=== PATIENT | female | born 1995 | race Caucasian/White ===

== ENCOUNTER 2017-06-13 17:25 | Emergency (ER) | payer BC, SELFPAY ==
[2017-06-13 17:51] VITALS: BP 124/84; PULSE 83; RESP 18; O2SAT 98; BMI 25.7
--- NOTE | 2017-06-13 18:41 | HMH.EDGENADL ---
ED Disposition Clinical Impression: Medical clearance for incarceration Disposition: Home, Self-Care Condition on Discharge: Good - Critical Care Critical Care Time: No Attestation: On 06/13/17, the high probability of a clinically significant, sudden or life threatening deterioration of the following system(s) required my full and direct attention, intervention and personal management. The time I documented below is in addition to time spent performing reported procedures but includes the following listed in this critical care notation. Medical Decision Making Vital Signs: 06/13/17 17:51 Pulse Rate [Right Brachial] 83 Respiratory Rate 18 Blood Pressure [Right Arm] 124/84 Blood Pressure Mean [Right Arm] 97 Blood Pressure Source [Right Arm] Automatic Cuff Blood Pressure Position [Right Arm] Sitting 02 Sat by Pulse Oximetry 98 Oxygen Delivery Method Room Air - Cristóbal Inquiry Pt receiving controlled substance: No Cristóbal was queried for this patient: No General Adult HPI - General Chief complaint: Medical Clearance Stated complaint: medical clearance Mode of Arrival: Ambulatory Limitations: No Limitations Description of Symptoms (Recalled from ER Triage Doc. by RN): none-med clearance - History of Present Illness HPI narrative: 21 years old white female who admitted for using heroin today she was arrested. No complaint she is here for medical clearance to go to care home. - Related Data Allergies Allergy/AdvReac Type Severity Reaction Status Date / Time No Known Allergies Allergy Unverified 05/04/17 15:25 [facility] History I have reviewed the patient's past medical history: Yes - *Social History Educational Level: Completed College Alcohol Intake: never - Psychiatric History Expresses thoughts of harming self/others: None Suicide Plan Description: No Plan ROS Obtained: Yes All systems reviewed & no additional complaints Physical Exam - General General appearance: alert, in no apparent distress - Head Head exam: atraumatic, normocephalic, normal inspection - Eye Eye exam: Present: normal appearance, PERRL, EOMI - ENT ENT exam: Present: normal exam, normal oropharynx, mucous membranes moist, TM's normal bilaterally, normal external ear exam - Neck Neck exam: Present: normal inspection, full ROM, trachea midline. Absent: meningismus, lymphadenopathy - Chest Chest inspection: Present: normal inspection, symmetric chest wall rise. Absent: tenderness - Respiratory Respiratory exam: Present: normal lung sounds bilaterally. Absent: respiratory distress - Cardiovascular Cardiovascular exam: Present: regular rate, normal rhythm. Absent: JVD - Abdominal Exam Abdominal exam: Present: soft, normal bowel sounds. Absent: distention, tenderness, guarding - Extremities Exam Extremities exam: Present: normal inspection, full ROM, normal capillary refill. Absent: calf tenderness - Back Exam Back exam: Present: normal inspection. Absent: tenderness - Neurological Exam Neurological exam: Present: alert, oriented X3 - Psychiatric Psychiatric exam: Present: normal affect, normal mood - Skin Skin exam: Present: warm, dry, intact, normal color - Lymphatic Lymphatic Findings: no adenopathy
== END 2017-06-13 18:42 ==
PROVIDERS: Emergency Provider Emergency Medicine; Family Provider Family Medicine
DX: Z02.89 Encounter for other administrative examinations (principal); F11.10 Opioid abuse, uncomplicated
CPT/HCPCS: 99282

== ENCOUNTER 2019-05-11 13:41 | Outpatient (RCR) | payer BC, SELFPAY ==
--- NOTE | 2019-05-11 14:52 | HMH.PTOPEV ---
PT Outpatient Evaluation Rehab PT Outpatient Evaluation Start: 05/11/19 14:21 Freq: Status: Active Protocol: Document 05/11/19 14:21 ZACHERY (Rec: 05/11/19 14:51 ZACHERY [id number]) Electronically Signed By Dante Carrizales, PT 05/11/19 14:21 Outpatient Therapy Subjective History Subjective History Patient is a 23 year old female presenting to outpatient PT with reports of chronic low back pain starting approximately 1 year ago of insidious onset. Pt reports hx of intermittent BLE radicular symptoms to posterior thigh L>R. No recent diagnostics to report. Pelvic alignment normal. No directional preference noted. 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 No other comorbidities to report. Chief Complaint Pain,Paresthesia Symptom Type Ache,Throb,Sharp,Dull,Numbness ,Tingling Symptoms Relieved By Rest/Positioning,Prescription Meds Prior Functional Limitations None Current Functional Limitations Reaching,Lifting,Housework, Standing,Sitting,Squatting, Recreation Activity,Walking, Bending/Stooping Symptom Description Constant but Variable Level of pain today (0-10) 6 Pain scale - at its best (0-10) 3 Pain scale - at its worst (0-10) 9 Lumbopelvic Eval Posture Thoracic Spine Posture Standing Position Neutral Lumbar Spine Posture Standing Position Increased Lordosis Assistive device Assistive Devices None / NA Gait Observation General Gait Pattern Observation No Deviations/Normal Palapation tenderness bilateral lumbar spinal tenderness Yes: 3/4 paraspinal tenderness Yes: 3/4 buttock tenderness Yes: 3/4 Accessory Movement L4 bilateral L5 bilateral S1 bilateral Range of Motion Lumbar Spine ROM Reason Not Measured Within Functional Limits Manual Muscle Test Bilateral Knee Extension Strength Grade 5 Normal Knee Flexion Strength Grade 5 Normal Hip Flexion Strength Grade 5 Normal Extensor Hallucis Longus Strength Grade 5 Normal Ankle Dorsiflexion Strength Grade 5 Normal Gastronemius/Soleus Strength Grade 5 Normal DT
== END 2019-05-11 13:45 | disposition home or self-care (01) ==
LOC: PT 13:41
PROVIDERS: PCP Family Medicine; Visit Provider Family Medicine
DX: M54.5 Low back pain (principal); M62.830 Muscle spasm of back
CPT/HCPCS: 97010; 97014; 97163; G0283

== ENCOUNTER 2020-05-31 13:56 | Outpatient (CLI) | payer BC, SELFPAY ==
[2020-05-31 14:32] VITALS: BP 140/79; PULSE 77; RESP 18; TEMP 36.6; O2SAT 99
== END 2020-05-31 14:32 | disposition home or self-care (01) ==
LOC: INF 13:58
PROVIDERS: PCP Family Medicine; Visit Provider Obstetrics & Gynecology
DX: A74.9 Chlamydial infection, unspecified (principal); A59.01 Trichomonal vulvovaginitis
CPT/HCPCS: 96372

== ENCOUNTER → 2020-06-28 14:37 | Outpatient (CLI) | payer SELFPAY ==
[2020-07-02 00:48] LABS: Neisseria gonorrhoeae, NAA Negative (Negative)
== END ==
LOC: LAB 14:38 → LAB.DROPOF 14:39
PROVIDERS: Visit Provider Obstetrics & Gynecology
DX: A54.9 Gonococcal infection, unspecified (principal)
CPT/HCPCS: 87491; 87591

== ENCOUNTER → 2020-10-08 13:40 | Outpatient (CLI) | payer OTHER, SELFPAY ==
[2020-10-08 16:20] LABS: HCG,Quantitative 21433 mIU/ml (0-5.42)
== END ==
PROVIDERS: Visit Provider Nurse Practitioner Obstetrics & Gynecology
DX: N92.6 Irregular menstruation, unspecified (principal)
CPT/HCPCS: 36415; 84702

== ENCOUNTER → 2020-11-05 09:56 | Outpatient (CLI) | payer OTHER, SELFPAY ==
--- NOTE | 2020-11-05 10:00 | US_ITS ---
PROCEDURE: US OB <= 14 WEEKS FETUS CLINICAL INDICATION: US OB before 14 wks for DATES-1st US no pa needed COMPARISON: No exams were available for comparison FINDINGS: An intrauterine gestational sac is present with a pole with a crown-rump length of 3.22cm correlating to gestational age of 10weeks 1day. heart tones are present with an FHR of 170bpm. Yolk sac is noted. IMPRESSION: Live IUP at 10 weeks 1 day. Estimated due date by Ultrasound is 06/02/2021 Dictated by: Dewayne Martins MD 11/05/2020 11:53 Dewayne Martins MD in OV 11/05/2020 11:53
== END ==
PROVIDERS: PCP Family Medicine; Visit Provider Nurse Practitioner Obstetrics & Gynecology
DX: O26.841 Uterine size-date discrepancy, first trimester (principal)
CPT/HCPCS: 76801

== ENCOUNTER 2020-12-03 15:33 | Emergency (ER) | payer OTHER, SELFPAY ==
[2020-12-03 15:40] VITALS: BP 124/69; PULSE 109; RESP 19; TEMP 36.6; O2SAT 98; BMI 32.4
--- NOTE | 2020-12-03 16:15 | HMH.EDUTC ---
[facility] [place] Disposition Clinical Impression: Low back pain Qualifiers: Chronicity: unspecified Back pain laterality: unspecified Sciatica presence: unspecified whether sciatica present Qualified Code(s): M54.5 - Low back pain Disposition: Home, Self-Care Condition on Discharge: Good Instructions: Medications and , DI for Low Back Pain Additional Instructions: Follow instructions that was given to you by your OBGYN Warm epson salt water baths as advised by OBGYN Make sure to check with pharmacy before taking any medication to make sure it is safe to take during Return if needed Follow up with OBGYN as scheduled Referrals: Rogelio Fine MD [Primary Care Provider] - As needed Time of Disposition: 16:20 Medical Decision Making - Cristóbal Inquiry Pt receiving controlled substance: No Cristóbal was queried for this patient: No Vital Signs: 12/03/20 15:40 12/03/20 16:17 Temperature 97.9 F 97.9 F Temperature Source Oral Pulse Rate 109 H Pulse Rate [Right Brachial] 109 H Respiratory Rate 19 19 Blood Pressure 124/69 Blood Pressure [Right Arm] 124/69 Blood Pressure Mean [Right Arm] 87 Blood Pressure Source [Right Arm] Automatic Cuff Blood Pressure Position [Right Arm] Sitting 02 Sat by Pulse Oximetry 98 Oxygen Delivery Method Room Air Medical Decision Narrative: Requested Urine sample for UA and patient declined states that she did not have to urinate Patient complaining of pain in her lower back area and wanted to see if she could get something for pain Patient is 12wks OB and discussed with patient that most medications used to treat muscle spasms and pain is not baby safe Patient states that she tried to call her OBGYN and they did not answer recommended transfer to the ED for further evaluation and treatment and patient declined transfer Patient OBGYN called while patient was in [facility] and advised her OTC Tylenol and hot bath soaks with epson salt and follow up in clinic on Wednesday if no improvement or straight to the ER if any worsening of symptoms and patient agreed. Patient requesting to go home and be dcd from [facility] again recommended patient collect urine to r/o UTI and transfer to the ED and patient declined all further treatment [facility] [place] HPI - General Stated complaint: 12 weeks preg back pain Time Seen by Provider: 12/03/20 16:15 Mode of Arrival: Ambulatory Source of Information: Patient Limitations: No Limitations Description of Symptoms (Recalled from Triage Doc. by RN): PATIENT IS 3 MONTHS WITH BACK PAIN SINCE NOON. SHE RATES IT 10/10 WHEN STANDING HEENT Symptoms (Recalled from RN notes): No Resp Symptoms (Recalled from RN notes): No Skin Symptoms (Recalled from RN notes): No MS Symptoms (Recalled from RN notes): Yes Functional Status (Recalled from RN notes): WNL - History of Present Illness Provider Complaint: Patient states that she has a history of back problems and sciatica States that she is 12wks OB and she went to stand up earlier and felt something pull in her lower back and states that she has been having muscle spasms ever since State that she tried to call her OBGYN and they didnt answer so she came in to see if she could get something for pain Denies bleeding - Related Data Home Medications Medication Instructions Recorded Confirmed sumatriptan succinate 100 mg tablet 100 mg PO Q2H PRN 05/24/20 11/14/20 PNV 153-FA 400 mcg-om3 35 mg-dha tab PO 10/29/20 11/14/20 25 mg-epa 5 mg-fish oil chew tablet Previous Rx's Medication Instructions Recorded famotidine 20 mg tablet 20 mg PO DAILY 90 Days #90 tab 10/09/20 Allergies Allergy/AdvReac Type Severity Reaction Status Date / Time clindamycin Allergy Verified 11/14/20 11:01 - Worker's Comp Is this a Worker's Comp case?: No [facility] History - Hepatitis A Screen Drug use history?: No High risk sexual behaviors?: No History of sexually transmitted infection?: No Currently employed?: No Childcare worker?: No
[2020-12-03 16:17] VITALS: BP 124/69; PULSE 109; RESP 19; TEMP 36.6; O2SAT 98
== END 2020-12-03 16:20 | disposition home or self-care (01) ==
PROVIDERS: Emergency Provider Nurse Practitioner; PCP Family Medicine
DX: M54.5 Low back pain (principal); Z3A.12 12 weeks gestation of pregnancy; F41.8 Other specified anxiety disorders; F17.210 Nicotine dependence, cigarettes, uncomplicated
CPT/HCPCS: 99202; G0463

== ENCOUNTER 2021-02-08 17:30 | Emergency (ER) | payer OTHER, SELFPAY ==
[2021-02-08 17:30] VITALS: BP 123/68; PULSE 102; RESP 20; TEMP 36.7; O2SAT 97; BMI 35.2
[2021-02-08 17:53] VITALS: BP 123/68; PULSE 102; RESP 20; TEMP 36.7; O2SAT 97
--- NOTE | 2021-02-08 18:05 | HMH.EDUTC ---
[facility] [place] Disposition Clinical Impression: Bronchitis Qualifiers: Weeks of gestation: 24 weeks Qualified Code(s): Z3A.24 - 24 weeks gestation of Disposition: Home, Self-Care Condition on Discharge: Good Instructions: DI for Acute Bronchitis Additional Instructions: You have been tested for COVID19. Please isolate yourself as if you are positive until test results are received. I have sent Albuterol Inhaler and Prednisone. Try to stay hydrated. You can use Robitussin or Delsym. Prescriptions: Albuterol Sulfate [Albuterol Sulfate Hfa] 2 puffs IH Q4HP PRN 30 Days #1 each PRN Reason: Wheezing Transmission Status: Pending to [id number] predniSONE [Prednisone 20mg Tab] 20 mg PO BID 5 Days #10 tab Transmission Status: Pending to [id number] Referrals: Rogelio Fine MD [Primary Care Provider] - Time of Disposition: 18:21 Medical Decision Making - Cristóbal Inquiry Pt receiving controlled substance: No Vital Signs: 02/08/21 17:30 02/08/21 17:53 Temperature 98.1 F 98.1 F Temperature Source Oral Pulse Rate 102 H Pulse Rate [Right Brachial] 102 H Respiratory Rate 20 20 Blood Pressure 123/68 Blood Pressure [Right Arm] 123/68 Blood Pressure Mean [Right Arm] 86 Blood Pressure Source [Right Arm] Automatic Cuff Blood Pressure Position [Right Arm] Sitting 02 Sat by Pulse Oximetry 97 Oxygen Delivery Method Room Air Orders (Tests/Meds): ORDERS Category Date Time Status Covid-19 Nasal PCR ([facility]) Routine Lab 02/08/21 17:43 Received [facility] [place] HPI - General Stated complaint: covid test/symptoms Time Seen by Provider: 02/08/21 18:05 Mode of Arrival: Ambulatory Source of Information: Patient Limitations: No Limitations Description of Symptoms (Recalled from Triage Doc. by RN): COVID TEST D/T EXPOSURE. C/O VOMITING, DIARRHEA, SORE THROAT, AND LOSS OF VOICE HEENT Symptoms (Recalled from RN notes): Yes Resp Symptoms (Recalled from RN notes): No Skin Symptoms (Recalled from RN notes): No MS Symptoms (Recalled from RN notes): No Functional Status (Recalled from RN notes): wnl - History of Present Illness Provider Complaint: Patient has cough, loss of voice, shortness of breath, vomiting and diarrhea. Has felt poorly for a week. Gets bronchitis frequently. She does smoke. She is 6 months . No fever. She does not have direct COVID19 exposure but her boyfriend has been exposed and is getting tested as well. Onset (ago): week(s) (1) Location: chest Relieving factors: none Exacerbating factors: none Associated symptoms: cough, malaise, nausea/vomiting Treatments prior to arrival: none - Related Data Home Medications Medication Instructions Recorded Confirmed sumatriptan succinate 100 mg tablet 100 mg PO Q2H PRN 05/24/20 11/14/20 PNV 153-FA 400 mcg-om3 35 mg-dha tab PO 10/29/20 11/14/20 25 mg-epa 5 mg-fish oil chew tablet Previous Rx's Medication Instructions Recorded famotidine 20 mg tablet 20 mg PO DAILY 90 Days #90 tab 10/09/20 Albuterol Sulfate [Albuterol 2 puffs IH Q4HP PRN 30 Days #1 each 02/08/21 Sulfate Hfa] predniSONE [Prednisone 20mg 20 mg PO BID 5 Days #10 tab 02/08/21 Tab] Allergies Allergy/AdvReac Type Severity Reaction Status Date / Time clindamycin Allergy Verified 11/14/20 11:01 - Worker's Comp Is this a Worker's Comp case?: No [facility] History - Hepatitis A Screen Drug use history?: No High risk sexual behaviors?: No History of sexually transmitted infection?: No Currently employed?: No Childcare worker?: No Do you have indoor plumbing?: Yes Do you have electricity?: Yes Attestation statement:: This patient has been screened for Hepatitis A risk factors. I have reviewed the patient's past medical history: Yes Medical History: Reports:: Anxiety, Depression Denies:: Diabetes Mellitus Type 1, Seizures Laterality Cases: Bilateral: Tonsillectomy Other Surgeries: Yes: Other Amputation: No
[2021-02-08 18:29] LABS: UTC Strep Screen (Rapid) Positive (Negative)
== END 2021-02-08 18:42 | disposition home or self-care (01) ==
PROVIDERS: Emergency Provider Physician Assistant; PCP Family Medicine
DX: J20.9 Acute bronchitis, unspecified (principal); Z20.822 Contact with and (suspected) exposure to COVID-19; Z3A.24 24 weeks gestation of pregnancy; F17.210 Nicotine dependence, cigarettes, uncomplicated
CPT/HCPCS: 87880; 99203; C9803; G0463; U0003; U0005

== ENCOUNTER 2021-02-22 11:44 | Emergency (ER) | payer OTHER, SELFPAY ==
[2021-02-22 11:44] VITALS: BP 123/73; PULSE 116; RESP 20; TEMP 36.9; O2SAT 98; BMI 34.3
--- NOTE | 2021-02-22 12:51 | HMH.EDGENADL ---
ED Disposition Clinical Impression: Cutaneous abscess Qualifiers: Site of cutaneous abscess: extremity Site of cutaneous abscess of extremity: upper extremity Laterality: left Qualified Code(s): L02.414 - Cutaneous abscess of left upper limb Disposition: Home, Self-Care Condition on Discharge: Good Instructions: DI for Skin Abscess Additional Instructions: Additional instructions for ABSCESS: Day one and two: Remove the bandage and shower the area, leaving the packing in place. Gently blot dry. Apply a bandage. Day three: Follow-up with primary care physician, clinic, or Urgent Treatment Center for packing removal and culture results. Return to the emergency department if increasing pain, swelling, redness, red streaks or fever greater than 101 degrees. Referrals: Rogelio Fine MD [Primary Care Provider] - - Critical Care Critical Care Time: No Attestation: On 02/22/21, the high probability of a clinically significant, sudden or life threatening deterioration of the following system(s) required my full and direct attention, intervention and personal management. The time I documented below is in addition to time spent performing reported procedures but includes the following listed in this critical care notation. Medical Decision Making - Cristóbal Inquiry Pt receiving controlled substance: No Vital Signs: 02/22/21 11:44 Temperature 98.5 F Temperature Source Oral Pulse Rate [Radial] 116 H Respiratory Rate 20 Blood Pressure [Right Arm] 123/73 Blood Pressure Mean [Right Arm] 89 Blood Pressure Position [Right Arm] Sitting 02 Sat by Pulse Oximetry 98 Oxygen Delivery Method Room Air Orders (Tests/Meds): ORDERS Category Date Time Status Wound Culture and Gram Stain Stat Micro 02/22/21 12:25 Received Medical Decision Narrative: The patient is allergic to clindamycin and is , which complicates antibiotic choices. I discussed the case with pharmacy. According to pharmacy, there are really no good options for antibiotics other than a single dose of vancomycin at this time or observation without antibiotics, given that there is no significant cellulitis and the patient is nontoxic. Doxycycline and Bactrim contraindicated. Zyvox is a potential, but there is limited experience in . Rifampin was also discussed. I offered the patient a dose of vancomycin prior to discharge, to be given intravenously, but she refuses. She says that given her she would prefer not to be on antibiotics, which I also think is a reasonable approach since there is no significant surrounding cellulitis and she is not toxic. I did advise her of the importance of follow-up in 2 to 3 days for recheck, packing removal, and culture results and to return to the emergency department sooner if any worsening such as spreading redness or fever. General Adult HPI - General Chief complaint: Skin/Abscess/Foreign Body Stated complaint: sore on left hand Time Seen by Provider: 02/22/21 12:30 Mode of Arrival: Ambulatory Limitations: No Limitations Description of Symptoms (Recalled from ER Triage Doc. by RN): to ed per pvt car with c/o abscess to lt wrist starting 2 days ago progressively getting worse. pt approx 6.5months preg. denies any fever, chills, nausea, vomiting - History of Present Illness HPI narrative: 2-day history of an abscess on her left wrist. No injury recalled. She denies current intravenous drug use, although she says she has a history of that in the past, but none recently. Denies fever. Currently 6-1/2 months gestation . Allergy to clindamycin which causes rash and itching. - Related Data Home Medications Medication Instructions Recorded Confirmed sumatriptan succinate 100 mg tablet 100 mg PO Q2H PRN 05/24/20 11/14/20 PNV 153-FA 400 mcg-om3 35 mg-dha tab PO 10/29/20 11/14/20 25 mg-epa 5 mg-fish oil chew tablet Previous Rx's Medication Instructions Recorded gary
[2021-02-22 13:08] VITALS: BP 124/65; PULSE 78; RESP 16; TEMP 36.6; O2SAT 98
== END 2021-02-22 13:11 | disposition home or self-care (01) ==
PROVIDERS: Emergency Provider Emergency Medicine; PCP Family Medicine
DX: L02.414 Cutaneous abscess of left upper limb (principal); Z33.1 Pregnant state, incidental
CPT/HCPCS: 10060; 87070; 87077; 87186; 87205; 99282

== ENCOUNTER 2021-02-24 10:04 | Emergency (ER) | payer OTHER, SELFPAY ==
[2021-02-24 11:54] VITALS: BP 0/0; PULSE 0; RESP 0; TEMP -17.7; TEMP 0
== END 2021-02-24 11:55 | disposition left against medical advice (07) ==
LOC: UTC 10:06
PROVIDERS: Emergency Provider Nurse Practitioner; PCP Family Medicine
DX: Z53.21 Procedure and treatment not carried out due to patient leaving prior to being seen by health care provider (principal)

== ENCOUNTER 2021-02-25 16:55 | Emergency (ER) | payer OTHER, SELFPAY ==
[2021-02-25 18:28] VITALS: BP 141/79; PULSE 74; RESP 16; TEMP 36.6; O2SAT 99; BMI 36.0
[2021-02-25 18:45] VITALS: BP 0/0; PULSE 0; RESP 0; TEMP -17.7; TEMP 0
== END 2021-02-25 18:46 | disposition home or self-care (01) ==
LOC: UTC 17:00
PROVIDERS: Emergency Provider Nurse Practitioner; PCP Family Medicine
DX: L02.414 Cutaneous abscess of left upper limb (principal)
CPT/HCPCS: 99202; G0463

== ENCOUNTER 2022-03-09 16:02 | Emergency (ER) | payer OTHER, SELFPAY ==
[2022-03-09 16:03] VITALS: BP 140/92; PULSE 98; RESP 19; TEMP 36.8; O2SAT 99; BMI 39.0
--- NOTE | 2022-03-09 18:41 | EXP.UTC ---
Discharge Plan Disposition Patient Disposition: Home, Self-Care Condition: Good Prescriptions Prescriptions: No Action sumatriptan succinate [Imitrex] 100 mg tablet 100 mg PO Q2H PRN Rx Instructions: do not exceed 2 doses per 24 hrs albuterol sulfate 8.5 GM HFA aerosol inhaler 2 puffs IH Q4HP PRN (Reason: Wheezing) 30 Days Qty: 1 0RF Referrals Follow up/Referrals: Shawna Raya APRN [Primary Care Provider] - See instructions Activity Restrictions/Add. Instructions Additional Instructions/Restrictions: *Monitor Temp, Over the counter Motrin or Tylenol as directed/as needed Tylenol every 4 hours and Motrin every 6 hours (as long as your family doctor has told you that you can take it) for fever or pain. and straight to ER if unable to lower temp less than 101.0 after medication given *Warm salt water gargles may help to soothe the throat *Throat Lozenges? *Warm fluids like tea with honey may help to soothe the throat? *Sleep elevated *Humidifier/Vaporizer Check with the pharmacist before taking Over the counter cough and cold medication where you are breast feeding Your throat swab was sent for culture. Those results are typically sent to your primary care. Be sure to follow up in 2-3 days with your family doctor/primary care physician if no improvement so they can review those result and treat if necessary. If you don?t have a primary care doctor, I recommend you get one but in the mean time, you will have to return to a walk in clinic Follow up IMMEDIATELY for new or worsening symptoms or no Noticeable improvement over the next 48-72 hours. 911 for difficulty breathing or swallowing You were tested for today for COVID19 your test result should be back in the next 24-48 hours, you may check your results on the [facility] [employer] [facility] Clinical Impressions Clinical Impression: Viral upper respiratory tract infection with cough Stand Alone Forms Stand Alone Forms: Work/School Release Instructions Patient Instructions: Cough, Coronavirus Disease 2019, Preventing the Spread of Coronavirus Discharge Instructions Discharge ED Provider: Nany Milian [facility] [place] HPI General Stated complaint: BODY ACHES, SORE THROAT Mode of Arrival: Ambulatory Source of Information: Patient Limitations: No Limitations Time Seen by Provider: 03/09/22 18:41 Description of Symptoms (Recalled from Triage Doc. by RN): bosy aches, cough, chills fatigue positive covid test HEENT Symptoms (Recalled from RN notes): Yes Resp Symptoms (Recalled from RN notes): Yes Skin Symptoms (Recalled from RN notes): No MS Symptoms (Recalled from RN notes): No Functional Status (Recalled from RN notes): n/a History of Present Illness Provider Complaint: Patient states that her 9mth old tested positive for COVID over the weekend and now she started having body aches, chills, cough and fatigue States that she took a home COVID test and it was positive so she came in here to get tested Related Data Home Medications Medication Instructions Recorded Confirmed sumatriptan succinate 100 mg 100 mg PO Q2H PRN 05/24/20 06/06/21 tablet (Imitrex) Previous Rx's Medication Instructions Recorded albuterol sulfate 90 mcg/actuation 2 puffs IH Q4HP PRN Wheezing 30 02/08/21 aerosol inhaler days #1 ea Allergies Allergy/AdvReac Type Severity Reaction Status Date / Time clindamycin Allergy Verified 06/06/21 08:35 Worker's Comp Is this a Worker's Comp case?: No PFSH PFSH Social History Smoking Status: Current every day smoker tobacco type: cigarettes packs per day: 1 alcohol intake: never substance use type: heroin and amphetamines current occupational status: other Travel in the last 8 weeks: None household members: family housing: house ROS Obtained: Yes All systems reviewed & no additional complaints except as documented and Yes Systems reviewed as appropriate & no additional complaints except a
[2022-03-09 18:50] LABS: UTC Strep Screen (Rapid) Negative (Negative)
[2022-03-09 19:25] VITALS: BP 141/80; PULSE 91; RESP 18; TEMP 37.2; O2SAT 98
== END 2022-03-09 19:26 | disposition home or self-care (01) ==
PROVIDERS: Emergency Provider Nurse Practitioner; PCP Nurse Practitioner Family
DX: U07.1 COVID-19 (principal); J06.9 Acute upper respiratory infection, unspecified; J02.9 Acute pharyngitis, unspecified; R06.2 Wheezing; M79.10 Myalgia, unspecified site; Z79.51 Long term (current) use of inhaled steroids; R53.82 Chronic fatigue, unspecified; Z88.0 Allergy status to penicillin; Z88.1 Allergy status to other antibiotic agents; Z88.3 Allergy status to other anti-infective agents
CPT/HCPCS: 87880; 99213; C9803; G0463; U0003; U0005

== ENCOUNTER 2022-05-03 15:09 | Emergency (ER) | payer OTHER, SELFPAY ==
[2022-05-03 15:33] VITALS: BP 133/86; PULSE 90; RESP 16; TEMP 36.8; O2SAT 96; BMI 38.2
--- NOTE | 2022-05-03 15:59 | EXP.UTC ---
Discharge Plan Disposition Patient Disposition: Home, Self-Care Condition: Good Prescriptions Prescriptions: No Action sumatriptan succinate [Imitrex] 100 mg tablet 100 mg PO Q2H PRN Rx Instructions: do not exceed 2 doses per 24 hrs albuterol sulfate 8.5 GM HFA aerosol inhaler 2 puffs IH Q4HP PRN (Reason: Wheezing) 30 Days Qty: 1 0RF Referrals Follow up/Referrals: Jazlyn Stern MD [Primary Care Provider] - See instructions Clinical Impressions Clinical Impression: Headache Qualifiers: Headache type: unspecified Headache chronicity pattern: acute headache Intractability: not intractable Qualified Code(s): R51.9 - Headache, unspecified Instructions Patient Instructions: DI for Chronic Pain -- Adult Discharge ED Provider: Mer Skinner [facility] General Stated complaint: ear ache, LEAL Mode of Arrival: Ambulatory Source of Information: Patient Limitations: No Limitations Time Seen by Provider: 05/03/22 15:35 Description of Symptoms (Recalled from Triage Doc. by RN): pt comes in with c/o bilateral ear pain, migraine, headache. symptoms began 2 days ago HEENT Symptoms (Recalled from RN notes): Yes Resp Symptoms (Recalled from RN notes): No Skin Symptoms (Recalled from RN notes): No MS Symptoms (Recalled from RN notes): No Functional Status (Recalled from RN notes): n/a History of Present Illness Provider Complaint: Pt states that she has a history of migraines and has had a prescription for Tramadol in the past. She states that she has had her current headache for 2 days. She reports that it is mainly on her right side and causes ear pain. She has taken Tylenol/Motrin in the past but has not had any medication today for her symptoms. Related Data Home Medications Medication Instructions Recorded Confirmed sumatriptan succinate 100 mg 100 mg PO Q2H PRN 05/24/20 06/06/21 tablet (Imitrex) Previous Rx's Medication Instructions Recorded albuterol sulfate 90 mcg/actuation 2 puffs IH Q4HP PRN Wheezing 30 02/08/21 aerosol inhaler days #1 ea Allergies Allergy/AdvReac Type Severity Reaction Status Date / Time clindamycin Allergy Verified 05/03/22 15:36 Worker's Comp Is this a Worker's Comp case?: No [facility] Disclaimer: The information contained in this section may have been updated after the patient was seen, as this information can be updated by other users. Social History Smoking Status: Current every day smoker tobacco type: cigarettes packs per day: 1 alcohol intake: never substance use type: heroin and amphetamines current occupational status: other Travel in the last 8 weeks: None household members: family housing: house ROS Obtained: Yes Systems reviewed as appropriate & no additional complaints except as documented Constitutional Constitutional: Reports as per HPI and Reports headache(s) Eyes Eyes: Reports system reviewed and no additional complaints, except as documented ENT Ears, Nose, Mouth, and Throat: Reports as per HPI, Reports otalgia and Reports headache(s) Cardiovascular Cardiovascular: Reports system reviewed and no additional complaints, except as documented Respiratory Respiratory: Reports system reviewed and no additional complaints, except as documented Gastrointestinal Gastrointestingal: Reports system reviewed and no additional complaints, except as documented Genitourinary Female Genitourinary: Reports system reviewed and no additional complaints, except as documented Musculoskeletal Musculoskeletal: Reports system reviewed and no additional complaints, except as documented Integumentary/Breasts Skin/Breast: Reports system reviewed and no additional complaints, except as documented Neurologic Neurologic: Reports system reviewed and no additional complaints, except as documented and Reports headache(s) Endocrine Endocrine: Reports system reviewed and no additional complaints, except as documented Hematologic/Lymphatic Henatologic/Ly
[2022-05-03 16:13] VITALS: BP 133/86; PULSE 90; RESP 16; TEMP 36.8
== END 2022-05-03 16:14 | disposition home or self-care (01) ==
PROVIDERS: Emergency Provider Nurse Practitioner Family; PCP Family Medicine
DX: R51.9 Headache, unspecified (principal)
CPT/HCPCS: 96372; 99212; G0463

== ENCOUNTER → 2022-06-04 13:11 | Outpatient (CLI) | payer OTHER, SELFPAY ==
[2022-06-04 13:39] LABS: Basophils # 0.2 K/mm3 (0-0.2); Basophils % 1.6 % (0.1-2.0); Eosinophils # 0.3 K/mm3 (0.0-0.4); Eosinophils % 2.6 % (0.1-12.0); Hemoglobin 14.2 g/dL (12.2-16.2); Lymphocytes # 3.1 K/mm3 (0.7-4.5); Lymphocytes % 31.6 % (10-50); Mean Corpuscular HGB Conc 33.1 g/dL (31.8-35.4); Mean Corpuscular Hemoglobin 29.4 pg (27.0-31.2); Mean Corpuscular Volume 88.8 fl (81-99); Mean Platelet Volume 8.2 fl (7.4-10.4); Monocytes # 0.4 K/mm3 (0.1-1.0); Monocytes % 4.4 % (1.7-9.3); Neutrophils # 5.9 K/mm3 (1.8-7.8); Neutrophils % 59.7 % (37.0-80.0); Platelet Count 382 K/mm3 (142-424); Red Blood Count 4.84 M/mm3 (4.20-5.40); Red Cell Distribution Width 13.8 % (11.5-17.5); White Blood Count 9.9 K/mm3 (4.8-10.8)
[2022-06-04 14:07] LABS: Alanine Aminotransferase 131 U/L (12-78); Albumin Level 4.9 g/dl (3.5-5.0); Albumin/Globulin Ratio 1.8 (1.1-1.8); Alkaline Phosphatase 181 U/L (38-126); Amylase 84 U/L (30-110); Anion Gap 17.4 mEq/L (5-15); Aspartate Amino Transferase 89 U/L (14-36); Bilirubin,Total 0.4 mg/dl (0.2-1.3); Blood Urea Nitrogen 16 mg/dl (7-17); Calcium 9.4 mg/dl (8.4-10.2); Carbon Dioxide 21 mmol/L (22.0-30.0); Chloride 105 mmol/L (98-107); Estimated Glomerular Filt Rate 100 ml/min (>60); GFR (African American) 121 ML/MIN (>60); Globulin 2.7 g/dL (1.3-3.2); Glucose 124 mg/dl (74-100); Lipase 72 U/L (23-300); Potassium 4.4 mmoL/L (3.5-5.1); Sodium 139 mmol/L (136-145); Total Protein,Serum 7.6 g/dl (6.3-8.2)
[2022-06-04 14:23] LABS: Free T4 (Free Thyroxine) 0.86 ng/dl (0.78-2.19)
[2022-06-04 14:24] LABS: HCG,Quantitative < 2 mIU/ml (0-5.42)
[2022-06-04 14:39] LABS: Thyroid Stimulating Hormone 1.59 uIU/mL (0.465-4.68)
[2022-06-06 05:09] LABS: Estradiol 67.3 pg/mL (.); FSH 2.6 mIU/mL (.); LH 8.3 mIU/mL (.)
== END ==
PROVIDERS: PCP Nurse Practitioner Family; Visit Provider Nurse Practitioner Family
DX: R11.2 Nausea with vomiting, unspecified (principal); N91.2 Amenorrhea, unspecified
CPT/HCPCS: 36415; 80053; 82150; 82670; 83001; 83002; 83690; 84439; 84443; 84702; 85025

== ENCOUNTER → 2022-06-19 08:58 | Outpatient (CLI) | payer OTHER, SELFPAY ==
--- NOTE | 2022-06-19 09:01 | US_ITS ---
FINAL REPORT TECHNIQUE: Ultrasound images of the abdomen were obtained. CLINICAL HISTORY: N/V,ABSENCE OF MENSTRUATION,ABD FULLNESS COMPARISON: none FINDINGS: ABDOMINAL ULTRASOUND COMPLETE: The liver is fatty infiltrated. Gallstones are noted in the gallbladder. The common duct measures 4 mm. The right kidney measures 10.6 cm in length and is normal in echogenicity without hydronephrosis. The left kidney measures 12.1 cm in length and is normal in echogenicity without hydronephrosis. The spleen is borderline enlarged at 12.5 cm in length. The pancreas is partially obscured by overlying bowel gas. The visualized portions of the aorta and the IVC are normal. The vena cava is unremarkable. IMPRESSION: Gallstones in the gallbladder. Fatty infiltration of the liver. Reviewed, Interpreted and Dictated by Jarred Salcedo III, MD Transcribed by Jessi Nazario Authenticated and [facility]
== END ==
PROVIDERS: PCP Nurse Practitioner Family; Visit Provider Nurse Practitioner Family
DX: R11.2 Nausea with vomiting, unspecified (principal); R19.8 Other specified symptoms and signs involving the digestive system and abdomen; N91.2 Amenorrhea, unspecified
CPT/HCPCS: 76700

== ENCOUNTER → 2022-07-14 10:06 | Outpatient (CLI) | payer OTHER, SELFPAY ==
[2022-07-14 10:55] LABS: Urine Pregnancy, HCG Qual. Negative (Negative)
[2022-07-14 11:02] LABS: Basophils # 0.2 K/mm3 (0-0.2); Basophils % 1.9 % (0.1-2.0); Eosinophils # 0.4 K/mm3 (0.0-0.4); Eosinophils % 3.6 % (0.1-12.0); Hemoglobin 14.7 g/dL (12.2-16.2); Lymphocytes # 3.2 K/mm3 (0.7-4.5); Lymphocytes % 31.3 % (10-50); Mean Corpuscular HGB Conc 32.6 g/dL (31.8-35.4); Mean Corpuscular Hemoglobin 29.8 pg (27.0-31.2); Mean Corpuscular Volume 91.2 fl (81-99); Mean Platelet Volume 9.1 fl (7.4-10.4); Monocytes # 0.5 K/mm3 (0.1-1.0); Monocytes % 5.3 % (1.7-9.3); Neutrophils # 5.9 K/mm3 (1.8-7.8); Platelet Count 371 K/mm3 (142-424); Red Blood Count 4.93 M/mm3 (4.20-5.40); Red Cell Distribution Width 13.5 % (11.5-17.5); White Blood Count 10.2 K/mm3 (4.8-10.8)
[2022-07-14 11:09] LABS: INR 1.03 (0.9-1.1); Prothrombin Time 11.1 seconds (10.1-12.5)
[2022-07-14 12:17] LABS: Chloride 106 mmol/L (98-107); Potassium 5.2 mmoL/L (3.5-5.1); Sodium 137 mmol/L (136-145)
[2022-07-14 12:19] LABS: Blood Urea Nitrogen 18 mg/dl (7-17)
[2022-07-14 12:20] LABS: Alanine Aminotransferase 120 U/L (12-78); Albumin Level 4.8 g/dl (3.5-5.0); Albumin/Globulin Ratio 1.6 (1.1-1.8); Alkaline Phosphatase 178 U/L (38-126); Anion Gap 15.2 mEq/L (5-15); Aspartate Amino Transferase 79 U/L (14-36); Bilirubin,Total 0.5 mg/dl (0.2-1.3); Calcium 9.5 mg/dl (8.4-10.2); Carbon Dioxide 21 mmol/L (22.0-30.0); Estimated Glomerular Filt Rate 100 ml/min (>60); GFR (African American) 121 ML/MIN (>60); Glucose 102 mg/dl (74-100); Total Protein,Serum 7.8 g/dl (6.3-8.2)
== END ==
PROVIDERS: PCP Nurse Practitioner Family; Visit Provider Surgery
DX: Z01.812 Encounter for preprocedural laboratory examination (principal); K80.20 Calculus of gallbladder without cholecystitis without obstruction
CPT/HCPCS: 36415; 80053; 81025; 85025; 85610

== ENCOUNTER → 2022-07-16 10:04 | Outpatient (CLI) | payer OTHER, SELFPAY ==
[2022-07-16 12:49] LABS: Alanine Aminotransferase 112 U/L (12-78); Albumin Level 4.8 g/dl (3.5-5.0); Albumin/Globulin Ratio 1.9 (1.1-1.8); Alkaline Phosphatase 168 U/L (38-126); Anion Gap 13.8 mEq/L (5-15); Aspartate Amino Transferase 59 U/L (14-36); Bilirubin,Total 0.5 mg/dl (0.2-1.3); Blood Urea Nitrogen 15 mg/dl (7-17); Calcium 9.3 mg/dl (8.4-10.2); Carbon Dioxide 24 mmol/L (22.0-30.0); Chloride 102 mmol/L (98-107); Estimated Glomerular Filt Rate 85 ml/min (>60); GFR (African American) 103 ML/MIN (>60); Globulin 2.5 g/dL (1.3-3.2); Glucose 96 mg/dl (74-100); Potassium 4.8 mmoL/L (3.5-5.1); Sodium 135 mmol/L (136-145); Total Protein,Serum 7.3 g/dl (6.3-8.2)
[2022-07-18 23:22] LABS: Hep A Ab, IgM NEGATIVE; Hepatitis B Core Antibody IgM NEGATIVE; Hepatitis B Surface Antigen NEGATIVE; Hepatitis C Antibody NON REACTIVE
== END ==
PROVIDERS: PCP Nurse Practitioner Family; Visit Provider Surgery
DX: K80.20 Calculus of gallbladder without cholecystitis without obstruction (principal)
CPT/HCPCS: 36415; 80053; 80074

== ENCOUNTER 2022-07-20 06:22 | Day surgery (SDC) | payer OTHER, SELFPAY ==
[2022-07-15 14:21] VITALS: BMI 41.5
[2022-07-20] VITALS (11 sets, daily range): BP systolic 118–172; BP diastolic 38–102; PULSE 82–104; RESP 12–18; TEMP 36.3–43; O2SAT 95–98
--- NOTE | 2022-07-20 08:22 | P.OP_ITS ---
Date of procedure: 07/20/22 Pre-op Diagnosis:: Symptomatic gallstones, abnormal liver function test Post-op Diagnosis:: Same Procedure performed:: Laparoscopic cholecystectomy Laparoscopic liver biopsy Surgeon:: Jarred Lee MD CORRECTIONS OFFICER:: Oscar Pardo Anesthesia: GETA Estimated blood loss (mL): 10 Clinical Note:: Patient is a 27-year-old female referred by Dr. Stern's office for gallstones.? Patient had apparently undergone blood work which revealed slight elevation of transaminases and alkaline phosphatase.? She had a gallbladder ultrasound which reveals gallstones and fatty infiltration of the liver.? Common bile duct measures 4 mm.? She was under the impression that the gallbladder may be causing the fatty liver.? However, she has had symptoms stating that whenever she eats or drinks anything or vapes she has nausea, gagging, and vomiting.? This has been going on about 2 months.? It occurs with most foods usually within 30 to 60 minutes postprandially.? She denies any history of hepatitis.? She is 1 year status post .? Operative findings:: She had findings of significant steatohepatitis and hepatomegaly. Gallbladder was somewhat distended with moderate stone. Operative note:: Patient was taken to the operating room. She was given preoperative intravenous antibiotics. In the operating room she is placed in a supine position. General anesthesia was induced via endotracheal tube. Abdomen was prepped and draped in the standard surgical fashion. Subumbilical skin incision was made and while performing abdominal wall lift Veress needle was inserted. CO2 pneumoperitoneum was achieved to 15 mmHg. 11 mm optical trocar was inserted at the umbilicus. Intraperitoneal contents were visualized. She was positioned in reverse Trendelenburg left side down. A couple of 5 mm trocars were inserted in the right upper abdomen. 10 mm trocar was inserted in the epigastrium. She was found to have findings of significant fatty liver. Gallbladder was identified and grasped retracted anteriorly and superiorly over the dome of the liver. Infundibulum of the gallbladder was retracted anterior laterally. Blunt dissection was carried out the neck of the gallbladder bluntly incising the visceral peritoneum. Dissection was carried out identifying the cystic duct and cystic artery and the critical view of safety. The cystic duct was isolated, multiply clipped, and sharply divided. Cystic artery was carefully coagulated with BENITO ultrasonic harmonic dea and divided. Gallbladder was dissected free from the liver in a retrograde fashion using BENITO ultrasonic harmonic dea. Gallbladder was placed within an Endo Catch retrieval device and removed from the peritoneal cavity via the umbilical trocar site which did require some stretching of the fascial incision for delivery. A small portion of the liver above the body of the gallbladder was excised using BENITO ultrasonic harmonic dea and removed as liver biopsy. There was good hemostasis but the area was cauterized to assure hemostasis. Trocars were then removed as CO2 pneumoperitoneum was evacuated. Fascia at the umbilicus was closed with a couple of interrupted 0 Vicryl sutures. 0 Vicryl suture was placed in the anterior rectus fascia at the epigastric site. Local anesthetic was infiltrated. Skin incisions were closed with 4-0 Monocryl in a subcuticular fa shion. Dermabond and clean dry sterile dressings were applied. Condition: stable Disposition: PACU Complications:: None immediately apparent
--- NOTE | 2022-07-20 08:29 | P.PN_ITS ---
[facility] Disclaimer: The information contained in this section may have been updated after the patient was seen, as this information can be updated by other users. Medical History Allergies Anxiety Bronchitis Depression Gallbladder disease History of COVID-19 History of gastroesophageal reflux (GERD) Migraine Surgical History History of section [place] teeth removed Family History Other Cancer Heart disease Social History (Updated 07/20/22 @ 06:44 by Junie Shoemaker RN) Smoking Status: Current every day smoker tobacco type: cigarettes packs per day: 1 years smoked: 10 alcohol intake: never substance use type: amphetamines current occupational status: unemployed Travel in the last 8 weeks: None household members: family housing: house caffeine: Yes [facility] Anesthesia Checklist Patient Identification Patient Identification: Verbal (Name & ) Structural Data Admitted From: Home Planned Operative Procedure/s: lap renée Consent for Planned Operative Procedure(s) Verified: Yes Additional verifications Anesthesia Reactions: No Hx Blood Transfusions: No Blood Transfusion Reaction: No Airway Assessment C-Spine Mobility Assessed: Yes TMJ Mobility Assessed: Yes Dentition: Good Dentition Neurological Assessment Level of Consciousness: Awake, Alert and Appropriate Anesthesia Plan Anesthesia Risk discussed: Yes Anesthesia Plan: Verified ASA Class: II Anesthesia Type: General
--- NOTE | 2022-07-20 08:29 | EXP.ANES.I ---
[facility] Anesthesia Record Part I Anesthesia Record I Intake, IV Amount: 1,500 Estimated blood loss (mL): 0 Urine output (mL): 0 Blood Pressure: 172/102 SaO2: 95 Pulse Rate: 102 Respiratory Rate: 12 Temperature: 99 F Patient is:: Awake and Stable Stable to PACU at:: 08:25
--- NOTE | 2022-07-24 16:18 | EXP.ANES.II ---
[facility] Anesthesia Record Part II Anesthesia Record Part II Discharge Time: 08:55 Destination: Surgical Day Care (OP Surgery) PACU nurse assessment reviewed?: Yes Patient Condition:: Good Anesthesia Complications:: None Swallowing reflex intact?: Yes Cyanosis?: No Blood Pressure: 149/85 Pulse Rate: 82 Temperature: 97.6 F Mental Status: Alert & Oriented Pain level:: 0 Nausea and/or vomitting:: None Intake, IV Amount: 0
[2022-07-24 16:19] VITALS: BP 149/85; PULSE 82; TEMP 36.4
== END 2022-07-20 09:40 | disposition home or self-care (01) ==
PROVIDERS: PCP Nurse Practitioner Family; Visit Provider Surgery
PROC: 0FT44ZZ Resection of Gallbladder, Percutaneous Endoscopic Approach (ICD-10-PCS; CPT 47562; principal; 2022-07-20 07:30)
DX: K80.10 Calculus of gallbladder with chronic cholecystitis without obstruction (principal); K75.81 Nonalcoholic steatohepatitis (NASH); R16.0 Hepatomegaly, not elsewhere classified; F17.210 Nicotine dependence, cigarettes, uncomplicated
CPT/HCPCS: 47562; 47379; 96374; J2405; J2710

== ENCOUNTER → 2022-10-28 11:25 | Outpatient (CLI) | payer OTHER, SELFPAY ==
[2022-12-02 00:20] LABS: Antinuclear Antibodies (ANA) Negative
== END ==
PROVIDERS: PCP Nurse Practitioner Family; Visit Provider Nurse Practitioner
DX: K76.0 Fatty (change of) liver, not elsewhere classified (principal)
CPT/HCPCS: 36415; 86038

== ENCOUNTER → 2022-11-02 11:17 | Outpatient (CLI) | payer OTHER, SELFPAY ==
[2022-11-02 13:23] LABS: HCG,Quantitative 1998 mIU/ml (0-5.42)
[2022-11-03 10:35] LABS: Progesterone 5.1 ng/mL (.)
== END ==
PROVIDERS: PCP Nurse Practitioner Family; Visit Provider Obstetrics & Gynecology
DX: N92.6 Irregular menstruation, unspecified (principal); Z32.00 Encounter for pregnancy test, result unknown
CPT/HCPCS: 36415; 84144; 84702

== ENCOUNTER → 2022-12-01 14:07 | Outpatient (CLI) | payer OTHER, SELFPAY ==
[2022-12-01 14:46] VITALS: BMI 41.5
== END ==
PROVIDERS: PCP Nurse Practitioner Family; Visit Provider Nurse Practitioner
DX: Z71.3 Dietary counseling and surveillance (principal); R74.01 Elevation of levels of liver transaminase levels; K75.81 Nonalcoholic steatohepatitis (NASH)
CPT/HCPCS: 97802

== ENCOUNTER 2023-09-09 12:38 | Emergency (ER) | payer OTHER, SELFPAY ==
[2023-09-09 12:45] VITALS: BP 140/73; PULSE 97; RESP 19; TEMP 36.4; O2SAT 98; BMI 42.0
--- NOTE | 2023-09-09 13:17 | EXP.UTC ---
Discharge Plan Disposition Patient Disposition: Home, Self-Care Condition: Good Prescriptions Prescriptions: New azithromycin [Zithromax] 250 mg tablet 250 mg PO UD DOSE PK Qty: 6 0RF Rx Instructions: Take two (2) tablets today, then one (1) tablet days #2 thru #5 ibuprofen [IBU] 800 mg tablet 800 mg PO Q8HP PRN (Reason: Moderate Pain) Qty: 30 0RF methylprednisolone 4 mg Tablets,Dose Pack 4 mg PO DIRECTED 6 Days Qty: 21 0RF Rx Instructions: Take 1 pack as directed for 6 days ondansetron 4 mg Tablet,Disintegrating 4 mg PO Q8H PRN (Reason: Nausea) Qty: 8 0RF No Action glyburide 5 mg tablet See Rx Instructions .ROUTE .COMPLEX Patient Comments: TAKE 2 TABLETS BY MOUTH TWICE DAILY WITH MEALS Rx Instructions: TAKE 2 TABLETS BY MOUTH TWICE DAILY WITH MEALS famotidine 20 mg tablet 20 mg PO BID Patient Comments: TAKE 1 TABLET BY MOUTH TWICE DAILY Referrals Follow up/Referrals: Camille Turcios APRN [Primary Care Provider] - See instructions Activity Restrictions/Add. Instructions Additional Instructions/Restrictions: Drink plenty of fluids. Take tylenol or ibuprofen for pain or fever. Take the medications as directed. Follow up with your regular doctor. GO TO THE ER FOR ANY WORSENING SYMPTOMS Clinical Impressions Clinical Impression: Otitis media, Sinusitis, Migraine Instructions Patient Instructions: Middle Ear Infection, DI for Migraine Discharge ED Provider: Charlie Downing [facility] General Stated complaint: both ears clogged, migraine Time Seen by Provider: 09/09/23 13:16 Related Data Home Medications Medication Instructions Recorded Confirmed famotidine 20 mg tablet 20 mg PO BID 09/09/23 09/09/23 glyburide 5 mg tablet See Rx Instructions .Route .COMPLEX 09/09/23 09/09/23 Previous Rx's Medication Instructions Recorded azithromycin 250 mg tablet 250 mg PO UD DOSE PK #6 tabs 09/09/23 (Zithromax) ibuprofen 800 mg tablet (IBU) 800 mg PO Q8HP PRN Moderate Pain 09/09/23 #30 tabs methylprednisolone 4 mg tablets in 4 mg PO DIRECTED 6 days #21 tabs 09/09/23 a dose pack ondansetron 4 mg disintegrating 4 mg PO Q8H PRN Nausea #8 tabs 09/09/23 tablet Allergies Allergy/AdvReac Type Severity Reaction Status Date / Time clindamycin Allergy ITCHING Verified 09/09/23 13:25 [facility] Disclaimer: The information contained in this section may have been updated after the patient was seen, as this information can be updated by other users. Medical History (Updated 09/09/23 @ 13:45 by Charlie Downing APRN) Elevated ALT measurement Elevated AST (SGOT) NAFLD (nonalcoholic fatty liver disease) Steatohepatitis Fatty liver Depression Anxiety History of COVID-19 Bronchitis Migraine History of gastroesophageal reflux (GERD) Gallbladder disease Allergies Surgical History History of laparoscopic cholecystectomy [place] teeth removed History of section Family History Other Cancer Heart disease Social History Smoking Status: Current every day smoker tobacco type: cigarettes packs per day: 1 years smoked: 10 alcohol intake: never substance use type: amphetamines current occupational status: unemployed Travel in the last 8 weeks: None household members: family housing: house caffeine: Yes ROS Obtained: Yes All systems reviewed & no additional complaints except as documented Constitutional Constitutional: Denies chills, Reports fever(s) and Reports poor appetite Eyes Eyes: Denies eye discharge ENT Ears, Nose, Mouth, and Throat: Denies ear discharge, Reports otalgia, Denies hearing loss, Denies sinus pain and Reports sore throat Cardiovascular Cardiovascular: Denies chest pain and Denies dyspnea Respiratory Respiratory: Denies chest congestion, Reports cough and Denies dyspnea Gastrointestinal Gastrointestingal: Denies abdominal pain, diarrhea, nausea or vomiting Musculoskeletal Musculoskeletal: Denies arthralgias Integumentary/Breasts Skin/Breast: Denies rash Physical Exam General General appearance: alert and in no apparent distress Head Head exam: atraumatic, normocephalic and normal inspection Eye Eye exam: Present normal appearance; Absent PERRL or EOMI ENT ENT exam: Present mucous membranes moist and normal external ear exam Expanded ENT Exam TM/Canal exam: Bilateral TM: erythema, bulging and effusion Nose exam: Absent sinus tenderness Nasal speculum exam: Bilateral: normal Mouth exam: Present normal external inspection and other; Absent drooling Teeth exam: Present normal inspection Throat exam: Present tonsillar erythema and tonsillomegaly Neck Neck exam: Present normal inspection, full ROM and trachea midline; Absent tenderness, meningismus or lymphadenopathy Chest Chest inspection: Present normal inspection and symmetric chest wall rise; Absent tenderness Respiratory Respiratory exam: Present normal lung sounds bilaterally; Absent respiratory distress, wheezes or stridor Cardiovascular Cardiovascular exam: Present regular rate, normal rhythm and normal heart sounds; Absent tachycardia or irregular rhythm Abdominal Exam Abdominal exam: Present soft and normal bowel sounds; Absent distention, tenderness, guarding, rebound or rigidity Extremities Exam Extremities exam: Present normal inspection and normal capillary refill; Absent tenderness, joint swelling or calf tenderness Back Exam Back exam: Present normal inspection and full ROM; Absent tenderness, CVA tenderness (R) or CVA tenderness (L) Neurological Exam Neurological exam: Present alert, oriented X3, CN II-XII intact, normal gait and reflexes normal; Absent motor sensory deficit Psychiatric Psychiatric exam: Present normal affect and normal mood Skin Skin exam: Present warm, dry, intact and normal color Lymphatic Lymphatic Findings: no adenopathy Medical Decision Making Medical Records Medical records reviewed: No I reviewed the patient's medical records. Cristóbal Inquiry Pt receiving controlled substance: No Lab Data Lab results reviewed: Yes I reviewed the patient's lab results.
[2023-09-09 13:51] VITALS: BP 140/73; PULSE 99; RESP 18; TEMP 37.2; O2SAT 100
== END 2023-09-09 13:51 | disposition home or self-care (01) ==
PROVIDERS: Emergency Provider Nurse Practitioner Family; PCP Nurse Practitioner
DX: H66.93 Otitis media, unspecified, bilateral (principal); J01.90 Acute sinusitis, unspecified; G43.909 Migraine, unspecified, not intractable, without status migrainosus; F17.210 Nicotine dependence, cigarettes, uncomplicated
CPT/HCPCS: 99212; 99214; G0463

== ENCOUNTER 2023-12-10 12:42 | Emergency (ER) | payer OTHER, SELFPAY ==
[2023-12-10 12:53] VITALS: BP 119/73; PULSE 93; RESP 16; TEMP 36.7; O2SAT 98; BMI 39.9
--- NOTE | 2023-12-10 13:07 | EXP.UTC ---
Discharge Plan Disposition Patient Disposition: Home, Self-Care Condition: Good Prescriptions Prescriptions: New sulfamethoxazole-trimethoprim [Bactrim DS] 800-160 mg Tablet 1 tab PO BID Qty: 20 0RF cephalexin 500 mg capsule 500 mg PO QID Qty: 40 0RF mupirocin 2 % ointment 1 applic topical TID 7 Days Qty: 15 0RF No Action glyburide 5 mg tablet See Rx Instructions .ROUTE .COMPLEX Patient Comments: TAKE 2 TABLETS BY MOUTH TWICE DAILY WITH MEALS Rx Instructions: TAKE 2 TABLETS BY MOUTH TWICE DAILY WITH MEALS famotidine 20 mg tablet 20 mg PO BID Patient Comments: TAKE 1 TABLET BY MOUTH TWICE DAILY azithromycin [Zithromax] 250 mg tablet 250 mg PO UD DOSE PK Qty: 6 0RF Rx Instructions: Take two (2) tablets today, then one (1) tablet days #2 thru #5 ibuprofen [IBU] 800 mg tablet 800 mg PO Q8HP PRN (Reason: Moderate Pain) Qty: 30 0RF methylprednisolone 4 mg Tablets,Dose Pack 4 mg PO DIRECTED 6 Days Qty: 21 0RF Rx Instructions: Take 1 pack as directed for 6 days ondansetron 4 mg Tablet,Disintegrating 4 mg PO Q8H PRN (Reason: Nausea) Qty: 8 0RF Referrals Follow up/Referrals: Camille Turcios APRN [Primary Care Provider] - See instructions Jai Daniels MD [Staff Physician] - See instructions Activity Restrictions/Add. Instructions Additional Instructions/Restrictions: Watch the wound for signs of worsening infection, such as worsening redness, swelling, drainage, fever. etc. Apply warm wet compresses to the affected area three or four times per day. Take tylenol or ibuprofen for pain. Follow up with your regular doctor. Follow up with the surgeon. I put in a referral to Dr. Daniels. Please call his office and schedule an appointment. His office phone number will be on this paperwork. GO TO THE ER FOR ANY WORSENING SYMPTOMS OR CONCERNS. Clinical Impressions Clinical Impression: Abscess of skin of breast, Cellulitis Instructions Patient Instructions: Cellulitis Print Language Print Language: Faroese Discharge ED Provider: Charlie Downing [facility] General Stated complaint: poss infected insect bite on L breast area Mode of Arrival: Ambulatory Source of Information: Patient Limitations: No Limitations Time Seen by Provider: 12/10/23 13:07 Description of Symptoms (Recalled from Triage Doc. by RN): Patient reports a possible insect bite on her left breast. Complaint of extreme redness, swelling with black center. HEENT Symptoms (Recalled from RN notes): No Resp Symptoms (Recalled from RN notes): No Skin Symptoms (Recalled from RN notes): Yes MS Symptoms (Recalled from RN notes): No Functional Status (Recalled from RN notes): wnl History of Present Illness Provider Complaint: She states that for the past 3 days she has had a worsening area of tenderness, redness and swelling. She denies any fever/chills/malaise. Related Data Home Medications ?Medication ?Instructions ?Recorded ?Confirmed famotidine 20 mg tablet 20 mg PO BID 09/09/23 09/09/23 glyburide 5 mg tablet See Rx Instructions .Route .COMPLEX 09/09/23 09/09/23 Previous Rx's ?Medication ?Instructions ?Recorded azithromycin 250 mg tablet 250 mg PO UD DOSE PK #6 tabs 09/09/23 (Zithromax) ibuprofen 800 mg tablet (IBU) 800 mg PO Q8HP PRN Moderate Pain 09/09/23 #30 tabs methylprednisolone 4 mg tablets in 4 mg PO DIRECTED 6 days #21 tabs 09/09/23 a dose pack ondansetron 4 mg disintegrating 4 mg PO Q8H PRN Nausea #8 tabs 09/09/23 tablet cephalexin 500 mg capsule 500 mg PO QID #40 caps 12/10/23 mupirocin 2 % topical ointment 1 applic topical TID 7 days #15 12/10/23 grams sulfamethoxazole 800 1 tab PO BID #20 tabs 12/10/23 mg-trimethoprim 160 mg tablet (Bactrim DS) Allergies Allergy/AdvReac Type Severity Reaction Status Date / Time clindamycin Allergy ITCHING Verified 09/09/23 13:25 Worker's Comp Is this a Worker's Comp case?: No [facility] Disclaimer: The information contained in this section may have been updated after the patient was seen, as this information can be updated by other users. Medical History Elevated ALT measurement Elevated AST (SGOT) NAFLD (nonalcoholic fatty liver disease) Steatohepatitis Fatty liver Depression Anxiety History of COVID-19 Bronchitis Migraine History of gastroesophageal reflux (GERD) Gallbladder disease Allergies Surgical History History of laparoscopic cholecystectomy [place] teeth removed History of section Family History Other Cancer Heart disease Social History Smoking Status: Current every day smoker tobacco type: cigarettes packs per day: 1 years smoked: 10 alcohol intake: never substance use type: amphetamines current occupational status: unemployed Travel in the last 8 weeks: None household members: family housing: house caffeine: Yes ROS Obtained: Yes All systems reviewed & no additional complaints except as documented Constitutional Constitutional: Denies chills and Denies fever(s) Eyes Eyes: Denies eye discharge ENT Ears, Nose, Mouth, and Throat: Denies dizziness, Denies otalgia and Denies sore throat Cardiovascular Cardiovascular: Denies chest pain Respiratory Respiratory: Denies shortness of breath, Denies chest congestion, Denies cough, Denies stridor and Denies wheezing Gastrointestinal Gastrointestingal: Denies nausea or vomiting Musculoskeletal Musculoskeletal: Reports system reviewed and no additional complaints, except as documented and Denies arthralgias Integumentary/Breasts Skin/Breast: Reports as per HPI Neurologic Neurologic: Denies dizziness and Denies paresthesias Allergic/Immunologic Allergic/Immunologic: Denies wheezing Physical Exam General General appearance: alert and in no apparent distress Head Head exam: atraumatic, normocephalic and normal inspection Eye Eye exam: Present normal appearance, PERRL and EOMI ENT ENT exam: Present normal exam, normal oropharynx, mucous membranes moist, TM's normal bilaterally and normal external ear exam Neck Neck exam: Present normal inspection, full ROM and trachea midline; Absent meningismus or lymphadenopathy Chest Chest inspection: Present normal inspection and symmetric chest wall rise; Absent tenderness Respiratory Respiratory exam: Present normal lung sounds bilaterally; Absent respiratory distress Cardiovascular Cardiovascular exam: Present regular rate and normal rhythm; Absent JVD Abdominal Exam Abdominal exam: Present soft and normal bowel sounds; Absent distention, tenderness or guarding Extremities Exam Extremities exam: Present normal inspection, full ROM and normal capillary refill; Absent calf tenderness Back Exam Back exam: Present normal inspection; Absent tenderness Neurological Exam Neurological exam: Present alert and oriented X3 Psychiatric Psychiatric exam: Present normal affect and normal mood Skin Skin exam: Present erythema (there is an area of redness and induration that measures 3 centameters. no open wound or drainage. ) Lymphatic Lymphatic Findings: no adenopathy Medical Decision Making Medical Records Medical records reviewed: No I reviewed the patient's medical records. Cristóbal Inquiry Pt receiving controlled substance: No Vital Signs: 12/10/23 12:53 Temperature 98.0 F Temperature Source Oral Pulse Rate [Radial] 93 H Respiratory Rate 16 Blood Pressure [Right Arm] 119/73 Blood Pressure Mean [Right Arm] 88 Blood Pressure Source [Right Arm] Automatic Cuff Blood Pressure Position [Right Arm] Sitting 02 Sat by Pulse Oximetry 98 Oxygen Delivery Method Room Air
[2023-12-10] MEDS: LIDOCAINE 1% 5ML PF VIAL IM (13:49)
[2023-12-10] MEDS: cefTRIAXone 1GM VIAL 1 GM IM (13:49)
[2023-12-10 14:04] VITALS: BP 119/73; PULSE 93; RESP 16; TEMP 36.7; O2SAT 98
== END 2023-12-10 14:04 | disposition home or self-care (01) ==
PROVIDERS: Emergency Provider Nurse Practitioner Family; PCP Nurse Practitioner
DX: N61.1 Abscess of the breast and nipple (principal)
CPT/HCPCS: 96372; 99212; 99214; G0463; J0696

== ENCOUNTER 2023-12-10 19:37 | Emergency (ER) | payer OTHER, SELFPAY ==
[2023-12-10 19:45] VITALS: BP 130/82; PULSE 99; RESP 18; TEMP 36.8; O2SAT 100; BMI 39.9
--- NOTE | 2023-12-10 20:02 | PC.NURSE ---
Informed consent signed
[2023-12-10] MEDS: LIDOCAINE 1% W/EPI 1:100,000 20ML VIAL 20 ML IJ (20:05)
[2023-12-10] MEDS: LIDOCAINE/PRILOCAINE 5GM TUBE 5 GM TP (20:06)
--- NOTE | 2023-12-10 20:19 | ED_ITS ---
Discharge Plan Disposition Patient Disposition: Home, Self-Care Condition: Good Prescriptions Prescriptions: No Action glyburide 5 mg tablet See Rx Instructions .ROUTE .COMPLEX Patient Comments: TAKE 2 TABLETS BY MOUTH TWICE DAILY WITH MEALS Rx Instructions: TAKE 2 TABLETS BY MOUTH TWICE DAILY WITH MEALS famotidine 20 mg tablet 20 mg PO BID Patient Comments: TAKE 1 TABLET BY MOUTH TWICE DAILY azithromycin [Zithromax] 250 mg tablet 250 mg PO UD DOSE PK Qty: 6 0RF Rx Instructions: Take two (2) tablets today, then one (1) tablet days #2 thru #5 ibuprofen [IBU] 800 mg tablet 800 mg PO Q8HP PRN (Reason: Moderate Pain) Qty: 30 0RF methylprednisolone 4 mg Tablets,Dose Pack 4 mg PO DIRECTED 6 Days Qty: 21 0RF Rx Instructions: Take 1 pack as directed for 6 days ondansetron 4 mg Tablet,Disintegrating 4 mg PO Q8H PRN (Reason: Nausea) Qty: 8 0RF sulfamethoxazole-trimethoprim [Bactrim DS] 800-160 mg Tablet 1 tab PO BID Qty: 20 0RF cephalexin 500 mg capsule 500 mg PO QID Qty: 40 0RF mupirocin 2 % ointment 1 applic topical TID 7 Days Qty: 15 0RF Referrals Follow up/Referrals: Camille Turcios APRN [Primary Care Provider] - See instructions Activity Restrictions/Add. Instructions Additional Instructions/Restrictions: You were evaluated in the emergency department today. Please take the antibiotics that were prescribed to you by the urgent treatment center. Complete the full course as prescribed. Take Tylenol and ibuprofen at home as needed for pain. Keep your wound clean and dry. Do not submerge under any water. Return to the emergency department for new or worsening symptoms. Clinical Impressions Clinical Impression: Abscess of breast, left Instructions Patient Instructions: DI for Incision and Drainage of a Skin Abscess, DI for Skin Abscess Print Language Print Language: Maltese Discharge ED Provider: Dina Parisi General Adult HPI General Chief complaint: Skin/Abscess/Foreign Body Stated complaint: bite on left breast Time Seen by Provider: 12/10/23 19:43 Mode of Arrival: Ambulatory Source of Information: Patient Limitations: No Limitations Description of Symptoms (Recalled from ER Triage Doc. by RN): Pt ambulatory to ED with c/o of left breast bug bite that happen a week ago. Pt states being seen by [facility] today and recieved an antibiotic shot and a precription for antibiotic. Pt states that today her 2 year old jumped on her and hit the bite and after that the bite appeared worse. Upon assessment pt has a large evaristo raised area on her left breast. Pt states having STAPH on her hand in the past. Pt denies any fevers at home. History of Present Illness HPI narrative: This patient is a 28-year-old female with history of fatty liver and GERD presenting to the emergency department for evaluation with concern for a large swollen area on her left upper breast. She first noticed it about a week and a half ago but it has progressively gotten worse. She was evaluated in the urgent treatment center today and diagnosed with an abscess. She was discharged home on antibiotic per the patient. On medical record review, it looks like she was given topical mupirocin ointment as well as oral Bactrim and Keflex. She came in here because it appears more irritated after her son accidentally hit it earlier and is more painful. Patient denies any systemic symptoms, such as fevers, chills, nausea, or other concerns. She does report a history of staph infections. Related Data Home Medications ?Medication ?Instructions ?Recorded ?Confirmed famotidine 20 mg tablet 20 mg PO BID 09/09/23 09/09/23 glyburide 5 mg tablet See Rx Instructions .Route .COMPLEX 09/09/23 09/09/23 Previous Rx's ?Medication ?Instructions ?Recorded azithromycin 250 mg tablet 250 mg PO UD DOSE PK #6 tabs 09/09/23 (Zithromax) ibuprofen 800 mg tablet (IBU) 800 mg PO Q8HP PRN Moderate Pain 09/09/23 #30 tabs methylprednisolone 4 mg tablets in 4 mg PO DIRECTED 6 days #21 tabs 09/09/23 a dose pack ondansetron 4 mg disintegrating 4 mg PO Q8H PRN Nausea #8 tabs 09/09/23 tablet cephalexin 500 mg capsule 500 mg PO QID #40 caps 12/10/23 mupirocin 2 % topical ointment 1 applic topical TID 7 days #15 12/10/23 grams sulfamethoxazole 800 1 tab PO BID #20 tabs 12/10/23 mg-trimethoprim 160 mg tablet (Bactrim DS) Allergies Allergy/AdvReac Type Severity Reaction Status Date / Time clindamycin Allergy ITCHING Verified 09/09/23 13:25 [facility] Disclaimer: The information contained in this section may have been updated after the patient was seen, as this information can be updated by other users. Medical History Elevated ALT measurement Elevated AST (SGOT) NAFLD (nonalcoholic fatty liver disease) Steatohepatitis Fatty liver Depression Anxiety History of COVID-19 Bronchitis Migraine History of gastroesophageal reflux (GERD) Gallbladder disease Allergies Surgical History History of laparoscopic cholecystectomy [place] teeth removed History of section Family History Other Cancer Heart disease Social History Smoking Status: Current every day smoker tobacco type: cigarettes packs per day: 1 years smoked: 10 alcohol intake: never substance use type: amphetamines current occupational status: unemployed Travel in the last 8 weeks: None household members: family housing: house caffeine: Yes ROS Obtained: Yes All systems reviewed & no additional complaints except as documented Physical Exam General General appearance: alert and in no apparent distress Head Head exam: atraumatic and normocephalic Eye Eye exam: Present normal appearance, PERRL and EOMI ENT ENT exam: Present normal exam, normal oropharynx, mucous membranes moist and normal external ear exam Neck Neck exam: Present normal inspection, full ROM and trachea midline; Absent tenderness Chest Chest inspection: Present symmetric chest wall rise; Absent tenderness Expanded Chest Exam Female Torso: 2 1. 6 cm abscess to the left upper breast with a small area of necrosis in the center. Palpable fluctuance. No significant red streaking away from the lesion. No significant lymphadenopathy. Respiratory Respiratory exam: Present normal lung sounds bilaterally; Absent respiratory distress, wheezes, stridor or accessory muscle use Cardiovascular Cardiovascular exam: Present regular rate and normal rhythm Abdominal Exam Abdominal exam: Present soft; Absent distention, tenderness or guarding Extremities Exam Extremities exam: Present normal inspection, full ROM and normal capillary refill; Absent tenderness or edema Back Exam Back exam: Present normal inspection and full ROM; Absent tenderness Neurological Exam Neurological exam: Present alert, oriented X3, CN II-XII intact and normal gait; Absent motor sensory deficit Psychiatric Psychiatric exam: Present normal affect and normal mood Skin Skin exam: Present warm and dry Medical Decision Making Medical Records Medical records reviewed: Yes I reviewed the patient's medical records. Cristóbal Inquiry Pt receiving controlled substance: No Vital Signs: 12/10/23 19:45 12/10/23 21:08 Temperature 98.2 F 98.2 F Temperature Source Oral Oral Pulse Rate 91 H Pulse Rate [Left Radial] 99 H Respiratory Rate 18 18 Blood Pressure 110/79 Blood Pressure [Right Arm] 130/82 Blood Pressure Mean [Right Arm] 98 Blood Pressure Source Automatic Cuff Blood Pressure Source [Right Arm] Automatic Cuff Blood Pressure Position Sitting Blood Pressure Position [Right Arm] Sitting 02 Sat by Pulse Oximetry 100 Oxygen Delivery Method Room Air Room Air Lab Data Lab results reviewed: Yes I reviewed the patient's lab results. Orders (Tests/Meds): ED MEDICATIONS Discontinued Medications Generic Name Dose Route Start Last Admin Trade Name Freq PRN Reason Stop Dose Admin Acetaminophen 1,000 mg 12/10/23 20:45 12/10/23 20:58 Acetaminophen 500mg Tab PO 12/10/23 20:46 1,000 mg ONCE ONE Administration Ibuprofen 800 mg 12/10/23 20:45 12/10/23 20:58 Ibuprofen 400 Mg Tablet PO 12/10/23 20:46 800 mg ONCE ONE Administration Lidocaine/Epinephrine 20 ml 12/10/23 19:55 12/10/23 20:05 Lidocaine 1% W/Epi 1:100,000 20ml Vial IJ 12/10/23 19:56 20 ml ONCE ONE Administration Lidocaine/Prilocaine 5 gm 12/10/23 19:56 12/10/23 20:06 Lidocaine/Prilocaine 5gm Tube TP 12/10/23 19:57 5 gm ONCE ONE Administration Ondansetron HCl 4 mg 12/10/23 20:45 12/10/23 20:58 Ondansetron 4mg Odt SL 12/10/23 20:46 4 mg ONCE ONE Administration Oxycodone HCl 5 mg 12/10/23 20:46 12/10/23 20:59 Oxycodone 5mg Immediate Release Tablet PO 12/10/23 20:47 5 mg ONCE ONE Administration ORDERS Category Date Time Status POCUS Point of Care (ER Only) Stat Exams 12/10/23 19:45 Completed Wound Culture and Gram Stain Stat Micro 12/10/23 20:45 Received Medical Decision Narrative: In summary, this patient is a 28-year-old female presenting to the Emergency Department for evaluation of left upper breast pain and swelling. Differential diagnoses considered include but are not limited to abscess, cellulitis, foreign body. Ruling out the most morbid conditions drove assessment. I reviewed patient's past medical records and noted [facility] evaluation earlier as per HPI. On exam, the patient is nontoxic-appearing with reassuring vital signs on cardiac telemetry. She does have palpable fluctuance to the left upper breast. Bedside ultrasound was performed which did demonstrate an abscess. Given the patient has not had systemic symptoms and vitals are reassuring, I do not feel that labs I&D. are indicated as they would likely not chart changer. After informed consent was explained with risk vs benefit, patient consented to I&D. Topical EMLA was applied to help with anesthesia. Area was prepped with Betadine and anesthetized with lidocaine with epi. I&D was performed, which patient tolerated well. There is a large amount of mucopurulent drainage. Abscess was irrigated afterward and sterile dressing applied. Patient tolerated this very well. No complications noted. Afterward, patient was deemed to be appropriate for discharge home. She already has antibiotics prescribed to her by [facility]. Strict return precautions given as well as instructions for wound care and supportive management. Patient was discharged in stable condition. Procedures Risk/Benefits of Procedure(s) Were Explained: Yes Abscess I/D Site: chest Side (if applicable): left Sedation/analgesia: none Local Anesthetic: other anesthetic (topical EMLA) Amount of anesthesia used (mL): 4 Technique: incised with #11 blade Irrigation: Yes Packing used?: none Limited Ultrasound Views:: Limited soft tissue ultrasound Indication: Soft tissue swelling, pain, and redness Identified structures: Location: Left chest Findings: Abscess, 6x2 cm Impression: Abscess of soft tissue Images were saved to permanent archive The study was technically adequate Soft Tissue CPT Codes: CPT Breast:21460-00-KR (limited) This study was performed by me, and I personally interpreted all images/videos. Based on my clinical judgement, these images were adequate and did not necessitate further imaging. Critical Care Critical Care Time Critical Care Time: No
--- NOTE | 2023-12-10 20:35 | PC.NURSE ---
Dr. Parisi at bedside. Performed incision and drainage, patient tolerated well. Dressed with non-adherant dressing.
[2023-12-10] MEDS: ONDANSETRON 4MG ODT 4 MG SL (20:58)
[2023-12-10] MEDS: ACETAMINOPHEN 500MG TAB 1000 MG PO (20:58)
[2023-12-10] MEDS: IBUPROFEN 400 MG TABLET 800 MG PO (20:58)
[2023-12-10] MEDS: OXYCODONE 5MG IMMEDIATE RELEASE TABLET 5 MG PO (20:59)
[2023-12-10 21:08] VITALS: BP 110/79; PULSE 91; RESP 18; TEMP 36.8; O2SAT 97
--- NOTE | 2023-12-12 14:56 | PC.NURSE ---
WOUND CULTURE DISCUSSED WITH DR SIMONS, PT ON APPROPRIATE ABX, NO NEW ORDERS
== END 2023-12-10 21:10 | disposition home or self-care (01) ==
PROVIDERS: Emergency Provider Emergency Medicine; PCP Nurse Practitioner
DX: N61.1 Abscess of the breast and nipple (principal); B95.61 Methicillin susceptible Staphylococcus aureus infection as the cause of diseases classified elsewhere
CPT/HCPCS: 10060; 87070; 87077; 87186; 87205; 99284

== ENCOUNTER 2024-04-01 08:15 | Emergency (ER) | payer OTHER, SELFPAY ==
[2024-04-01 08:30] VITALS: BP 122/83; PULSE 83; RESP 18; TEMP 36.7; O2SAT 98; BMI 38.4
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
[2024-04-01 08:47] LABS: UTC Influenza A Antigen Negative (Negative); UTC Influenza B Antigen Negative (Negative); UTC Strep Screen (Rapid) Negative (Negative)
[2024-04-01 09:27] VITALS: BP 122/83; PULSE 83; RESP 18; TEMP 36.7; O2SAT 98
--- OUTSIDE RECORDS SUMMARY | 2024-04-02 15:11 | XMS_ITS | Encounter Summary ---
Author Organization Healthcare Address [address] [place] [address] Care Team Providers Care Display Mechanic Name Role Phone Per Patient, None Primary Care Provider + [phone] Unavailable [phone] Encounter Details Date Type Department Care Team (Latest Contact Info) Description 07/22/2023 Travel Social History Tobacco Use Types Packs/Day Years Used Date Smoking Tobacco: Every Day Cigarettes Smokeless Tobacco: Never Alcohol Use Standard Drinks/Week Comments Never 0 (1 standard drink = 0.6 oz pur e alcohol) PHQ-2 Answer Date Recorded Patient Health Questionnaire-2 Score 0 07/07/2023 [place] Depression Scale Answer Date Recorded [place] Depression Scale Total 0 07/07/2023 The thought of harming myself has occurred to me . Never 07/07/2023 PHQ-2A Answer Date Recorded Patient Health Questionnaire-2 Score 0 04/22/2023 Comments No Sex and Gender Information Value Date Recorded Sex Assigned at Not on file Legal Sex Female 10:59 AM EDT Gender Identity Not on file Sexual Orientation Not on file documented as of this encounter Plan of Treatment Not on file documented as of this encounter Goals Goal Patient Goal Type Associated Problems Recent Progress Patient-Stated? Author Delayed Delivery Care Plan CPM S22 PP LABOR (OBSTETRICS) No Open Scheduling, Background documented as of this encounter Visit Diagnoses Not on filedocumented in this encounter Additional Health Concerns Active Problems Noted Date Diagnosed Date CPM S22 PP LABOR (OBSTETRICS) 12/02/2022 Assessment Noted Time A fall risk assessment has been complete d for the patient 07/07/2023 1:53 PM EST A Body Mass Index follow-up plan has been documented for the patient 07/22/2023 2:10 PM EST documented as of this encounter Care Teams Display Mechanic Relationship Specialty Start Date End Date Per Patient, None, [address] [place] [address] PCP - General 11/25/[address] [facility] [address] [place] [address] Dietitian Diabetes Services 03/30/23 01/27/24 documented as of this encounter
--- OUTSIDE RECORDS SUMMARY | 2024-04-02 15:11 | XMS_ITS | Encounter Summary ---
Author Organization Healthcare Address [address] [place] [address] Care Team Providers Care Language Therapist Name Role Phone Per Patient, None Primary Care Provider + [phone] Unavailable [phone] Encounter Details Date Type Department Care Team (Latest Contact Info) Description 07/07/2023 Travel Social History Tobacco Use Types Packs/Day Years Used Date Smoking Tobacco: Every Day Cigarettes Smokeless Tobacco: Never Alcohol Use Standard Drinks/Week Comments Never 0 (1 standard drink = 0.6 oz pur e alcohol) PHQ-2 Answer Date Recorded Patient Health Questionnaire-2 Score 0 07/07/2023 [place] Depression Scale Answer Date Recorded [place] Depression Scale Total 0 07/07/2023 The thought [...] plan has been documented for the patient 07/07/2023 2:36 PM EST documented as of this encounter Care Teams Language Therapist Relationship Specialty Start Date End Date Per Patient, None, [address] [place] [address] PCP - General 11/25/[address] [facility] [address] [place] [address] Dietitian Diabetes Services 03/30/23 01/27/24 documented as of this encounter
--- OUTSIDE RECORDS SUMMARY | 2024-04-02 15:11 | XMS_ITS | Clinical Summary ---
Author Organization Healthcare Address [address] [id number] Care Team Providers Care Brickmason Helper Name Role Phone Per Patient, None Primary Care Provider + [phone] Allergies Active Allergy Reactions Criticality Noted Date Comments Clindamycin Itching Medium 11/25/2022 Medications Vit-Fe Fumarate-FA ( 1+1 PO) Take by mouth. Active glyBURIDE (Diabeta) 5 MG tablet Take 2 tablets (10 mg) by mouth 2 (two) times a day with meals. 120 tablet 5 04/19/2023 Active metFORMIN (Glucophage) 500 MG tablet Take 500 mg QAM then 500 mg at lunch, then 1500 mg QHS 150 tablet 3 05/06/2023 Active famotidine (Pepcid) 20 MG tablet Take 1 tablet by mouth twice daily 60 tablet 02/10/2024 Active Active Problems Problem Noted Date Diagnosed Date Previous section complicating 06/01/2023 Gastroesophageal reflux disease 05/17/2021 Gonorrhea affecting in second trimeste r 01/24/2021 Overview (01/24/2021): Pt to seek treatment in [place]. 01/24/21 Tobacco smoking affecting in second tr imester 12/06/2020 Overview (12/06/2020): Nicotine patch 14mg/day x 6 weeks RX 12/06 Will need 2 weeks 7mg/day Anxiety and depression 12/06/2020 Overview (12/06/2020): Working on establishing CBT History of trauma 12/06/2020 Resolved Problems Problem Noted Date Diagnosed Date Resolved Date Gestational diabetes mellitu s (GDM) in third trimester controlled on oral hypoglycemic drug 06/01/2023 07/22/2023 Supervision of other high ri sk pregnancies, third trimester 06/01/2023 07/22/2023 Gestational proteinuria in third trimester 05/19/2021 05/21/2021 First , third trimester 05/19/2021 05/21/2021 Proteinuria affecting pregna ncy in third trimester 05/17/2021 05/21/2021 Encounters Date Type Department Care Team Description 02/09/2024 Refill Obstetrics & Gynecology [address] [place] [address] Steffen Livingston MD from Last 3 Months Immunizations Name Administration Dates Next Due Influenza, injectable, quadrivalent, preservativ e free 03/02/2023 Rsv, Bivalent, Protein Subun it Rsvpref, Diluent Reconstituted, 0.5mL, PF 05/14/2023 Tdap 04/15/2023,04/30/2021 Family History Medical History Relation Name Comments Ovarian cancer Father's Sister Melanoma Maternal Grandfather Heart disease Maternal Grandmother Breast cancer Paternal Grandmother Relation Name Status Comments Father's Sister Maternal Grandfather Maternal Grandmother Paternal Grandmother Social History Tobacco Use Types Packs/Day Years Used Date Smoking Tobacco: Every Day Cigarettes Smokeless Tobacco: Never Tobacco Cessation:Ready to Q uit: Not Asked; Counseling Given: Not Answered Alcohol Use Standard Drinks/Week Comments Never 0 (1 standard drink = 0.6 oz pur e alcohol) PHQ-2 Answer Date Recorded Patient Health Questionnaire-2 Score 0 07/07/2023 [place] Depression Scale Answer Date Recorded [place] Depression Scale Total 0 07/07/2023 The thought of harming myself has occurred to me . Never 07/07/2023 PHQ-2A Answer Date Recorded Patient Health Questionnaire-2 Score 0 04/22/2023 Comments No Sex and Gender Information Value Date Recorded Sex Assigned at Not on file Legal Sex Female 10:59 AM EDT Gender Identity Not on file Sexual Orientation Not on file Last Filed Vital Signs Vital Sign Reading Time Taken Comments Blood Pressure 137/84 07/22/2023 1:59 PM EST Pulse 94 07/22/2023 1:59 PM EST Temperature 37.1 ??C (98.7 ??F) 07/07/2023 1:51 PM ES T Respiratory Rate 20 07/22/2023 1:59 PM EST Oxygen Saturation 97% 07/22/2023 1:59 PM EST Inhaled Oxygen Concentration - - Weight 112 kg (246 lb 7.6 oz) 07/22/2023 1:59 PM EST Height 162.6 cm (5' 4 ) 05/17/2021 11:53 PM EST Body Mass Index 42.31 05/17/2021 11:53 PM EST Plan of Treatment Health Maintenance Due Date Last Done Comments [facility]-/Child/Adol SDOH Screenings 1994 [facility]-Pneumococcal Vaccine: Pediatrics (0 to 5 Years) and At-Risk Patients (6 to 64 Years) (1 of 2 - PCV) 2000 [facility]-Varicella Vaccines (1 of 2 - 13+ 2-dose series) 2007 [facility]- SDOH Screenings 2012 [facility]-Adult SDOH Screenings 2012 [facility]-Hepatitis B Vaccines (1 of 3 - 19+ 3-dose series) 2013 [facility]-Zoster Vaccines (1 of 2) 2013 [facility]-Pap Smear 2015 [facility]-BCODE-36 Vaccine (3 - Pfizer risk series) 03/14/2021 02/14/2021, 01/25/2021 [facility]-Influenza Vaccine (#1) 2024 03/02/2023 [facility]-Depression Screening 07/07/2024 07/07/2023, 02/05/2023 [facility]-DTaP,Tdap,and Td Vaccines (4 - Td or Tdap) 04/15/2033 04/15/2023, 04/30/2021, 09/28/2006 [facility]-RSV Vaccine: 60+ Years or (1 - 1-dose 75+ series) 2069 05/14/2023 [facility]-Hepatitis C Screening Completed 11/25/2022, [facility]-HIV Screening Completed 11/30/2022, 01/01/2021 [facility]-Obesity Intervention Completed 024, 07/07/2023, 06/23/2023, Additional history exists [facility]-HIB Vaccines Aged Out No longer e ligible based on patient's age to complete this topic [facility]-HPV Vaccines Aged Out No longer e ligible based on patient's age to complete this topic [facility]-Hepatitis A Vaccines Aged Out No longer eligible based on patient's age to complete this topic [facility]-IPV Vaccines Aged Out No longer e ligible based on patient's age to complete this topic [facility]-Rotavirus Vaccines Aged Out No lo nger eligible based on patient's age to complete this topic Goals Goal Patient Goal Type Associated Problems Recent Progress Patient-Stated? Author Delayed Delivery Care Plan CPM S22 PP LABOR (OBSTETRICS) No Open Scheduling, Background Procedures Procedure Name Priority Date/Time Associated Diagnosis Comments HIV 1/2 ANTIBODY/ANTIGEN SCREEN WITH REFLEX TO HIV I/II DIFFERENTIATION Routine 11/30/2022 11:24 AM EDT Unsure of LMP (last menstrual period) as reason for ultrasound scan HEPATITIS C ANTIBODY W/REFLEX TO HCV QUANT PCR Routine 11/25/2022 10:16 AM EDT Unsure of LMP (last menstrual period) as reason for ultrasound scan from Last 3 Months or Most Recently Relevant to Health Maintenance Results * HIV 1 & 2 Antibody/Antigen Screen (11/30/2022 11:24 AM EDT) HIV 1 & 2 Antibody/Antigen Screen Non Reactive Non Reactive 11/30/2022 2:29 PM EDT [facility] Comment:Screening for HIV 1 & 2 antibodies, and P24 antigen is NONREACTIVE. No confirmatory testing is required. Blood Venous blood specimen / Unknown Venipuncture / Unknown 11/30/2022 11:24 AM EDT 11/30/2022 1:18 PM EDT us Steffen Livingston MD LAB BLOOD ORDERABLES Final Resu lt [facility] [address] [place] [id number] * Hepatitis C Antibody (11/25/2022 10:16 AM EDT) Hepatitis C Antibody Negative Negative 11/25/2022 1:25 PM EDT [facility] Blood Venous blood specimen / Unknown Venipuncture / Unknown 11/25/2022 10:16 AM EDT 11/25/2022 12:56 PM EDT us Steffen Livingston MD LAB BLOOD ORDERABLES Final Resu lt [facility] [address] [place] [address] from Last 3 Months or Most Recently Relevant to Health Maintenance Additional Health Concerns Active Problems Noted Date Diagnosed Date CPM S22 PP LABOR (OBSTETRICS) 12/02/2022 Insurance MEDICAID Advance Directives * Full Code (Latest Code Status on File) Date Activated Date Inactivated Comments 05/17/2021 6:18 PM 05/21/2021 2:36 PM Question Answer Comments Patient has decision-making capacity? Yes Care Teams Brickmason Helper Relationship Specialty Start Date End Date Per Patient, None, [address] [place], [place] [id number] PCP - General 11/25/20
--- OUTSIDE RECORDS SUMMARY | 2024-04-02 15:11 | XMS_ITS | Encounter Summary ---
Author Organization Healthcare Address [address] [place] [address] Care Team Providers Care Sheep Herder Name Role Phone Per Patient, None Primary Care Provider + [phone] Unavailable [phone] Encounter Details Date Type Department Care Team (Late st Contact Info) Description 07/05/2023 Telephone Obstetrics & Gynecology [address] [place] [address] Steffen Livingston MD [address] [place] [address] Social History Tobacco Use Types Packs/Day Years Used Date Smoking Tobacco: Every Day Cigarettes Smokeless Tobacco: Never Alcohol Use Standard Drinks/Week Comments Never 0 (1 standard drink = 0.6 oz pur e alcohol) PHQ-2 Answer Date Recorded Patient Health Questionnaire-2 Score 0 07/07/2023 [place] Depression Scale Answer Date Recorded [place] Depression Scale Total 0 07/07/2023 The thought of harming myself has occurred to me . Never 07/07/2023 PHQ-2A Answer Date Recorded Patient Health Questionnaire-2 Score 0 04/22/2023 Comments No Sex and Gender Information Value Date Recorded Sex Assigned at Not on file Legal Sex Female 10:59 AM EDT Gender Identity Not on file Sexual Orientation Not on file documented as of this encounter Miscellaneous Notes * Telephone Encounter - Feli Nassar RN - 07/05/2023 12:42 PM EST Called and discussed with law that patient had RSV vaccine on 05/14/23. * Telephone Encounter - Krissy Leigh Carrie - 07/05/2023 12:32 PM EST Clinical Concern/Question Reason for Call: Pt is calling to see if pt received the RSV vaccine when ? They are needing to know if the baby will need it? Best contact number: [phone] (mobile) Optimal time of day to reach caller: ANYTIME Additional comments/information from caller: Not Applicable Note: Please do not reply to this message. Follow-up communication and further actions as a result of this message need to be communicated with the patient directly, if the patient is not active onMyChart. If the patient is active on MyChart, they will receive notification of the communication/outcome via [employer]. documented in this encounter Plan of Treatment Not on [...] has been complete d for the patient 06/04/2023 1:39 PM EST A Body Mass Index follow-up plan has been documented for the patient 06/23/2023 1:41 PM EST documented as of this encounter Care Teams Sheep Herder Relationship Specialty Start Date End Date Per Patient, None, [address] [place] [address] PCP - General 11/25/[address] [place] [address] Dietitian Diabetes Services 03/30/23 01/27/24 documented as of this encounter
--- OUTSIDE RECORDS SUMMARY | 2024-04-02 15:11 | XMS_ITS | Encounter Summary ---
Author Organization Healthcare Address [address] [place], [place] [id number] Care Team Providers Care Wholesale Account Executive Name Role Phone Per Patient, None Primary Care Provider + [phone] Unavailable [phone] Reason for Visit * Reason Comments Follow-up Doing well other th an being tired. Baby is home from NICU now. Encounter Details Date Type Department Care Team (Late st Contact Info) Description 07/07/2023 1:30 PM EST Visit Obstetrics & Gynecology [address] [place] [address] Steffen Livingston MD [address] [place] [address] Routine follow-up (Primary Dx); Family planning; History of gestational diabetes; Nexplanon insertion Social History Tobacco Use Types Packs/Day Years Used Date Smoking Tobacco: Every Day Cigarettes Smokeless Tobacco: Never Tobacco Cessation:Ready to Q uit: Not Asked; Counseling Given: Not Answered Alcohol Use Standard Drinks/Week Comments Never 0 (1 standard drink = 0.6 oz pur e alcohol) PHQ-2 Answer Date Recorded Patient Health Questionnaire-2 Score 0 07/07/2023 [place] Depression Scale Answer Date Recorded [place] Depression Scale Total 0 07/07/2023 The thought of harming myself has occurred to me . Never 07/07/2023 PHQ-2A Answer Date Recorded Patient Health Questionnaire-2 Score 0 04/22/2023 Comments No Sex and Gender Information Value Date Recorded Sex Assigned at Not on file Legal Sex Female 10:59 AM EDT Gender Identity Not on file Sexual Orientation Not on file documented as of this encounter Last Filed Vital Signs Vital Sign Reading Time Taken Comments Blood Pressure 118/75 07/07/2023 1:51 PM EST Pulse 92 07/07/2023 1:51 PM EST Temperature 37.1 ??C (98.7 ??F) 07/07/2023 1:51 PM ES T Respiratory Rate 16 07/07/2023 1:51 PM EST Oxygen Saturation 97% 07/07/2023 1:51 PM EST Inhaled Oxygen Concentration - - Weight 112 kg (246 lb 14.6 oz) 07/07/2023 1:51 P M EST Height - - Body Mass Index 42.38 05/17/2021 11:53 PM EST documented in this encounter Miscellaneous Notes * Progress Notes - Steffen Livingston MD - 07/07/2023 1:30 PM ESTAssociated Order(s): Insertion of Contraceptive Capsule Post-Procedure Diagnose(s): Nexplanon insertion Note Subjective Mini is a 27 y.o. (C/S x 2) here for a visit. She delivered 4 weeks ago via [facility] - PNC c/b Probable T2DM - still taking meds but not doing BG checks. Some emotional lability - has good insight - improved - baby home! Lochia: minimal Feeding method: She is pumping exclusively. Contraception: Nexplanon Objective Depression screen: [place] Depression Scale Total: 0 Exam: Visit Vitals BP 118/75 Pulse 92 Temp 37.1 ??C (98.7 ??F) Resp 16 Pregravid weight: Pregravid weight not on file Weight: 112 kg (246 lb 14.6 oz) General: Examination reveals a well developed, well nourished, female, in no acute distress. INC healed Recent labs: Lab Results Component Value Date HGB 12.2 (L) 06/07/2023 HGB 11.3 03/25/2023 HCT 36.5 (L) 06/07/2023 HCT 35.2 03/25/2023 Patient ID: Mini Brennan is a 27 y.o. female. Encounter Diagnoses Name Primary? Routine follow-up Yes Family planning History of gestational diabetes Nexplanon insertion Insertion of Contraceptive Capsule Performed by: Steffen Livingston MD Authorized by: Steffen Livingston MD Consent: Consent obtained: Verbal Consent given by: Patient Procedural risks discussed: Bleeding, infection and repeat procedure Patient questions answered: yes Patient agrees, verbalizes understanding, and wants to proceed: yes Instructions and paperwork completed: yes Indication: Indication: Insertion of non-biodegradable drug delivery implant Pre-procedure: Pre-procedure timeout performed: yes Prepped with: alcohol 70% and povidone-iodine Local anesthetic: Lidocaine with epinephrine The site was cleaned and prepped in a sterile fashion: yes Procedure: Procedure: Insertion Small stab incision was made in arm: yes Left/right: Left Preloaded contraceptive capsule trocar was placed subdermally: yes Visualization of implant was obtained: yes Contraceptive capsule was inserted and trocar removed: yes Visualization of notch in stylet and palpation of device: yes Palpation confirms placement by provider and patient: yes Site was closed with steri-strips and pressure bandage applied: yes Comments: [facility] [id number] LOT # [id number] EXP 2024MAR 05 Assessment 1. Visit - doing OK 2. H/O DM - continue meds - refer to FM 3. FP - Nexplanon wound care given - recheck 2 weeks A total of 24 minutes was spent on this visit with at least more than 50% of the encounter spent incounseling and/or coordinating care including reviewing previous notes, counseling the patient on their identified issues as indicated in the note, discussing previous and/or ordered tests or imaging, prescribing/refilling medications, and documenting the findings in this note, as well as laying out a specific plan of action for this patient. documented in this encounter Plan of Treatment Not on file documented as of this encounter Goals Goal Patient Goal Type Associated Problems Recent Progress Patient-Stated? Author Delayed Delivery Care Plan CPM S22 PP LABOR (OBSTETRICS) No Open Scheduling, Background documented as of this encounter Procedures Procedure Name Priority Date/Time Associated Diagnosis Comments POCT , URINE Routine 07/07/2023 2:34 PM EST Family planning Nexplanon insertion GA INSERTION DRUG IMPLANT DEVICE Routine 07/07/2023 1:30 PM EST Nexplanon insertion documented in this encounter Results * POCT Urine (07/07/2023 2:34 PM EST) Urine - Point of Care Negative - women after 7 weeks gestation and dilute urine (specific gravity <1.010) may have false negative results. Plasma HCG testing is recommended. Test performed at Point of Care. Negative - women after 7 weeks gestation and dilute urine (specific gravity <1.010) may have false negative results. Plasma HCG testing is recommended. Test performed at Point of Care. INTERNAL QC OK, PREG URINE passed KIT LOT NUMBER, PREG URINE [id number] KIT EXPIRATION DATE, PREG URINE 05/16/24 Urine Urine specimen obtained by clean catch procedure / Unknown 07/07/2023 2:34 PM EST Steffen Livingston MD POINT OF CARE TEST ENTER/EDIT O RDERABLES Final Result * GA INSERTION DRUG IMPLANT DEVICE (07/07/2023 1:30 PM EST) Narrative Steffen Livingston MD - 07/07/2023 1:30 PM EST Steffen Livingston MD ? 07/07/2023 ??2:36 PM Insertion of Contraceptive Capsule Performed by: Steffen Livingston MD Authorized by: Steffen Livingston MD ?? Consent: ??Consent obtained: ??Verbal ??Consent given by: ??Patient ??Procedural risks discussed: ??Bleeding, infection and repeat procedure ??Patient questions answered: yes ?Patient agrees, verbalizes understanding, and wants to proceed: yes ?Instructions and paperwork completed: yes ?? Indication: ??Indication: Insertion of non-biodegradable drug delivery implant ?? Pre-procedure: ??Pre-procedure timeout performed: yes ?Prepped with: alcohol 70% and povidone-iodine ?Local anesthetic: ??Lidocaine with epinephrine ??The site was cleaned and prepped in a sterile fashion: yes ?? Procedure: ??Procedure: ??Insertion ??Small stab incision was made in arm: yes ?Left/right: ??Left ??Preloaded contraceptive capsule trocar was placed subdermally: yes ?Visualization of implant was obtained: yes ?Contraceptive capsule was inserted and trocar removed: yes ?Visualization of notch in stylet and palpation of device: yes ?Palpation confirms placement by provider and patient: yes ?Site was closed with steri-strips and pressure bandage applied: yes ?? Comments: ?? [facility] [id number] LOT # [id number] EXP 2024MAR 05 us Steffen Livingston MD IN CLINIC/BEDSIDE ORDERABLES Fi nal Result documented in this encounter Visit Diagnoses Diagnosis Routine follow-up- Primary Family planning Other general counseling and advice for contraceptive management History of gestational diabetes Personal history of other genital system and obstetric disorders Nexplanon insertion documented in this encounter Additional Health Concerns Active Problems Noted Date Diagnosed Date CPM S22 PP LABOR (OBSTETRICS) 12/02/2022 Assessment Noted Time A fall risk assessment has been complete d for the patient 07/07/2023 1:53 PM EST A Body Mass Index follow-up plan has been documented for the patient 07/07/2023 2:36 PM EST documented as of this encounter Care Teams Wholesale Account Executive Relationship Specialty Start Date End Date Per Patient, None, [address] [place] [address] PCP - General 11/25/[address] [place] [address] Dietitian Diabetes Services 03/30/23 01/27/24 documented as of this encounter
--- OUTSIDE RECORDS SUMMARY | 2024-04-02 15:11 | XMS_ITS | Encounter Summary ---
Author Organization Healthcare Address [address] [place] [address] Care Team Providers Care Creative Project Manager Name Role Phone Per Patient, None Primary Care Provider + [phone] Unavailable [phone] Encounter Details Date Type Department Care Team (Latest Contact Info) Description 06/04/2023 Travel Social History Tobacco Use Types Packs/Day Years Used Date Smoking Tobacco: Every Day Cigarettes Smokeless Tobacco: Never Alcohol Use Standard Drinks/Week Comments Never 0 (1 standard drink = 0.6 oz pur e alcohol) PHQ-2 Answer Date Recorded Patient Health Questionnaire-2 Score 0 05/20/2023 PHQ-2A Answer Date Recorded Patient Health Questionnaire-2 Score 0 04/22/2023 Comments Yes Sex and Gender Information Value Date Recorded [...] plan has been documented for the patient 06/04/2023 2:15 PM EST documented as of this encounter Care Teams Creative Project Manager Relationship Specialty Start Date End Date Per Patient, None, [address] [place] [address] PCP - General 11/25/[address] [place] [id number] Dietitian Diabetes Services 03/30/23 01/27/24 documented as of this encounter
--- OUTSIDE RECORDS SUMMARY | 2024-04-02 15:11 | XMS_ITS | Encounter Summary ---
Author Organization Healthcare Address [address] [place] [address] Care Team Providers Care Book Sewing Machine Operator Name Role Phone Per Patient, None Primary Care Provider + [phone] Unavailable [phone] Reason for Visit * Reason Comments nexplanon check Pt stated she is doi ng well today Encounter Details Date Type Department Care Team (Late st Contact Info) Description 07/22/2023 2:15 PM EST Office Visit Obstetrics & Gynecology [address] [place] [address] Steffen Livingston MD [address] [place] [address] Family planning (Primary Dx); Nexplanon in place; History of gestational diabetes Social History Tobacco Use Types Packs/Day Years Used Date Smoking Tobacco: Every Day Cigarettes Smokeless Tobacco: Never Tobacco Cessation:Ready to Q uit: Not Asked; Counseling Given: Not Answered Alcohol Use Standard Drinks/Week Comments Never 0 (1 standard drink = 0.6 oz pur e alcohol) PHQ-2 Answer Date Recorded Patient Health Questionnaire-2 Score 0 07/07/2023 [place] Depression Scale Answer Date Recorded [place] Depression Scale Total 0 07/07/2023 The thought [...] Pulse 94 07/22/2023 1:59 PM EST Temperature - - Respiratory Rate 20 07/22/2023 1:59 PM EST Oxygen Saturation 97% 07/22/2023 1:59 PM EST Inhaled Oxygen Concentration - - Weight 112 kg (246 lb 7.6 oz) 07/22/2023 1:59 PM EST Height - - Body Mass Index 42.31 05/17/2021 11:53 PM EST documented in this encounter Miscellaneous Notes * Progress Notes - Steffen Livingston MD - 07/22/2023 2:15 PM EST Gynecology Progress Note Subjective 28 yo (C/S x 2) - here for family planning f/u - now 2 weeks s/p nexplanon insertion - no issus - no VB - happy. LPS >3 years ago. Needs PP GLUCOLA for DM check. Review of Systems Constitutional: Negative. HENT: Negative. Eyes: Negative. Respiratory: Negative. Cardiovascular: Negative. Gastrointestinal: Negative. Endocrine: Negative. Genitourinary: Negative. Musculoskeletal: Negative. Skin: Negative. Allergic/Immunologic: Negative. Neurological: Negative. Hematological: Negative. Psychiatric/Behavioral: Negative. All other systems reviewed and are negative. Objective Visit Vitals BP 137/84 Pulse 94 Resp 20 Physical Exam Constitutional: Appearance: Normal appearance. HENT: Head: Normocephalic and atraumatic. Right Ear: External ear normal. Left Ear: External ear normal. Pulmonary: Effort: Pulmonary effort is normal. Musculoskeletal: General: Normal range of motion. Cervical back: Normal range of motion. Neurological: General: No focal deficit present. Mental Status: She is alert and oriented to person, place, and time. Skin: General: Skin is warm and dry. Psychiatric: Mood and Affect: Mood normal. Behavior: Behavior normal. Thought Content: Thought content normal. Judgment: Judgment normal. Vitals and nursing note reviewed. LUE - Nexplanon easily palpated - healed Assessment/Plan Assess/Plan SmartLinks: Diagnoses and all orders for this visit: Family planning Nexplanon in place History of gestational diabetes F/U 6 weeks for Pap/WWE Schedule DM testing See PCM A total of 20 minutes was spent on this visit with [...] documented as of this encounter Visit Diagnoses Diagnosis Family planning- Primary Other general counseling and advice for contraceptive management Nexplanon in place History of gestational diabetes Personal history of other genital system and obstetric disorders documented in this encounter Additional Health Concerns Active Problems Noted Date Diagnosed Date CPM S22 PP LABOR (OBSTETRICS) 12/02/2022 Assessment Noted Time A fall risk assessment has been complete d for the patient 07/07/2023 1:53 PM EST A Body Mass Index follow-up plan has been documented for the patient 07/22/2023 2:10 PM EST documented as of this encounter Care Teams Book Sewing Machine Operator Relationship Specialty Start Date End Date Per Patient, None, [address] [facility] [address] [place] [address] PCP - General 11/25/[address] [facility] [address] [place] [address] Dietitian Diabetes Services 03/30/23 01/27/24 documented as of this encounter
--- OUTSIDE RECORDS SUMMARY | 2024-04-02 15:11 | XMS_ITS | Encounter Summary ---
Author Organization Healthcare Address [address] [place] [address] Care Team Providers Care Payment Manager Name Role Phone Per Patient, None Primary Care Provider + [phone] Unavailable [phone] Encounter Details Date Type Department Care Team ([facility] Contact Info) Description 06/06/2023 Orders Only External Location [address] [place] [address] Steffen Livingston MD [address] [place] [address] Social History Tobacco Use Types [...] Procedure Name Priority Date/Time Associated Diagnosis Comments CBC WITH AUTO DIFFERENTIAL Routine 06/06/2023 5:15 PM EST TYPE AND SCREEN Routine 06/06/2023 5:15 PM EST documented in this encounter Results * Type and Screen (06/06/2023 5:15 PM EST) External History Check Completed [facility] External ABO/Rh O POSITIVE [facility] External Antibody Screen NEGATIVE [facility] External Status Information Completed [facility] 06/06/2023 5:15 PM EST 06/06/2023 5:23 PM EST us Steffen Livingsotn MD LAB BLOOD BANK TEST ORDERABLES Final Result [facility] * (ABNORMAL) CBC and Differential (06/06/2023 5:15 PM EST) External WBC 9.9 4.0 - 10.5 K/ul [facility] External Red Blood Cell (RBC) 4.5 4.2 - 6.4 M/mm3 [facility] External Hemoglobin 12.2(L) 12.5 - 16.0 gm/dl [facility] External Hematocrit 36.5(L) 37.0 - 47.0 % [facility] External MCV 81.8 78 - 100 fl [facility] External MCH 27.4 27 - 31 pg [facility] External MCHC 33.4 32 - 36 g/dl [facility] External RDW 15.0(H) 11.5 - 14.0 % [facility] External Platelets 286 150 - 450 K/ul [facility] External MPV 10.8(H) 6 - 9.5 fl [facility] External Neutrophils % 68.2(H) 43 - 65 % [facility] External Lymphocyte % 23.1 20.5 - 45.5 % [facility] External Monocyte % 7.6 5.5 - 11.7 % [facility] External Eosinophil% 0.5(L) 0.9 - 2.9 % [facility] External Basophil % 0.2 0.2 - 1.0 % [facility] External Immature Granulocyte% 0.4 0.0 - 0.8 % [facility] External Nucleated RBC % 0.0 % [facility] External Neutrophil# 6.8(H) 2.2 - 4.8 K/uL [facility] External Lymphocyte# 2.3 1.3 - 2.9 [facility] External Monocyte# 0.8 0.3 - 0.8 [facility] External Eosinophils# 0.1 0 - 0.2 [facility] External Baso# 0.0 0.0 - 1.0 [facility] External Immature Granulocyte Abs 0.04 K/ul [facility] External Nucleated RBC Absolute 0.00 K/uL [facility] External Manual Differential NO [facility] 06/06/2023 5:15 PM EST 06/06/2023 5:23 PM EST us Steffen [facility]ston MD LAB BLOOD ORDERABLES Final Resu lt [facility] documented in this encounter Visit Diagnoses Not on filedocumented [...] documented as of this encounter Care Teams Payment Manager Relationship Specialty Start Date End Date Per Patient, None, [address] [place] [address] PCP - General 11/25/[address] [place] [address] Dietitian Diabetes Services 03/30/23 01/27/24 documented as of this encounter
--- OUTSIDE RECORDS SUMMARY | 2024-04-02 15:11 | XMS_ITS | Encounter Summary ---
Author Organization Healthcare Address [address] [place], [place] [address] Care Team Providers Care Mold Release Worker Name Role Phone Per Patient, None Primary Care Provider + [phone] Unavailable [phone] Reason for Visit * Reason Comments NST/BPP Visit Here for NST with go od movement, no leaking or bleeding, some sporadic contractions. Encounter Details Date Type Department Care Team (Latest Contact Info) Description 06/04/2023 2:00 PM EST Routine Obstetrics & Gynecology [address] [place] [address] Mer Churchill, CHARGE ACCOUNT CLERK, CN [address] [place] [address] Supervision of other high risk pregnancies, third trimester (Primary Dx); 36 weeks gestation of ; Gestational diabetes mellitus (GDM) in third trimester controlled on oral hypoglycemic drug Social History Tobacco Use Types Packs/Day Years [...] Sign Reading Time Taken Comments Blood Pressure 135/84 06/04/2023 1:37 PM EST Pulse - - Temperature - - Respiratory Rate - - Oxygen Saturation - - Inhaled Oxygen Concentration - - Weight 122 kg (269 lb 1.6 oz) 06/04/2023 1:37 PM EST Height - - Body Mass Index 46.19 05/17/2021 11:53 PM EST documented in this encounter Miscellaneous Notes * Significant Event - Mer Churchill - 06/04/2023 2:14 PM EST 06/04/23 1413 Non-Stress Baby A Reason for Non-Stress Test Diabetes Variability in Waveform for Baby A 6-25 BPM Decelerations in Baby A None Accelerations in Baby A Yes Acoustic Stimulator for Baby A No Baseline Heart Rate for Baby A 140 BPM Uterine Irritability for Baby A No Contractions in Baby A Not present Interpretation of Non-Stress Test Interpretation of Non-Stress Test Reactive $ NST Charge 1 * Progress Notes - Mer Churchill - 06/04/2023 2:00 PM EST Subjective Chief Complaint Patient presents with NST/BPP Visit Here for NST with good movement, no leaking or bleeding, some sporadic contractions. Mini Brennan is a 27 y.o. 36w0d 07/02/2023, by Ultrasound who presents for a routine prenatalvisit. She denies vaginal bleeding, leakage of fluid, or decreased movements. C/o increased contractions and lost mucus plug Her is complicated by: A2DM NONSTRESS TEST RR, UC x 1 States all FSBS wnl Assessment/Plan Diagnoses and all orders for this visit: Supervision of other high risk pregnancies, third trimester 36 weeks gestation of - Group B Streptococcus by PCR Gestational diabetes mellitus (GDM) in third trimester controlled on oral hypoglycemic drug Labor precautions. [facility] enc Desire to change delivery to 06/24/23 - sent not to [facility] Continue vitamin. Follow up in 3-4ds for a routine visit. documented in this encounter Plan of Treatment Not on file documented as of this encounter Goals Goal Patient Goal Type Associated Problems Recent Progress Patient-Stated? Author Delayed Delivery Care Plan CPM S22 PP LABOR (OBSTETRICS) No Open Scheduling, Background documented as of this encounter Procedures Procedure Name Priority Date/Time Associated Diagnosis Comments GROUP B STREPTOCOCCUS BY PCR Routine 06/04/2023 2:13 PM EST 36 weeks gestation of documented in this encounter Results * Group B Streptococcus by PCR (06/04/2023 2:13 PM EST) Group B Streptococcus PCR Result Not Detected Not Detected 06/05/2023 12:38 PM EST [facility] Swab Rectovaginal / Unknown Non-blood Collection / Unknown 06/04/2023 2:13 PM EST 06/04/2023 5:50 PM EST us Mer Churchill APRN, CNM LAB BLOOD ORDERABLE S Final Result [facility] [address] [place] [address] documented in this encounter Visit Diagnoses Diagnosis Supervision of other high risk pregnancies, third trimester- Primary 36 weeks gestation of Gestational diabetes mellitus (GDM) in third trimester controlled on oral hypoglycemic drug documented in this encounter Additional Health Concerns Active Problems Noted Date Diagnosed Date CPM S22 PP LABOR (OBSTETRICS) 12/02/2022 Assessment Noted Time A fall risk assessment has been complete d for the patient 06/04/2023 1:39 PM EST A Body Mass Index follow-up plan has been documented for the patient 06/04/2023 2:15 PM EST documented as of this encounter Care Teams Mold Release Worker Relationship Specialty Start Date End Date Per Patient, None, [address] [facility] [address] [place], [place] [id number] PCP - General 11/25/[address] [facility] [address] [place] [address] Dietitian Diabetes Services 03/30/23 01/27/24 documented as of this encounter
--- OUTSIDE RECORDS SUMMARY | 2024-04-02 15:11 | XMS_ITS | Encounter Summary ---
Author Organization Healthcare Address [address] [place] [address] Care Team Providers Care School Health Aide Name Role Phone Per Patient, None Primary Care Provider + [phone] Unavailable [phone] Encounter Details Date Type Department Care Team (Latest Contact Info) Description 06/23/2023 Travel Social History Tobacco Use Types Packs/Day Years Used Date Smoking Tobacco: Every Day Cigarettes Smokeless Tobacco: Never Alcohol Use Standard Drinks/Week Comments Never 0 (1 standard drink = 0.6 oz pur e alcohol) PHQ-2 Answer Date Recorded Patient Health Questionnaire-2 Score 0 05/20/2023 [place] Depression Scale Answer Date Recorded [place] Depression Scale Total 6 06/23/2023 The thought of harming myself has occurred to me . Never 06/23/2023 PHQ-2A Answer Date Recorded Patient Health Questionnaire-2 [...] documented as of this encounter Care Teams School Health Aide Relationship Specialty Start Date End Date Per Patient, None, [address] [place] [address] PCP - General 11/25/[address] [facility] [address] [place] [address] Dietitian Diabetes Services 03/30/23 01/27/24 documented as of this encounter
--- OUTSIDE RECORDS SUMMARY | 2024-04-02 15:11 | XMS_ITS | Encounter Summary ---
Author Organization Healthcare Address [address] [place] [address] Care Team Providers Care Vice President Name Role Phone Per Patient, None Primary Care Provider + [phone] Reason for Visit * Reason Comments Med Refill Encounter Details Date Type Department Care Team (Late st Contact Info) Description 02/09/2024 Refill Obstetrics & Gynecology [address] [place] [address] Steffen [facility]ston MD [address] [place] [address] Social History Tobacco Use Types Packs/Day Years Used Date Smoking Tobacco: Every Day Cigarettes Smokeless Tobacco: Never Alcohol Use Standard Drinks/Week Comments Never 0 (1 standard drink = 0.6 oz pur e alcohol) PHQ-2 Answer Date Recorded Patient Health Questionnaire-2 Score 0 07/07/2023 [place] Depression Scale Answer Date Recorded [place] Depression Scale Total 0 07/07/2023 The thought [...] documented as of this encounter Care Teams Vice President Relationship Specialty Start Date End Date Per Patient, None, [address] [facility] [address] [place] [address] PCP - General 11/25/20 documented as of this encounter
--- OUTSIDE RECORDS SUMMARY | 2024-04-02 15:11 | XMS_ITS | Encounter Summary ---
Author Organization Healthcare Address [address] [place] [address] Care Team Providers Care Special Ed Assistant Name Role Phone Per Patient, None Primary Care Provider + [phone] Unavailable [phone] Encounter Details Date Type Department Care Team ([facility] st Contact Info) Description 06/07/2023 Orders Only External Location [address] [place] [address] Steffen [facility]ston MD [address] [place] [address] Social History Tobacco Use Types [...] Name Priority Date/Time Associated Diagnosis Comments CBC W/O DIFFERENTIAL Routine 06/07/2023 5:17 AM EST documented in this encounter Results * (ABNORMAL) CBC W/O Differential (06/07/2023 5:17 AM EST) External WBC 15.1(H) 4.0 - 10.5 K/ul [facility] External Red Blood Cell (RBC) 4.5 4.2 - 6.4 M/mm3 [facility] External Hemoglobin 12.2(L) 12.5 - 16.0 gm/dl [facility] External Hematocrit 36.5(L) 37.0 - 47.0 % [facility] External MCV 81.7 78 - 100 fl [facility] External MCH 27.3 27 - 31 pg [facility] External MCHC 33.4 32 - 36 g/dl [facility] External RDW 14.8(H) 11.5 - 14.0 % [facility] External Platelets 291 150 - 450 K/ul [facility] External MPV 10.8(H) 6 - 9.5 fl [facility] External Manual Differential NO [facility] 06/07/2023 5:17 AM EST 06/07/2023 5:24 AM EST Steffen Livingston MD LAB BLOOD ORDERABLES Final Resu lt [facility] documented in this encounter Visit Diagnoses [...] documented as of this encounter Care Teams Special Ed Assistant Relationship Specialty Start Date End Date Per Patient, None, [address] [facility] [address] [place] [address] PCP - General 11/25/20 Alley Dominique, RD [address] [facility] [address] [place] [address] Dietitian Diabetes Services 03/30/23 01/27/24 documented as of this encounter
--- OUTSIDE RECORDS SUMMARY | 2024-04-02 15:11 | XMS_ITS | Encounter Summary ---
Author Organization Healthcare Address [address] [place] [address] Care Team Providers Care Supervisor Die Casting Name Role Phone Per Patient, None Primary Care Provider + [phone] Unavailable [phone] Encounter Details Date Type Department Care Team (Late st Contact Info) Description 06/23/2023 1:30 PM EST Visit Obstetrics & Gynecology [address] [place] [address] Steffen [facility]ston MD [address] [place] [address] Routine follow-up (Primary Dx); History of gestational diabetes; Family planning; depression Social History Tobacco Use Types Packs/Day Years Used Date Smoking Tobacco: Every Day Cigarettes Smokeless Tobacco: Never Alcohol Use Standard Drinks/Week Comments Never 0 (1 standard drink = 0.6 oz pur e alcohol) PHQ-2 Answer Date Recorded Patient Health Questionnaire-2 Score 0 05/20/2023 [place] Depression Scale Answer Date Recorded [place] Depression Scale Total 6 06/23/2023 The thought [...] Sign Reading Time Taken Comments Blood Pressure 134/88 06/23/2023 1:25 PM EST Pulse - - Temperature - - Respiratory Rate - - Oxygen Saturation - - Inhaled Oxygen Concentration - - Weight 109 kg (240 lb 4.8 oz) 06/23/2023 1:25 PM EST Height - - Body Mass Index 41.25 05/17/2021 11:53 PM EST documented in this encounter Miscellaneous Notes * Progress Notes - Steffen Livingston MD - 06/23/2023 1:30 PM EST Note Subjective Mini is a 27 y.o. (C/S x 2) here for a visit. She delivered 2 weeks ago via [facility]LTCS - PNC c/b Probable T2DM - still taking meds but not doing BG checks. Some emotional lability - has good inisight - baby still in NICU but greatly improving. Lochia: minimal Feeding method: She is pumping exclusively. Contraception: Nexplanon Delivery information: Route of delivery: This patient has no babies on file. Gestational Age: 36w2d Weight: This patient has no babies on file. Perineal laceration Complications: This patient has no babies on file. Objective Depression screen: [place] Depression Scale Total: 6 Exam: Visit Vitals BP 134/88 Pregravid weight: Pregravid weight not on file Weight: 109 kg (240 lb 4.8 oz) General: Examination reveals a well developed, well nourished, female, in no acute distress. INC healing well Recent labs: Lab Results Component Value Date HGB 12.2 (L) 06/07/2023 HGB 11.3 03/25/2023 HCT 36.5 (L) 06/07/2023 HCT 35.2 03/25/2023 Assessment 1. Visit - doing OK 2. H/O DM - check labs today - continue meds - will need 2 HR PG at 6 weeks 3. Wound care instructions 4. PP Depression - declines med or therapy at this time but knows resources are available A total of 24 minutes was spent [...] Procedure Name Priority Date/Time Associated Diagnosis Comments HEMOGLOBIN A1C Routine 06/23/2023 1:36 PM EST Routine follow-up documented in this encounter Results * Hemoglobin A1c (06/23/2023 1:36 PM EST) Hemoglobin A1c 5.5 <5.7 % 06/23/2023 7:54 PM EST [facility] Blood Venous blood specimen / Unknown Venipuncture / Unknown 06/23/2023 1:36 PM EST 06/23/2023 5:51 PM EST Narrative [facility] - 06/23/2023 7:54 PM EST HA1C Interpretive Data: Diagnosis of Diabetes: Diabetic > or = 6.5% Pre-diabetic 5.7 to 6.4% Non-diabetic < or = 5.6% Glycemic Targets for Type I and Type II Diabetics: Non- Adults <7.0% Adults <6.0% Children and Adolescents <7.5% Source: ??[place] [employer]. Standards of medical care in diabetes,2017. Diabetes Care.2017:40 (suppl 1):S1-S135. HbA1c assay performed by an ion-exchange chromatography method that is certified traceable to the DCCT. us Steffen [facility] MD LAB BLOOD ORDERABLES Final Resu lt [facility] [address] [place] [address] documented in this encounter Visit Diagnoses Diagnosis Routine follow-up- Primary History of gestational diabetes Personal history of other genital system and obstetric disorders Family planning Other general counseling and advice for contraceptive management depression Mental disorders of mother, complicating , childbirth, or the puerperium, unspecified as to episode of care documented in this encounter Additional Health Concerns Active Problems Noted Date Diagnosed Date CPM S22 PP LABOR (OBSTETRICS) 12/02/2022 Assessment Noted Time A fall risk assessment has been complete d for the patient 06/04/2023 1:39 PM EST A Body Mass Index follow-up plan has been documented for the patient 06/23/2023 1:41 PM EST documented as of this encounter Care Teams Supervisor Die Casting Relationship Specialty Start Date End Date Per Patient, None, [address] [facility] [address] [place] [address] PCP - General 11/25/[address] [facility] [address] [place] [address] Dietitian Diabetes Services 03/30/23 01/27/24 documented as of this encounter
--- OUTSIDE RECORDS SUMMARY | 2024-04-02 15:12 | XMS_ITS | Encounter Summary ---
Author Organization Healthcare Address [address] [place] [address] Care Team Providers Care Journalism Internship Name Role Phone Per Patient, None Primary Care Provider + [phone] Unavailable [phone] Encounter Details Date Type Department Care Team (Latest Contact Info) Description 05/18/2023 Travel Social History Tobacco Use Types Packs/Day Years Used Date Smoking Tobacco: Every Day Cigarettes Smokeless Tobacco: Never Alcohol Use Standard Drinks/Week Comments Never 0 (1 standard drink = 0.6 oz pur e alcohol) PHQ-2 Answer Date Recorded Patient Health Questionnaire-2 Score 0 05/18/2023 PHQ-2A Answer Date Recorded Patient Health Questionnaire-2 [...] has been complete d for the patient 05/18/2023 3:44 PM EST A Body Mass Index follow-up plan has been documented for the patient 05/18/2023 4:17 PM EST documented as of this encounter Care Teams Journalism Internship Relationship Specialty Start Date End Date Per Patient, None, [address] [place] [address] PCP - General 11/25/[address] [place] [address] Dietitian Diabetes Services 03/30/23 01/27/24 documented as of this encounter
--- OUTSIDE RECORDS SUMMARY | 2024-04-02 15:12 | XMS_ITS | Encounter Summary ---
Author Organization Healthcare Address [address] [place] [address] Care Team Providers Care Violin Restorer Name Role Phone Per Patient, None Primary Care Provider + [phone] Unavailable Encounter Details Date Type Department Care Team (Latest Contact Info) Description 05/24/2023 Travel Social History Tobacco Use Types Packs/Day [...] has been complete d for the patient 05/20/2023 2:40 PM EST A Body Mass Index follow-up plan has been documented for the patient 05/24/2023 2:22 PM EST documented as of this encounter Care Teams Violin Restorer Relationship Specialty Start Date End Date Per Patient, None, [address] [place] [address] PCP - General 11/25/[address] [place] [id number] Dietitian Diabetes Services 03/30/23 01/27/24 documented as of this encounter
--- OUTSIDE RECORDS SUMMARY | 2024-04-02 15:12 | XMS_ITS | Encounter Summary ---
Author Organization Healthcare Address [address] [place] [address] Care Team Providers Care Guest Relations Officer Name Role Phone Per Patient, None Primary Care Provider + [phone] Unavailable [phone] Reason for Visit * Reason Comments NST/BPP Visit Cramping in upper ab domen since yesterday morning Encounter Details Date Type Department Care Team (Late st Contact Info) Description 05/11/2023 3:30 PM EST Routine Obstetrics & Gynecology [address] [place] [address] Steffen Livingston MD [address] [place] [address] 32 weeks gestation of (Primary Dx); Previous section complicating ; Gestational diabetes mellitus (GDM) in third trimester controlled on oral hypoglycemic drug Social History Tobacco Use Types Packs/Day Years Used Date Smoking Tobacco: Every Day Cigarettes Smokeless Tobacco: Never Alcohol Use Standard Drinks/Week Comments Never 0 (1 standard drink = 0.6 oz pur e alcohol) PHQ-2 Answer Date Recorded Patient Health Questionnaire-2 Score 0 05/11/2023 PHQ-2A Answer Date Recorded Patient Health Questionnaire-2 Score 0 04/22/2023 Comments Yes Sex and Gender Information Value Date Recorded Sex Assigned at Not on file Legal Sex Female 10:59 AM EDT Gender Identity Not on file Sexual Orientation Not on file documented as of this encounter Last Filed Vital Signs Vital Sign Reading Time Taken Comments Blood Pressure 116/78 05/11/2023 4:05 PM EST Pulse - - Temperature - - Respiratory Rate - - Oxygen Saturation - - Inhaled Oxygen Concentration - - Weight 118 kg (261 lb 3.9 oz) 05/11/2023 4:05 PM EST Height - - Body Mass Index 44.84 05/17/2021 11:53 PM EST documented in this encounter Miscellaneous Notes * Significant Event - Steffen Livingston MD - 05/11/2023 4:38 PM EST 05/11/23 1638 Non-Stress Baby A Reason for Non-Stress Test Diabetes Variability in Waveform for Baby A 6-25 BPM Decelerations in Baby A None Accelerations in Baby A Yes Acoustic Stimulator for Baby A No Baseline Heart Rate for Baby A 150 BPM Uterine Irritability for Baby A No Contractions in Baby A Not present Interpretation of Non-Stress Test Interpretation of Non-Stress Test Reactive $ NST Charge 1 * Progress Notes - Steffen Livingston MD - 05/11/2023 3:30 PM EST Subjective Chief Complaint Patient presents with NST/BPP Visit Cramping in upper abdomen since yesterday morning Mini Brennan is a 27 y.o. at 32w4d with a working estimated date of delivery of 07/02/2023, by Ultrasound who presents for a routine visit. She denies vaginal bleeding, leakage of fluid, decreased movements, or contractions. BG checks much better! Her is complicated by: GDM A2 H/O LTCS The following portions of the chart were reviewed this encounter and updated as appropriate: ALL Objective Physical Exam Weight: 118 kg (261 lb 3.9 oz) Expected Total Weight Gain: Could not be calculated Pregravid BMI: Could not be calculated BP: 116/78 Heart Rate: NST Labs Urine dip: NA HGB (g/dL) Date/Time Value 03/25/2023 0901 11.3 HCT (%) Date/Time Value 03/25/2023 0901 35.2 ABO/Rh (no units) Date/Time Value 11/30/2022 1124 O Positive Hepatitis B Surf Antigen (no units) Date/Time Value 11/25/2022 1016 Negative No results found for: PAPPA , AFP , HCG , ESTRIOL , INHBA GTT - Fasting (mg/dL) Date/Time Value 04/01/2021 0828 92 GTT - 1 Hour (mg/dL) Date/Time Value 04/01/2021 0928 188 (H) Glucose OB Screen - 1 Hour (mg/dL) Date/Time Value 03/25/2023 0901 271 (H) GTT - 2 Hour (mg/dL) Date/Time Value 04/01/2021 1022 113 GTT - 3 Hour (mg/dL) Date/Time Value 04/01/2021 1133 114 NST - Reactive Assessment/Plan Diagnoses and all orders for this visit: 32 weeks gestation of Previous section complicating Gestational diabetes mellitus (GDM) in third trimester controlled on oral hypoglycemic drug Continue vitamin. Labs reviewed. GBS at 36 weeks Expected mode of delivery TBD Bg checks - same BG meds Follow up 2x/week for a routine visit w/ NSTs. documented in this encounter Plan of Treatment Not on file documented as of this encounter Goals Goal Patient Goal Type Associated Problems Recent Progress Patient-Stated? Author Delayed Delivery Care Plan CPM S22 PP LABOR (OBSTETRICS) No Open Scheduling, Background documented as of this encounter Visit Diagnoses Diagnosis 32 weeks gestation of - Primary Previous section complicating Gestational diabetes mellitus (GDM) in third trimester controlled on oral hypoglycemic drug documented in this encounter Additional Health Concerns Active Problems Noted Date Diagnosed Date CPM S22 PP LABOR (OBSTETRICS) 12/02/2022 Assessment Noted Time A fall risk assessment has been complete d for the patient 05/11/2023 4:12 PM EST A Body Mass Index follow-up plan has been documented for the patient 05/11/2023 4:40 PM EST documented as of this encounter Care Teams Guest Relations Officer Relationship Specialty Start Date End Date Per Patient, None, [address] [facility] [address] [place] [address] PCP - General 11/25/[address] [facility] [address] [place] [address] Dietitian Diabetes Services 03/30/23 01/27/24 documented as of this encounter
--- OUTSIDE RECORDS SUMMARY | 2024-04-02 15:12 | XMS_ITS | Encounter Summary ---
Author Organization Healthcare Address [address] [place] [address] Care Team Providers Care Flour Blender Helper Name Role Phone Per Patient, None Primary Care Provider + [phone] Unavailable [phone] Encounter Details Date Type Department Care Team (Latest Contact Info) Description 05/06/2023 Travel Social History Tobacco Use Types Packs/Day Years Used Date Smoking Tobacco: Every Day Cigarettes Smokeless Tobacco: Never Alcohol Use Standard Drinks/Week Comments Never 0 (1 standard drink = 0.6 oz pur e alcohol) PHQ-2 Answer Date Recorded Patient Health Questionnaire-2 Score 0 05/06/2023 PHQ-2A Answer Date Recorded Patient Health Questionnaire-2 [...] has been complete d for the patient 05/06/2023 3:49 PM EST A Body Mass Index follow-up plan has been documented for the patient 05/06/2023 4:02 PM EST documented as of this encounter Care Teams Flour Blender Helper Relationship Specialty Start Date End Date Per Patient, None, [address] [place] [address] PCP - General 11/25/[address] [place] [phone] Dietitian Diabetes Services 03/30/23 01/27/24 documented as of this encounter
--- OUTSIDE RECORDS SUMMARY | 2024-04-02 15:12 | XMS_ITS | Encounter Summary ---
Author Organization Healthcare Address [address] [place] [address] Care Team Providers Care Highway Design Engineer Name Role Phone Per Patient, None Primary Care Provider + [phone] Unavailable [phone] Encounter Details Date Type Department Care Team (Latest Contact Info) Description 04/07/2023 Travel Social History Tobacco Use Types Packs/Day Years Used Date Smoking Tobacco: Every Day Cigarettes Smokeless Tobacco: Never Alcohol Use Standard Drinks/Week Comments Never 0 (1 standard drink = 0.6 oz pur e alcohol) PHQ-2 Answer Date Recorded Patient Health Questionnaire-2 Score 0 04/07/2023 PHQ-2A Answer Date Recorded Patient Health Questionnaire-2 Score 0 04/07/2023 Comments Yes Sex and Gender Information Value [...] has been complete d for the patient 04/07/2023 2:34 PM EST A Body Mass Index follow-up plan has been documented for the patient 04/07/2023 2:44 PM EST documented as of this encounter Care Teams Highway Design Engineer Relationship Specialty Start Date End Date Per Patient, None, [address] [place] [address] PCP - General 11/25/[address] [place] [phone] Dietitian Diabetes Services 03/30/23 01/27/24 documented as of this encounter
--- OUTSIDE RECORDS SUMMARY | 2024-04-02 15:12 | XMS_ITS | Encounter Summary ---
Author Organization Healthcare Address [address] [place] [address] Care Team Providers Care Tube Backer Name Role Phone Per Patient, None Primary Care Provider + [phone] Unavailable [phone] Encounter Details Date Type Department Care Team (Late st Contact Info) Description 04/01/2023 Telephone Obstetrics & Gynecology [address] [place] [address] Steffen Livingston MD [address] [place] [address] Social History Tobacco Use Types Packs/Day Years Used Date Smoking Tobacco: Every Day Cigarettes Smokeless Tobacco: Never Alcohol Use Standard Drinks/Week Comments Never 0 (1 standard drink = 0.6 oz pur e alcohol) PHQ-2 Answer Date Recorded Patient Health Questionnaire-2 Score 0 04/15/2023 PHQ-2A Answer Date Recorded Patient Health Questionnaire-2 Score 0 04/15/2023 Comments Yes Sex and Gender Information Value [...] has been complete d for the patient 04/01/2023 2:29 PM EST A Body Mass Index follow-up plan has been documented for the patient 04/01/2023 2:52 PM EST documented as of this encounter Care Teams Tube Backer Relationship Specialty Start Date End Date Per Patient, None, [address] [facility] [address] [place] [address] PCP - General 11/25/[address] [facility] [address] [place] [address] Dietitian Diabetes Services 03/30/23 01/27/24 documented as of this encounter
--- OUTSIDE RECORDS SUMMARY | 2024-04-02 15:12 | XMS_ITS | Encounter Summary ---
Author Organization Healthcare Address [address] [place] [id number] Care Team Providers Care Field Logistics Coordinator Name Role Phone Per Patient, None Primary Care Provider + [phone] Unavailable Encounter Details Date Type Department Care Team (Latest Contact Info) Description 04/01/2023 Travel Social History Tobacco Use Types Packs/Day Years Used Date Smoking Tobacco: Every Day Cigarettes Smokeless Tobacco: Never Alcohol Use Standard Drinks/Week Comments Never 0 (1 standard drink = 0.6 oz pur e alcohol) PHQ-2 Answer Date Recorded Patient Health Questionnaire-2 Score 0 04/01/2023 Comments Yes Sex and Gender Information Value [...] documented as of this encounter Care Teams Field Logistics Coordinator Relationship Specialty Start Date End Date Per Patient, None, [address] [place] [address] PCP - General 11/25/[address] [facility] [address] [place] [address] Dietitian Diabetes Services 03/30/23 01/27/24 documented as of this encounter
--- OUTSIDE RECORDS SUMMARY | 2024-04-02 15:12 | XMS_ITS | Encounter Summary ---
Author Organization Healthcare Address [address] [place], [place] [id number] Care Team Providers Care Tub Tender Name Role Phone Per Patient, None Primary Care Provider + [phone] Unavailable [phone] Reason for Visit * Reason Comments Gestational Diabetes * Consultation (Routine) - Closed Specialty Diagnoses / Procedures Referred By Contac t Referred To Contact Endocrinology Diagnoses Gestational diabetes mellitus (GDM) in second trimester, gestational diabetes method of control unspecified Steffen Livingston MD [address] [place] [address] Phone: tel: fax: [facility] [address] [place] [address] Phone: tel: fax: Referral ID Status Reason Start Date Expiration Date Visits Re quested Visits Authorized [id number] Closed 03/25/2023 09/23/2024 1 1 Encounter Details Date Type Department Care Team (Late st Contact Info) Description 03/30/2023 10:00 AM EST Education [facility] [address] [place] [address] [place] [address] Gestational diabetes mellitus (GDM) in second trimester, gestational diabetes method of control unspecified Social History Tobacco Use Types Packs/Day Years Used Date Smoking Tobacco: Every Day Cigarettes Smokeless Tobacco: Never Alcohol Use Standard Drinks/Week Comments Never 0 (1 standard drink = 0.6 oz pur e alcohol) PHQ-2 Answer Date Recorded Patient Health Questionnaire-2 Score 0 03/25/2023 Comments Yes Sex and Gender Information Value Date Recorded Sex Assigned at Not on file Legal Sex Female 10:59 AM EDT Gender Identity Not on file Sexual Orientation Not on file documented as of this encounter Miscellaneous Notes * Progress Notes - Alley Dominique RD - 03/30/2023 10:00 AM EST Patient Verification Patient identity has been confirmed using name and date of ? Yes Authorizations and Agreements/Telemedicine Consent sent and consent confirmed? Yes Patient Location: Patient's Home Patient confirms they are physically located in [place]? Yes If the patient is not physically located in [place], the provider has confirmed with Legal thatthe provider is authorized to provide services in patient's stated location? N/A Provider Location: [facility] Facility Audio and video or audio only? Audio and video Total visit time: 27 minutes Pt was 23 minutes late to her appointment. See Assessment questionnaire completed by pt prior to visit. documented in this encounter Plan of Treatment Not on file documented as of this encounter Goals Goal Patient Goal Type Associated Problems Recent Progress Patient-Stated? Author Delayed Delivery Care Plan CPM S22 PP LABOR (OBSTETRICS) No Open Scheduling, Background documented as of this encounter Visit Diagnoses Diagnosis Gestational diabetes mellitus (GDM) in second trimester, gestational diabetes method of control unspecified documented in this encounter Additional Health Concerns Active Problems Noted Date Diagnosed Date CPM S22 PP LABOR (OBSTETRICS) 12/02/2022 Assessment Noted Time A fall risk assessment has been complete d for the patient 03/25/2023 9:00 AM EST A Body Mass Index follow-up plan has been documented for the patient 03/25/2023 9:32 AM EST documented as of this encounter Care Teams Tub Tender Relationship Specialty Start Date End Date Per Patient, None, [address] [facility] [address] [place] [address] PCP - General 11/25/[address] [address] Dietitian Diabetes Services 03/30/23 01/27/24 documented as of this encounter
--- OUTSIDE RECORDS SUMMARY | 2024-04-02 15:12 | XMS_ITS | Encounter Summary ---
Author Organization Healthcare Address [address] [place] [address] Care Team Providers Care Physical Chemistry Professor Name Role Phone Per Patient, None Primary Care Provider + [phone] Unavailable [phone] Encounter Details Date Type Department Care Team (Late st Contact Info) Description 04/19/2023 Orders Only Obstetrics & Gynecology [address] [place] [address] Steffen Livingston MD [address] [place] [address] Social History Tobacco Use Types [...] has been complete d for the patient 04/15/2023 2:24 PM EST A Body Mass Index follow-up plan has been documented for the patient 04/15/2023 3:08 PM EST documented as of this encounter Care Teams Physical Chemistry Professor Relationship Specialty Start Date End Date Per Patient, None, [address] [facility] [address] [place] [address] PCP - General 11/25/[address] [facility] [address] [place] [address] Dietitian Diabetes Services 03/30/23 01/27/24 documented as of this encounter
--- OUTSIDE RECORDS SUMMARY | 2024-04-02 15:12 | XMS_ITS | Encounter Summary ---
Author Organization Healthcare Address [address] [place] [address] Care Team Providers Care Milling Machinist Name Role Phone Per Patient, None Primary Care Provider + [phone] Unavailable [phone] Encounter Details Date Type Department Care Team (Latest Contact Info) Description 04/22/2023 Travel Social History Tobacco Use Types Packs/Day Years Used Date Smoking Tobacco: Every Day Cigarettes Smokeless Tobacco: Never Alcohol Use Standard Drinks/Week Comments Never 0 (1 standard drink = 0.6 oz pur e alcohol) PHQ-2 Answer Date Recorded Patient Health Questionnaire-2 Score 0 04/22/2023 PHQ-2A Answer Date Recorded Patient Health Questionnaire-2 [...] has been complete d for the patient 04/22/2023 2:56 PM EST A Body Mass Index follow-up plan has been documented for the patient 04/22/2023 3:24 PM EST documented as of this encounter Care Teams Milling Machinist Relationship Specialty Start Date End Date Per Patient, None, [address] [place] [address] PCP - General 11/25/[address] [place] [address] Dietitian Diabetes Services 03/30/23 01/27/24 documented as of this encounter
--- OUTSIDE RECORDS SUMMARY | 2024-04-02 15:12 | XMS_ITS | Encounter Summary ---
Author Organization [facility] Address [address] [place] [address] Care Team Providers Care Horticulture Superintendent Name Role Phone Per Patient, None Primary Care Provider + [phone] Unavailable [phone] Reason for Visit * Reason Comments Routine Visit Pt stated she is doing well today Encounter Details Date Type Department Care Team (Late st Contact Info) Description 04/29/2023 3:00 PM EST Routine Obstetrics & Gynecology [address] [place] [address] Steffen Livingston MD [address] [place] [address] 30 weeks gestation of (Primary Dx); Previous section complicating ; Gestational diabetes mellitus (GDM) in third trimester controlled on oral hypoglycemic drug Social History Tobacco Use Types Packs/Day Years Used Date Smoking Tobacco: Every Day Cigarettes Smokeless Tobacco: Never Alcohol Use Standard Drinks/Week Comments Never 0 (1 standard drink = 0.6 oz pur e alcohol) PHQ-2 Answer Date Recorded Patient Health Questionnaire-2 Score 0 04/29/2023 PHQ-2A Answer Date Recorded Patient Health Questionnaire-2 Score 0 04/22/2023 Comments Yes Sex and Gender Information Value Date Recorded Sex Assigned at Not on file Legal Sex Female 10:59 AM EDT Gender Identity Not on file Sexual Orientation Not on file documented as of this encounter Last Filed Vital Signs Vital Sign Reading Time Taken Comments Blood Pressure 122/83 04/29/2023 3:19 PM EST Pulse - - Temperature - - Respiratory Rate - - Oxygen Saturation - - Inhaled Oxygen Concentration - - Weight 117 kg (257 lb 15 oz) 04/29/2023 3:19 PM EST Height - - Body Mass Index 44.27 05/17/2021 11:53 PM EST documented in this encounter Miscellaneous Notes * Progress Notes - Steffen Livingston MD - 04/29/2023 3:00 PM EST Subjective Chief Complaint Patient presents with Routine Visit Pt stated she is doing well today Mini Brennan is a 27 y.o. at 30w6d with a working estimated date of delivery of 07/02/2023, by Ultrasound who presents for a routine visit. She denies vaginal bleeding, leakage of fluid, decreased movements, or contractions. BG checks elevated in AM. Her is complicated by: GDM A2 H/O LTCS The following portions of the chart were reviewed this encounter and updated as appropriate: ALL Objective Physical Exam Weight: 117 kg (257 lb 15 oz) Expected Total Weight Gain: Could not be calculated Pregravid BMI: Could not be calculated BP: 122/83 Labs Urine dip: NA HGB (g/dL) Date/Time [...] Hour (mg/dL) Date/Time Value 04/01/2021 1133 114 Assessment/Plan Diagnoses and all orders for this visit: 30 weeks gestation of Previous section complicating Gestational diabetes mellitus (GDM) in third trimester controlled on oral hypoglycemic drug Continue vitamin. Labs reviewed. GBS at 36 weeks Expected mode of delivery TBD Increase Glucophage to 500/500/1000 Follow up in 1 week for a routine visit. documented in this encounter Plan of Treatment Not on file documented as of this encounter Goals Goal Patient Goal Type Associated Problems Recent Progress Patient-Stated? Author Delayed Delivery Care Plan CPM S22 PP LABOR (OBSTETRICS) No Open Scheduling, Background documented as of this encounter Visit Diagnoses Diagnosis 30 weeks gestation of - Primary Previous section complicating Gestational diabetes mellitus (GDM) in third trimester controlled on oral hypoglycemic drug documented in this encounter Additional Health Concerns Active Problems Noted Date Diagnosed Date CPM S22 PP LABOR (OBSTETRICS) 12/02/2022 Assessment Noted Time A fall risk assessment has been complete d for the patient 04/29/2023 3:18 PM EST A Body Mass Index follow-up plan has been documented for the patient 04/29/2023 3:32 PM EST documented as of this encounter Care Teams Horticulture Superintendent Relationship Specialty Start Date End Date Per Patient, None, [address] [facility] [address] [place], [place] [id number] PCP - General 11/25/[address] [facility] [address] [place] [phone] Dietitian Diabetes Services 03/30/23 01/27/24 documented as of this encounter
--- OUTSIDE RECORDS SUMMARY | 2024-04-02 15:12 | XMS_ITS | Encounter Summary ---
Author Organization [facility] Address [address] [place] [address] Care Team Providers Care Conventional Machinist Name Role Phone Per Patient, None Primary Care Provider + [phone] Unavailable [phone] Reason for Visit * Reason Comments NST/BPP Visit Patient presents for NST/RPV denies bleeding, leakage of fluid, contractions, or decreased movement Encounter Details Date Type Department Care Team (Late st Contact Info) Description 05/14/2023 3:00 PM EST Routine Obstetrics & Gynecology [address] [place] [address] Steffen Livingston MD [address] [place] [address] 33 weeks gestation of (Primary Dx); Previous section [...] Sign Reading Time Taken Comments Blood Pressure 122/79 05/14/2023 3:14 PM EST Pulse - - Temperature - - Respiratory Rate - - Oxygen Saturation - - Inhaled Oxygen Concentration - - Weight 120 kg (263 lb 7.2 oz) 05/14/2023 3:14 PM EST Height - - Body Mass Index 45.22 05/17/2021 11:53 PM EST documented in this encounter Miscellaneous Notes * Significant Event - Steffen Livingston MD - 05/14/2023 3:46 PM EST 05/14/23 1545 Non-Stress Baby A Reason for Non-Stress Test Diabetes Variability in Waveform for Baby A 6-25 BPM Decelerations in Baby A None Accelerations in Baby A Yes Acoustic Stimulator for Baby A No Baseline Heart Rate for Baby A 145 BPM Uterine Irritability for Baby A No Contractions in Baby A Not present Interpretation of Non-Stress Test $ NST Charge 1 * Progress Notes - Steffen Livingston MD - 05/14/2023 3:00 PM EST Subjective Chief Complaint Patient presents with NST/BPP Visit Patient presents for NST/RPV denies bleeding, leakage of fluid, contractions, or decreased movement Mini Brennan is a 27 y.o. at 33w0d with a working estimated date of delivery of 07/02/2023, by Ultrasound who presents for a routine visit. She denies vaginal bleeding, leakage of fluid, decreased movements, or contractions. Bg checks OK. Her is complicated by: GDM A2 The following portions of the chart were reviewed this encounter and updated as appropriate: ALL Objective Physical Exam Weight: 120 kg (263 lb 7.2 oz) Expected Total Weight Gain: Could not be calculated Pregravid BMI: Could not be calculated BP: 122/79 Heart Rate: NST Labs Urine dip: NA [...] Diagnoses and all orders for this visit: 33 weeks gestation of - respiratory syncytial virus (Abrysvo) injection vaccine 0.5 mL Previous section complicating Gestational diabetes mellitus (GDM) in third trimester controlled on oral hypoglycemic drug Continue vitamin. Labs reviewed. GBS at 36 weeks Expected mode of delivery TBD BG checks - same med regimen Follow up 2x/week for a routine visit w/ NSTs. documented in this encounter Plan of Treatment Not on file documented as of this encounter Goals Goal Patient Goal Type Associated Problems Recent Progress Patient-Stated? Author Delayed Delivery Care Plan CPM S22 PP LABOR (OBSTETRICS) No Open Scheduling, Background documented as of this encounter Visit Diagnoses Diagnosis 33 weeks gestation of - Primary Previous section [...] plan has been documented for the patient 05/14/2023 4:01 PM EST documented as of this encounter Care Teams Conventional Machinist Relationship Specialty Start Date End Date Per Patient, None, [address] [facility] [address] [place] [address] PCP - General 11/25/[address] [address] Dietitian Diabetes Services 03/30/23 01/27/24 documented as of this encounter
--- OUTSIDE RECORDS SUMMARY | 2024-04-02 15:12 | XMS_ITS | Encounter Summary ---
Author Organization [facility] Address [address] [place] [address] Care Team Providers Care Submarine Worker Name Role Phone Per Patient, None Primary Care Provider + [phone] Unavailable [phone] Encounter Details Date Type Department Care Team (Late st Contact Info) Description 05/06/2023 3:45 PM EST Routine Obstetrics & Gynecology [address] [place] [address] Steffen Livingston MD [address] [place] [address] 31 weeks gestation of (Primary Dx); Previous section [...] Sign Reading Time Taken Comments Blood Pressure 122/76 05/06/2023 3:49 PM EST Pulse - - Temperature - - Respiratory Rate - - Oxygen Saturation - - Inhaled Oxygen Concentration - - Weight 118 kg (260 lb 2.3 oz) 05/06/2023 3:49 PM EST Height - - Body Mass Index 44.65 05/17/2021 11:53 PM EST documented in this encounter Miscellaneous Notes * Progress Notes - Steffen Livingston MD - 05/06/2023 3:45 PM EST Subjective No chief complaint on file. Mini Brennan is a 27 y.o. at 31w6d with a working estimated date of delivery of 07/02/2023, by Ultrasound who presents for a routine visit. She denies vaginal bleeding, leakage of fluid, decreased movements, or contractions. BG checks much better but still with slightly elevated fastings. Her is complicated by: GDM A2 H/O LTCS The following portions of the chart were reviewed this encounter and updated as appropriate: ALL Objective Physical Exam Weight: 118 kg (260 lb 2.3 oz) Expected Total Weight Gain: Could not be calculated Pregravid BMI: Could not be calculated BP: 122/76 Heart Rate: 150 Fundal Height (cm): 44 cm Labs Urine dip: NA HGB (g/dL) Date/Time [...] Diagnoses and all orders for this visit: 31 weeks gestation of Previous section complicating Gestational diabetes mellitus (GDM) in third trimester controlled on oral hypoglycemic drug Continue vitamin. Labs reviewed. GBS at 36 weeks Expected mode of delivery TBD Increase Glucophage to 500/500/1500 BG checks Follow up 2x/week for a routine visit w/ NSTs. documented in this encounter Plan of Treatment Not on file documented as of this encounter Goals Goal Patient Goal Type Associated Problems Recent Progress Patient-Stated? Author Delayed Delivery Care Plan CPM S22 PP LABOR (OBSTETRICS) No Open Scheduling, Background documented as of this encounter Visit Diagnoses Diagnosis 31 weeks gestation of - Primary Previous section [...] documented as of this encounter Care Teams Submarine Worker Relationship Specialty Start Date End Date Per Patient, None, [address] [place] [address] PCP - General 11/25/[address] [facility] [address] [place] [id number] Dietitian Diabetes Services 03/30/23 01/27/24 documented as of this encounter
--- OUTSIDE RECORDS SUMMARY | 2024-04-02 15:12 | XMS_ITS | Encounter Summary ---
Author Organization [facility] Address [address] [place] [address] Care Team Providers Care Tissue Packer Name Role Phone Per Patient, None Primary Care Provider + [phone] Unavailable [phone] Encounter Details Date Type Department Care Team (Latest Contact Info) Description 06/01/2023 Travel Social History Tobacco Use Types Packs/Day [...] has been complete d for the patient 06/01/2023 10:40 AM EST A Body Mass Index follow-up plan has been documented for the patient 06/01/2023 11:23 AM EST documented as of this encounter Care Teams Tissue Packer Relationship Specialty Start Date End Date Per Patient, None, [address] [place] [address] PCP - General 11/25/[address] [place] [id number] Dietitian Diabetes Services 03/30/23 01/27/24 documented as of this encounter
--- OUTSIDE RECORDS SUMMARY | 2024-04-02 15:12 | XMS_ITS | Encounter Summary ---
Author Organization [facility] Address [address] [place] [address] Care Team Providers Care Dyeing Machine Feeder Name Role Phone Per Patient, None Primary Care Provider + [phone] Unavailable [phone] Reason for Visit * Reason Comments NST/BPP Visit Patient presents for NST/RPV denies bleeding, leakage of fluid, or contractions, reports good movement Encounter Details Date Type Department Care Team (Late st Contact Info) Description 05/24/2023 1:30 PM EST Routine Obstetrics & Gynecology [address] [place] [address] Steffen Livingston MD [address] [place] [address] 34 weeks gestation of (Primary Dx); Previous section [...] Sign Reading Time Taken Comments Blood Pressure 122/80 05/24/2023 1:46 PM EST Pulse - - Temperature - - Respiratory Rate - - Oxygen Saturation - - Inhaled Oxygen Concentration - - Weight 119 kg (262 lb 5.6 oz) 05/24/2023 1:46 PM EST Height - - Body Mass Index 45.03 05/17/2021 11:53 PM EST documented in this encounter Miscellaneous Notes * Significant Event - Steffen Livignston MD - 05/24/2023 2:21 PM EST 05/24/23 1421 Non-Stress Baby A Reason for Non-Stress Test Diabetes Variability in Waveform for Baby A 6-25 BPM Decelerations in Baby A None Accelerations in Baby A Yes Acoustic Stimulator for Baby A No Baseline Heart Rate for Baby A 140 BPM Uterine Irritability for Baby A Yes Contractions in Baby A Not present Interpretation of Non-Stress Test Interpretation of Non-Stress Test Reactive $ NST Charge 1 * Progress Notes - Steffen Livingston MD - 05/24/2023 1:30 PM EST Subjective Chief Complaint Patient presents with NST/BPP Visit Patient presents for NST/RPV denies bleeding, leakage of fluid, or contractions, reports good fetalmovement Mini Brennan is a 27 y.o. at 34w3d with a working estimated date of delivery of 07/02/2023, by Ultrasound who presents for a routine visit. She denies vaginal bleeding, leakage of fluid, decreased movements, or contractions. BG checks OK. Her is complicated by: GDM A2 H/O LTCS x 1 The following portions of the chart were reviewed this encounter and updated as appropriate: ALL Objective Physical Exam Weight: 119 kg (262 lb 5.6 oz) Expected Total Weight Gain: Could not be calculated Pregravid BMI: Could not be calculated BP: 122/80 Heart Rate: NST Labs Urine dip: NA [...] Diagnoses and all orders for this visit: 34 weeks gestation of Previous section complicating Gestational diabetes mellitus (GDM) in third trimester controlled on oral hypoglycemic drug Continue vitamin. Labs reviewed. GBS at 36 weeks BG checks Expected mode of delivery RLTCS Follow up 2x/week for a routine visit w/ NSTs. documented in this encounter Plan of Treatment Not on file documented as of this encounter Goals Goal Patient Goal Type Associated Problems Recent Progress Patient-Stated? Author Delayed Delivery Care Plan CPM S22 PP LABOR (OBSTETRICS) No Open Scheduling, Background documented as of this encounter Visit Diagnoses Diagnosis 34 weeks gestation of - Primary Previous section [...] documented as of this encounter Care Teams Dyeing Machine Feeder Relationship Specialty Start Date End Date Per Patient, None, [address] [facility] [address] [place] [address] PCP - General 11/25/[address] [address] Dietitian Diabetes Services 03/30/23 01/27/24 documented as of this encounter
--- OUTSIDE RECORDS SUMMARY | 2024-04-02 15:12 | XMS_ITS | Encounter Summary ---
Author Organization [facility] Address [address] [place] [address] Care Team Providers Care Soft Sugar Operator Head Name Role Phone Per Patient, None Primary Care Provider + [phone] Unavailable [phone] Encounter Details Date Type Department Care Team (Late st Contact Info) Description 05/06/2023 Orders Only Obstetrics & Gynecology [address] [place] [address] Steffen Livingston MD [address] [place] [address] Social History Tobacco Use Types [...] documented as of this encounter Care Teams Soft Sugar Operator Head Relationship Specialty Start Date End Date Per Patient, None, [address] [facility] [address] [place] [address] PCP - General 11/25/[address] [facility] [address] [place] [address] Dietitian Diabetes Services 03/30/23 01/27/24 documented as of this encounter
--- OUTSIDE RECORDS SUMMARY | 2024-04-02 15:12 | XMS_ITS | Encounter Summary ---
Author Organization [facility] Address [address] [place] [address] Care Team Providers Care Machinist Helper Marine Name Role Phone Per Patient, None Primary Care Provider + [phone] Unavailable [phone] Encounter Details Date Type Department Care Team (Late st Contact Info) Description 04/19/2023 Telephone Obstetrics & Gynecology [address] [place] [address] Steffen Livingston MD [address] [place] [address] Social History Tobacco Use Types [...] encounter Miscellaneous Notes * Telephone Encounter - Grecia Stack - 04/19/2023 11:28 AM EST Called pt she is aware documented in this encounter Plan of Treatment [...] documented as of this encounter Care Teams Machinist Helper Marine Relationship Specialty Start Date End Date Per Patient, None, [address] [facility] [address] [place] [address] PCP - General 11/25/[address] [facility] [address] [place] [address] Dietitian Diabetes Services 03/30/23 01/27/24 documented as of this encounter
--- OUTSIDE RECORDS SUMMARY | 2024-04-02 15:12 | XMS_ITS | Encounter Summary ---
Author Organization [facility] Address [address] [id number] Care Team Providers Care Automatic Drilling Machine Operator Name Role Phone Per Patient, None Primary Care Provider + [phone] Unavailable [phone] Reason for Visit * Reason Comments NST/BPP Visit Patient presents for NST/RPV denies bleeding, leakage of fluid, or contractions. Reports good movement. Patient states yesterday she was dizzy, lightheaded for the majority of the day, she pushed fluid and checked her b/p and blood glucose, all was wnl, denies any other accompanying symptoms except for nausea. Normal appetite yesterday. Resolved right before bed. Denies any issues today. Encounter Details Date Type Department Care Team (Late st Contact Info) Description 05/27/2023 1:30 PM EST Routine Obstetrics & Gynecology [address] [place] [address] Steffen Livingston MD [address] [place] [address] 34 weeks gestation of (Primary [...] Sign Reading Time Taken Comments Blood Pressure 124/81 05/27/2023 1:45 PM EST Pulse - - Temperature - - Respiratory Rate - - Oxygen Saturation - - Inhaled Oxygen Concentration - - Weight 121 kg (267 lb 10.2 oz) 05/27/2023 1:45 P M EST Height - - Body Mass Index 45.94 05/17/2021 11:53 PM EST documented in this encounter Miscellaneous Notes * Significant Event - Steffen Livingston MD - 05/27/2023 2:26 PM EST 05/27/23 1426 Non-Stress Baby A Reason for Non-Stress Test [...] Progress Notes - Steffen Livingston MD - 05/27/2023 1:30 PM EST Subjective Chief Complaint Patient presents with NST/BPP Visit Patient presents for NST/RPV denies bleeding, leakage of fluid, or contractions. Reports good fetalmovement. Patient states yesterday she was dizzy, lightheaded for the majority of the day, she pushed fluid and checked her b/p and blood glucose, all was wnl, denies any other accompanying symptoms except for nausea. Normal appetite yesterday. Resolved right before bed. Denies any issues today. Mini Brennan is a 27 y.o. at 34w6d with a working estimated date of delivery of 07/02/2023, by Ultrasound who presents for a routine visit. She denies vaginal bleeding, leakage of fluid, decreased movements, or contractions. BG checks OK. GI bug earlier this week - much better today. Her is complicated by: GDM A2 H/O LTCS The following portions of the chart were reviewed this encounter and updated as appropriate: ALL Objective Physical Exam Weight: 121 kg (267 lb 10.2 oz) Expected Total Weight Gain: Could not be calculated Pregravid BMI: Could not be calculated BP: 124/81 Heart Rate: NST Labs Urine dip: see flow HGB (g/dL) Date/Time Value 03/25/2023 0901 11.3 [...] for this visit: 34 weeks gestation of - Urine dip Previous section complicating Gestational diabetes mellitus (GDM) in third trimester controlled on oral hypoglycemic drug Continue vitamin. Labs reviewed. GBS tat 36 weeks Expected mode of delivery TBD BG checks GDM meds Follow up 2x/week for a routine visit w/ NSTs. Hydrate - RTC w/ RN in AM for BP check & UA. documented in this encounter Plan of Treatment Not on file documented as of this encounter Goals Goal Patient Goal Type Associated Problems Recent Progress Patient-Stated? Author Delayed Delivery Care Plan CPM S22 PP LABOR (OBSTETRICS) No Open Scheduling, Background documented as of this encounter Procedures Procedure Name Priority Date/Time Associated Diagnosis Comments POCT URINALYSIS DIPSTICK Routine 05/27/2023 2:18 PM EST 34 weeks gestation of documented in this encounter Results * (ABNORMAL) Urine dip (05/27/2023 2:18 PM EST) POCT Urine Color Yellow POCT Urine Clarity Clear POCT Glucose Urine Negative Negative mg/dL POCT Bilirubin, Urine Negative Negative POCT Ketones, Urine Negative Negative mg/dL POCT Specific [place], Urine >=1.030 POCT Blood, Urine Trace(A) Negative POCT pH, Urine 6.0 5.0 to 8.0 POCT Protein, Urine >=300(A) Negative mg/dL POCT Urobilinogen, Urine 0.2 0.2, 1 E.U./dL POCT Nitrite, Urine Negative Negative POCT Leukocyte Esterase, Urine Negative Negative Test Strip Lot Number [id number] Test Strip Lot Expiration 02/2024 Urine Urine specimen obtained by clean catch procedure / Unknown 05/27/2023 2:18 PM EST Steffen Livingston MD POINT OF CARE TEST ENTER/EDIT O RDERABLES Final Result documented in this encounter Visit Diagnoses Diagnosis 34 weeks [...] plan has been documented for the patient 05/27/2023 2:28 PM EST documented as of this encounter Care Teams Automatic Drilling Machine Operator Relationship Specialty Start Date End Date Per Patient, None, [address] [place] [address] PCP - General 11/25/[address] [facility] [address] [place] [address] Dietitian Diabetes Services 03/30/23 01/27/24 documented as of this encounter
--- OUTSIDE RECORDS SUMMARY | 2024-04-02 15:12 | XMS_ITS | Encounter Summary ---
Author Organization [facility] Address [address] [place] [address] Care Team Providers Care Medical Illustrator Name Role Phone Per Patient, None Primary Care Provider + [phone] Unavailable [phone] Reason for Visit * Reason Comments Routine Visit Encounter Details Date Type Department Care Team (Late st Contact Info) Description 05/18/2023 3:30 PM EST Routine Obstetrics & Gynecology [address] [place] [address] Steffen Livingston MD [address] [place] [address] 33 weeks gestation of (Primary [...] Sign Reading Time Taken Comments Blood Pressure 122/81 05/18/2023 3:42 PM EST Pulse - - Temperature - - Respiratory Rate - - Oxygen Saturation - - Inhaled Oxygen Concentration - - Weight 120 kg (263 lb 14.3 oz) 05/18/2023 3:42 P M EST Height - - Body Mass Index 45.3 05/17/2021 11:53 PM EST documented in this encounter Miscellaneous Notes * Significant Event - Steffen Livingston MD - 05/18/2023 4:15 PM EST 05/18/23 1615 Non-Stress Baby A Reason for Non-Stress Test [...] Progress Notes - Steffen Livingston MD - 05/18/2023 3:30 PM EST Subjective Chief Complaint Patient presents with Routine Visit Mini Brennan is a 27 y.o. at 33w4d with a working estimated date of delivery of 07/02/2023, by Ultrasound who presents for a routine visit. She denies vaginal bleeding, leakage of fluid, decreased movements, or contractions. Bg checks OK. GERD. Her is complicated by: GDM A2 H/O LTCS The following portions of the chart were reviewed this encounter and updated as appropriate: ALL Objective Physical Exam Weight: 120 kg (263 lb 14.3 oz) Expected Total Weight Gain: Could not be calculated Pregravid BMI: Could not be calculated BP: 122/81 Heart Rate: NST Labs Urine dip: NA [...] for this visit: 33 weeks gestation of Previous section complicating Gestational diabetes mellitus (GDM) in third trimester controlled on oral hypoglycemic drug Other orders - famotidine (Pepcid) 20 MG tablet; Take 1 tablet (20 mg) by mouth 2 (two) times a day. Continue vitamin. Labs reviewed. GBS at 36 weeks BG checks RX Famotidine Expected mode of delivery TBD Follow up 2x/week for a routine visit w/ NSTs. Glyburide + Glucophage documented in this encounter Plan of Treatment [...] documented as of this encounter Care Teams Medical Illustrator Relationship Specialty Start Date End Date Per Patient, None, [address] [facility] [address] [place] [address] PCP - General 11/25/[address] [facility] [address] [place] [address] Dietitian Diabetes Services 03/30/23 01/27/24 documented as of this encounter
--- OUTSIDE RECORDS SUMMARY | 2024-04-02 15:12 | XMS_ITS | Encounter Summary ---
Author Organization [facility] Address [address] [place], [place] [id number] Care Team Providers Care Animal Stunner Name Role Phone Per Patient, None Primary Care Provider + [phone] Unavailable [phone] Reason for Visit * Reason Comments Gestational Diabetes Encounter Details Date Type Department Care Team (Late st Contact Info) Description 04/22/2023 Patient Outreach [facility] [address] [place] [address] Alley Dominique, RD [address] [facility] [address] [place] [address] Gestational Diabetes Social History Tobacco Use Types Packs/Day Years [...] documented as of this encounter Care Teams Animal Stunner Relationship Specialty Start Date End Date Per Patient, None, [address] [facility] [address] [place] [address] PCP - General 11/25/[address] [facility] [address] [place] [address] Dietitian Diabetes Services 03/30/23 01/27/24 documented as of this encounter
--- OUTSIDE RECORDS SUMMARY | 2024-04-02 15:12 | XMS_ITS | Encounter Summary ---
Author Organization [facility] Address [address] [place] [address] Care Team Providers Care Party Plan Sales Host/Hostess Name Role Phone Per Patient, None Primary Care Provider + [phone] Unavailable [phone] Reason for Referral * Imaging (Routine) - Pending Review Specialty Diagnoses / Procedures Referred By Esther duarte Referred To Contact Diagnoses Gestational diabetes mellitus (GDM) in third trimester controlled on oral hypoglycemic drug Procedures OB US Follow Up Transabdominal Approach Steffen Livingston MD [address] [place] [address] Phone: tel: fax: Referral ID Status Reason Start Date Expiration Date V isits Requested Visits Authorized [id number] Pending Review 05/20/2023 11/18/2024 1 1 Reason for Visit * Reason Comments Ultrasound Anterior, vertex, g rowth 86%, ac greater than 99%, efw 6lb9oz, fhr 163, brent- 22, bpp 12/22 Encounter Details Date Type Department Care Team (Late st Contact Info) Description 05/20/2023 2:30 PM EST Routine Obstetrics & Gynecology [address] [place] [address] Steffen Livingston MD [address] [place] [address] 33 weeks gestation of (Primary [...] Sign Reading Time Taken Comments Blood Pressure 125/83 05/20/2023 2:39 PM EST Pulse - - Temperature - - Respiratory Rate - - Oxygen Saturation - - Inhaled Oxygen Concentration - - Weight 118 kg (260 lb 2.3 oz) 05/20/2023 2:39 PM EST Height - - Body Mass Index 44.65 05/17/2021 11:53 PM EST documented in this encounter Miscellaneous Notes * Progress Notes - Steffen Livingston MD - 05/20/2023 2:30 PM EST Subjective Chief Complaint Patient presents with Ultrasound Anterior, vertex, growth 86%, ac greater than 99%, efw 6lb9oz, fhr 163, brent- 22, bpp 12/22 Mini Brennan is a 27 y.o. at 33w6d with a working estimated date of delivery of 07/02/2023, by Ultrasound who presents for a routine visit. She denies vaginal bleeding, leakage of fluid, decreased movements, or contractions. BG checks OK. Her is complicated by: H/O LTCS GDM A2 The following portions of the chart were reviewed this encounter and updated as appropriate: ALL Objective Physical Exam Weight: 118 kg (260 lb 2.3 oz) Expected Total Weight Gain: Could not be calculated Pregravid BMI: Could not be calculated BP: 125/83 Heart Rate: +us Presentation: Vertex Labs Urine dip: NA HGB (g/dL) Date/Time [...] Hour (mg/dL) Date/Time Value 04/01/2021 113[address] [facility] 12/22 Assessment/Plan Diagnoses and all orders for this visit: 33 weeks gestation of Previous section complicating Gestational diabetes mellitus (GDM) in third trimester controlled on oral hypoglycemic drug Continue vitamin. Labs reviewed. GBS at 36 weeks BG checks Expected mode of delivery TBD Follow up 2x/week for a routine visit w/ NSTs. documented in this encounter Plan of Treatment Scheduled Orders Name Type Priority Associated Diagnoses Orde r Schedule OB US Follow Up Transabdominal Approach Imaging Routine Gestational diabetes mellitus (GDM) in third trimester controlled on oral hypoglycemic drug Expected: 06/17/2023, Expires: 05/20/2024 documented as of this encounter Goals Goal [...] plan has been documented for the patient 05/20/2023 2:50 PM EST documented as of this encounter Care Teams Party Plan Sales Host/Hostess Relationship Specialty Start Date End Date Per Patient, None, [address] [facility] [address] [place] [address] PCP - General 11/25/[address] [facility] [address] [place] [id number] Dietitian Diabetes Services 03/30/23 01/27/24 documented as of this encounter
--- OUTSIDE RECORDS SUMMARY | 2024-04-02 15:12 | XMS_ITS | Encounter Summary ---
Author Organization Healthcare Address [address] [place] [address] Care Team Providers Care Cobol Application Developer Name Role Phone Per Patient, None Primary Care Provider + [phone] Unavailable [phone] Reason for Visit * Reason Onset Date Comments HCN - Patient Message 05/11/2023 Encounter Details Date Type Department Care Team (Late st Contact Info) Description 05/11/2023 Telephone Obstetrics & Gynecology [address] [place] [address] Steffen Livingston MD [address] [place] [address] HCN - Patient Message Social History Tobacco Use Types Packs/Day Years [...] encounter Miscellaneous Notes * Telephone Encounter - Junie Fisher RN - 05/11/2023 12:41 PM EST Spoke with patient, she has been having full, crampy pain in upper abdomen since yesterday, does not think it is contractions. Started having loose bowel movements this am x 2 as of now. No nausea orvomiting. Encouraged patient to push fluids to avoid dehydration, pedialyte, gatorade, powerade, water and to resort to a bland diet. Instructed she could use simethicone or immodium if needed. Verified this course of action with provider and patient instructed to call for any new symptoms or change in condition. * Telephone Encounter - Alley Johnston - 05/11/2023 11:05 AM EST Patient Phone Message Reason for Call: She is asking for a nurse to call to advise about she having pains in upper part of stomach with diarrhea. Please call Best contact number and optimal time of day to reach caller:[phone] Note: Please do not reply to this message. Follow-up communication and further actions as a result of this message need to be communicated with the patient directly, if the patient is not active onMyChart. If the patient is active on MyChart, they will receive notification of the communication/outcome via [employer]. documented in this encounter Plan of Treatment [...] documented as of this encounter Care Teams Cobol Application Developer Relationship Specialty Start Date End Date Per Patient, None, [address] [facility] [address] [place] [address] PCP - General 11/25/[address] [address] Dietitian Diabetes Services 03/30/23 01/27/24 documented as of this encounter
--- OUTSIDE RECORDS SUMMARY | 2024-04-02 15:12 | XMS_ITS | Encounter Summary ---
Author Organization Healthcare Address [address] [place] [address] Care Team Providers Care Network Systems Integrator Name Role Phone Per Patient, None Primary Care Provider + [phone] Unavailable [phone] Encounter Details Date Type Department Care Team (Latest Contact Info) Description 05/27/2023 Travel Social History Tobacco Use Types Packs/Day [...] documented as of this encounter Care Teams Network Systems Integrator Relationship Specialty Start Date End Date Per Patient, None, [address] [place] [address] PCP - General 11/25/[address] [place] [address] Dietitian Diabetes Services 03/30/23 01/27/24 documented as of this encounter
--- OUTSIDE RECORDS SUMMARY | 2024-04-02 15:12 | XMS_ITS | Encounter Summary ---
Author Organization Healthcare Address [address] [place] [address] Care Team Providers Care Commercial Lending Relationship Manager Name Role Phone Per Patient, None Primary Care Provider + [phone] Unavailable [phone] Encounter Details Date Type Department Care Team (Latest Contact Info) Description 03/30/2023 Travel Social History Tobacco Use Types Packs/Day [...] documented as of this encounter Care Teams Commercial Lending Relationship Manager Relationship Specialty Start Date End Date Per Patient, None, [address] [place] [address] PCP - General 11/25/[address] [facility] [address] [place] [address] Dietitian Diabetes Services 03/30/23 01/27/24 documented as of this encounter
--- OUTSIDE RECORDS SUMMARY | 2024-04-02 15:12 | XMS_ITS | Encounter Summary ---
Author Organization Healthcare Address [address] [place] [address] Care Team Providers Care Color Depositing Machine Tender Name Role Phone Per Patient, None Primary Care Provider + [phone] Encounter Details Date Type Department Care Team (Latest Contact Info) Description 03/25/2023 Travel Social History Tobacco Use Types Packs/Day [...] documented as of this encounter Care Teams Color Depositing Machine Tender Relationship Specialty Start Date End Date Per Patient, None, [address] [place] [address] PCP - General 11/25/20 documented as of this encounter
--- OUTSIDE RECORDS SUMMARY | 2024-04-02 15:12 | XMS_ITS | Encounter Summary ---
Author Organization Healthcare Address [address] [place] [address] Care Team Providers Care Senior Manager Quality Assurance Name Role Phone Per Patient, None Primary Care Provider + [phone] Unavailable [phone] Reason for Visit * Reason Onset Date Comments HCN Clinical Concern/Question 03/25/2023 dhruv garcia Encounter Details Date Type Department Care Team (Late st Contact Info) Description 03/25/2023 Telephone Obstetrics & Gynecology [address] [place] [address] Steffen Livingston MD [address] [place] [address] HCN Clinical Concern/Question (results) Social History Tobacco Use Types Packs/Day Years [...] * Telephone Encounter - Grecia Stack - 03/25/2023 3:04 PM EST Edda is reaching out to patient to get everything set up * Telephone Encounter - Tatiana Leigh - 03/25/2023 2:07 PM EST Patient Phone Message Reason for Call:saw labs were back in [facility] but not the results. Please call Best contact number and optimal time of day to reach caller: [phone] Note: Please do not reply to this message. Follow-up communication and further actions as a result of this message need to be communicated with the patient directly, if the patient is not active onMyChart. If the patient is active on MyChart, they will receive notification of the communication/outcome via [employer]. documented in this encounter Plan of Treatment [...] documented as of this encounter Care Teams Senior Manager Quality Assurance Relationship Specialty Start Date End Date Per Patient, None, [address] [place] [address] PCP - General 11/25/[address] [place] [address] Dietitian Diabetes Services 03/30/23 01/27/24 documented as of this encounter
--- OUTSIDE RECORDS SUMMARY | 2024-04-02 15:12 | XMS_ITS | Encounter Summary ---
Author Organization Healthcare Address [address] [place] [address] Care Team Providers Care Life Skills Instructor Name Role Phone Per Patient, None Primary Care Provider + [phone] Unavailable [phone] Encounter Details Date Type Department Care Team (Latest Contact Info) Description 05/14/2023 Travel Social History Tobacco Use Types Packs/Day [...] documented as of this encounter Care Teams Life Skills Instructor Relationship Specialty Start Date End Date Per Patient, None, [address] [place] [address] PCP - General 11/25/[address] [place] [phone] Dietitian Diabetes Services 03/30/23 01/27/24 documented as of this encounter
--- OUTSIDE RECORDS SUMMARY | 2024-04-02 15:12 | XMS_ITS | Encounter Summary ---
Author Organization Healthcare Address [address] [place] [address] Care Team Providers Care Side Stapler Name Role Phone Per Patient, None Primary Care Provider + [phone] Unavailable [phone] Encounter Details Date Type Department Care Team (Latest Contact Info) Description 05/11/2023 Travel Social History Tobacco Use Types Packs/Day [...] documented as of this encounter Care Teams Side Stapler Relationship Specialty Start Date End Date Per Patient, None, [address] [place] [address] PCP - General 11/25/[address] [place] [phone] Dietitian Diabetes Services 03/30/23 01/27/24 documented as of this encounter
--- OUTSIDE RECORDS SUMMARY | 2024-04-02 15:12 | XMS_ITS | Encounter Summary ---
Author Organization Healthcare Address [address] [place] [address] Care Team Providers Care Supervisor Rides Name Role Phone Per Patient, None Primary Care Provider + [phone] Unavailable [phone] Reason for Referral * Imaging (Routine) - Closed Specialty Diagnoses / Procedures Referred By Esther duarte Referred To Contact Diagnoses Gestational diabetes mellitus (GDM) in third trimester controlled on oral hypoglycemic drug Procedures OB US Follow Up Transabdominal Approach Steffen Livingston MD [address] [place] [address] Phone: tel: fax: EXT External Clinic [address] [place] [address] Referral ID Status Reason Start Date Expiration Date Visits Re quested Visits Authorized [id number] Closed 04/15/2023 10/14/2024 1 1 Reason for Visit * Imaging (Routine) - Closed Specialty Diagnoses / Procedures Referred By Esther duarte Referred To Contact Diagnoses Gestational diabetes mellitus (GDM) in third trimester controlled on oral hypoglycemic drug Procedures OB US Follow Up Transabdominal Approach Steffen Livingston MD [address] [place] [address] Phone: tel: fax: EXT External Clinic [address] [place] [address] Referral ID Status Reason Start Date Expiration Date Visits Re quested Visits Authorized [id number] Closed 04/15/2023 10/14/2024 1 1 Encounter Details Date Type Department Care Team (Latest Contact Info) Description 05/20/2023 2:16 PM EST - 05/20/2023 11:59 PM EST Hospital Encounter [facility] ULTRASOUND [address] [place] [address] Gestational diabetes mellitus (GDM) in third trimester controlled on oral hypoglycemic drug Discharge Disposition: Home or Self Care Social History Tobacco Use Types Packs/Day Years [...] on file documented as of this encounter Medications at Time of Discharge glyBURIDE (Diabeta) 5 MG tablet Take 2 tablets (10 mg) by mouth 2 (two) times a day with meals. 120 tablet 5 04/19/2023 metFORMIN (Glucophage) 500 MG tablet Take 500 mg QAM then 500 mg at lunch, then 1500 mg QHS 150 tablet 3 05/06/2023 Vit-Fe Fumarate-FA ( 1+1 PO) Take by mouth. Blood Glucose Monitoring Suppl (ONE TOUCH ULTRA 2) w/Device kit device kit USE TO CHECK GLUCOSE 4 TIMES DAILY 03/25/2023 06/23/2023 famotidine (Pepcid) 20 MG tablet Take 1 tablet (20 mg) by mouth 2 (two) times a day. 60 tablet 3 05/18/2023 02/10/2024 Lancets (OneTouch Delica Plus Ageruh34U) misc USE 1 TO CHECK GLUCOSE 4 TIMES DAILY 03/25/2023 06/23/2023 ondansetron (Zofran) 8 MG tablet 06/23/2023 [employer] Ultra test strip USE 1 STRIP TO CHECK GLUCOSE 4 TIMES DAILY 03/25/2023 06/23/2023 oxyCODONE (Roxicodone) 5 MG immediate release tablet Take 1 tablet (5 mg total) by mouth every 4 (four) hours if needed for moderate pain. 5 tablet 05/21/2021 05/24/2023 documented as of this encounter Plan of Treatment Not on file documented as of this encounter Goals Goal Patient Goal Type Associated Problems Recent Progress Patient-Stated? Author Delayed Delivery Care Plan CPM S22 PP LABOR (OBSTETRICS) No Open Scheduling, Background documented as of this encounter Procedures Procedure Name Priority Date/Time Associated Diagnosis Comments OB US FOLLOW UP TRANSABDOMINAL APPROACH Routine 05/20/2023 2:38 PM EST Gestational diabetes mellitus (GDM) in third trimester controlled on oral hypoglycemic drug documented in this encounter Results * OB US Follow Up Transabdominal Approach (05/20/2023 2:38 PM EST) Anatomical Region Laterality Modality Body Ultrasound 05/20/2023 2:20 PM EST Impressions 05/23/2023 8:47 AM EST The OB Ultrasound you requested has been resulted. Please navigate to the Imaging tab in ZAPR for review. This message has been generated by the interface. Narrative Procedure Note UvaldeTristan Martin MD - 05/23/2023 IMPRESSION: The OB Ultrasound you requested has been resulted. Please navigate to theImaging tab in ZAPR for review. This message has been generated by theinterface. us Steffen Livingston MD IMG OB US PROCEDURES Final Resu lt documented in this encounter Visit Diagnoses Diagnosis Gestational diabetes mellitus (GDM) in third trimester [...] as of this encounter Care Teams Supervisor Rides Relationship Specialty Start Date End Date Per Patient, None, [address] [facility] [address] [place] [address] PCP - General 11/25/[address] [address] Dietitian Diabetes Services 03/30/23 01/27/24 documented as of this encounter
--- OUTSIDE RECORDS SUMMARY | 2024-04-02 15:12 | XMS_ITS | Encounter Summary ---
Author Organization Healthcare Address [address] [place] [address] Care Team Providers Care Monorail Crane Operator Name Role Phone Per Patient, None Primary Care Provider [phone] Reason for Referral * Consultation (Routine) - Closed Specialty Diagnoses / Procedures Referred By Contac t Referred To Contact Endocrinology Diagnoses Gestational diabetes mellitus (GDM) in second trimester, gestational diabetes method of control unspecified Steffen Livingston MD [address] [place] [address] Phone: tel: fax: [facility] Diabetes Education [address], [address] [place] [address] Phone: tel: fax: Referral ID Status Reason Start Date Expiration Date Visits Re quested Visits Authorized [id number] Closed 03/25/2023 09/23/2024 1 1 Encounter Details Date Type Department Care Team (Late st Contact Info) Description 03/25/2023 Orders Only Obstetrics & Gynecology [address] [place] [address] Steffen Livingston MD [address] [place] [address] Gestational diabetes mellitus (GDM) in second trimester, gestational diabetes method of control unspecified (Primary Dx) Social History Tobacco Use Types Packs/Day Years [...] on file documented as of this encounter Patient Instructions * Attachments The following attachments cannot be sent through Care Everywhere. * Gestational Diabetes, What Is (Guinean) * Making Healthy Food Choices When You Have Gestational Diabetes - VIDEO (Guinean) * Exercising Safely When You Have Gestational Diabetes - VIDEO (Guinean) documented in this encounter Plan of Treatment Scheduled Referrals Name Type Priority Associated Diagnoses Orde r Schedule Ambulatory Referral to [facility] Gestational Diabetes Education Outpatient Referral Routine Gestational diabetes mellitus (GDM) in second trimester, gestational diabetes method of control unspecified Expected: 03/25/2023 (Approximate), Expires: 09/22/2024 documented as of this encounter Goals Goal Patient Goal Type Associated Problems Recent Progress Patient-Stated? Author Delayed Delivery Care Plan CPM S22 PP LABOR (OBSTETRICS) No Open Scheduling, Background documented as of this encounter Visit Diagnoses Diagnosis Gestational diabetes mellitus (GDM) in second trimester, gestational diabetes method of control unspecified- Primary documented in this encounter Additional Health Concerns Active Problems Noted Date Diagnosed Date CPM S22 PP LABOR (OBSTETRICS) 12/02/2022 Assessment Noted Time A fall risk assessment has been complete d for the patient 03/25/2023 9:00 AM EST A Body Mass Index follow-up plan has been documented for the patient 03/25/2023 9:32 AM EST documented as of this encounter Care Teams Monorail Crane Operator Relationship Specialty Start Date End Date Per Patient, None, [address] [facility] [address] [place], [place] [id number] PCP - General 11/25/20 documented as of this encounter
--- OUTSIDE RECORDS SUMMARY | 2024-04-02 15:12 | XMS_ITS | Encounter Summary ---
Author Organization Healthcare Address [address] [place] [address] Care Team Providers Care Ground Wood Supervisor Name Role Phone Per Patient, None Primary Care Provider + [phone] Unavailable [phone] Encounter Details Date Type Department Care Team (Latest Contact Info) Description 05/20/2023 Travel Social History Tobacco Use Types Packs/Day [...] documented as of this encounter Care Teams Ground Wood Supervisor Relationship Specialty Start Date End Date Per Patient, None, [address] [place] [address] PCP - General 11/25/[address] [place] [address] Dietitian Diabetes Services 03/30/23 01/27/24 documented as of this encounter
--- OUTSIDE RECORDS SUMMARY | 2024-04-02 15:12 | XMS_ITS | Encounter Summary ---
Author Organization [facility] Address [address] [place] [address] Care Team Providers Care Academic Advisor Name Role Phone Per Patient, None Primary Care Provider + [phone] Unavailable [phone] Encounter Details Date Type Department Care Team (Late st Contact Info) Description 04/07/2023 2:30 PM EST Routine Obstetrics & Gynecology [address] [place] [address] Steffen Livingston MD [address] [place] [address] 27 weeks gestation of (Primary Dx); Previous section complicating ; Gestational diabetes mellitus (GDM) in second trimester controlled on oral hypoglycemic drug Social [...] Sign Reading Time Taken Comments Blood Pressure 110/73 04/07/2023 2:34 PM EST Pulse - - Temperature - - Respiratory Rate - - Oxygen Saturation - - Inhaled Oxygen Concentration - - Weight 118 kg (259 lb 0.7 oz) 04/07/2023 2:34 PM EST Height - - Body Mass Index 44.46 05/17/2021 11:53 PM EST documented in this encounter Miscellaneous Notes * Progress Notes - Steffen Livingston MD - 04/07/2023 2:30 PM EST Subjective No chief complaint on file. Mini Brennan is a 27 y.o. at 27w5d with a working estimated date of delivery of 07/02/2023, by Ultrasound who presents for a routine visit. She denies vaginal bleeding, leakage of fluid, decreased movements, or contractions. BG checks elevated but better. Her is complicated by: H/O LTCS GDM A2 The following portions of the chart were reviewed this encounter and updated as appropriate: ALL Objective Physical Exam Weight: 118 kg (259 lb 0.7 oz) Expected Total Weight Gain: Could not be calculated Pregravid BMI: Could not be calculated BP: 110/73 Heart Rate: 160 Fundal Height (cm): 34 cm Labs Urine dip: NA HGB (g/dL) [...] Diagnoses and all orders for this visit: 27 weeks gestation of Previous section complicating Gestational diabetes mellitus (GDM) in second trimester controlled on oral hypoglycemic drug Continue vitamin. Labs reviewed. GBS at 36 weeks BG checks Increase Glyburide to 10 BID Expected mode of delivery TBD Follow up in 1 week for a routine visit. documented in this encounter Plan of Treatment Not on file documented as of this encounter Goals Goal Patient Goal Type Associated Problems Recent Progress Patient-Stated? Author Delayed Delivery Care Plan CPM S22 PP LABOR (OBSTETRICS) No Open Scheduling, Background documented as of this encounter Visit Diagnoses Diagnosis 27 weeks gestation of - Primary Previous section complicating Gestational diabetes mellitus (GDM) in second trimester controlled on oral hypoglycemic drug documented [...] documented as of this encounter Care Teams Academic Advisor Relationship Specialty Start Date End Date Per Patient, None, [address] [facility] [address] [place], [place] [id number] PCP - General 11/25/[address] [facility] [address] [place] [phone] Dietitian Diabetes Services 03/30/23 01/27/24 documented as of this encounter
--- OUTSIDE RECORDS SUMMARY | 2024-04-02 15:12 | XMS_ITS | Encounter Summary ---
Author Organization Healthcare Address [address] [place], [place] [id number] Care Team Providers Care Budget Report Clerk Name Role Phone Per Patient, None Primary Care Provider + [phone] Unavailable [phone] Reason for Referral * Imaging (Routine) - Closed Specialty Diagnoses / Procedures Referred By Esther duarte Referred To Contact Diagnoses Gestational diabetes mellitus (GDM) in third trimester controlled on oral hypoglycemic drug Procedures OB US Follow Up Transabdominal Approach Steffen Livingston MD [address] [place] [address] Phone: tel: fax: EXT External Clinic [address] [place] [id number] Referral ID Status Reason Start Date Expiration Date Visits Re quested Visits Authorized [id number] Closed 04/15/2023 10/14/2024 1 1 Reason for Visit * Reason Comments Routine Visit Pt stated she is doing well today Encounter Details Date Type Department Care Team (Late st Contact Info) Description 04/15/2023 2:00 PM EST Routine Obstetrics & Gynecology [address] [place] [address] Steffen Livingston MD [address] [place] [address] 28 weeks gestation of (Primary Dx); Previous section [...] Sign Reading Time Taken Comments Blood Pressure 107/75 04/15/2023 2:24 PM EST Pulse - - Temperature - - Respiratory Rate - - Oxygen Saturation - - Inhaled Oxygen Concentration - - Weight 118 kg (259 lb 7.7 oz) 04/15/2023 2:24 PM EST Height - - Body Mass Index 44.54 05/17/2021 11:53 PM EST documented in this encounter Miscellaneous Notes * Progress Notes - Steffen Livingston MD - 04/15/2023 2:00 PM EST Subjective Chief Complaint Patient presents with Routine Visit Pt stated she is doing well today Mini Brennan is a 27 y.o. at 28w6d with a working estimated date of delivery of 07/02/2023, by Ultrasound who presents for a routine visit. She denies vaginal bleeding, leakage of fluid, decreased movements, or contractions. BG checks mostly elevated but with some improvement. Her is complicated by: GDM A2 H/O LTCS The following portions of the chart were reviewed this encounter and updated as appropriate: ALL Objective Physical Exam Weight: 118 kg (259 lb 7.7 oz) Expected Total Weight Gain: Could not be calculated Pregravid BMI: Could not be calculated BP: 107/75 Heart Rate: 150 Fundal Height (cm): 38 cm Labs Urine dip: NA HGB (g/dL) [...] Diagnoses and all orders for this visit: 28 weeks gestation of - Tdap (BoostRIX) 5-2.5-18.5 LF-MCG/0.5 vaccine 0.5 mL Previous section complicating Gestational diabetes mellitus (GDM) in third trimester controlled on oral hypoglycemic drug - OB US Follow Up Transabdominal Approach; Future Other orders - metFORMIN (Glucophage) 500 MG tablet; Take 1 tablet (500 mg) by mouth 3 (three) times a day with meals. Continue vitamin. Labs reviewed. GBS at 36 weeks Tdap done today Add Glucophage 500 TID to Glyburide 10 BID Expected mode of delivery TBD Follow up in 1 week for a routine visit. documented in this encounter Plan of Treatment Not on file documented as of this encounter Goals Goal Patient Goal Type Associated Problems Recent Progress Patient-Stated? Author Delayed Delivery Care Plan CPM S22 PP LABOR (OBSTETRICS) No Open Scheduling, Background documented as of this encounter Results * OB US Follow Up Transabdominal Approach (05/20/2023 2:38 PM EST) Anatomical Region Laterality Modality Body Ultrasound 05/20/2023 2:20 PM EST Impressions 05/23/2023 8:47 AM EST The OB Ultrasound you requested has been resulted. Please navigate to the Imaging tab in [facility] for review. This message has been generated by the interface. Narrative Procedure Note Tristan Gomez MD - 05/23/2023 IMPRESSION: The OB Ultrasound you requested has been resulted. Please navigate to theImaging tab in FRS for review. This message has been generated by theinterface. us Steffen Livingston MD IMG OB US PROCEDURES Final Resu lt documented in this encounter Visit Diagnoses Diagnosis 28 weeks gestation of - Primary Previous section complicating Gestational diabetes mellitus (GDM) in third trimester controlled on oral hypoglycemic drug Gestational diabetes mellitus (GDM) in third trimester [...] documented as of this encounter Care Teams Budget Report Clerk Relationship Specialty Start Date End Date Per Patient, None, [address] [facility] [address] [place] [address] PCP - General 11/25/[address] [place] [id number] Dietitian Diabetes Services 03/30/23 01/27/24 documented as of this encounter
--- OUTSIDE RECORDS SUMMARY | 2024-04-02 15:12 | XMS_ITS | Encounter Summary ---
Author Organization [facility] Address [address] [place], [place] [id number] Care Team Providers Care Waistband Setter Name Role Phone Per Patient, None Primary Care Provider + [phone] Unavailable [phone] Reason for Visit * Reason Comments NST/BPP Visit Here for NST with go od movement, no leaking or bleeding, some cramping and no contractions. Encounter Details Date Type Department Care Team (Latest Contact Info) Description 06/01/2023 10:30 AM EST Routine Obstetrics & Gynecology [address] [place] [address] Mer Churchill, RUMA, CN [address] [place] [address] Supervision of other high risk pregnancies, third trimester (Primary Dx); Previous section complicating ; Gestational [...] Sign Reading Time Taken Comments Blood Pressure 110/78 06/01/2023 10:39 AM EST Pulse - - Temperature - - Respiratory Rate - - Oxygen Saturation - - Inhaled Oxygen Concentration - - Weight 122 kg (268 lb 8.3 oz) 06/01/2023 10:39 A M EST Height - - Body Mass Index 46.09 05/17/2021 11:53 PM EST documented in this encounter Miscellaneous Notes * Progress Notes - Nataliia Tobar - 06/01/2023 10:30 AM EST Subjective Chief Complaint Patient presents with NST/BPP Visit Here for NST with good movement, no leaking or bleeding, some cramping and no contractions. Mini Brennan is a 27 y.o. 35w4d 07/02/2023, by Ultrasound who presents for a routine prenatalvisit. She denies vaginal bleeding, leakage of fluid, decreased movements, or contractions. Her is complicated by: Hx of C/S A2DM - on glyburide & metformin - did not bring sugar log today states they are wnl. Fastings <95 NST RR, Irreg UC Assessment/Plan Diagnoses and all orders for this visit: Supervision of other high risk pregnancies, third trimester Previous section complicating Gestational diabetes mellitus (GDM) in third trimester controlled on oral hypoglycemic drug C enc. LASHANDA precautions. Discussed repeat c/s and answered questions. Continue vitamin. Follow up in 2-3 days for a routine visit/NST documented in this encounter Plan of Treatment Not on file documented as of this encounter Goals Goal Patient Goal Type Associated Problems Recent Progress Patient-Stated? Author Delayed Delivery Care Plan CPM S22 PP LABOR (OBSTETRICS) No Open Scheduling, Background documented as of this encounter Visit Diagnoses Diagnosis Supervision of other high risk pregnancies, third trimester- Primary Previous section complicating Gestational diabetes mellitus [...] documented as of this encounter Care Teams Waistband Setter Relationship Specialty Start Date End Date Per Patient, None, [address] [facility] [address] [place], [place] [id number] PCP - General 11/25/[address] [facility] [address] [place] [phone] Dietitian Diabetes Services 03/30/23 01/27/24 documented as of this encounter
--- OUTSIDE RECORDS SUMMARY | 2024-04-02 15:12 | XMS_ITS | Encounter Summary ---
Author Organization [facility] Address [address] [place] [address] Care Team Providers Care Raking Machine Operator Name Role Phone Per Patient, None Primary Care Provider + [phone] Unavailable [phone] Reason for Visit * Reason Comments Routine Visit Pt stated she is doing well today Encounter Details Date Type Department Care Team (Late st Contact Info) Description 04/01/2023 2:15 PM EST Routine Obstetrics & Gynecology [address] [place] [address] Steffen Livingston MD [address] [place] [address] 26 weeks gestation of (Primary Dx); Previous section [...] Sign Reading Time Taken Comments Blood Pressure 112/74 04/01/2023 2:29 PM EST Pulse - - Temperature - - Respiratory Rate - - Oxygen Saturation - - Inhaled Oxygen Concentration - - Weight - - Height - - Body Mass Index - - documented in this encounter Miscellaneous Notes * Progress Notes - Steffen Livingston MD - 04/01/2023 2:15 PM EST Subjective Chief Complaint Patient presents with Routine Visit Pt stated she is doing well today Mini Brennan is a 27 y.o. at 26w6d with a working estimated date of delivery of 07/02/2023, by Ultrasound who presents for a routine visit. She denies vaginal bleeding, leakage of fluid, decreased movements, or contractions. BG checks all elevated. Her is complicated by: GDM A2 H/O LTCS The following portions of the chart were reviewed this encounter and updated as appropriate: ALL Objective Physical Exam Expected Total Weight Gain: Could not be calculated Pregravid BMI: Could not be calculated BP: 112/74 Heart Rate: 160 Fundal Height (cm): 30 cm Labs Urine dip: NA HGB (g/dL) [...] Diagnoses and all orders for this visit: 26 weeks gestation of Previous section complicating Gestational diabetes mellitus (GDM) in second trimester controlled on oral hypoglycemic drug Other orders - glyBURIDE (Diabeta) 5 MG tablet; Take 1 tablet (5 mg) by mouth 2 (two) times a day with meals. Continue vitamin. Labs reviewed. BG checks - start Glyburide 5 BID Follow up in 1 week for a routine visit. documented in this encounter Plan of Treatment Not on file documented as of this encounter Goals Goal Patient Goal Type Associated Problems Recent Progress Patient-Stated? Author Delayed Delivery Care Plan CPM S22 PP LABOR (OBSTETRICS) No Open Scheduling, Background documented as of this encounter Visit Diagnoses Diagnosis 26 weeks gestation of - Primary Previous section [...] documented as of this encounter Care Teams Raking Machine Operator Relationship Specialty Start Date End Date Per Patient, None, [address] [facility] [address] [place], [place] [id number] PCP - General 11/25/[address] [facility] [address] [place] [phone] Dietitian Diabetes Services 03/30/23 01/27/24 documented as of this encounter
--- OUTSIDE RECORDS SUMMARY | 2024-04-02 15:12 | XMS_ITS | Encounter Summary ---
Author Organization Healthcare Address [address] [place] [address] Care Team Providers Care Social Security Specialist Name Role Phone Per Patient, None Primary Care Provider + [phone] Unavailable [phone] Reason for Visit * Reason Comments Blood Pressure Check Encounter Details Date Type Department Care Team (Latest Contact Info) Description 05/28/2023 2:00 PM EST Clinical Support Obstetrics & Gynecology [address] [place] [address] 35 weeks gestation of (Primary Dx) Social History Tobacco Use Types [...] Sign Reading Time Taken Comments Blood Pressure 112/75 05/28/2023 2:36 PM EST Pulse - - Temperature - - Respiratory Rate - - Oxygen Saturation - - Inhaled Oxygen Concentration - - Weight - - Height - - Body Mass Index - - documented in this encounter Miscellaneous Notes * Clinician Note - Sara Jang - 05/28/2023 2:00 PM EST Pt in clinic today for BP check and urine dip, per Dr. Livingston everything is good documented in this encounter Plan of Treatment Not on file documented as of this encounter Goals Goal Patient Goal Type Associated Problems Recent Progress Patient-Stated? Author Delayed Delivery Care Plan CPM S22 PP LABOR (OBSTETRICS) No Open Scheduling, Background documented as of this encounter Procedures Procedure Name Priority Date/Time Associated Diagnosis Comments POCT URINALYSIS DIPSTICK Routine 05/28/2023 2:39 PM EST 35 weeks gestation of documented in this encounter Results * (ABNORMAL) Urine dip (05/28/2023 2:39 PM EST) POCT Urine Color Yellow POCT Urine Clarity Clear POCT Glucose Urine Negative Negative mg/dL POCT Bilirubin, Urine Negative Negative POCT Ketones, Urine Negative Negative mg/dL POCT Specific [place], Urine 1.015 POCT Blood, Urine Negative Negative POCT pH, Urine 6.0 5.0 to 8.0 POCT Protein, Urine 30(A) Negative mg/dL POCT Urobilinogen, Urine 0.2 0.2, 1 E.U./dL POCT Nitrite, Urine Negative Negative POCT Leukocyte Esterase, Urine Negative Negative Test Strip Lot Number [id number] Test Strip Lot Expiration [id number] Urine Urine specimen obtained by clean catch procedure / Unknown 05/28/2023 2:39 PM EST Steffen Livingston MD POINT OF CARE TEST ENTER/EDIT O RDERABLES Final Result documented in this encounter Visit Diagnoses Diagnosis 35 weeks gestation of - Primary documented in this encounter Additional Health Concerns Active Problems Noted Date Diagnosed Date CPM S22 PP LABOR (OBSTETRICS) 12/02/2022 Assessment Noted Time A fall risk assessment has been complete d for the patient 05/20/2023 2:40 PM EST A Body Mass Index follow-up plan has been documented for the patient 05/28/2023 2:46 PM EST documented as of this encounter Care Teams Social Security Specialist Relationship Specialty Start Date End Date Per Patient, None, [address] [place] [address] PCP - General 11/25/[address] [place] [address] Dietitian Diabetes Services 03/30/23 01/27/24 documented as of this encounter
--- OUTSIDE RECORDS SUMMARY | 2024-04-02 15:12 | XMS_ITS | Encounter Summary ---
Author Organization Healthcare Address [address] [place] [address] Care Team Providers Care Pole Peeler Name Role Phone Per Patient, None Primary Care Provider + [phone] Unavailable [phone] Encounter Details Date Type Department Care Team (Latest Contact Info) Description 04/15/2023 Travel Social History Tobacco Use Types Packs/Day [...] documented as of this encounter Care Teams Pole Peeler Relationship Specialty Start Date End Date Per Patient, None, [address] [place] [address] PCP - General 11/25/[address] [place] [phone] Dietitian Diabetes Services 03/30/23 01/27/24 documented as of this encounter
--- OUTSIDE RECORDS SUMMARY | 2024-04-02 15:12 | XMS_ITS | Encounter Summary ---
Author Organization Healthcare Address [address] [place] [address] Care Team Providers Care Office Support Associate Name Role Phone Per Patient, None Primary Care Provider + [phone] Unavailable [phone] Encounter Details Date Type Department Care Team (Latest Contact Info) Description 04/29/2023 Travel Social History Tobacco Use Types Packs/Day [...] documented as of this encounter Care Teams Office Support Associate Relationship Specialty Start Date End Date Per Patient, None, [address] [place] [address] PCP - General 11/25/[address] [place] [phone] Dietitian Diabetes Services 03/30/23 01/27/24 documented as of this encounter
--- OUTSIDE RECORDS SUMMARY | 2024-04-02 15:13 | XMS_ITS | Encounter Summary ---
Author Organization Healthcare Address [address] [place] [address] Care Team Providers Care Head Greenskeeper Name Role Phone Per Patient, None Primary Care Provider + [phone] Encounter Details Date Type Department Care Team (Latest Contact Info) Description 12/16/2022 Travel Social History Tobacco Use Types Packs/Day Years Used Date Smoking Tobacco: Every Day Cigarettes Smokeless Tobacco: Never Alcohol Use Standard Drinks/Week Comments Never 0 (1 standard drink = 0.6 oz pur e alcohol) PHQ-2 Answer Date Recorded PHQ-2 Score 0 12/04/2022 Comments Yes Sex and Gender Information Value [...] Date CPM S22 PP LABOR (OBSTETRICS) 12/02/2022 documented as of this encounter Care Teams Head Greenskeeper Relationship Specialty Start Date End Date Per Patient, None, [address] [facility] [address] [place] [address] PCP - General 11/25/20 documented as of this encounter
--- OUTSIDE RECORDS SUMMARY | 2024-04-02 15:13 | XMS_ITS | Encounter Summary ---
Author Organization [facility] Address [address] [place] [address] Care Team Providers Care Launderette Attendant Name Role Phone Per Patient, None Primary Care Provider [phone] Reason for Referral * Imaging (Routine) - Closed Specialty Diagnoses / Procedures Referred By Contac t Referred To Contact Diagnoses 12 weeks gestation of Procedures OB US 14+ Weeks Anatomy Scan Steffen Livingston MD [address] [place] [address] Phone: tel: fax: [facility] [address] [place] [address] Phone: tel: Referral ID Status Reason Start Date Expiration Date Visits Re quested Visits Authorized [id number] Closed 12/30/2022 06/30/2024 1 1 Reason for Visit * Reason Comments Ultrasound Anterior, fhr 161, brent- wnl nt 1.9 Encounter Details Date Type Department Care Team (Late Contact Info) Description 12/30/2022 2:30 PM EDT Routine Obstetrics & Gynecology [address] [place] [address] Steffen Livingston MD [address] [place] [address] 12 weeks gestation of (Primary Dx); Previous section complicating Social History Tobacco Use Types Packs/Day Years [...] Sign Reading Time Taken Comments Blood Pressure 123/80 12/30/2022 3:15 PM EDT Pulse - - Temperature - - Respiratory Rate - - Oxygen Saturation - - Inhaled Oxygen Concentration - - Weight 112 kg (247 lb 2.2 oz) 12/30/2022 3:15 PM EDT Height - - Body Mass Index 42.42 05/17/2021 11:53 PM EST documented in this encounter Miscellaneous Notes * Progress Notes - Steffen Livingston MD - 12/30/2022 2:30 PM EDT Subjective Chief Complaint Patient presents with Ultrasound Anterior, fhr 161, brent- wnl nt 1.9 Mini Brennan is a 27 y.o. at 12w5d with a working estimated date of delivery of 07/09/2023, by Last Menstrual Period who presents for a routine visit. She denies vaginal bleeding, leakage of fluid. Her is complicated by: H/O LTCS The following portions of the chart were reviewed this encounter and updated as appropriate: ALL Objective Physical Exam Weight: 112 kg (247 lb 2.2 oz), Pregravid BMI: Could not be calculated Expected Total Weight Gain: Could not be calculated BP: 123/80 Heart Rate: +us Labs Urine dip: NA HGB (g/dL) Date/Time Value 11/30/2022 1124 12.9 HCT (%) Date/Time Value 11/30/2022 1124 38.7 ABO/Rh (no units) Date/Time Value 11/30/2022 1124 O Positive Hepatitis B Surf Antigen (no units) Date/Time Value 11/25/2022 1016 Negative No results found for: PAPPA , AFP , HCG , ESTRIOL , INHBA Imaging NT US WNL Assessment/Plan Diagnoses and all orders for this visit: 12 weeks gestation of - OB US 14+ Weeks Anatomy Scan; Future Previous section complicating Continue vitamin. Labs reviewed. Order placed for anatomy scan at 20 weeks. Follow up in 4 weeks for a routine visit. documented in this encounter Plan of Treatment Not on file documented as of this encounter Goals Goal Patient Goal Type Associated Problems Recent Progress Patient-Stated? Author Delayed Delivery Care Plan CPM S22 PP LABOR (OBSTETRICS) No Open Scheduling, Background documented as of this encounter Results * OB US 14+ Weeks Anatomy Scan (03/02/2023 10:28 AM EDT) Anatomical Region Laterality Modality Body Ultrasound 03/02/2023 9:40 AM EDT Impressions 03/07/2023 8:59 PM EDT The OB Ultrasound you requested has been resulted. Please navigate to the Imaging tab in [facility] for review. This message has been generated by the interface. Narrative Procedure Note [place] Martin MD - 03/07/2023 IMPRESSION: The OB Ultrasound you requested has been resulted. Please navigate to theImaging tab in [facility] for review. This message has been generated by theinterface. us Steffen Livingston MD IMG OB US PROCEDURES Final Resu lt documented in this encounter Visit Diagnoses Diagnosis 12 weeks gestation of - Primary Previous section complicating 12 weeks gestation of documented in this encounter Additional Health Concerns Active Problems Noted Date Diagnosed Date CPM S22 PP LABOR (OBSTETRICS) 12/02/2022 documented as of this encounter Care Teams Launderette Attendant Relationship Specialty Start Date End Date Per Patient, None, [address] [place] [address] PCP - General 11/25/20 documented as of this encounter
--- OUTSIDE RECORDS SUMMARY | 2024-04-02 15:13 | XMS_ITS | Encounter Summary ---
Author Organization Healthcare Address [address] [place] [address] Care Team Providers Care Space Engineer Name Role Phone Per Patient, None MD Primary Care Provider + [phone] Encounter Details Date Type Department Care Team (Latest Contact Info) Description 11/30/2022 11:00 AM EDT Clinical Support Obstetrics & Gynecology [facility] [place] [address] Unsure of LMP (last menstrual period) as reason for ultrasound scan (Primary Dx) Social History Tobacco Use Types Packs/Day Years Used Date Smoking Tobacco: Every Day Cigarettes Smokeless Tobacco: Never Alcohol Use Standard Drinks/Week Comments Never 0 (1 standard drink = 0.6 oz pur e alcohol) Comments Yes Sex and Gender Information Value Date Recorded Sex Assigned at Not on file Legal Sex Female 10:59 AM EDT Gender Identity Not on file Sexual Orientation Not on file documented as of this encounter Miscellaneous Notes * Clinician Note - Edna Hughes - 11/30/2022 11:00 AM EDT lab work. documented in this encounter Plan of Treatment Not on file documented as of this encounter Procedures Procedure Name Priority Date/Time Associated Diagnosis Comments TREPONEMA PALLIDUM (SYPHILIS) ANTIBODIES WITH REFLEX TO RPR AND RPR TITER (THOSE WITH NO KNOWN SYPHILIS) Routine 11/30/2022 11:24 AM EDT Unsure of LMP (last menstrual period) as reason for ultrasound scan HIV 1/2 ANTIBODY/ANTIGEN SCREEN WITH REFLEX TO HIV I/II DIFFERENTIATION Routine 11/30/2022 11:24 AM EDT Unsure of LMP (last menstrual period) as reason for ultrasound scan RUBELLA ANTIBODY IGG Routine 11/30/2022 11:24 AM EDT Unsure of LMP (last menstrual period) as reason for ultrasound scan CBC W/O DIFFERENTIAL Routine 11/30/2022 11:24 AM EDT Unsure of LMP (last menstrual period) as reason for ultrasound scan TYPE AND SCREEN Routine 11/30/2022 11:24 AM EDT Unsure of LMP (last menstrual period) as reason for ultrasound scan TSH Routine 11/30/2022 11:24 AM EDT Unsure of LMP (last menstrual period) as reason for ultrasound scan documented in this encounter Results * HIV 1 & 2 Antibody/Antigen Screen (11/30/2022 11:24 AM EDT) HIV 1 & 2 Antibody/Antigen Screen Non Reactive Non Reactive 11/30/2022 2:29 PM EDT [facility] Comment:Screening for HIV 1 & 2 antibodies, and P24 antigen is NONREACTIVE. No confirmatory testing is required. Blood Venous blood specimen / Unknown Venipuncture / Unknown 11/30/2022 11:24 AM EDT 11/30/2022 1:18 PM EDT us Steffen Livingston MD LAB BLOOD ORDERABLES Final Resu lt [facility] [address] [place] [address] * T. Pallidum (Syphilis) antibodies with Reflex (11/30/2022 11:24 AM EDT) Syphilis Antibody (IgG+IgM) Nonreactive Nonreactive 11/30/2022 3:12 PM EDT [facility] Comment:Nonreactive. No sero logic evidence of syphilis. No follow-up necessary unless clinically indicated (e.g., early syphilis). Blood Venous blood specimen / Unknown Venipuncture / Unknown 11/30/2022 11:24 AM EDT 11/30/2022 1:18 PM EDT us Steffen Livingston MD LAB BLOOD ORDERABLES Final Resu lt Performing Organization Address [facility] Phone Number [facility] [address] [place] [address] * (ABNORMAL) Rubella IgG (11/30/2022 11:24 AM EDT) Rubella Antibody IgG Positive( A) Negative 11/30/2022 3:53 PM EDT [facility] Comment: Rubella IgG Result Interpretation: ? Negative: No IgG antibody specific to the rubella virus detected. ??Patient is presumed not to have had a previous exposure to rubella through infection or vaccination. Equivocal: Serologic status cannot be determined. ??Repeat testing in 10-14 days may be helpful. Positive: IgG antibody specific to rubella detected. ??IgG antibody levels are at a level considered to indicate positive immunity through infection or vaccination. Blood Venous blood specimen / Unknown Venipuncture / Unknown 11/30/2022 11:24 AM EDT 11/30/2022 1:18 PM EDT Result Kash Livingston MD LAB BLOOD ORDERABLES Final Resu lt Performing Organization Address [facility] de Phone Number [facility] [address] [place] [address] * Type and Screen (11/30/2022 11:24 AM EDT) ABO/Rh O Positive 11/29/2022 8:00 PM EDT BLOOD BANK Antibody Screen Negative 11/29/2022 8:00 PM EDT BLOOD BANK Specimen Expiration 12/03/2022 23:59 11/29/2022 8:00 PM EDT BLOOD BANK Blood Venous blood specimen / Unknown Venipuncture / Unknown 11/30/2022 11:24 AM EDT 11/30/2022 1:27 PM EDT Steffen Livingston MD LAB BLOOD BANK TEST ORDERABLES Final Result BLOOD BANK [address] [place] [address], * (ABNORMAL) CBC W/O Differential (11/30/2022 11:24 AM EDT) WBC Count 11.44(H) 3.70 - 10.30 10*3/uL LAB HEMATOLOGY METHOD 11/30/2022 1:49 PM EDT [facility] RBC Count 4.45 3.90 - 5.20 10*6/uL LAB HEMATOLOGY METHOD 11/30/2022 1:49 PM EDT [facility] HGB 12.9 11.2 - 15.7 g/dL LAB HEMATOLOGY METHOD 11/30/2022 1:49 PM EDT [facility] HCT 38.7 34.0 - 45.0 % LAB HEMATOLOGY METHOD 11/30/2022 1:49 PM EDT [facility] Platelet Count 355 155 - 369 10*3/uL LAB HEMATOLOGY METHOD 11/30/2022 1:49 PM EDT [facility] MCV 87 79 - 98 fL LAB HEMATOLOGY METHOD 11/30/2022 1:49 PM EDT [facility] MCH 29.0 26.0 - 32.0 pg LAB HEMATOLOGY METHOD 11/30/2022 1:49 PM EDT [facility] MCHC 33.3 30.7 - 35.5 g/dL LAB HEMATOLOGY METHOD 11/30/2022 1:49 PM EDT [facility] RDW 13.6 11.5 - 14.5 % LAB HEMATOLOGY METHOD 11/30/2022 1:49 PM EDT [facility] MPV 10.3 8.8 - 12.5 fL LAB HEMATOLOGY METHOD 11/30/2022 1:49 PM EDT [facility] nRBC 0.0 <=0.0 per 100 WBCs LAB HEMATOLOGY METHOD 11/30/2022 1:49 PM EDT [facility] Blood Venous blood specimen / Unknown Venipuncture / Unknown 11/30/2022 11:24 AM EDT 11/30/2022 1:18 PM EDT Result Kash Livingston MD LAB BLOOD ORDERABLES Final Resu lt Performing Organization Address [facility] de Phone Number [facility] [address] [place] [address] * TSH (11/30/2022 11:24 AM EDT) Thyroid Stimulating Hormone, Plasma 2.49 0.40 - 4.20 uIU/mL 11/30/2022 2:18 PM EDT [facility] Blood Venous blood specimen / Unknown Venipuncture / Unknown 11/30/2022 11:24 AM EDT 11/30/2022 1:17 PM EDT Narrative [facility] - 11/30/2022 2:18 PM EDT Trimester Specific Ranges ?TSH (??IU/mL) 1st Trimester ??0.1 ??- 3.0 2nd Trimester ??0.19 - 4.06 3rd Trimester ??0.3 ??- 3.7 Result Kash Livingston MD LAB BLOOD ORDERABLES Final Resu lt Performing Organization Address [facility] de Phone Number [facility] [address] [place] [address] documented in this encounter Visit Diagnoses Diagnosis Unsure of LMP (last menstrual period) as reason for ultrasound scan- Primary Encounter for routine screening for malformation using ultrasonics documented in this encounter Care Teams Space Engineer Relationship Specialty Start Date End Date Per Patient, None, [address] [place] [address] PCP - General 11/25/20 documented as of this encounter
--- OUTSIDE RECORDS SUMMARY | 2024-04-02 15:13 | XMS_ITS | Encounter Summary ---
Author Organization Healthcare Address [address] [place] [id number] Care Team Providers Care Senior Civil Engineer Name Role Phone Per Patient, None Primary Care Provider Encounter Details Date Type Department Care Team (Latest Contact Info) Description 11/30/2022 Travel Social History Tobacco Use Types Packs/Day [...] on file documented as of this encounter Visit Diagnoses Not on filedocumented in this encounter Care Teams Senior Civil Engineer Relationship Specialty Start Date End Date Per Patient, None, [address] [place] [address] PCP - General 11/25/20 documented as of this encounter
--- OUTSIDE RECORDS SUMMARY | 2024-04-02 15:13 | XMS_ITS | Encounter Summary ---
Author Organization Healthcare Address [address] [place], [place] [id number] Care Team Providers Care Pulverizer Tender Name Role Phone Per Patient, None Primary Care Provider [phone] Reason for Visit * Reason Comments Contractions * Auth/Cert Specialty Diagnoses / Procedures Referred By Contac t Referred To Contact Diagnoses Proteinuria affecting in third trimester Magalie Shipley MD [address] [address] Phone: tel: fax: [facility] [address] [place] [address] Phone: tel: fax: Referral ID Status Reason Start Date Expiration Date Visits Re quested Visits Authorized [id number] 1 1 Encounter Details Date Type Department Care Team (Late st Contact Info) Description 05/19/2021 Surgery [facility] Delivery [address] [place] [address] Jayshree Gomez MD [address] [address] SECTION Surgery Details Date/Time Status Location OR Service Patient Class Case Class Case Type Trauma Case? 05/19/2021 Posted [facility] Gynecology Inpatient B-Urgent : to be done within 4 hours Panel 1 Procedure [facility]RB Anes Op Region Wound Class Comments SECTION N/A Abdomen Class I/ Sonia n Surgeon Surgeon Role Service Panel Jayshree Gomez MD Primary Gynecology 1 Demetrius Leon MD Resident - Assisting 1 documented in this encounter Social History Tobacco Use Types Packs/Day Years Used Date Smoking Tobacco: Every Day Cigarettes Smokeless Tobacco: Never Alcohol Use Standard Drinks/Week Comments Never 0 (1 standard drink = 0.6 oz pur e alcohol) Comments No Sex and Gender Information Value Date Recorded Sex Assigned at Not on file Legal Sex Female 10:59 AM EDT Gender Identity Not on file Sexual Orientation Not on file COVID-19 Exposure Response Date Recorded In the last month, have you been in contact with someone who was confirmed or suspected to have Coronavirus / COVID-19? No / Unsure 05/17/2021 7:37 PM EST documented as of this encounter Last Filed Vital Signs Vital Sign Reading Time Taken Comments Blood Pressure 130/86 05/19/2021 11:50 PM EST Pulse 96 05/19/2021 11:50 PM EST Temperature 36.4 ??C (97.5 ??F) 05/19/2021 11:[address] Respiratory Rate 17 05/19/2021 11:50 PM EST Oxygen Saturation 96% 05/19/2021 8:22 PM EST Inhaled Oxygen Concentration - - Weight 109 kg (241 lb) 05/17/2021 11:53 PM EST Height 162.6 cm (5' 4 ) 05/17/2021 11:53 PM EST Body Mass Index 41.37 05/17/2021 11:53 PM EST documented in this encounter Discharge Instructions * Attachments The following attachments cannot be sent through Care Everywhere. * , After (Namibian) * After Delivery: When to Call the Healthcare Provider ([place]) (Namibian) * Depression, (Namibian) * Community Resources ([place]) (Namibian) * , Plugged Ducts, and Mastitis ([place]) (Namibian) * Breastfeed, How to (Namibian) * Important OB Phone Numbers ([place]) (Namibian) documented in this encounter Medications at Time of Discharge Vit-Fe Fumarate-FA ( 1+1 PO) Take by mouth. acetaminophen (Tylenol) 325 MG tablet Take 2 tablets (650 mg total) by mouth every 4 (four) hours if needed for mild pain for up to 10 days. 30 tablet 1 05/21/2021 05/31/2021 docusate sodium 100 MG capsule Take 200 mg by mouth 2 (two) times a day for 10 days. 30 capsule 05/21/2021 05/31/2021 ibuprofen 600 MG tabletIndication s:Mild to Moderate Pain Take 1 tablet (600 mg total) by mouth every 6 (six) hours for 10 days. 40 tablet 1 05/21/2021 05/31/2021 famotidine (Pepcid) 20 MG tablet Take 1 tablet by mouth 1 (one) time each day. 04/01/2023 oxyCODONE (Roxicodone) 5 MG immediate release tablet Take 1 tablet (5 mg total) by mouth every 4 (four) hours if needed for moderate pain. 5 tablet 05/21/2021 05/24/2023 documented as of this encounter Miscellaneous Notes * Progress Notes - Em Marsh MD - 05/21/2021 12:13 PM EST OB Post Analgesia Follow-up Note Residual Weakness Present: No. Normal strength in all extremities. Residual Numbness or Paresthesia Present: No. Normal sensation. Experiencing Headache: No Tolerating PO Intake: Yes Ambulating without Difficulty: Yes Pain Control Adequate: Yes If GA, Any Recall of Surgical Events: N/A - not GA * Discharge Summary - Carin Koenig MD - 05/21/2021 6:39 AM EST Hospitalization Admit Date/Time: 05/17/2021 2:03 PM Admitting Attending: Jayshree Gomez Discharge Date: 05/21/21 Discharge Attending Physician: Jayshree Gomez Md PCP name and Address: Cata Gutierrez MD (Inactive) [address] / [facility] [address] Referring provider name and address: No referring provider defined for this encounter. Chief Concern, Brief History of Present Illness, and Hospital Course Patient underwent IOL for preeclampsia and had an arrest of dilation with NRFHT. Decision was made with patient to proceed with primary C/S. Her was uncomplicated and she delivered a viablemale . Her postoperative course was uncomplicated. Her blood type is O+, and rubella immune. Her hematocrit on discharge was stable at 35. She was discharged on postoperative day 2 with routinefollow up in 1 week for BP check, 2-weeks for an incision check and in 5- weeks for post- visit. She was given PO pain control (tylenol/ibuprofen), stool softeners, and vitamins. Returnprecautions were discussed. Surgeries and Procedures SECTION (N/A) Medication List .. acetaminophen 325 MG tablet Commonly known as: Tylenol Take 2 tablets (650 mg total) by mouth every 4 (four) hours if needed for mild pain for up to 10 days. DSS 100 MG capsule Take 200 mg by mouth 2 (two) times a day for 10 days. famotidine 20 MG tablet Commonly known as: Pepcid Take 1 tablet by mouth 1 (one) time each day. ibuprofen 600 MG tablet Take 1 tablet (600 mg total) by mouth every 6 (six) hours for 10 days. 1+1 PO Take by mouth. Where to Get Your Medications These medications were sent to [facility] - [place], [place] - [address] [facility] [address] ?? acetaminophen 325 MG tablet ?? DSS 100 MG capsule ?? ibuprofen 600 MG tablet Discharge Diagnosis Medical Problems Active and Resolved Hospital Problems Hospital Gastroesophageal reflux disease * (Principal) RESOLVED: Proteinuria affecting in third trimester RESOLVED: Gestational proteinuria in third trimester RESOLVED: First , third trimester Follow-Up / Post Discharge Instructions 1. Nothing in vagina for 6 weeks, no sex, no tampons. 2. Do not lift more than 10lbs for 6 weeks. Do not strain. 3. OK to shower, do not soak in water or tub bath until follow up appointment. 4. Do not strain with bowel movements, OK to use over the counter laxatives as needed, MiraLax preferred. 5. Call or go to emergency room for heavy vaginal bleeding, pain not relieved by medications, fever> 100.5F, inability to urinate, or vomiting or diarrhea > [address] while taking narcotic pain medicine or until you can press firmly on brake without pain. 7. Ambulate as tolerated, OK for stairs. Outpatient Follow-Up Future Appointments Date Time Provider Department Center 05/22/2021 8:15 AM [facility] Follow up in 1 week for BP check, 2 weeks for incision check, 5 weeks for routine care Pertinent Physical Exam At Time of Discharge Physical Exam Cardiovascular: Rate and Rhythm: Normal rate. Heart sounds: Normal heart sounds. Pulmonary: Breath sounds: Normal breath sounds. Abdominal: Comments: Soft, approp tender to palpation Musculoskeletal: General: Normal range of motion. Cervical back: Normal range of motion. Skin: General: Skin is warm. Neurological: General: No focal deficit present. Mental Status: She is alert. Discharge Disposition/Condition Disposition: Home Condition: Stable (s/sx potential problems absent or manageable) I spent < 30 minutes of patient care and instruction time in preparation for this discharge. Cosigned by Alvaro Bean MD at 05/21/2021 8:43 AM EST Associated attestation - Alvaro Bean MD - 05/21/2021 8:43 AM EST I spent < 30 minutes of patient care and instruction time in preparation for this discharge. * Progress Notes - Carin Koenig MD - 05/21/2021 6:23 AM EST 05/21/2021 POD#2 Subjective Mini feels well. No acute events overnight. Pain is worse than patient anticipated (7/10), but controlled with PO medications. Lochia same than menses. Patient reports completely successful breast feeding. Tolerating po, no nausea/vomiting. Denies fever/chills and chest pain/shortness of air. Tolerating PO, urinating ok, has not had a BM but passing gas. Objective Temp: [36.4 ??C (97.5 ??F)-36.9 ??C (98.5 ??F)] 36.8 ??C (98.3 ??F) Heart Rate: [95-118] 95 Resp: [16-18] 17 BP: (116-149)/(76-99) 144/99 FiO2 (%): [28 %] 28 % General: No acute distress, well appearing and well nourished Pulm: No increased work of breathing or signs of respiratory distress. Abdomen: Fundus firm and beneath umbilicus, appropriately tender Pelvis: Deferred Neuro: Moves all extremities equally Psych: Mood and affect were normal Lab Results Component Value Date WBC 20.26 (H) 05/20/2021 HGB 10.9 (L) 05/20/2021 HCT 32.7 (L) 05/20/2021 MCV 91 05/20/2021 PLT 243 05/20/2021 HEPBSAG Negative 01/01/2021 AST 26 05/19/2021 Antepartum hematocrit: 37 Hematocrit trend: decreased Assessment 25 y.o. s/p at 38w0d . POD#2 # Post- care - PO pain control - tolerating regular diet, +flatus, ambulating, void spont. Meeting goals for discharge # Pre-eclampsia -1 mild BP overnight, possibly due to inc pain -improve pain control -pt to follow up in 1 week for BP check after discharge # considerations - Breast feeding - Blood type: O positive - Rubella status immune - Tdap: nursing to assess - COVID status: negative - PPBC: temporary abstinence, would like to discuss further in several weeks # status - male - Desires circumcision; consented #FEN/PPX - HLIV/REG - SCDs Dispo: pt medically appropriate for discharge Carin Koenig MD (PGY-1) Obstetrics and Gynecology Cosigned by Alvaro Bean MD at 05/21/2021 8:43 AM EST Associated attestation - Alvaro Bean MD - 05/21/2021 8:43 AM EST I saw and evaluated the patient with the resident/fellow. I discussed the case with the resident/fellow and agree with the findings and plan as documented. * Hospital Course - Carin Koenig MD - 05/20/2021 1:55 PM EST Patient underwent IOL for preeclampsia and had an arrest of dilation with NRFHT. Decision was made with patient to proceed with primary C/S. Her was uncomplicated and she delivered a viablemale . Her postoperative course was uncomplicated. Her blood type is O+, and rubella immune. Her hematocrit on discharge was stable at 35. She was discharged on postoperative day 2 with routinefollow up in 1 week for BP check, 2-weeks for an incision check and in 5- weeks for post- visit. She was given PO pain control (tylenol/ibuprofen), stool softeners, and vitamins. Returnprecautions were discussed. * Note - Mikala Conde RN - 05/20/2021 11:58 AM EST This note was copied from a baby's chart. Into check on mom/baby, she states infant ate at 0900 around 20-25 min, encouraged skin to skin to wake ifnant for feedings, mom reports good latch and did not want me re-evaluating this again. Many questions asked by fob/mom, answered these regarding pumping, storage, etc. Understanding noted. Praised Mother for her efforts with and encouraged to call for help as needed. Until baby is having good breastfeeds, continue to put infant skin to skin and offer the breast every couple hours. If baby does not latch or have a good breastfeed, pump or do hand expression and offer your expressed breastmilk via, syringe, cup, or spoon. * Progress Notes - Carin Koenig MD - 05/20/2021 6:54 AM EST S: No acute events overnight. Patient doing well, without complaints. Pain well controlled with PO medications. Lochia same compared to menses. Patient reports breast feeding is going fair. Tolerating po, no nausea/vomiting. + flatus. hasnt voided spont yet O: VITALS Vitals: 05/19/21 1742 05/19/21202105/19/21 2350 05/20/21 0445 BP: 137/82 112/76 130/86 124/84 Patient Position: Lying Pulse: 99 93 96 95 Resp: 16 17 18 Temp: 36.7 ??C (98.1 ??F) 36.6 ??C (97.9 ??F) 36.4 ??C (97.5 ??F) 36.8 ??C (98.2 ??F) TempSrc: Oral Oral SpO2: 94% 96% 95% Weight: Height: I&O Intake/Output Summary (Last 24 hours) at 05/20/2021 0654 Last data filed at 05/20/2021 0615 Gross per 24 hour Intake 1300 ml Output 2599 ml Net -1299 ml PHYSICAL EXAM Constitutional: No acute distress, well appearing and well nourished. Cardiovascular: Normal rate and rhythm, no murmurs. No peripheral edema. Pulmonary: No increased work of breathing or signs of respiratory distress. Lungs clear to auscultation bilaterally. Abdomen: Soft, appropriately tender to palpation. Fundus firm and below umbilicus. Active bowel sounds - Incision: no erythema, discharge, tenderness, or signs of infection Neurologic: Moves all extremities equally. Psychiatric: Mood and affect were normal. LABS 37-35 A/P: 25 y.o. POD #1 s/p P C/S 05/19 # Routine Post Operative Care - grace removed 0615 - tolerating regular diet - encourage ambulation - pain well controlled with PO pain meds #Preeclampsia -normotensive since delivery # Post Considerations - Breast Feeding - Blood Type: O Positive - Rubella Status: immune - Contraception: TBD # Status - Viable Male - Desires Circumcision: Consented # FEN/Prophylaxis - REG/HLIV - SCD???s Dispo: Continue inpatient management Carin Koenig MD (PGY-1) Obstetrics and Gynecology Cosigned by Luly Dan MD at 05/20/2021 10:19 AM EST Associated attestation - Luly Dan MD - 05/20/2021 10:19 AM EST Attending Attestation: Patient seen and discussed with resident. I agree with the assessment and plan as documented * Note - Kristy Vidal RN - 05/19/2021 9:40 PM EST This note was copied from a baby's chart. Follow-up Assessment Note [facility] Patient Name: Servando Brennan Date: 05/19/2021 Time: 2140 Admission Date: 05/19/2021 Primary Care Physician: No primary care provider on file. Age: 0 days Sex: male Gestational Age of : Unknown Weight of : 2984 g Percent Weight Change Since : 0% Consultation: Reason for Consult: Follow-up assessment,Hypoglycemia (OTP) Maternal Information: Has mother breastfed before?: No to breast within first hour of ?: No Delayed Due to: Infant status LATCH: OB Tools: Tools: Finger feeding,Hand expression Breast Pump: Patient Follow-up: Follow-up Needed : Follow-up Follow-Up Type: Inpatient Additional Documentation: OT 34 prior to feeding. HE 1 ml colostrum and RN finger fed to . Began triple feeding plan and supplemented with 10 ml's formula. Reviewed OT protocol. Baby behavior in first 24 hours, feedingplan, and lactogenesis principles. Mom states she is sleepy from pain medicine. Will HE tonight andbegin pumping when mom receptive to teaching. Additional Problem Noted: OT protocol Maternal History: OB History: No obstetric history on file. Information Delivery type: , Low Transverse Breech type (if applicable): Observed anomalies/comments: Complications: Labor complications: Intolerance;Failure to Progress in First Stage Additional complications: Plan: 1. Breastfeed me on cue OR offer breast every 2-3 hours if I do not cue to feed. Only spend 10-15 minutes attempting to get me to feed, if I am too sleepy or won't latch move onto Step2. 2. Supplement me with 10 ml's breast milk or formula, or increase as needed to maintain OT via finger feeding or pace bottle after I breastfeed (or try to breastfeed). Make sure that I get this extrasupplement a minimum of every 3 hours 3. Mom will hand express or pump after I feed, making sure to pump at least 8 times in 24 hours. Kristy Vidal RN Date: 05/19/2021 Time: 11:04 PM * Anesthesia PACU Signout - Augusta Mcclellan MD - 05/19/2021 6:48 PM EST Patient: [facility] Anesthesia Type: No value filed. Vitals Value Taken Time BP 118/65 05/19/21 1715 Temp 36.5 ??C (97.7 ??F) 05/19/21 1605 Pulse 97 05/19/21 1719 Resp 20 05/19/21 1715 SpO2 94 % 05/19/21 1719 Vitals shown include unvalidated device data. Anesthesia PACU Signout Patient location during evaluation: PACU Patient participation: complete - patient participated Level of consciousness: baseline and awake Pain management: adequate (pain score 0-3) Airway patency: natural airway Hydration status: acceptable PONV: none Cardiovascular status: acceptable, hemodynamically stable and blood pressure returned to baseline Respiratory status: acceptable, room air, spontaneous ventilation and nonlabored ventilation Discharge Disposition: admit to inpatient unit Comments: Patient moving lower extremities, no more nausea/emesis since intraop, no headaches or other complaints. Cosigned by Tristan Sands MD at 05/19/2021 6:57 PM EST * Note - Mikala Conde RN - 05/19/2021 6:15 PM EST This note was copied from a baby's chart. Mom was being moved from pacu earlier, so into room at this time to instruct and demonstrate HE, ifnat had low one touch and was in the nursery, kit taken to mom and demonstrated and assisted with expression, about 0.5ml obtained, and while I was doidn this nursery brought to room about [id number] assisted mom to skin to skin, instructed importance of this, able to give expressed amou nt with spoon, demonstrated suck training and finger feeding, and encouraged mom to HE due to low blood sugars, infant demonstrated some feeding cues and was latching as I left the room. Encouraged mom to be sure and call out prior to feeds for blood sugar checks. Understanding noted. And praised mom * Note - Nany Mendoza RN - 05/19/2021 5:38 PM EST This note was copied from a baby's chart. Reviewed feeding log, teaching materials, [facility], and provided community resource handout. Baby in NBN for low OT and supplement Mother instructed to call out when moved to her room as RN in the process to help with HE Praised Mother for her efforts with and encouraged to call for help as needed. * Op Note - Carin Koenig MD - 05/19/2021 2:41 PM EST Operative Note Date: 05/19/21 Location: L+D Name: HARMONY Roche: 1995, Diagnoses: Pre-op Diagnosis IUP at 38w0d Preeclampsia Arrest of Dilation Procedure(s): Primary Attending Surgeon(s): Марина Gomez - Primary Television News Anchor(s): Demetrius Leon PGY4 Carin Koenig PGY1 Anesthesia: Epidural ASA: II Blood Administration: Blood Product Administration History None Estimated Blood Loss: 437ml Drains: Urethral Catheter Double-lumen 16 Fr. (Active) Site Assessment Clean 05/19/21 08 Output (mL) 350 mL 05/19/21 0800 Specimen: cord blood, cord segment, placenta Findings: 1. Viable male , Apgars 8,9, weight pending, from vertex position 2. Normal appearing placenta, delivered spontaneously and intact 3. Normal appearing uterus, bilateral Fallopian tubes and ovaries Indications: Mini Brennan is an 25 y.o. female who is having surgery for Arrest of Descent Intolerance of Labor. Narrative: Patient was admitted for an IOL for preeclampsia. Patient's labored stalled at 6cm dilated and fetus started to have non-reassuring heart tones. Terbutaline was used while patient was laboring due to the heart tones. Decision was made with patient to move forward with a primary . She was laid supine with leftward tilt and a Grace catheter was anchored in the bladder. She was prepped and draped in the normal sterile fashion. Time-out was performed. Pfannenstiel skin incision was made with a scalpel and carried down through the subcutaneous tissue to the underlying layer of fascia, which was nicked in the midline and scored on either side of the midline. The fascial incision was extended in a smile fashion using curved Kraus scissors. The fascia was dissected off the rectus muscles using a combination of blunt and sharp dissection, with care taken to achieve hemostasis along the way. The rectus were at the midline, and the peritoneum was entered bluntly. The peritoneal incision was extended using Bovie coagulation and gentle superior and lateral traction. Abladder blade was placed. The bladder flap was developed using Metzenbaum scissors. The bladder blade was replaced. Uterine incision was made with a scalpel, and upon intrauterine entry, the incisionwas extended using gentle superior and inferior traction. The amnion was ruptured. The vibrating screen operator???s hand was placed inside the uterus. The vertex was elevated to the level of the hysterotomy and the was delivered atraumatically. Delayed cord clamping was performed per protocol. The was stimulated, and the nose and mouth were suctioned. The cord was clamped and cut, and the infant was passed off to resuscitation staff present. A segment of the cord was clamped and cut, and cord blood was collected and sent for routine testing. The placenta was delivered spontaneously and intact. The uterus was exteriorized and cleared of all clots and debris using moist laps x2. The hysterotomy was closed in a single layer fashion using #1 Chromic in a running locking stitch fashion. Good hemostasis was achieved. The uterus was returned to the abdomen, and the pericolic gutters were cleaned with a wet lap. The hysterotomy was again examined and good hemostasis was noted. The peritoneum and rectus muscles were examined for non-hemostasis, and areas of bleeding were stopped using Bovie coagulation. The fascia was reapproximated using 0 Polysorb in a running fashion. The subcutaneous tissue was copiously irrigated and suctioned, and all areas of non-hemostasis were made so using Bovie coagulation. The subcutaneous tissue was reapproximated using 2-0 Polysorb in an interrupted fashion. The skin was reapproximated using 3-0 Polysorb in a running subcuticular fashion. Skin glue was applied topically. She tolerated the procedure well. Sponge, lap, and needle counts were correctx3. Dr. Paco Guzman was present and scrubbed for the entirety of the procedure. Complications: None; patient tolerated the procedure well. Submitted by: Carin Koenig MD - 05/19/2021 - 4:13 PM Cosigned by Jayshree Gomez MD at 05/21/2021 8:28 AM EST Associated attestation - Jayshree Gomez MD - 05/21/2021 8:28 AM EST I was present for the entirety of the procedure(s). I was scrubbed and participated in the entire case. No complications noted. * Progress Notes - Samira Curz APRN, CNM - 05/19/2021 2:14 PM EST Labor Progress Note Owen Brennan is a 25 y.o. at 38w0d in labor. FOB at bedside. Pt has continued to have recurrentvariable decels and her cervix is unchanged. Objective Visit Vitals BP 128/60 Pulse 87 Temp 36.7 ??C (98 ??F) (Oral) Resp 20 Last Cervical Exam: Dilation: 6 Effacement (%): 90 Station: -1 Last FHR Assessment and Uterine contraction assessment: Heart Rate Mode: External US Auscultation/Doppler FHR: 130 BPM Baseline Heart Rate: 130 bpm Baseline Classification: Normal Variability: Moderate (Between 6 and 25 BPM) Pattern: Variable decelerations FHR Category: Category II Fetus A Comments: US adjusted Multiple Births: No Uterine Activity Mode: IUPC Contraction Frequency: q2-5 Contraction Duration: 90-130 Contraction Pattern: Normal Contraction Quality: Moderate Resting Tone Palpated: Relaxed Intrauterine Pressure-Contraction (mmHg): 30-70 Intrauterine Pressure-Resting (mmHg): 10 Plan at 38w0d IOL for mild preeclampsia - Arrest of active phase - FHR Cat 2 - Consulted with MD team and have recommended section - Patient and FOB agreeable to proceeding to primary * Significant Event - Demetrius Leon MD - 05/19/2021 2:07 PM EST This provider is at bedside due to a prolonged heartrate decelerations to the 80's. Patient is currently in the left lateral position and TEJA Cruz is checking patient. She is reported to beunchanged at 6 cm dilated. She has had an IUPC for greater than 4 hours and has not had adequate MVU's. Due to this and her Category II tracing, we recommend section at this time (indication: arrest of dilation in the active phase, non-reassuring heartrate tracing). This recommendation was discussed with the patient and her partner at bedside and all are in agreement. RN and anesthesia made aware of this Level 2 (urgent) section. She will receive Azith and a vaginal prep in addition to routine prophylaxis. Demetrius Leon MD CROP PICKER, PGY-4 *[phone] * Progress Notes - Samira Cruz, EXCEPTIONAL STUDENT EDUCATION AIDE, CN - 05/19/2021 11:56 AM EST Labor Progress Note Subjective Mini Brennan is a 25 y.o. at 38w0d in labor is comfortable with an epidural in place. She has been having recurrent variable decels over the last 45 minutes that have now resolved. Objective Visit Vitals BP 128/60 Pulse 91 Temp 36.7 ??C (98.1 ??F) (Oral) Resp 20 Last Cervical Exam: Dilation: 6 Effacement (%): 90 Station: -1 Last FHR Assessment and Uterine contraction assessment: Heart Rate Mode: External US Auscultation/Doppler FHR: 130 BPM Baseline Heart Rate: 145 bpm Baseline Classification: Normal Variability: Moderate (Between 6 and 25 BPM) Pattern: Variable decelerations, recurrent FHR Category: Category II Fetus A Comments: US adjusted Multiple Births: No Uterine Activity Mode: IUPC Contraction Frequency: q2-4 Contraction Duration: 60-80 Contraction Pattern: Normal Contraction Quality: Moderate Resting Tone Palpated: Relaxed Contraction Comments: IUPC placed Plan 1. Labor Mini??is a 25 y.o.?? in labor at 38w0d ?? #IOL?? - AROM, clear fluid??x 3.5 hours -??titrate pitocin per protocol??as FHT allows?? - IUPC placed # Status - FHR Cat 2 - CEFM -??Monitor closely and utilize intrauterine resuscitation methods if indicated - Discussed FHR decelerations, and if unable to tolerate pitocin titration would be an indication for . - Plan amnioinfusion if she develops further recurrent variable decels ?? #??Pre-eclampsia -??NL-MR since 05/18 @2200 - P:C 0.8 (cath specimen) -??OBP 0.59/4.6/18/222/18-0.57/4.7/20/204/15 - 24 hr urine??protein: 1767?? - Denies headache, vision changes, epigastric pain - Reviewed case with OB Team ?? # Group B Strep Status - Negative: no antibiotics indicated ?? #Chronic Conditions -GERD -Anxiety and depression -Tobacco use in - nicotine gum ordered? # Obesity - oxygen saturation 91-93% on room air while asleep, NC prn applied - discussed possible need for sleep study with patient, reports she has felt for a long time she might have sleep apnea ?? # Planning -plans -Male: Troy Theodore -circ??desired -Rubella: immune -Rh status:??positive -Contraception plan:??undecided? # FEN/Prophylaxis -??CLD/LR @ 125 cc/hr - SCDs??while in bed? * Progress Notes - Samira Cruz APRN, CNM - 05/19/2021 9:12 AM EST Labor Progress Note Subjective Mini Brennan is a 25 y.o. at 38w0d in labor. I assumed care at 0715 this AM. Patient has been resting comfortably. FOB at bedside for support. Objective Visit Vitals BP 128/60 Pulse 91 Temp 36.8 ??C (98.2 ??F) (Oral) Resp 20 Last Cervical Exam: CE: nchanged on exam at 0850 Last FHR Assessment and Uterine contraction assessment: Heart Rate Mode: External US Auscultation/Doppler FHR: 135 BPM Baseline Heart Rate: 135 bpm Baseline Classification: Normal Variability: Moderate (Between 6 and 25 BPM) Pattern: intermittent early and prolonged decels FHR Category: Category II Fetus A Comments: US adjusted Multiple Births: No Uterine Activity Mode: [place] Contraction Frequency: q2-6 Contraction Duration: 60-100 Contraction Pattern: Normal Contraction Quality: Moderate Resting Tone Palpated: Relaxed Contraction Comments: RN to continue to adjust toco Plan Mini is a 25 y.o. in labor at 38w0d ?? #IOL?? - AROM, clear fluid x 3.5 hours -??titrate pitocin per protocol??as FHT allows - recheck 4 hrs/prn - Consider IUPC if unchanged on next exam # Status - FHR Cat 2 - CEFM -??Monitor closely and utilize intrauterine resuscitation methods if indicated - Discussed FHR decelerations, and if unable to tolerate pitocin titration would be an indication for . #??Pre-eclampsia -??NL-MR since 05/18 @2200 - P:C 0.8 (cath specimen) -??OBP 0.59/4.6/18/222/18-0.57/4.7/// - 24 hr urine??protein: 1767?? - Denies headache, vision changes, epigastric pain - Reviewed case with OB Team # Group B Strep Status - Negative: no antibiotics indicated #Chronic Conditions -GERD -Anxiety and depression -Tobacco use in - nicotine gum ordered? # Obesity - oxygen saturation 91-93% on room air while asleep, NC prn applied - discussed possible need for sleep study with patient, reports she has felt for a long time she might have sleep apnea ?? # Planning -plans -Male: Troy Theodore -circ??desired -Rubella: immune -Rh status:??positive -Contraception plan:??undecided? # FEN/Prophylaxis -??CLD/LR @ 125 cc/hr - SCDs??while in bed?? Samira Cruz CNM * Progress Notes - Lavern Aldridge APRN, CNM - 05/19/2021 5:40 AM EST Labor Progress Note Mini is a 25 y.o. at 38w0d SUBJECTIVE: Mini is resting comfortably. Laboring with epidural. Agreeable to cervical exam and AROM if indicated. OBJECTIVE: Visit Vitals BP 118/59 Pulse 85 Temp 36.2 ??C (97.1 ??F) (Axillary) SpO2 93% Cervical examination: /-1 FHT: 140 baseline, moderate variability, accels, variable/late and prolonged decels, Cat 2 [place]: Contractions q 2-7 minutes ASSESSMENT/PLAN: Mini is a 25 y.o. in labor at 38w0d ?? #IOL?? - AROM, clear fluid - continue pitocin per protocol as FHT allows - recheck 4 hrs/prn ?? # Status -??Category 1 prior to AROM, Cat 2 following requiring position changes and intrauterine resuscitation. FHR resolved with knee chest. scalp stimulation reassuring. Discussed need for ECS if prolonged FHR does not resolve. Pt verbalizes understanding. - CEFM -??Monitor closely and utilize intrauterine resuscitation methods if indicated ?? # Group B Strep Status - Negative: no antibiotics indicated ?? #??Pre-eclampsia -??NL-MR only - P:C 0.8 (cath specimen) -??OBP 0.59/4.6/18//18-0.57/4.7/20/204/15 - 24 hr urine protein: 1767? #Chronic Conditions GERD Anxiety and depression Tobacco use in - nicotine gum ordered?? # Obesity - oxygen saturation 91-93% on room air while asleep, NC prn applied - discussed possible need for sleep study with patient, reports she has felt for a long time she might have sleep apnea ?? # Planning -plans -Male: Troy Theodore -circ??desired -Rubella: immune -Rh status:??positive -Contraception plan:??undecided? # FEN/Prophylaxis -??CLD/LR @ 125 cc/hr - SCDs??while in bed?? Lavern Aldridge CNM * Significant Event - Lavern Aldridge APRN, CNM - 05/18/2021 11:06 PM EST Called to bedside by RN due to prolonged FHR deceleration. Patient FHR tracing showed late deceleration x2 followed by 6 minute prolonged deceleration. Upon arrival to patient room it was noted that OB team at bedside and terbutaline 0.25 given at 2307. Patient positioned in hands and knees. After recovery of heart tracing patient was positioned to left lateral and patient agreeable to cervical exam. Cervix unchanged from previous exam at 80/-2. Discussed plan with patient to monitor closely and restart pitocin as indicated/tolerated. Decelerations possibly related to hemodynamic changes following epidural anesthesia placement/supine positioning. Will monitor closely and utilize intr auterine resuscitation efforts as indicated. * Progress Notes - Lavern Aldridge APRN, CNM - 05/18/2021 9:25 PM EST Labor Progress Note Mini is a 25 y.o. at 37w6d SUBJECTIVE: Mini is reporting increased pressure with contractions. States contractions occurring more frequently. She is considering epidural placement, but requests cervical exam prior. Partner at bedside, supportive. OBJECTIVE: Visit Vitals BP 128/83 Pulse 99 Temp 36.6 ??C (97.9 ??F) (Oral) Cervical examination: 80/-2 FHT: 125 baseline, moderate variability, accels, no decels, Cat I [place]: Contractions q 2-5 minutes Pitocin: 5mu ASSESSMENT/PLAN: Mini??is a 25 y.o.?? at 37w6d induction of labor ?? #IOL?? - continue pitocin per protocol - recheck 4 hrs/prn - Plan for AROM when appropriate ?? # Status -??Category 1 - CEFM -??Monitor closely and utilize intrauterine resuscitation methods if indicated ?? # Group B Strep Status - Negative: no antibiotics indicated ?? #??Pre-eclampsia - NL-MR only - P:C 0.8 (cath specimen) - OBP 0.59/4.6/18/222/18-0.57/4.7/20/204/15 - 24 hr urine protein: 1767 ?? #Chronic Conditions GERD Anxiety and depression Tobacco use in - nicotine gum ordered? # Planning -plans -Male: Troy Theodore -circ??desired -Rubella: immune -Rh status:??positive -Contraception plan:??undecided? # FEN/Prophylaxis -??CLD/LR @ 125 cc/hr - SCDs??while in bed?? Lavern Aldridge CNM * Progress Notes - Lavern Aldridge APRN, CNM - 05/18/2021 5:45 PM EST Labor Progress Note Mini is a 25 y.o. at 37w6d SUBJECTIVE: Mini is resting comfortably. Reports increasing contractions, but overall very comfortable. Partner at bedside, supportive. Agreeable to cervical exam. OBJECTIVE: Visit Vitals BP 145/70 Pulse 87 Temp 36.7 ??C (98.1 ??F) (Oral) Cervical examination: /-2 FHT: 135 baseline, moderate variability, accels, no decels, Cat I [place]: Contractions q 2-7 minutes ASSESSMENT/PLAN: Mini is a 25 y.o. at 37w6d with new diagnosis of pre-eclampsia ?? #IOL - s/p misoprostol x1 - start pitocin per protocol - recheck 4 hrs/prn - Plan for AROM when appropriate ?? # Status -??Category 1 - CEFM -??Monitor closely and utilize intrauterine resuscitation methods if indicated ?? # Group B Strep Status - Negative: no antibiotics indicated ?? # Pre-eclampsia - no SR - P:C 0.8 (cath specimen) - OBP 0.59/4.6/18/222/18-0.57/4.7/20/204/15 - 24 hr urine pending ?? #Chronic Conditions GERD Anxiety and depression Tobacco use in - nicotine gum ordered ?? # Planning -plans -Male: Troy Theodore -circ desired -Rubella: immune -Rh status: positive -Contraception plan: undecided ?? # FEN/Prophylaxis -??CLD/LR @ 125 cc/hr - SCDs??while in bed?? Lavern Aldridge CNM * Progress Notes - Lavern Aldridge APRN, CNM - 05/18/2021 1:00 PM EST Labor Progress Note Mini is a 25 y.o. at 37w6d SUBJECTIVE: Mini is resting comfortably. Reports occasional contractions. Has questions regarding labs and blood pressures, indications for induction of labor. She desires induction. Reports good movement. Denies headache, reports occasional scotoma. OBJECTIVE: Visit Vitals BP 138/76 Pulse 88 Temp 36.8 ??C (98.2 ??F) Labs in last 18 hours CBC WBC 14.59 (H) Hb 12.0 Plt 285 Hct 35.8 ANC ?? INR ??, PTT ??, Anti-Xa ?? BMP Na ?? Cl ?? BUN ?? Glu ?? K ?? Co2 ?? Cr 0.57 (L) Ca ?? iCa ?? Mg ??, Phos ?? Lactate ?? LFT AST 20 AlkPhos ?? T Prot ?? ALK 15 Bili ?? Alb ?? D.Bili ?? CE: deferred FHT: 135 baseline, moderate variability, accels, no decels, Cat I [place]: Contractions q 5-10 minutes ASSESSMENT/PLAN: Mini is a 25 y.o. at 37w6d with new diagnosis of pre-eclampsia #IOL - discussed criteria met for induction of labor with proteinuria and MR x2 BP- pt agreeable to proceed with induction at this time - initial exam yesterday was /-2 - plan for misoprostol x1 and reassess # Status - Category 1 - CEFM - Monitor closely and utilize intrauterine resuscitation methods if indicated # Group B Strep Status - Negative: no antibiotics indicated # Pre-eclampsia - MR x2; continue to monitor closely- indication for IOL at this time - P:C 0.8 (cath specimen) #Chronic Conditions GERD Anxiety and depression Tobacco use in - nicotine gum ordered # Planning -plans -Male: Alberto Theodore -circ desired -Rubella: immune -Rh status: positive -Contraception plan: undecided # FEN/Prophylaxis - CLD/LR @ 125 cc/hr - SCDs while in bed Lavern Aldridge CNM * H&P - Nancy Sesay, EXCEPTIONAL STUDENT EDUCATION AIDE, CNM - 05/17/2021 3:03 PM EST Obstetrics History and Physical Subjective HPI Patient is a 25 y.o. at 37w5d (TASHI Estimated Date of Delivery: 06/02/21) presenting with contractions that started last night when she went for a walk and have intensified throughout the day. Shewas checked in clinic last week and was 2cm. Pt reports her boyfriend, Bar, googled how to do a cervical exam and checked her cervix at home and was able to get 3 fingers in. is characterized by tobacco use (allergic to Nicotine patches), anxiety, hx trauma, and gonorrhea dx in 1T (RAKESH 02/26/21). She denies chest pain, shortness of breath. Denies vaginal bleeding, loss of fluid. Endorses movement. Obstetrical History OB History Para Term AB Living 1 0 SAB IAB Ectopic Multiple Live Births # Outcome Date GA Lbr Ronny/2nd Weight Sex Delivery Anes PTL Lv 1 Current Obstetric Comments -US @ 21w3d (01/23/21): normal limited monica; good movement; normal fluid, not able to get accurate cervical length, 'consider 32wk growth ' -US @ 29w0d (03/17/21): vertex, ant placenta, LALIT WNL, BPP 8/8, EFW 51% (1306), UAD WNL; no f/u LABS Blood Type: O Positive Rubella: immune Hepatitis B: negative HIV: negative Syphilis: negative Glucola: 162 GTT: 92/188*/113/114 Group B Strep: negative Past Medical History She has a past medical history of Chlamydia, Gonorrhea, Depression, and Trichimoniasis. Past Surgical History She has a past surgical history that includes [place] tooth extraction and Tonsillectomy. Social History She reports that she has been smoking. She does not have any smokeless tobacco history on file. Shereports that she does not drink alcohol and does not use drugs. Family History Her family history includes Breast cancer in her paternal grandmother; Ovarian cancer in her father's sister. Current Medications Current Outpatient Medications Medication Instructions ??? famotidine (Pepcid) 20 MG tablet 1 tablet, Oral, Daily ??? Vit-Fe Fumarate-FA ( 1+1 PO) Oral Allergies No Known Allergies Objective Visit Vitals BP 143/71 Pulse 98 Temp 36.4 ??C (97.5 ??F) (Oral) Resp 20 There is no height or weight on file to calculate BMI. No intake or output data in the 24 hours ending 05/17/21 1820 Physical Exam Constitutional: Appearance: Normal appearance. Genitourinary: Vulva normal. Genitourinary Comments: Cervical exam: Cardiovascular: Comments: Well perfused Pulmonary: Effort: Pulmonary effort is normal. Abdominal: Palpations: Abdomen is soft. Comments: Gravid Musculoskeletal: General: Normal range of motion. Neurological: Mental Status: She is alert and oriented to person, place, and time. Skin: General: Skin is warm and dry. Psychiatric: Mood and Affect: Mood normal. Behavior: Behavior normal. Labs: Labs in last 18 hours CBC WBC 18.30 (H) Hb 12.5 Plt 304 Hct 37.0 ANC 13.68 (H) INR ??, PTT ??, Anti-Xa ?? BMP Na ?? Cl ?? BUN ?? Glu ?? K ?? Co2 ?? Cr 0.59 (L) Ca ?? iCa ?? Mg ??, Phos ?? Lactate ?? LFT AST 23 AlkPhos ?? T Prot ?? ALK 18 Bili ?? Alb ?? D.Bili ?? EFM: 130 baseline; moderate variability; +accels; -decels Luttrell: irregular Imaging: Bedside ultrasound: vertex; LALIT 11.47 Assessment/Plan 25 y.o. at 37w5d presenting with contractions # Proteinuria with mild range BP x1 - admit for observation - serial blood pressures - P:C 0.9 (clean catch); 0.8 cath collect - 24hr urine ordered - discussed if pt has another mild range BP will dx preeclampsia and IOL indicated - OBP normal - COVID swab collected - consented # Early labor - pt reports contractions have spaced; declines repeat CE # Status - heart rate tracing: category I - BSUS reassuring; vertex - male: Alberto; desires circ - NSTs TID # Group B Strep Status - Negative: no antibiotics indicated # Tobacco use - Nicotine gum ordered - pt desires to go outside to smoke # Plans to breastfeed # Contraception plan - undecided Dispo: Admit to L&D for observation documented in this encounter Plan of Treatment Not on file documented as of this encounter Procedures Procedure Name Priority Date/Time Associated Diagnosis Comments OXYGEN THERAPY Routine 05/20/2021 8:00 AM EST CBC W/O DIFFERENTIAL Routine 05/20/2021 5:12 AM EST OXYGEN THERAPY Routine 05/20/2021 1:04 AM EST OXYGEN THERAPY Routine 05/20/2021 1:04 AM EST OXYGEN THERAPY Routine 05/20/2021 1:04 AM EST OB PANEL PRE ECLAMPSIA, PLASMA Routine 05/19/2021 9:01 PM EST CBC W/O DIFFERENTIAL Routine 05/19/2021 9:01 PM EST BLOOD GAS, OTHER Routine 05/19/2021 2:53 PM EST BLOOD GAS, OTHER Routine 05/19/2021 2:53 PM EST PROTEIN, URINE, 24 HOUR Routine 05/18/2021 8:00 PM EST OB PANEL PRE ECLAMPSIA, PLASMA Routine 05/18/2021 4:21 AM EST CBC W/O DIFFERENTIAL Routine 05/18/2021 4:21 AM EST TYPE AND SCREEN Routine 05/17/2021 7:34 PM EST SARS COV-2/COVID-19 BY PCR Routine 05/17/2021 6:53 PM EST PROTEIN, URINE, RANDOM WITH CREATININE STAT 05/17/2021 5:14 PM EST CREATININE, RANDOM URINE STAT 05/17/2021 5:14 PM EST OB PANEL PRE ECLAMPSIA, PLASMA STAT 05/17/2021 3:43 PM EST PROTEIN, URINE, RANDOM WITH CREATININE STAT 05/17/2021 3:43 PM EST CREATININE, RANDOM URINE STAT 05/17/2021 3:43 PM EST CBC WITH AUTO DIFFERENTIAL STAT 05/17/2021 3:43 PM EST DELIVERY Arrest of Descent Intolerance of Labor documented in this encounter Results * (ABNORMAL) CBC W/O Differential (05/20/2021 5:12 AM EST) [facility] WBC Count 20.26(H) 3.70 - 10.30 10*3/uL LAB HEMATOLOGY METHOD 05/20/2021 5:44 AM EST [facility] RBC Count 3.58(L) 3.90 - 5.20 10*6/uL LAB HEMATOLOGY METHOD 05/20/2021 5:44 AM EST [facility] HGB 10.9(L) 11.2 - 15.7 g/dL LAB HEMATOLOGY METHOD 05/20/2021 5:44 AM EST [facility] HCT 32.7(L) 34.0 - 45.0 % LAB HEMATOLOGY METHOD 05/20/2021 5:44 AM EST [facility] Platelet Count 243 155 - 369 10*3/uL LAB HEMATOLOGY METHOD 05/20/2021 5:44 AM EST [facility] MCV 91 79 - 98 fL LAB HEMATOLOGY METHOD 05/20/2021 5:44 AM EST [facility] MCH 30.4 26.0 - 32.0 pg LAB HEMATOLOGY METHOD 05/20/2021 5:44 AM EST [facility] MCHC 33.3 30.7 - 35.5 g/dL LAB HEMATOLOGY METHOD 05/20/2021 5:44 AM EST [facility] RDW 14.5 11.5 - 14.5 % LAB HEMATOLOGY METHOD 05/20/2021 5:44 AM EST [facility] MPV 10.3 8.8 - 12.5 fL LAB HEMATOLOGY METHOD 05/20/2021 5:44 AM EST [facility] nRBC 0.0 <=0.0 per 100 WBCs LAB HEMATOLOGY METHOD 05/20/2021 5:44 AM EST [facility] Blood Venous blood specimen / Unknown Venipuncture / Unknown 05/20/2021 5:12 AM EST 05/20/2021 5:34 AM EST Jayshree Gomez MD LAB BLOOD ORDERABLES Fin al Result [facility] [address] [place] [address] * (ABNORMAL) OB Panel Pre-Eclampsia (05/19/2021 9:01 PM EST) Uric Acid, Plasma 5.5 3.1 - 7.1 mg/dL 05/19/2021 10:16 PM EST [email or web address] Creatinine, Plasma 0.61 0.60 - 1.10 mg/dL 05/19/2021 10:16 PM EST [facility] eGFR >60 >60 mL/min/1.7 3m*2 05/19/2021 10:16 PM EST [facility] Comment:eGFR = estimated GFR ; eGFR units = mL/min/1.73 sq meters Chronic Kidney Disease is considered if eGFR <60 mL/min/1.73 sq meters Kidney failure is considered if eGFR is <15 mL/min/1.73 sq meters. eGFR assumes steady state plasma creatinine concentration; not applicable if renal function is rapidly changing or patient is on dialysis. eGFR, if AFR/AM >60 >60 mL/min/1.7 3m*2 05/19/2021 10:16 PM EST [email or web address] Comment:eGFR = estimated GFR ; eGFR units = mL/min/1.73 sq meters Chronic Kidney Disease is considered if eGFR <60 mL/min/1.73 sq meters Kidney failure is considered if eGFR is <15 mL/min/1.73 sq meters. eGFR assumes steady state plasma creatinine concentration; not applicable if renal function is rapidly changing or patient is on dialysis. ALT, Plasma 17 8 - 33 U/L 05/19/2021 10:16 PM EST [email or web address] AST, Plasma 26 11 - 32 U/L 05/19/2021 10:16 PM EST [email or web address] LDH, Plasma 262(H) 116 - 250 U/L 05/19/2021 10:16 PM EST [facility] Blood Venous blood specimen / Unknown Venipuncture / Unknown 05/19/2021 9:01 PM EST 05/19/2021 9:08 PM EST Lavern Aldridge APRN, TEJA LAB BLOOD ORDERABLES Fin al Result [facility] [address] [place] [address] * (ABNORMAL) CBC (05/19/2021 9:01 PM EST) Pathologist [facility] [place] WBC Count 19.56(H) 3.70 - 10.30 10*3/uL LAB HEMATOLOGY METHOD 05/19/2021 9:19 PM EST [facility] RBC Count 3.88(L) 3.90 - 5.20 10*6/uL LAB HEMATOLOGY METHOD 05/19/2021 9:19 PM EST [facility] HGB 11.8 11.2 - 15.7 g/dL LAB HEMATOLOGY METHOD 05/19/2021 9:19 PM EST [facility] HCT 35.5 34.0 - 45.0 % LAB HEMATOLOGY METHOD 05/19/2021 9:19 PM EST [facility] Platelet Count 254 155 - 369 10*3/uL LAB HEMATOLOGY METHOD 05/19/2021 9:19 PM EST [facility] MCV 92 79 - 98 fL LAB HEMATOLOGY METHOD 05/19/2021 9:19 PM EST [facility] MCH 30.4 26.0 - 32.0 pg LAB HEMATOLOGY METHOD 05/19/2021 9:19 PM EST [facility] MCHC 33.2 30.7 - 35.5 g/dL LAB HEMATOLOGY METHOD 05/19/2021 9:19 PM EST [facility] RDW 14.6(H) 11.5 - 14.5 % LAB HEMATOLOGY METHOD 05/19/2021 9:19 PM EST [facility] MPV 10.4 8.8 - 12.5 fL LAB HEMATOLOGY METHOD 05/19/2021 9:19 PM EST [facility] nRBC 0.0 <=0.0 per 100 WBCs LAB HEMATOLOGY METHOD 05/19/2021 9:19 PM EST [facility] Blood Venous blood specimen / Unknown Venipuncture / Unknown 05/19/2021 9:01 PM EST 05/19/2021 9:08 PM EST Lavern Aldridge APRN, CNM LAB BLOOD ORDERABLES Fin al Result [facility] [address] [place] [address] * Blood gas, other (05/19/2021 2:53 PM EST) pH, Other 7.25 >=7.10 LAB HEMATOLOGY METHOD 05/19/2021 3:11 PM EST [facility] pCO2, Other 63 mmHg LAB HEMATOLOGY METHOD 05/19/2021 3:11 PM EST [facility] pO2, Other 17 mmHg LAB HEMATOLOGY METHOD 05/19/2021 3:11 PM EST [facility] SO2, Measured, Other 28 % LAB HEMATOLOGY METHOD 05/19/2021 3:11 PM EST [facility] FIO2 LAB HEMATOLOGY METHOD 05/19/2021 3:11 PM EST [facility] Liters per Minute LAB HEMATOLOGY METHOD 05/19/2021 3:11 PM EST [facility] Base Excess, Other -1.8 mmol/L LAB HEMATOLOGY METHOD 05/19/2021 3:11 PM EST [facility] Bicarbonate, Calculated, Other 27.3 mmol/L LAB HEMATOLOGY METHOD 05/19/2021 3:11 PM EST [facility] Body Temperature LAB HEMATOLOGY METHOD 05/19/2021 3:11 PM EST [facility] pH, Temp Corrected, Other LAB HEMATOLOGY METHOD 05/19/2021 3:11 PM EST [facility] pCO2, Temp Corrected, Other LAB HEMATOLOGY METHOD 05/19/2021 3:11 PM EST [facility] pO2, Temp Corrected, Other LAB HEMATOLOGY METHOD 05/19/2021 3:11 PM EST [facility] Specimen Source Blood, Cord Venous 05/19/2021 3:11 PM EST [facility] Cord blood specimen / Unknown 05/19/2021 2:53 PM EST 05/19/2021 3:06 PM EST Magalie Shipley MD LAB BLOOD ORDERABLES Final [facility] [address] [place] [address] * Blood gas, other (05/19/2021 2:53 PM EST) pH, Other 7.21 >=7.10 LAB HEMATOLOGY METHOD 05/19/2021 3:12 PM EST [facility] pCO2, Other 65 mmHg LAB HEMATOLOGY METHOD 05/19/2021 3:12 PM EST [facility] pO2, Other 18 mmHg LAB HEMATOLOGY METHOD 05/19/2021 3:12 PM EST [facility] SO2, Measured, Other 31 % LAB HEMATOLOGY METHOD 05/19/2021 3:12 PM EST [facility] FIO2 LAB HEMATOLOGY METHOD 05/19/2021 3:12 PM EST [facility] Liters per Minute LAB HEMATOLOGY METHOD 05/19/2021 3:12 PM EST [facility] Base Excess, Other -3.8 mmol/L LAB HEMATOLOGY METHOD 05/19/2021 3:12 PM EST [facility] Bicarbonate, Calculated, Other 26.0 mmol/L LAB HEMATOLOGY METHOD 05/19/2021 3:12 PM EST [facility] Body Temperature LAB HEMATOLOGY METHOD 05/19/2021 3:12 PM EST [facility] pH, Temp Corrected, Other LAB HEMATOLOGY METHOD 05/19/2021 3:12 PM EST [facility] pCO2, Temp Corrected, Other LAB HEMATOLOGY METHOD 05/19/2021 3:12 PM EST [facility] pO2, Temp Corrected, Other LAB HEMATOLOGY METHOD 05/19/2021 3:12 PM EST [facility] Specimen Source Blood, Cord Arterial 05/19/2021 3:12 PM [facility] Arterial cord blood specimen / Unknown 05/19/2021 2:53 PM EST 05/19/2021 3:06 PM EST Magalie Shipley MD LAB BLOOD ORDERABLES Final R esult [facility] [address] [place] [id number] * Total Protein, 24 Hour Urine (05/18/2021 8:00 PM EST) Protein, Urine 57 mg/dL 05/18/2021 8:44 PM EST [facility] [facility] Total Protein per day 1,767 mg/day 05/18/2021 8:44 PM EST [facility] Hours Of Collection 24 HRS 05/18/2021 8:44 PM EST [facility] Urine, Volume 3,100 mL 05/18/2021 8:44 PM EST [facility] Urine Urine specimen obtained by clean catch procedure / Unknown Non-blood Collection / Unknown 05/18/2021 8:00 PM EST 05/18/2021 8:10 PM EST Narrative [facility] - 05/18/2021 8:44 PM EST Reference Range <80 mg/day if bed rest <150 mg/day if ambulatory Nancy Sesay APRN, TEJA LAB URINE ORDERABLES F inal Result [facility] [address] [place] [address] * (ABNORMAL) OB Panel Pre-Eclampsia, Plasma (05/18/2021 4:21 AM EST) Uric Acid, Plasma 4.7 3.1 - 7.1 mg/dL 05/18/2021 5:10 AM EST [email or web address] Creatinine, Plasma 0.57(L) 0.60 - 1.10 mg/dL 05/18/2021 5:10 AM EST [email or web address] eGFR >60 >60 mL/min/1.7 3m*2 05/18/2021 5:10 AM EST [email or web address] Comment:eGFR = estimated GFR ; eGFR units = mL/min/1.73 sq meters Chronic Kidney Disease is considered if eGFR <60 mL/min/1.73 sq meters Kidney failure is considered if eGFR is <15 mL/min/1.73 sq meters. eGFR assumes steady state plasma creatinine concentration; not applicable if renal function is rapidly changing or patient is on dialysis. eGFR, if AFR/AM >60 >60 mL/min/1.7 3m*2 05/18/2021 5:10 AM EST [facility] Comment:eGFR = estimated GFR ; eGFR units = mL/min/1.73 sq meters Chronic Kidney Disease is considered if eGFR <60 mL/min/1.73 sq meters Kidney failure is considered if eGFR is <15 mL/min/1.73 sq meters. eGFR assumes steady state plasma creatinine concentration; not applicable if renal function is rapidly changing or patient is on dialysis. ALT, Plasma 15 8 - 33 U/L 05/18/2021 5:10 AM EST [facility] AST, Plasma 20 11 - 32 U/L 05/18/2021 5:10 AM EST [facility] LDH, Plasma 204 116 - 250 U/L 05/18/2021 5:10 AM EST [facility] Comment:Hemolyzed, result ma y be falsely increased. Blood Venous blood specimen / Unknown Venipuncture / Unknown 05/18/2021 4:21 AM EST 05/18/2021 4:38 AM EST Magalie Shipley MD LAB BLOOD ORDERABLES Final R esult [facility] [address] [place] [address] * (ABNORMAL) CBC (05/18/2021 4:21 AM EST) WBC Count 14.59(H) 3.70 - 10.30 10*3/uL LAB HEMATOLOGY METHOD 05/18/2021 4:52 AM EST [facility] RBC Count 4.04 3.90 - 5.20 10*6/uL LAB HEMATOLOGY METHOD 05/18/2021 4:52 AM EST [facility] HGB 12.0 11.2 - 15.7 g/dL LAB HEMATOLOGY METHOD 05/18/2021 4:52 AM EST [facility] HCT 35.8 34.0 - 45.0 % LAB HEMATOLOGY METHOD 05/18/2021 4:52 AM EST [facility] Platelet Count 285 155 - 369 10*3/uL LAB HEMATOLOGY METHOD 05/18/2021 4:52 AM EST [facility] MCV 89 79 - 98 fL LAB HEMATOLOGY METHOD 05/18/2021 4:52 AM EST [facility] MCH 29.7 26.0 - 32.0 pg LAB HEMATOLOGY METHOD 05/18/2021 4:52 AM EST [facility] MCHC 33.5 30.7 - 35.5 g/dL LAB HEMATOLOGY METHOD 05/18/2021 4:52 AM EST [facility] RDW 14.5 11.5 - 14.5 % LAB HEMATOLOGY METHOD 05/18/2021 4:52 AM EST [facility] MPV 10.1 8.8 - 12.5 fL LAB HEMATOLOGY METHOD 05/18/2021 4:52 AM EST [facility] nRBC 0.0 <=0.0 per 100 WBCs LAB HEMATOLOGY METHOD 05/18/2021 4:52 AM EST [facility] Blood Venous blood specimen / Unknown Venipuncture / Unknown 05/18/2021 4:21 AM EST 05/18/2021 4:41 AM EST Magalie Shipley MD LAB BLOOD ORDERABLES Final R esult Performing Organization Address City/[facility]/ZIP Co de Phone Number [facility] [address] [place] [address] * Type and Screen (05/17/2021 7:34 PM EST) ABO/Rh O Positive 05/17/2021 6:13 PM EST [facility] Antibody Screen Negative 05/17/2021 6:13 PM EST [facility] Blood Venous blood specimen / Unknown Venipuncture / Unknown 05/17/2021 7:34 PM EST 05/17/2021 7:57 PM EST Nancy Sesay APRN, CNM LAB BLOOD BANK TEST OR DERABLES Final Result Performing Organization Address [facility] de Phone Number BLOOD BANK [address] [place] [address] * SARS CoV-2/COVID-19 by PCR (05/17/2021 6:53 PM EST) SARS CoV-2/COVID-1 9 RNA PCR Result Not Detected Not Detected 05/17/2021 10:55 PM EST [facility] Swab Nasopharyngeal structure / Unknown Non-blood Collection / Unknown 05/17/2021 6:53 PM EST 05/17/2021 7:08 PM EST Narrative [facility] - 05/17/2021 10:55 PM EST This assay is for in vitro diagnostic use under FDA emergency use authorization only. Negative results do not preclude infection with the SARS CoV-2 virus and should not be the sole basis of a patient treatment/management or public health decision. Follow up testing should be performed according to the current CDC recommendations. This test was performed using the [employer] SARS CoV-2 assay, a PCR-based method. The limit of detection (LoD) for this assay is 40 genome equivalents/mL. Negative results should be considered presumptive and do not preclude current or future infection obtained through community transmission or other exposures. Negative results must be considered in the context of an individual's recent exposures, history, presence of clinical signs and symptoms consistent with COVID-19. Nancy Sesay APRN, CNM LAB MICROBIOLOGY - GEN ERAL ORDERABLES Final Result Performing Organization Address [facility] de Phone Number [facility] [address] [place] [address] * Creatinine, urine, random (05/17/2021 5:14 PM EST) Creatinine, Urine 65 mg/dL 05/17/2021 5:52 PM EST [facility] Urine Urine specimen obtained by clean catch procedure / Unknown Non-blood Collection / Unknown 05/17/2021 5:14 PM EST 05/17/2021 5:20 PM EST Nancy Sesay APRN, CNM LAB URINE ORDERABLES F inal Result Performing Organization Address [facility] Phone Number [facility] [address] [place] [address] * Protein, urine, random (05/17/2021 5:14 PM EST) Protein, Urine 52 mg/dL 12/31/2021 6:19 PM EDT [facility] Creatinine, Urine 65 mg/dL 12/31/2021 6:19 PM EDT [facility] Protein/Creati nine Ratio 0.8 mg/mg Creat 12/31/2021 6:19 PM EDT [facility] Urine Urine specimen obtained by clean catch procedure / Unknown Non-blood Collection / Unknown 05/17/2021 5:14 PM EST 05/17/2021 5:20 PM EST Nancy Sesay APRN, CNM LAB URINE ORDERABLES E dited Result - Final Performing Organization Address [facility] de Phone Number [facility] [address] [place] [address] * Protein, urine, random (05/17/2021 3:43 PM EST) Protein, Urine 37 mg/dL 12/31/2021 6:19 PM EDT [facility] Creatinine, Urine 40 mg/dL 12/31/2021 6:19 PM EDT [facility] Protein/Creati nine Ratio 0.9 mg/mg Creat 12/31/2021 6:19 PM EDT [facility] Urine Urine specimen obtained by clean catch procedure / Unknown Non-blood Collection / Unknown 05/17/2021 3:43 PM EST 05/17/2021 3:54 PM EST Nancy Sesay APRN, CNM LAB URINE ORDERABLES E dited Result - Final [facility] [address] [place] [address] * (ABNORMAL) OB Panel Pre-Eclampsia (05/17/2021 3:43 PM EST) Uric Acid, Plasma 4.6 3.1 - 7.1 mg/dL 05/17/2021 4:26 PM EST [facility] Creatinine, Plasma 0.59(L) 0.60 - 1.10 mg/dL 05/17/2021 4:26 PM EST [facility] eGFR >60 >60 mL/min/1.7 3m*2 05/17/2021 4:26 PM EST [facility] Comment:eGFR = estimated GFR ; eGFR units = mL/min/1.73 sq meters Chronic Kidney Disease is considered if eGFR <60 mL/min/1.73 sq meters Kidney failure is considered if eGFR is <15 mL/min/1.73 sq meters. eGFR assumes steady state plasma creatinine concentration; not applicable if renal function is rapidly changing or patient is on dialysis. eGFR, if AFR/AM >60 >60 mL/min/1.7 3m*2 05/17/2021 4:26 PM EST [facility] Comment:eGFR = estimated GFR ; eGFR units = mL/min/1.73 sq meters Chronic Kidney Disease is considered if eGFR <60 mL/min/1.73 sq meters Kidney failure is considered if eGFR is <15 mL/min/1.73 sq meters. eGFR assumes steady state plasma creatinine concentration; not applicable if renal function is rapidly changing or patient is on dialysis. ALT, Plasma 18 8 - 33 U/L 05/17/2021 4:26 PM EST [facility] AST, Plasma 23 11 - 32 U/L 05/17/2021 4:26 PM EST [facility] LDH, Plasma 222 116 - 250 U/L 05/17/2021 4:26 PM EST [facility] Comment:Hemolyzed, result ma y be falsely increased. Blood Venous blood specimen / Unknown Venipuncture / Unknown 05/17/2021 3:43 PM EST 05/17/2021 3:54 PM EST Nancy Sesay APRN, CNM LAB BLOOD ORDERABLES F inal Result Performing Organization Address [facility] de Phone Number [facility] [address] [place] [address] * Creatinine, urine, random (05/17/2021 3:43 PM EST) Creatinine, Urine 40 mg/dL 05/17/2021 4:26 PM EST [facility] Urine Urine specimen obtained by clean catch procedure / Unknown Non-blood Collection / Unknown 05/17/2021 3:43 PM EST 05/17/2021 3:54 PM EST Nancy Sesay APRN, CNM LAB URINE ORDERABLES F inal Result Performing Organization Address [facility] Co de Phone Number [facility] [address] [place] [address] * (ABNORMAL) CBC and differential (05/17/2021 3:43 PM EST) WBC Count 18.30(H) 3.70 - 10.30 10*3/uL LAB HEMATOLOGY METHOD 05/17/2021 4:01 PM EST [facility] RBC Count 4.16 3.90 - 5.20 10*6/uL LAB HEMATOLOGY METHOD 05/17/2021 4:01 PM EST [facility] HGB 12.5 11.2 - 15.7 g/dL LAB HEMATOLOGY METHOD 05/17/2021 4:01 PM [facility] HCT 37.0 34.0 - 45.0 % LAB HEMATOLOGY METHOD 05/17/2021 4:01 PM [facility] Platelet Count 304 155 - 369 10*3/uL LAB HEMATOLOGY METHOD 05/17/2021 4:01 PM [facility] MCV 89 79 - 98 fL LAB HEMATOLOGY METHOD 05/17/2021 4:01 PM [facility] MCH 30.0 26.0 - 32.0 pg LAB HEMATOLOGY METHOD 05/17/2021 4:01 PM [facility] MCHC 33.8 30.7 - 35.5 g/dL LAB HEMATOLOGY METHOD 05/17/2021 4:01 PM [facility] RDW 14.3 11.5 - 14.5 % LAB HEMATOLOGY METHOD 05/17/2021 4:01 PM [facility] MPV 10.0 8.8 - 12.5 fL LAB HEMATOLOGY METHOD 05/17/2021 4:01 PM [facility] nRBC 0.0 <=0.0 per 100 WBCs LAB HEMATOLOGY METHOD 05/17/2021 4:01 PM [facility] Differential Type Automated LAB HEMATOLOGY METHOD 05/17/2021 4:01 PM [facility] Neutrophils % 74.0 % LAB HEMATOLOGY METHOD 05/17/2021 4:01 PM [facility] Lymphocytes % 15.0 % LAB HEMATOLOGY METHOD 05/17/2021 4:01 PM [facility] Monocytes % 7.0 % LAB HEMATOLOGY METHOD 05/17/2021 4:01 PM [facility] Eosinophils % 2.0 % LAB HEMATOLOGY METHOD 05/17/2021 4:01 PM [facility] Basophils % 0.0 % LAB HEMATOLOGY METHOD 05/17/2021 4:01 PM [facility] Immature Granulocytes % 2.0 % LAB HEMATOLOGY METHOD 05/17/2021 4:01 PM [facility] Neutrophils Absolute 13.68(H) 1.60 - 6.10 10*3/uL LAB HEMATOLOGY METHOD 05/17/2021 4:01 PM [facility] Lymphocytes Absolute 2.70 1.20 - 3.90 10*3/uL LAB HEMATOLOGY METHOD 05/17/2021 4:01 PM [facility] Monocytes Absolute 1.27(H) 0.30 - 0.90 10*3/uL LAB HEMATOLOGY METHOD 05/17/2021 4:01 PM EST [facility] Eosinophils Absolute 0.29 0.00 - 0.50 10*3/uL LAB HEMATOLOGY METHOD 05/17/2021 4:01 PM EST [facility] Basophils Absolute 0.07 0.00 - 0.10 10*3/uL LAB HEMATOLOGY METHOD 05/17/2021 4:01 PM EST [facility] Immature Granulocytes Absolute 0.29(H) 0.00 - 0.06 10*3/uL LAB HEMATOLOGY METHOD 05/17/2021 4:01 PM EST [facility] Blood Venous blood specimen / Unknown Venipuncture / Unknown 05/17/2021 3:43 PM EST 05/17/2021 3:54 PM EST Narrative [facility] - 05/17/2021 4:01 PM EST Therapeutic decision making should be based on absolute values, rather than percentages. Nancy Sesay APRN, TEJA LAB BLOOD ORDERABLES F inal Result Performing Organization Address City/State/[facility] Co ms Phone Number [facility] [address] [place] [address] documented in this encounter Visit Diagnoses Not on filedocumented in this encounter Admitting Diagnoses Diagnosis Proteinuria affecting in third trimester Gestational proteinuria in third trimester First , third trimester documented in this encounter Administered Medications Inactive Administered Medications - up to 3 most recent administrations Medication Order MAR Action Action Date Dose Rate Site acetaminophen (Tylenol) tablet 650 mg 650 mg, Oral, Every 4 hours PRN, Starting on 05/17/21 at 1812, Until Wed05/21/21 at 1436, Routine, Pre-Delivery, mild pain Given 05/19/2021 4:57 PM EST 650 mg Given 05/19/2021 7:48 AM EST 650 mg acetaminophen (Tylenol) tablet 650 mg 650 mg, Oral, Every 6 hours scheduled, First dose on Wed05/19/21 at 1800, Until Discontinued, Routine, Given 05/21/2021 9:37 AM EST 650 mg Abdom inal Tissue Given 05/21/2021 2:46 AM EST 650 mg Given 05/20/2021 9:00 PM EST 650 mg docusate sodium (Colace) capsule 200 mg 200 mg, Oral, 2 times daily, First dose on Wed05/19/21 at 2100, Until Discontinued, Routine, Given 05/21/2021 9:37 AM EST 200 mg Given 05/20/2021 9:00 PM EST 200 mg Given 05/20/2021 8:49 AM EST 200 mg enoxaparin (Lovenox) syringe 40 mg 40 mg, Subcutaneous, Daily, First dose on Wed05/20/21 at 1400, Until Discontinued, Routine Given 05/21/2021 9:36 AM EST 40 mg Right Upper Arm (Back) Given 05/20/2021 2:02 PM EST 40 mg Le ft Upper Arm (Back) ibuprofen tablet 600 mg 600 mg, Oral, Every 6 hours, First dose on Wed05/20/21 at 0500, Until Discontinued, Routine, PostpartumIndications:Mild to Moderate Pain Given 05/21/2021 12:07 PM EST 600 mg Abd ominal Tissue Given 05/21/2021 5:53 AM EST 600 mg Given 05/20/2021 11:18 PM EST 600 mg lansinoh lanolin cream 1 application Topical, As needed, Starting on Wed05/19/21 at 1623, Until Wed05/21/21 at 1436, Routine, dry skin Given 05/20/2021 12:30 AM EST 1 application. multivitamin tablet 1 tablet 1 tablet, Oral, Daily, First dose on Wed05/17/21 at 1845, Until Discontinued, Routine, Pre-Delivery Given 05/21/2021 9:37 AM EST 1 tablet Given 05/20/2021 8:49 AM EST 1 tablet Given 05/18/2021 8:31 AM EST 1 tablet nicotine polacrilex (Nicorette) gum 2 mg 2 mg, Mouth/Throat, As needed, Starting on Wed05/17/21 at 1513, Until Wed05/21/21 at 1436, Routine, smoking cessation ondansetron (Zofran) injection 4 mg 4 mg, Intravenous, Every 6 hours PRN, Starting on Wed05/17/21 at 1812, Until Wed05/21/21 at 1436, Routine, Pre-Delivery, nausea, vomiting Given 05/20/2021 12: 23 AM EST 4 mg Given 05/18/2021 11:32 PM EST 4 mg oxyCODONE (Roxicodone) immediate release tablet 10 mg 10 mg, Oral, Every 4 hours PRN, Starting on Wed05/19/21 at 1623, Until Wed05/21/21 at 1436, Routine, , severe pain Given 05/21/2021 9:38 AM EST 10 mg Abdom inal Tissue oxyCODONE (Roxicodone) immediate release tablet 5 mg 5 mg, Oral, Every 4 hours PRN, Starting on Wed05/19/21 at 1623, Until Wed05/21/21 at 1436, Routine, , moderate pain Given 05/21/2021 12:26 AM EST 5 mg Given 05/20/2021 11:18 PM EST 5 mg oxytocin (Pitocin) infusion in sodium chloride 0.9% 20 units/1000 mL 1-30 roland-units/min (3-90 mL/hr), Intravenous, Titrated, Starting on Wed05/18/21 at 1800, Until Wed05/21/21 at 1436, Routine Rate/Dose Change 05/19/2021 8:20 AM EST 3 roland-units/min 9 mL/hr Rate/Dose Change 05/19/2021 7:34 AM EST 1 roland-units/min 3 mL/hr Rate/Dose Change 05/19/2021 4:00 AM EST 5 roland-units/min 15 mL/hr Povidone-Iodine 5 % swab solution 1 Swab Nasal, Daily, 5 doses, First dose on Wed05/19/21 at 0900, Last dose on Wed05/23/21 at 0900, Routine sodium chloride 0.9 % flush 3 mL 3 mL, Intravenous, As needed, Starting on Wed05/17/21 at 1812, Until Wed05/21/21 at 1436, Routine, Pre-Delivery, line care documented in this encounter Active and Recently Administered Medications Times are shown in EST. Scheduled Medication Order 05/19/2021 05/20/2021 05/21/2021 acetaminophen (Tylenol) tablet 650 mg 650 mg, Oral, Every 6 hours scheduled, First dose on Wed05/19/21 at 1800, Until Discontinued, Routine, 2020 (Given - Provider: Rima Mckeon RN) 0201 (Given - Provider: Rima Mckeon RN)0849 (Given - Provider: Elizabeth Burnett - Comment: pressure)1402 (Given - Provider: Elizabeth R Lex - Comment: Surgical)2100 (Given - Provider: Olivia Sher RN) 0246 (Given - Provider: Olivia Sher RN)0937 (Given - Provider: Elizabeth Burnett - Comment: pressure)1400 (Canceled Entry - Provider: Automatic Discharge Provider - Comment: Automatically canceled at discontinue of medication order) docusate sodium (Colace) capsule 200 mg 200 mg, Oral, 2 times daily, First dose on Wed05/19/21 at 2100, Until Discontinued, Routine, 0047 (Not Given - Provider: Rima Mkceon RN - Reason: Patient/family refused)0849 (Given - Provider: Elizabeth Burnett)2100 (Given - Provider: Olivia Sher RN) 0937 (Given - Provider: Elizabeth Burnett) enoxaparin (Lovenox) syringe 40 mg 40 mg, Subcutaneous, Daily, First dose on Wed05/20/21 at 1400, Until Discontinued, Routine 1402 (Given - Provider: Elizabeth Burnett) 0936 (Given - Provider: Elizabeth Burnett) ibuprofen tablet 600 mg 600 mg, Oral, Every 6 hours, First dose on Wed05/20/21 at 0500, Until Discontinued, Routine, 0440 (Given - Provider: Rima Mckeon RN)1052 (Given - Provider: Elizabeth Burnett - Comment: surgical)1635 (Given - Provider: Elizabeth Burnett)2318 (Given - Provider: Olivia Sher RN) 0553 (Given - Provider: Olivia Sher RN)1207 (Given - Provider: Elizabeth Burnett - Comment: Surgical) ketorolac (Toradol) injection 30 mg (COMPLETED) 30 mg, Intravenous, Once, 1 dose, On Wed05/19/21 at 1645, Routine, Post-Delivery 1656 (Given - Provider: Nuno Verde RN) ketorolac (Toradol) injection 30 mg (COMPLETED) 30 mg, Intravenous, Once, 1 dose, On Wed05/19/21 at 2145, Routine, 2321 (Given - Provider: Rima Mckeon RN) multivitamin tablet 1 tablet 1 tablet, Oral, Daily, First dose on Wed05/17/21 at 1845, Until Discontinued, Routine, Pre-Delivery 1255 (Not Given - Provider: Nuno Verde, RN - Reason: NPO - Comment: hold for condition) 0849 (Given - Provider: Elizabeth Burnett) 0937 (Given - Provider: Elizabeth Burnett) oxytocin (Pitocin) infusion in sodium chloride 0.9% 20 units/1000 mL 1,000 mL/hr, Intravenous, Once, 1 dose, On Wed05/19/21 at 1645, Routine 1645 (Canceled Entry - Provider: Automatic Discharge Provider - Comment: Automatically canceled at discontinue of medication order) Povidone-Iodine 5 % swab solution 1 Swab Nasal, Daily, 5 doses, First dose on Wed05/19/21 at 0900, Last dose on Wed05/23/21 at 0900, Routine 0900 (Canceled Entry - Provider: Automatic Discharge Provider - Comment: Automatically canceled at discontinue of medication order) 0852 (Not Given - Provider: Elizabeth Burnett - Reason: Other - Comment: No lines.) 1157 (Not Given - Provider: Elizabeth Burnett - Reason: Other - Comment: No lines.) Continuous Medication Order 05/19/2021 05/20/2021 05/21/2021 fentaNYL 2 mcg/mL + bupivacaine 1 mg/mL epidural 100 mL PCEA (CANCELED)(Linked Group 1) Continuous Rate: 0 mL/hr (0 mcg/hr), Patient Bolus Dose: 5 mL (10 mcg), Patient Bolus Lockout Interval: 15 Minutes, Programmed Intermittent Bolus Dose (NO Continuous Rate): 8 mL, Programmed Intermittent Bolus Dose Interval - NO Continuous Rate: 45 min, Epidural, Routine 0706 (New Bag - Provider: Nuno Verde, RN)1345 (New Bag - Provider: Nuno Verde, RN) oxytocin (Pitocin) infusion in sodium chloride 0.9% 20 units/1000 mL 1-30 roland-units/min (3-90 mL/hr), Intravenous, Titrated, Starting on Wed05/18/21 at 1800, Until Wed05/21/21 at 1436, Routine 0025 (Restarted - Provider: Nataliia White)0330 (Rate/Dose Change - Provider: Nataliia White)0400 (Rate/Dose Change - Provider: Nataliia White)0543 (Stopped - Provider: Nataliia White)0708 (Handoff - Provider: Nuno Verde RN)0734 (Rate/Dose Change - Provider: Nuno Verde RN)0820 (Rate/Dose Change - Provider: Nuno Verde RN) oxytocin (Pitocin) infusion in sodium chloride 0.9% 20 units/1000 mL () 125 mL/hr, Intravenous, Continuous, Starting on Wed05/19/21 at 1645, Until Wed05/20/21 at 0039, Routine 1640 (New Bag - Provider: Nuno Verde RN) PRN Medication Order 05/19/2021 05/20/2021 05/21/2021 acetaminophen (Tylenol) tablet 650 mg 650 mg, Oral, Every 4 hours PRN, Starting on 05/17/21 at 1812, Until Wed05/21/21 at 1436, Routine, Pre-Delivery, mild pain 0748 (Given - Provider: Nuno Verde RN)1657 (Given - Provider: Nuno Verde RN) benzocaine-menthol (Dermoplast) topical spray 1 spray Topical, 4 times daily PRN, Starting on Wed05/19/21 at 1623, Until Wed05/21/21 at 1436, Routine, mild pain, irritation calcium carbonate (Tums) chewable tablet 1,000 mg 1,000 mg, Oral, 4 times daily PRN, Starting on Wed05/19/21 at 1623, Until Wed05/21/21 at 1436, Routine, , indigestion, heartburn diphenhydrAMINE (BENADryl) tablet 25 mg 25 mg, Oral, Every 6 hours PRN, Starting on Wed05/19/21 at 1623, Until Wed05/21/21 at 1436, Routine, , itching hydrocortisone (Anusol-HC) 2.5 % rectal cream 1 application Rectal, 2 times daily PRN, Starting on Wed05/19/21 at 1623, Until Wed05/21/21 at 1436, Routine, hemorrhoids lansinoh lanolin cream 1 application Topical, As needed, Starting on Wed05/19/21 at 1623, Until Wed05/21/21 at 1436, Routine, dry skin 0030 (Given - Provider: Rima Mckeon, RENATO) nicotine polacrilex (Nicorette) gum 2 mg 2 mg, Mouth/Throat, As needed, Starting on 05/17/21 at 1513, Until Wed05/21/21 at 1436, Routine, smoking cessation ondansetron (Zofran) injection 4 mg 4 mg, Intravenous, Every 6 hours PRN, Starting on 05/17/21 at 1812, Until Wed05/21/21 at 1436, Routine, Pre-Delivery, nausea, vomiting 0023 (Given - Provider: Rima Mckeon, RENATO) ondansetron ODT (Zofran-ODT) disintegrating tablet 4 mg 4 mg, Oral, Every 8 hours PRN, Starting on 05/19/21 at 1623, Until Wed05/21/21 at 1436, Routine, , nausea, vomiting, oxyCODONE (Roxicodone) immediate release tablet 10 mg(Linked Group 2) 10 mg, Oral, Every 4 hours PRN, Starting on Wed05/19/21 at 1623, Until Wed05/21/21 at 1436, Routine, , severe pain 2318 (See Alternative - Provider: Olivia Sher RN) 0026 (See Alternative - Provider: Olivia Sher RN)0938 (Given - Provider: Elizabeth Burnett - Comment: pressure) oxyCODONE (Roxicodone) immediate release tablet 5 mg(Linked Group 2) 5 mg, Oral, Every 4 hours PRN, Starting on Wed05/19/21 at 1623, Until Wed05/21/21 at 1436, Routine, , moderate pain 2318 (Given - Provider: Olivia Sher RN) 0026 (Given - Provider: Olivia Sher RN)0938 (See Alternative - Provider: Elizabeth Burnett) promethazine (Phenergan) tablet 25 mg 25 mg, Oral, Every 4 hours PRN, Starting on Wed05/19/21 at 1623, Until Wed05/21/21 at 1436, Routine, , nausea, vomiting simethicone (Mylicon) chewable tablet 80 mg 80 mg, Oral, Every 6 hours PRN, Starting on Wed05/19/21 at 1623, Until Wed05/21/21 at 1436, Routine, , flatulence, flatulence, dyspepsia sodium chloride 0.9 % flush 3 mL(Linked Group 3) 3 mL, Intravenous, As needed, Starting on 05/17/21 at 1812, Until Wed05/21/21 at 1436, Routine, Pre-Delivery, line care witch rene-glycerin (Tucks) pad 1 each Topical, 4 times daily PRN, Starting on Wed05/19/21 at 1623, Until Wed05/21/21 at 1436, Routine, irritation, hemorrhoids No Frequency Medication Order 05/19/2021 05/20/2021 05/21/2021 azithromycin (Zithromax) 500 MG injection - Pyxis Override Pull (COMPLETED) 1 dose, Starting on Wed05/19/21 at 1404, Until Wed05/19/21 at 1409 1409 (Given - Provider: Nuno Verde, RN) citric acid-sodium citrate (Bicitra) 500-334 MG/5ML solution - Pyxis Override Pull (COMPLETED) 1 dose, Starting on Wed05/19/21 at 1404, Until Wed05/19/21 at 1412 1412 (Given - Provider: Nuno Verde, RENATO) Linked Groups Order Group 1: fentaNYL 2 mcg/mL + bupivacaine 1 mg/mL epidural 100 mL PCEA (CANCELED)Jump to med Continuous Rate: 0 mL/hr (0 mcg/hr), Patient Bolus Dose: 5 mL (10 mcg), Patient Bolus Lockout Interval: 15 Minutes, Programmed Intermittent Bolus Dose (NO Continuous Rate): 8 mL, Programmed Intermittent Bolus Dose Interval - NO Continuous Rate: 45 min, Epidural, Routine And fentanyl + bupivacaine clinician bolus dose 1-5 mL (CANCELED) 1-5 mL, Epidural, As needed, Starting on Wed05/18/21 at 2130, Until Wed05/21/21 at 1046, Routine, severe pain, moderate pain Group 2: oxyCODONE (Roxicodone) immediate release tablet 5 mgJump to med 5 mg, Oral, Every 4 hours PRN, Starting on 05/19/21 at 1623, Until Wed05/21/21 at 1436, Routine, , moderate pain Or oxyCODONE (Roxicodone) immediate release tablet 10 mgJump to med 10 mg, Oral, Every 4 hours PRN, Starting on 05/19/21 at 1623, Until Wed05/21/21 at 1436, Routine, , severe pain Group 3: Saline lock IV (CANCELED) Once, On 05/17/21 at 1813, For 1 occurrence, Place only if mild range BP, Pre-Delivery And sodium chloride 0.9 % flush 3 mLJump to med 3 mL, Intravenous, As needed, Starting on 05/17/21 at 1812, Until Wed05/21/21 at 1436, Routine, Pre-Delivery, line care documented in this encounter Care Teams Pulverizer Tender Relationship Specialty Start Date End Date Per Patient, None, [address] [facility] [address] [place], [place] [id number] PCP - General 11/25/20 documented as of this encounter
--- OUTSIDE RECORDS SUMMARY | 2024-04-02 15:13 | XMS_ITS | Encounter Summary ---
Author Organization [facility] Address [address] [place] [address] Care Team Providers Care Ict Sales Assistant Name Role Phone Per Patient, None Primary Care Provider + [phone] Reason for Visit * Reason Onset Date Comments HCN Clinical Concern/Question 12/16/2022 Encounter Details Date Type Department Care Team (Late st Contact Info) Description 12/16/2022 Telephone Obstetrics & Gynecology [address] [place] [address] Steffen Livingston MD [address] [place] [address] [facility]CN Clinical Concern/Question Social History Tobacco Use Types Packs/Day Years [...] * Telephone Encounter - Grecia Stack - 12/16/2022 1:55 PM EDT Called pt and told her it would be at the lead front end developer 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 Please call to advise states can nut picker when ready. Thanks Best contact number: [phone] Note: Please do not reply to this message. Follow-up communication and further actions as a result of this message need to be communicated with the patient directly, if the patient is not active onMyChart. If the patient is active on MyChart, they will receive notification of the communication/outcome via [facility]. documented in this encounter Plan of Treatment [...] documented as of this encounter Care Teams Ict Sales Assistant Relationship Specialty Start Date End Date Per Patient, None, [address] [facility] [address] [place] [address] PCP - General 11/25/20 documented as of this encounter
--- OUTSIDE RECORDS SUMMARY | 2024-04-02 15:13 | XMS_ITS | Encounter Summary ---
Author Organization [facility] Address [address] [place] [address] Care Team Providers Care Fishing Rod Marker Name Role Phone Per Patient, None Primary Care Provider [phone] Reason for Referral * Imaging (Routine) - Closed Specialty Diagnoses / Procedures Referred By Contac t Referred To Contact Diagnoses 12 weeks gestation of Procedures OB US 14+ Weeks Anatomy Scan Steffen Livingston MD [address] [place] [address] Phone: tel: fax: [facility] [address] [place] [phone] Phone: tel: Referral ID Status Reason Start Date Expiration Date Visits Re quested Visits Authorized [id number] Closed 12/30/2022 06/30/2024 1 1 Reason for Visit * Imaging (Routine) - Closed Specialty Diagnoses / Procedures Referred By Contac t Referred To Contact Diagnoses 12 weeks gestation of Procedures OB US 14+ Weeks Anatomy Scan Steffen Livingston MD [address] [place] [address] Phone: tel: fax: [facility] [address] [place] [address] Phone: tel: Referral ID Status Reason Start Date Expiration Date Visits Re quested Visits Authorized [id number] Closed 12/30/2022 06/30/2024 1 1 Encounter Details Date Type Department Care Team (Latest Contact Info) Description 03/02/2023 9:28 AM EDT - 03/02/2023 11:59 PM EDT Hospital Encounter [facility] OBGYN ULTRASOUND [address] [place] [address] 12 weeks gestation of Discharge Disposition: Home or Self Care Social [...] Fumarate-FA ( 1+1 PO) Take by mouth. progesterone (Prometrium) 200 MG capsule Take 1 capsule (200 mg) by mouth every night. 30 capsule 3 11/05/2022 03/05/2023 famotidine (Pepcid) 20 MG tablet Take 1 [...] Priority Date/Time Associated Diagnosis Comments OB US 14+ WEEKS ANATOMY SCAN Routine 03/02/2023 10:28 AM EDT 12 weeks gestation of documented in this encounter Results * OB US 14+ Weeks Anatomy Scan (03/02/2023 10:28 AM EDT) Anatomical Region Laterality Modality Body Ultrasound 03/02/2023 9:40 AM EDT Impressions 03/07/2023 8:59 PM EDT The OB Ultrasound you requested has been resulted. Please navigate to the Imaging tab in [employer] for review. This message has been generated by the interface. Narrative Procedure Note Tristan Gomez MD - 03/07/2023 IMPRESSION: The OB Ultrasound you requested has been resulted. Please navigate to theImaging tab in [employer] for review. This message has been generated by theinterface. us Steffen Livingston MD IMG OB US PROCEDURES Final Resu lt documented in this encounter Visit Diagnoses Diagnosis 12 weeks gestation of documented in this encounter Additional Health Concerns Active Problems Noted Date Diagnosed Date CPM S22 PP LABOR (OBSTETRICS) 12/02/2022 documented as of this encounter Care Teams Fishing Rod Marker Relationship Specialty Start Date End Date Per Patient, None, [address] [facility] [address] [place] [address] PCP - General 11/25/20 documented as of this encounter
--- OUTSIDE RECORDS SUMMARY | 2024-04-02 15:13 | XMS_ITS | Encounter Summary ---
Author Organization Healthcare Address [address] [place], [place] [id number] Care Team Providers Care Police Liaison Name Role Phone Per Patient, None Primary Care Provider + [phone] Reason for Visit * Reason Comments Contractions * Auth/Cert Specialty Diagnoses / Procedures Referred By Contac t Referred To Contact Diagnoses Proteinuria affecting in third trimester Magalie Shipley MD [address] [address] Phone: tel: fax: [facility] Delivery [address] [place] [address] Phone: tel: fax: Referral ID Status Reason Start Date Expiration Date Visits Re quested Visits Authorized [id number] 1 1 Encounter Details Date Type Department Care Team (Latest Contact Info) Description 05/17/2021 2:03 PM EST - 05/21/2021 12:36 PM EST Hospital Encounter [facility] Mother [facility] Baby Unit [address] [place] [address] Magalie Shipley MD [address] [address] Jayshree Gomez MD [address] [address] Discharge Disposition: Home or Self Care Social [...] Sign Reading Time Taken Comments Blood Pressure 133/87 05/21/2021 11:48 AM EST Pulse 103 05/21/2021 11:48 AM EST Temperature 36.6 ??C (97.9 ??F) 05/21/2021 11:[address] Respiratory Rate 16 05/21/2021 8:30 AM EST Oxygen Saturation 94% 05/21/2021 11:48 AM EST Inhaled Oxygen Concentration - - Weight 109 kg (241 lb) 05/17/2021 11:53 PM EST Height 162.6 cm (5' 4 ) 05/17/2021 11:53 PM EST Body Mass Index 41.37 05/17/2021 11:53 PM EST documented in this encounter Discharge Instructions * Attachments The following attachments cannot be sent through Care Everywhere. * , After ([place]) * After Delivery: When to Call the Healthcare Provider ([place]) ([place]) * Depression, ([place]) * Community Resources ([place]) ([place]) * , Plugged Ducts, and Mastitis ([place]) ([place]) * Breastfeed, How to ([place]) * Important OB Phone Numbers ([place]) ([place]) documented in this encounter Medications at Time [...] name and Address: Cata Gutierrez MD (Inactive) [address] [facility] [address] / [facility] [address] Referring provider name and address: No referring [...] Your Medications These medications were sent to [facility] - [place], [place] - [address] [facility] [address] ?? acetaminophen 325 MG tablet ?? DSS [...] Time Provider Department Center 05/22/2021 8:15 AM Samira Cruz CNM OBMWLEXEA Uday Martines Follow up in 1 week for BP [...] overnight. Pain is worse than patient anticipated (10), but controlled with PO medications. Lochia same [...] to discuss further in several weeks # [place] status - male - Desires circumcision; consented [...] was uncomplicated and she delivered a viablemale infant. Her postoperative course was uncomplicated. Her blood [...] is having good breastfeeds, continue to put skin to skin and offer the breast [...] Rubella Status: immune - Contraception: TBD # [place] Status - Viable Male infant - Desires Circumcision: Consented # FEN/Prophylaxis - [...] from a baby's chart. Follow-up Assessment Note [facility] Patient Name: Servando Brennan Date: 05/19/2021 Time: 2139 Admission Date: 05/19/2021 Primary Care Physician: No primary care provider on file. Age: 0 days Sex: male Gestational Age of Infant: Unknown Weight of : 2984 g Percent [...] MD - 05/19/2021 6:48 PM EST Patient: Mini Brennan Anesthesia Type: No value filed. Vitals Value [...] while I was doidn this nursery brought infant to room about [id number] assisted mom to skin to skin, instructed importance of this, able to give infant expressed amou nt with spoon, demonstrated suck training and finger feeding, and encouraged mom to HE due to low blood sugars, demonstrated some feeding cues and was latching [...] Operative Note Date: 05/19/21 Location: L+D Name: Mini Brennan, : 1995, Diagnoses: Pre-op Diagnosis IUP at 38w0d Preeclampsia Arrest of Dilation Procedure(s): Primary Attending Surgeon(s): * Jayshree Gomez - Primary Tape Fastener Machine Operator(s): Demetrius Leon PGY4 Carin Koenig PGY1 Anesthesia: [...] inferior traction. The amnion was ruptured. The doper operator???s hand was placed inside the uterus. The vertex was elevated to the level of the hysterotomy and the infant was delivered atraumatically. Delayed cord clamping was performed per protocol. The infant was stimulated, and the nose and mouth were suctioned. The cord was clamped and cut, and the was passed off to resuscitation staff present. [...] No complications noted. * Progress Notes - Laurens, Samira Orr APRN, CNM - 05/19/2021 2:14 PM EST Labor Progress Note Subjective Mini Brennan [...] addition to routine prophylaxis. Demetrius Leon MD OPERATIONS VOCATIONAL INSTRUCTOR, PGY-4 *[id number] * Progress Notes - Samira Cruz, CERTIFIED NURSE, CNM - 05/19/2021 11:56 AM EST Labor Progress [...] @2200 - P:C 0.8 (cath specimen) -??OBP 0.59/4.6/18/222/18-0.57/4.7/20//15 - 24 hr urine??protein: 1767?? - Denies [...] adjusted Multiple Births: No Uterine Activity Mode: [place] Contraction Frequency: q2-6 Contraction Duration: 60-100 Contraction [...] accels, variable/late and prolonged decels, Cat 2 [place]: Contractions q 2-7 minutes ASSESSMENT/PLAN: Mini is [...] only - P:C 0.8 (cath specimen) -??OBP 0.59/4.6/18/222/18-0.57/4.7/20/204/15 - 24 hr urine protein: 1767? #Chronic [...] exam. Cervix unchanged from previous exam at /-2. Discussed plan with patient to monitor closely [...] 36.6 ??C (97.9 ??F) (Oral) Cervical examination: /-2 FHT: 125 baseline, moderate variability, accels, no decels, Cat I [place]: Contractions q 2-5 minutes Pitocin: 5mu ASSESSMENT/PLAN: [...] moderate variability, accels, no decels, Cat I [place]: Contractions q 2-7 minutes ASSESSMENT/PLAN: Mini is [...] moderate variability, accels, no decels, Cat I [place]: Contractions q 5-10 minutes ASSESSMENT/PLAN: Mini is a 25 y.o. at 37w6d with new diagnosis of pre-eclampsia #IOL - discussed criteria met for induction of labor with proteinuria and MR x2 BP- pt agreeable to proceed with induction at this time - initial exam yesterday was /2 - plan for misoprostol x1 and reassess [...] Lavern Aldridge CNM * H&P - Nancy Sesay APRN, CNM - 05/17/2021 3:03 PM EST Obstetrics [...] has a past surgical history that includes [place] tooth extraction and Tonsillectomy. Social History She [...] Genitourinary: Vulva normal. Genitourinary Comments: Cervical exam: / Cardiovascular: Comments: Well perfused Pulmonary: Effort: Pulmonary [...] EFM: 130 baseline; moderate variability; +accels; -decels [place]: irregular Imaging: Bedside ultrasound: vertex; LALIT 11.47 [...] CBC W/O Differential (05/20/2021 5:12 AM EST) WBC Count 20.26(H) 3.70 - 10.30 10*3/uL LAB HEMATOLOGY METHOD 05/20/2021 5:44 AM EST [facility] RBC Count 3.58(L) 3.90 - 5.20 10*6/uL LAB HEMATOLOGY METHOD 05/20/2021 5:44 AM EST [facility] HGB 10.9(L) 11.2 - 15.7 g/dL LAB HEMATOLOGY METHOD 05/20/2021 5:44 AM EST [facility] HCT 32.7(L) 34.0 - 45.0 % LAB HEMATOLOGY METHOD 05/20/2021 5:44 AM EST [facility] Platelet Count 243 155 - 369 10*3/uL LAB HEMATOLOGY METHOD 05/20/2021 5:44 AM EST [facility] MCV 91 79 - 98 fL LAB HEMATOLOGY METHOD 05/20/2021 5:44 AM EST [facility] MCH 30.4 26.0 - 32.0 pg LAB HEMATOLOGY METHOD 05/20/2021 5:44 AM EST [facility] MCHC 33.3 30.7 - 35.5 g/dL LAB HEMATOLOGY METHOD 05/20/2021 5:44 AM EST [facility] RDW 14.5 11.5 - 14.5 % LAB HEMATOLOGY METHOD 05/20/2021 5:44 AM EST [facility] MPV 10.3 8.8 - 12.5 fL LAB HEMATOLOGY METHOD 05/20/2021 5:44 AM EST [facility] nRBC 0.0 <=0.0 per 100 WBCs LAB HEMATOLOGY METHOD 05/20/2021 5:44 AM EST [facility] Blood Venous blood specimen / Unknown Venipuncture / Unknown 05/20/2021 5:12 AM EST 05/20/2021 5:34 AM EST us Jayshree Gomez MD LAB BLOOD ORDERABLES Fin al Result [facility] [address] [place] [address] * (ABNORMAL) OB Panel Pre-Eclampsia (05/19/2021 9:01 PM EST) Uric Acid, Plasma 5.5 3.1 - 7.1 mg/dL 05/19/2021 10:16 PM EST [facility] Creatinine, Plasma 0.61 0.60 - 1.10 mg/dL 05/19/2021 10:16 PM EST [facility] eGFR >60 >60 mL/min/1.7 3m*2 05/19/2021 10:16 PM EST [facility] Comment:eGFR = estimated GFR ; eGFR [...] >60 mL/min/1.7 3m*2 05/19/2021 10:16 PM EST [facility] Comment:eGFR = estimated GFR ; eGFR [...] - 33 U/L 05/19/2021 10:16 PM EST [facility] AST, Plasma 26 11 - 32 U/L 05/19/2021 10:16 PM EST [facility] LDH, Plasma 262(H) 116 - 250 U/L 05/19/2021 10:16 PM EST [facility] Blood Venous blood specimen / Unknown Venipuncture / Unknown 05/19/2021 9:01 PM EST 05/19/2021 9:08 PM EST Lavern Aldridge APRN, TEJA LAB BLOOD ORDERABLES Fin al Result Performing Organization Address City/State/[facility] de Phone Number [facility] [address] [place] [address] * (ABNORMAL) CBC (05/19/2021 9:01 PM EST) WBC Count 19.56(H) 3.70 - 10.30 10*3/uL LAB HEMATOLOGY METHOD 05/19/2021 9:19 PM EST [facility] RBC Count 3.88(L) 3.90 - 5.20 10*6/uL LAB HEMATOLOGY METHOD 05/19/2021 9:19 PM EST [facility] HGB 11.8 11.2 - 15.7 g/dL LAB HEMATOLOGY METHOD 05/19/2021 9:19 PM EST [facility] HCT 35.5 34.0 - 45.0 % LAB HEMATOLOGY METHOD 05/19/2021 9:19 PM EST [facility] Platelet Count 254 155 - 369 10*3/uL LAB HEMATOLOGY METHOD 05/19/2021 9:19 PM EST [facility] MCV 92 79 - 98 fL LAB HEMATOLOGY METHOD 05/19/2021 9:19 PM EST [facility] MCH 30.4 26.0 - 32.0 pg LAB HEMATOLOGY METHOD 05/19/2021 9:19 PM EST [facility] MCHC 33.2 30.7 - 35.5 g/dL LAB HEMATOLOGY METHOD 05/19/2021 9:19 PM EST [facility] RDW 14.6(H) 11.5 - 14.5 % LAB HEMATOLOGY METHOD 05/19/2021 9:19 PM EST [facility] MPV 10.4 8.8 - 12.5 fL LAB HEMATOLOGY METHOD 05/19/2021 9:19 PM EST [facility] nRBC 0.0 <=0.0 per 100 WBCs LAB HEMATOLOGY METHOD 05/19/2021 9:19 PM EST [facility] Blood Venous blood specimen / Unknown Venipuncture / Unknown 05/19/2021 9:01 PM EST 05/19/2021 9:08 PM EST Lavern Aldridge APRN, TEJA LAB BLOOD ORDERABLES Fin al Result [facility] [address] [place] [address] * Blood gas, other (05/19/2021 2:53 PM EST) pH, Other 7.25 >=7.10 LAB HEMATOLOGY METHOD 05/19/2021 3:11 PM EST [facility] pCO2, Other 63 mmHg LAB HEMATOLOGY METHOD 05/19/2021 3:11 PM EST [facility] pO2, Other 17 mmHg LAB HEMATOLOGY METHOD 05/19/2021 3:11 PM EST [facility] SO2, Measured, Other 28 % LAB HEMATOLOGY METHOD 05/19/2021 3:11 PM EST [facility] FIO2 LAB HEMATOLOGY METHOD 05/19/2021 3:11 PM EST [facility] Liters per Minute LAB HEMATOLOGY METHOD 05/19/2021 3:11 PM EST [facility] Base Excess, Other -1.8 mmol/L LAB HEMATOLOGY METHOD 05/19/2021 3:11 PM EST [facility] Bicarbonate, Calculated, Other 27.3 mmol/L LAB HEMATOLOGY METHOD 05/19/2021 3:11 PM EST [facility] Body Temperature LAB HEMATOLOGY METHOD 05/19/2021 3:11 PM EST [facility] pH, Temp Corrected, Other LAB HEMATOLOGY METHOD 05/19/2021 3:11 PM EST [facility] pCO2, Temp Corrected, Other LAB HEMATOLOGY METHOD 05/19/2021 3:11 PM EST [facility] pO2, Temp Corrected, Other LAB HEMATOLOGY METHOD 05/19/2021 3:11 PM EST [facility] Specimen Source Blood, Cord Venous 05/19/2021 3:11 PM EST [facility] Cord blood specimen / Unknown 05/19/2021 2:53 PM EST 05/19/2021 3:06 PM EST us Magalie Shipley MD LAB BLOOD ORDERABLES Final R esult [facility] [address] [place] [address] * Blood gas, other (05/19/2021 2:53 PM EST) pH, Other 7.21 >=7.10 LAB HEMATOLOGY METHOD 05/19/2021 3:12 PM EST [facility] pCO2, Other 65 mmHg LAB HEMATOLOGY METHOD 05/19/2021 3:12 PM EST [facility] pO2, Other 18 mmHg LAB HEMATOLOGY METHOD 05/19/2021 3:12 PM EST [facility] SO2, Measured, Other 31 % LAB HEMATOLOGY METHOD 05/19/2021 3:12 PM EST [facility] FIO2 LAB HEMATOLOGY METHOD 05/19/2021 3:12 PM EST [facility] Liters per Minute LAB HEMATOLOGY METHOD 05/19/2021 3:12 PM EST [facility] Base Excess, Other -3.8 mmol/L LAB HEMATOLOGY METHOD 05/19/2021 3:12 PM EST [facility] Bicarbonate, Calculated, Other 26.0 mmol/L LAB HEMATOLOGY METHOD 05/19/2021 3:12 PM EST [facility] Body Temperature LAB HEMATOLOGY METHOD 05/19/2021 3:12 PM EST [facility] pH, Temp Corrected, Other LAB HEMATOLOGY METHOD 05/19/2021 3:12 PM EST [facility] pCO2, Temp Corrected, Other LAB HEMATOLOGY METHOD 05/19/2021 3:12 PM EST [facility] pO2, Temp Corrected, Other LAB HEMATOLOGY METHOD 05/19/2021 3:12 PM EST [facility] Specimen Source Blood, Cord Arterial 05/19/2021 3:12 PM [facility] Arterial cord blood specimen / Unknown 05/19/2021 2:53 PM EST 05/19/2021 3:06 PM EST Magalie Shipley MD LAB BLOOD ORDERABLES Final R esult [facility] [address] [place] [id number] * Total Protein, 24 Hour Urine (05/18/2021 8:00 PM EST) Protein, Urine 57 mg/dL 05/18/2021 8:44 PM EST [facility] Total Protein per day 1,767 mg/day 05/18/2021 8:44 PM EST [facility] Hours Of Collection 24 HRS 05/18/2021 8:44 PM EST [facility] Urine, Volume 3,100 mL 05/18/2021 8:44 PM [facility] Urine Urine specimen obtained by clean catch procedure / Unknown Non-blood Collection / Unknown 05/18/2021 8:00 PM EST 05/18/2021 8:10 PM EST [facility] - 05/18/2021 8:44 PM EST Reference Range <80 mg/day if bed rest <150 mg/day if ambulatory Nancy Sesay CERTIFIED NURSE, CNM LAB URINE ORDERABLES F inal Result [facility] [address] [place] [address] * (ABNORMAL) OB Panel Pre-Eclampsia, Plasma (05/18/2021 4:21 AM EST) Uric Acid, Plasma 4.7 3.1 - 7.1 mg/dL 05/18/2021 5:10 AM EST [facility] Creatinine, Plasma 0.57(L) 0.60 - 1.10 mg/dL 05/18/2021 5:10 AM EST [facility] eGFR >60 >60 mL/min/1.7 3m*2 05/18/2021 5:10 AM EST [facility] Comment:eGFR = estimated GFR ; eGFR [...] >60 mL/min/1.7 3m*2 05/18/2021 5:10 AM EST [facility] Comment:eGFR = estimated GFR ; eGFR [...] - 33 U/L 05/18/2021 5:10 AM EST [facility] AST, Plasma 20 11 - 32 U/L 05/18/2021 5:10 AM EST [facility] LDH, Plasma 204 116 - 250 U/L 05/18/2021 5:10 AM EST [facility] Comment:Hemolyzed, result ma y be falsely increased. Blood Venous blood specimen / Unknown Venipuncture / Unknown 05/18/2021 4:21 AM EST 05/18/2021 4:38 AM EST us Magalie Shipley MD LAB BLOOD ORDERABLES Final R esult [facility] [address] [place] [id number] * (ABNORMAL) CBC (05/18/2021 4:21 AM EST) WBC Count 14.59(H) 3.70 - 10.30 10*3/uL LAB HEMATOLOGY METHOD 05/18/2021 4:52 AM EST [facility] RBC Count 4.04 3.90 - 5.20 10*6/uL LAB HEMATOLOGY METHOD 05/18/2021 4:52 AM EST [facility] HGB 12.0 11.2 - 15.7 g/dL LAB HEMATOLOGY METHOD 05/18/2021 4:52 AM EST [facility] HCT 35.8 34.0 - 45.0 % LAB HEMATOLOGY METHOD 05/18/2021 4:52 AM EST [facility] Platelet Count 285 155 - 369 10*3/uL LAB HEMATOLOGY METHOD 05/18/2021 4:52 AM EST [facility] MCV 89 79 - 98 fL LAB HEMATOLOGY METHOD 05/18/2021 4:52 AM EST [facility] MCH 29.7 26.0 - 32.0 pg LAB HEMATOLOGY METHOD 05/18/2021 4:52 AM EST [facility] MCHC 33.5 30.7 - 35.5 g/dL LAB HEMATOLOGY METHOD 05/18/2021 4:52 AM EST [facility] RDW 14.5 11.5 - 14.5 % LAB HEMATOLOGY METHOD 05/18/2021 4:52 AM EST [facility] MPV 10.1 8.8 - 12.5 fL LAB HEMATOLOGY METHOD 05/18/2021 4:52 AM EST [facility] nRBC 0.0 <=0.0 per 100 WBCs LAB HEMATOLOGY METHOD 05/18/2021 4:52 AM EST [facility] Blood Venous blood specimen / Unknown Venipuncture / Unknown 05/18/2021 4:21 AM EST 05/18/2021 4:41 AM EST Magalie Shipley MD LAB BLOOD ORDERABLES Final R esult Performing Organization Address City/[facility] Co de Phone Number [facility] [address] [place] [address] * Type and Screen (05/17/2021 7:34 PM EST) ABO/Rh O Positive 05/17/2021 6:13 PM EST [facility] Antibody Screen Negative 05/17/2021 6:13 PM EST [facility] Blood Venous blood specimen / Unknown Venipuncture / Unknown 05/17/2021 7:34 PM EST 05/17/2021 7:57 PM EST Nancy Sesay APRN, CNM LAB BLOOD BANK TEST OR DERABLES Final Result Performing Organization Address [facility] Phone Number BLOOD BANK [address] [place] [address] * SARS CoV-2/COVID-19 by PCR (05/17/2021 6:53 PM EST) Pathologist [facility] SARS CoV-2/COVID-1 9 RNA PCR Result Not Detected Not Detected 05/17/2021 10:55 PM EST [facility] Swab Nasopharyngeal structure / Unknown Non-blood [...] recommendations. This test was performed using the Aviir SARS CoV-2 assay, a PCR-based method. The [...] ERAL ORDERABLES Final Result Performing Organization Address [facility] de Phone Number [facility] [address] [place] [address] * Creatinine, urine, random (05/17/2021 5:14 PM EST) Creatinine, Urine 65 mg/dL 05/17/2021 5:52 PM EST [facility] Urine Urine specimen obtained by clean catch procedure / Unknown Non-blood Collection / Unknown 05/17/2021 5:14 PM EST 05/17/2021 5:20 PM EST Nancy Sesay APRN, CNM LAB URINE ORDERABLES F inal Result Performing Organization Address [facility] Phone Number [facility] [address] [place] [address] * Protein, urine, random (05/17/2021 5:14 PM EST) Protein, Urine 52 mg/dL 12/31/2021 6:19 PM EDT [facility] Creatinine, Urine 65 mg/dL 12/31/2021 6:19 PM EDT [facility] Protein/Creati nine Ratio 0.8 mg/mg Creat 12/31/2021 6:19 PM EDT [facility] Urine Urine specimen obtained by clean catch procedure / Unknown Non-blood Collection / Unknown 05/17/2021 5:14 PM EST 05/17/2021 5:20 PM EST Nancy Sesay APRN, CNM LAB URINE ORDERABLES E dited Result - Final Performing Organization Address [facility] Phone Number [facility] [address] [place] [address] * Protein, urine, random (05/17/2021 3:43 PM EST) Protein, Urine 37 mg/dL 12/31/2021 6:19 PM EDT [facility] Creatinine, Urine 40 mg/dL 12/31/2021 6:19 PM EDT [facility] Protein/Creati nine Ratio 0.9 mg/mg Creat 12/31/2021 6:19 PM EDT [facility] Urine Urine specimen obtained by clean catch procedure / Unknown Non-blood Collection / Unknown 05/17/2021 3:43 PM EST 05/17/2021 3:54 PM EST Nancy Sesay APRN, CNM LAB URINE ORDERABLES E dited Result - Final [facility] [address] [place] [id number] * (ABNORMAL) OB Panel Pre-Eclampsia (05/17/2021 3:43 PM EST) Uric Acid, Plasma 4.6 3.1 - 7.1 mg/dL 05/17/2021 4:26 PM EST [facility] Creatinine, Plasma 0.59(L) 0.60 - 1.10 mg/dL 05/17/2021 4:26 PM EST [facility] eGFR >60 >60 mL/min/1.7 3m*2 05/17/2021 4:26 PM EST [facility] Comment:eGFR = estimated GFR ; eGFR [...] >60 mL/min/1.7 3m*2 05/17/2021 4:26 PM EST [facility] Comment:eGFR = estimated GFR ; eGFR [...] - 33 U/L 05/17/2021 4:26 PM EST [facility] AST, Plasma 23 11 - 32 U/L 05/17/2021 4:26 PM EST [facility] LDH, Plasma 222 116 - 250 U/L 05/17/2021 4:26 PM EST [facility] Comment:Hemolyzed, result ma y be falsely increased. Blood Venous blood specimen / Unknown Venipuncture / Unknown 05/17/2021 3:43 PM EST 05/17/2021 3:54 PM EST Nancy Sesay APRN, CNM LAB BLOOD ORDERABLES F inal Result Performing Organization Address [facility] Co de Phone Number [facility] [address] [place] [address] * Creatinine, urine, random (05/17/2021 3:43 PM EST) Creatinine, Urine 40 mg/dL 05/17/2021 4:26 PM EST [facility] Urine Urine specimen obtained by clean catch procedure / Unknown Non-blood Collection / Unknown 05/17/2021 3:43 PM EST 05/17/2021 3:54 PM EST Nancy Sesay APRN, TEJA LAB URINE ORDERABLES F inal Result Performing Organization Address City/[facility] Co de Phone Number [facility] [address] [place] [address] * (ABNORMAL) CBC and differential (05/17/2021 3:43 PM EST) WBC Count 18.30(H) 3.70 - 10.30 10*3/uL LAB HEMATOLOGY METHOD 05/17/2021 4:01 PM EST [facility] RBC Count 4.16 3.90 - 5.20 10*6/uL LAB HEMATOLOGY METHOD 05/17/2021 4:01 PM EST [facility] HGB 12.5 11.2 - 15.7 g/dL LAB HEMATOLOGY METHOD 05/17/2021 4:01 PM EST [facility] HCT 37.0 34.0 - 45.0 % LAB HEMATOLOGY METHOD 05/17/2021 4:01 PM [facility] Platelet Count 304 155 - 369 10*3/uL LAB HEMATOLOGY METHOD 05/17/2021 4:01 PM [facility] MCV 89 79 - 98 fL LAB HEMATOLOGY METHOD 05/17/2021 4:01 PM [facility] MCH 30.0 26.0 - 32.0 pg LAB HEMATOLOGY METHOD 05/17/2021 4:01 PM [facility] MCHC 33.8 30.7 - 35.5 g/dL LAB HEMATOLOGY METHOD 05/17/2021 4:01 PM [facility] RDW 14.3 11.5 - 14.5 % LAB HEMATOLOGY METHOD 05/17/2021 4:01 PM [facility] MPV 10.0 8.8 - 12.5 fL LAB HEMATOLOGY METHOD 05/17/2021 4:01 PM [facility] nRBC 0.0 <=0.0 per 100 WBCs LAB HEMATOLOGY METHOD 05/17/2021 4:01 PM [facility] Differential Type Automated LAB HEMATOLOGY METHOD 05/17/2021 4:01 PM [facility] Neutrophils % 74.0 % LAB HEMATOLOGY METHOD 05/17/2021 4:01 PM [facility] Lymphocytes % 15.0 % LAB HEMATOLOGY METHOD 05/17/2021 4:01 PM [facility] Monocytes % 7.0 % LAB HEMATOLOGY METHOD 05/17/2021 4:01 PM [facility] Eosinophils % 2.0 % LAB HEMATOLOGY METHOD 05/17/2021 4:01 PM [facility] Basophils % 0.0 % LAB HEMATOLOGY METHOD 05/17/2021 4:01 PM [facility] Immature Granulocytes % 2.0 % LAB HEMATOLOGY METHOD 05/17/2021 4:01 PM [facility] Neutrophils Absolute 13.68(H) 1.60 - 6.10 10*3/uL LAB HEMATOLOGY METHOD 05/17/2021 4:01 PM [facility] Lymphocytes Absolute 2.70 1.20 - 3.90 10*3/uL LAB HEMATOLOGY METHOD 05/17/2021 4:01 PM [facility] Monocytes Absolute 1.27(H) 0.30 - 0.90 10*3/uL LAB HEMATOLOGY METHOD 05/17/2021 4:01 PM [facility] Eosinophils Absolute 0.29 0.00 - 0.50 10*3/uL LAB HEMATOLOGY METHOD 05/17/2021 4:01 PM EST [facility] Basophils Absolute 0.07 0.00 - 0.10 10*3/uL LAB HEMATOLOGY METHOD 05/17/2021 4:01 PM EST [facility] Immature Granulocytes Absolute 0.29(H) 0.00 - 0.06 10*3/uL LAB HEMATOLOGY METHOD 05/17/2021 4:01 PM EST [facility] Blood Venous blood specimen / Unknown Venipuncture / Unknown 05/17/2021 3:43 PM EST 05/17/2021 3:54 PM EST Narrative [facility] - 05/17/2021 4:01 PM EST Therapeutic decision making should be based on absolute values, rather than percentages. Nancy Sesay APRN, CNM LAB BLOOD ORDERABLES F inal Result [facility] [address] [place] [address] documented in this encounter Visit Diagnoses Diagnosis Proteinuria affecting in third trimester- Primary Gastroesophageal reflux disease Esophageal reflux Gestational proteinuria in third trimester First , third trimester documented in this encounter Admitting Diagnoses Diagnosis Proteinuria affecting in third trimester Gestational proteinuria in third trimester First , third trimester documented in this encounter Administered Medications Inactive Administered Medications - up to 3 most recent administrations Medication Order MAR Action Action Date Dose Rate Site acetaminophen (Tylenol) tablet 650 mg 650 mg, Oral, Every 4 hours PRN, Starting on 05/17/21 at 1812, Until 05/21/21 at 1436, Routine, Pre-Delivery, mild pain Given [...] Given 05/20/2021 9:00 PM EST 650 mg azithromycin (Zithromax) 500 MG injection - Pyxis Override Pull 1 dose, Starting on Wed05/19/21 at 1404, Until Wed05/19/21 at 1409 Given 05/19/2021 2:09 PM EST 500 mg calcium carbonate (Tums) chewable tablet 1,000 mg 1,000 mg, Oral, 4 times daily PRN, Starting on Wed05/17/21 at 1812, Until Wed05/19/21 at 1625, Routine, Pre-Delivery, indigestion, heartburn Given 05/18/2021 4:16 AM EST 1,000 mg citric acid-sodium citrate (Bicitra) 500-334 MG/5ML solution - Pyxis Override Pull 1 dose, Starting on Wed05/19/21 at 1404, Until Wed05/19/21 at 1412 Given 05/19/2021 2:12 PM EST 30 mL docusate sodium (Colace) capsule 200 mg 200 [...] 40 mg Le ft Upper Arm (Back) fentaNYL 2 mcg/mL + bupivacaine 1 mg/mL epidural 100 mL PCEA Continuous Rate: 0 mL/hr (0 mcg/hr), Patient Bolus Dose: 5 mL (10 mcg), Patient Bolus Lockout Interval: 15 Minutes, Programmed Intermittent Bolus Dose (NO Continuous Rate): 8 mL, Programmed Intermittent Bolus Dose Interval - NO Continuous Rate: 45 min, Epidural, Routine New Bag 05/19/2021 1:45 PM EST New Bag 05/19/2021 7:06 AM EST New Bag 05/18/2021 10:26 PM EST ibuprofen tablet 600 mg 600 mg, Oral, Every 6 hours, First dose on Wed05/20/21 at 0500, Until Discontinued, Routine, PostpartumIndications:Mild to Moderate Pain Given 05/21/2021 12:07 PM EST 600 mg Abd ominal Tissue Given 05/21/2021 5:53 AM EST 600 mg Given 05/20/2021 11:18 PM EST 600 mg ketorolac (Toradol) injection 30 mg 30 mg, Intravenous, Once, 1 dose, On Wed05/19/21 at 1645, Routine, Post-Delivery Given 05/19/2021 4:56 PM EST 30 mg ketorolac (Toradol) injection 30 mg 30 mg, Intravenous, Once, 1 dose, On Wed05/19/21 at 2145, Routine, Given 05/19/2021 11:21 PM EST 30 mg lactated Ringer's bolus 500 mL 500 mL, Intravenous, Once, 1 dose, On 05/18/21 at 2200, Administer over 2 Hours, Routine New Bag 05/18/2021 10:00 PM EST 500 mL 250 mL/hr lansinoh lanolin cream 1 application Topical, As needed, Starting on Wed05/19/21 at 1623, Until Wed05/21/21 at 1436, Routine, dry skin Given 05/20/2021 12:30 AM EST 1 application. miSOPROStol (Cytotec) split tablet 25 mcg 25 mcg, Oral, Every 4 hours, 4 doses, First dose on 05/18/21 at 1330, Last dose on Wed05/19/21 at 0130, Routine Given 05/18/2021 1:17 PM EST 25 mcg multivitamin tablet 1 tablet 1 tablet, Oral, Daily, First dose on 05/17/21 at 1845, Until Discontinued, Routine, Pre-Delivery Given [...] 4:00 AM EST 5 roland-units/min 15 mL/hr oxytocin (Pitocin) infusion in sodium chloride 0.9% 20 units/1000 mL 125 mL/hr, Intravenous, Continuous, Starting on Wed05/19/21 at 1645, Until Wed05/20/21 at 0039, Routine New Bag 05/19/2021 4:40 PM EST 125 mL/hr 125 mL/ hr Povidone-Iodine 5 % swab solution 1 Swab Nasal, Daily, 5 doses, First dose on Wed05/19/21 at 0900, Last dose on Wed05/23/21 at 0900, Routine sodium chloride 0.9 % flush 3 mL 3 mL, Intravenous, As needed, Starting on 05/17/21 at 1812, Until Wed05/21/21 at 1436, Routine, Pre-Delivery, line care terbutaline (Brethine) 1 MG/ML injection - Pyxis Override Pull 1 dose, Starting on Wed05/18/21 at 2306, Until Wed05/18/21 at 2307 Given 05/18/2021 11:07 PM EST 0.25 mg documented in this encounter Active and Recently [...] - Comment: pressure)1402 (Given - Provider: Elizabeth Burnett - Comment: Surgical)2100 (Given - Provider: Olivia [...] Routine, 0047 (Not Given - Provider: Rima Mckeon RN - Reason: Patient/family refused)0849 (Given - [...] Routine, Post-Delivery 1656 (Given - Provider: Nuno Verde, RN) ketorolac (Toradol) injection 30 mg (COMPLETED) 30 mg, Intravenous, Once, 1 dose, On Wed05/19/21 at 2145, Routine, 2321 (Given - Provider: Rima Mckeon, RENATO) multivitamin tablet 1 tablet 1 tablet, Oral, Daily, First dose on Wed05/17/21 at 1845, Until Discontinued, Routine, Pre-Delivery 1255 (Not Given - Provider: Nuno Verde, RENATO - Reason: NPO - Comment: hold for [...] Routine 0706 (New Bag - Provider: Nuno Verde RN)1345 (New Bag - Provider: Nuno Verde RN) oxytocin (Pitocin) [...] dry skin 0030 (Given - Provider: Rima Mckeon RN) nicotine polacrilex (Nicorette) gum 2 mg 2 mg, Mouth/Throat, As needed, Starting on 05/17/21 at 1513, Until Wed05/21/21 at 1436, Routine, smoking cessation ondansetron (Zofran) injection 4 mg 4 mg, Intravenous, Every 6 hours PRN, Starting on 05/17/21 at 1812, Until Wed05/21/21 at 1436, Routine, Pre-Delivery, nausea, vomiting 0023 (Given - Provider: Rima Mckeon RN) ondansetron ODT (Zofran-ODT) disintegrating tablet 4 mg 4 mg, Oral, Every 8 hours PRN, Starting on Wed05/19/21 at 1623, [...] moderate pain 2318 (Given - Provider: Olivia Sher, RN) 0026 (Given - Provider: Olivia Sher [...] at 1409 1409 (Given - Provider: Nuno Verde RN) citric acid-sodium citrate (Bicitra) 500-334 MG/5ML solution - Pyxis Override Pull (COMPLETED) 1 dose, Starting on Wed05/19/21 at 1404, Until Wed05/19/21 at 1412 1412 (Given - Provider: Nuno Verde RN) Linked Groups Order Group 1: fentaNYL 2 [...] 1-5 mL, Epidural, As needed, Starting on 05/18/21 at 2130, Until Wed05/21/21 at 1046, Routine, [...] care documented in this encounter Care Teams Police Liaison Relationship Specialty Start Date End Date Per Patient, None, [address] [facility] [address] [place] [address] PCP - General 11/25/20 documented as of this encounter
--- OUTSIDE RECORDS SUMMARY | 2024-04-02 15:13 | XMS_ITS | Encounter Summary ---
Author Organization Healthcare Address [address] [place] [address] Care Team Providers Care Dry Goods Inspector Name Role Phone Per Patient, None Primary Care Provider + [phone] Reason for Visit * Reason Onset Date Comments HCN - Patient Message 11/05/2022 Results /2 call Encounter Details Date Type Department Care Team (Late st Contact Info) Description 11/05/2022 Telephone Obstetrics & Gynecology [address] [place] [address] Steffen Livingston MD [address] [place] [address] HCN - Patient Message (Results / call) Social History Tobacco Use Types Packs/Day Years Used Date Smoking Tobacco: Every Day Cigarettes Smokeless Tobacco: Never Alcohol Use Standard Drinks/Week Comments Never 0 (1 standard drink = 0.6 oz pur e alcohol) PHQ-2 Answer Date Recorded PHQ-2 Score 0 12/04/2022 Comments No Sex and Gender Information Value Date Recorded Sex Assigned at Not on file Legal Sex Female 10:59 AM EDT Gender Identity Not on file Sexual Orientation Not on file documented as of this encounter Miscellaneous Notes * Telephone Encounter - Julio Pena - 11/05/2022 4:[address] Livingston spoke with pt. She is scheduled for a new ob and started on prometrium * Telephone Encounter - Cuong Leighli Butler - 11/05/2022 2:32 PM EDT Status Update Call #2 2nd call regarding the status of the initial request. Best contact number: [phone] (home) Optimal time of day to reach caller: ANYTIME Additional comments/information from caller: Patient states Martha TRONCOSO wants patient on medication to prevent miscarriages but can't prescribe it because she's not being seen there. Please call to discuss. Note: Please do not reply to this message. Follow-up communication and further actions as a result of this message need to be communicated with the patient directly, if the patient is not active onMyChart. If the patient is active on MyChart, they will receive notification of the communication/outcome via MyChart. * Telephone Encounter - Charlie Willis - 11/05/2022 2:07 PM EDT Patient Phone Message Reason for Call: Patient states outside office faxing lab results and orders concerning progesterone level. Please advise with plan of care. Best contact number and optimal time of day to reach caller: Note: Please do not reply to this message. Follow-up communication and further actions as a result of this message need to be communicated with the patient directly, if the patient is not active onMyChart. If the patient is active on MyChart, they will receive notification of the communication/outcome via MyChart. documented in this encounter Plan of Treatment Not on file documented as of this encounter Visit Diagnoses Not on filedocumented in this encounter Care Teams Dry Goods Inspector Relationship Specialty Start Date End Date Per Patient, None, [address] [place] [address] PCP - General 11/25/20 documented as of this encounter
--- OUTSIDE RECORDS SUMMARY | 2024-04-02 15:13 | XMS_ITS | Encounter Summary ---
Author Organization Healthcare Address [address] [place] [address] Care Team Providers Care Farm Forestry And Garden Workers Name Role Phone Per Patient, None Primary Care Provider + [phone] Encounter Details Date Type Department Care Team (Latest Contact Info) Description 03/02/2023 Travel Social History Tobacco Use Types Packs/Day [...] documented as of this encounter Care Teams Farm Forestry And Garden Workers Relationship Specialty Start Date End Date Per Patient, None, [address] [facility] [address] [address] PCP - General 11/25/20 documented as of this encounter
--- OUTSIDE RECORDS SUMMARY | 2024-04-02 15:13 | XMS_ITS | Encounter Summary ---
Author Organization Healthcare Address [address] [place] [address] Care Team Providers Care Director Of Government Sales Name Role Phone Per Patient, None Primary Care Provider + [phone] Reason for Visit * Reason Comments Ultrasound Anterior, cephalic, ac- 87%, efw- 1lb2oz, fhr 150, brent- WnlNormal anatomy, cl adq Encounter Details Date Type Department Care Team (Late st Contact Info) Description 03/02/2023 2:00 PM EDT Routine Obstetrics & Gynecology [address] [place] [address] Steffen Livingston MD [address] [place] [address] 22 weeks gestation of (Primary Dx); Previous section [...] Sign Reading Time Taken Comments Blood Pressure 137/86 03/02/2023 10:31 AM EDT Pulse - - Temperature - - Respiratory Rate - - Oxygen Saturation - - Inhaled Oxygen Concentration - - Weight 118 kg (259 lb 4.2 oz) 03/02/2023 10:31 A M EDT Height - - Body Mass Index 44.5 05/17/2021 11:53 PM EST documented in this encounter Patient Instructions * Attachments The following attachments cannot be sent through Care Everywhere. * Influenza Virus Vaccine injection (Congolese) documented in this encounter Miscellaneous Notes * Progress Notes - Steffen Livingston MD - 03/02/2023 2:00 PM EDT Subjective Chief Complaint Patient presents with Ultrasound Anterior, cephalic, ac- 87%, efw- 1lb2oz, fhr 150, brent- Wnl Normal anatomy, cl adq Mini Brennan is a 27 y.o. at 22w4d with a working estimated date of delivery of 07/02/2023, by Ultrasound who presents for a routine visit. She denies vaginal bleeding, leakage of fluid, decreased movements, or contractions. Her is complicated by: H/O LTCS The following portions of the chart were reviewed this encounter and updated as appropriate: ALL Objective Physical Exam Weight: 118 kg (259 lb 4.2 oz) Expected Total Weight Gain: Could not be calculated Pregravid BMI: Could not be calculated BP: 137/86 Heart Rate: +us Labs Urine dip: NA [...] (mg/dL) Date/Time Value 04/01/2021 0928 188 (H) GTT - 2 Hour (mg/dL) Date/Time Value 04/01/2021 1022 113 GTT - 3 Hour (mg/dL) Date/Time Value 04/01/2021 1133 114 Imaging Anatomy US OK Assessment/Plan Diagnoses and all orders for this visit: 22 weeks gestation of - influenza vaccine split quadravalent (Flulaval) syringe 0.5 mL Previous section complicating Continue vitamin. Labs reviewed. GTT w/ CBC at 24+ weeks. Tdap at 28+ weeks. Flu done today. Follow up in 3 weeks for a routine visit. documented in this encounter Plan of Treatment Not on file documented as of this encounter Goals Goal Patient Goal Type Associated Problems Recent Progress Patient-Stated? Author Delayed Delivery Care Plan CPM S22 PP LABOR (OBSTETRICS) No Open Scheduling, Background documented as of this encounter Visit Diagnoses Diagnosis 22 weeks gestation of - Primary Previous section complicating documented in this encounter Administered Medications Inactive Administered Medications - up to 3 most recent administrations Medication Order MAR Action Action Date Dose Rate Site influenza vaccine split quadravalent (Flulaval) syringe 0.5 mL 0.5 mL, Intramuscular, Once, 1 dose, On Wed03/02/23 at 1100, RoutineIndications:22 weeks gestation of Given 03/02/2023 10:43 AM EDT 0.5 mL Left Deltoid documented in this encounter Additional Health Concerns Active Problems Noted Date Diagnosed Date CPM S22 PP LABOR (OBSTETRICS) 12/02/2022 documented as of this encounter Care Teams Director Of Government Sales Relationship Specialty Start Date End Date Per Patient, None, [address] [facility] [address] [place] [address] PCP - General 11/25/20 documented as of this encounter
--- OUTSIDE RECORDS SUMMARY | 2024-04-02 15:13 | XMS_ITS | Encounter Summary ---
Author Organization [facility] Address [address] [place] [address] Care Team Providers Care Esthetician Makeup Artist Name Role Phone Per Patient, None MD Primary Care Provider [phone] Reason for Referral * Imaging (Routine) - Closed Specialty Diagnoses / Procedures Referred By Esther duarte Referred To Contact Diagnoses Less than 8 weeks gestation of Procedures OB US Nuchal Translucency Steffen Livingston MD [address] [place] [phone] Phone: tel: fax: EXT External Clinic [address] [place] [address] Referral ID Status Reason Start Date Expiration Date Visits Re quested Visits Authorized [id number] Closed 11/25/2022 05/26/2024 1 1 Reason for Visit * Imaging (Routine) - Closed Specialty Diagnoses / Procedures Referred By Eshter duarte Referred To Contact Diagnoses Less than 8 weeks gestation of Procedures OB US Nuchal Translucency Steffen Livingston MD [address] [place] [phone] Phone: tel: fax: EXT External Clinic [address] [place] [phone] Referral ID Status Reason Start Date Expiration Date Visits Re quested Visits Authorized [id number] Closed 11/25/2022 05/26/2024 1 1 Encounter Details Date Type Department Care Team (Latest Contact Info) Description 12/30/2022 2:30 PM EDT - 12/30/2022 11:59 PM EDT Hospital Encounter [facility] ULTRASOUND [address] [place] [address] Less than 8 weeks gestation of Discharge Disposition: Home or [...] Priority Date/Time Associated Diagnosis Comments OB US NUCHAL TRANSLUCENCY Routine 12/30/2022 3:11 PM EDT Less than 8 weeks gestation of documented in this encounter Results * OB US Nuchal Translucency (12/30/2022 3:11 PM EDT) Anatomical Region Laterality Modality Ultrasound 12/30/2022 2:40 PM EDT Impressions 12/30/2022 4:58 PM EDT The OB Ultrasound you requested has been resulted. Please navigate to the Imaging tab in [employer] for review. This message has been generated by the interface. Narrative Procedure Note Mariza Scales MD - 12/30/2022 IMPRESSION: The OB Ultrasound you requested has been resulted. Please navigate to theImaging tab in [employer] for review. This message has been generated by theinterface. us Steffen MALIK OB US PROCEDURES Final Resu lt documented in this encounter Visit Diagnoses Diagnosis Less than 8 weeks gestation of documented in this encounter Additional Health Concerns Active Problems Noted Date Diagnosed Date CPM S22 PP LABOR (OBSTETRICS) 12/02/2022 documented as of this encounter Care Teams Esthetician Makeup Artist Relationship Specialty Start Date End Date Per Patient, None, [address] [facility] [address] [place] [address] PCP - General 11/25/20 documented as of this encounter
--- OUTSIDE RECORDS SUMMARY | 2024-04-02 15:13 | XMS_ITS | Encounter Summary ---
Author Organization Healthcare Address [address] [place] [address] Care Team Providers Care Bridge Maintenance Worker Name Role Phone Per Patient, None Primary Care Provider + [phone] Reason for Visit * Imaging (Routine) - Closed Specialty Diagnoses / Procedures Referred By Contac t Referred To Contact Diagnoses Unsure of LMP (last menstrual period) as reason for ultrasound scan Procedures OB US Transvaginal Steffen Livingstno MD [address] [place] [phone] Phone: tel: fax: EXT External Clinic [address] [place] [phone] Referral ID Status Reason Start Date Expiration Date Visits Re quested Visits Authorized [id number] Closed 11/25/2022 05/26/2024 1 1 Encounter Details Date Type Department Care Team (Latest Contact Info) Description 11/25/2022 10:00 AM EDT Ancillary Procedure Obstetrics & Gynecology [address] [place] [phone] Unsure of LMP (last menstrual period) as reason for ultrasound scan Social History Tobacco Use Types Packs/Day Years [...] Priority Date/Time Associated Diagnosis Comments OB US TRANSVAGINAL Routine 11/25/2022 9: 55 AM EDT Unsure of LMP (last menstrual period) as reason for ultrasound scan documented in this encounter Results * OB US Transvaginal (11/25/2022 9:55 AM EDT) Anatomical Region Laterality Modality Pelvis Ultrasound 11/25/2022 10:1 0 AM EDT Impressions 11/25/2022 10:34 AM EDT The OB Ultrasound you requested has been resulted. Please navigate to the Imaging tab in [employer] for review. This message has been generated by the interface. Narrative Procedure Note Steffen Livingston MD - 11/25/2022 IMPRESSION: The OB Ultrasound you requested has been resulted. Please navigate to theImaging tab in [employer] for review. This message has been generated by theinterface. us Steffen Livingston MD IMG OB US PROCEDURES Final Resu lt documented in this encounter Visit Diagnoses Diagnosis Unsure of LMP (last menstrual period) as reason for ultrasound scan Encounter for routine screening for malformation using ultrasonics documented in this encounter Care Teams Bridge Maintenance Worker Relationship Specialty Start Date End Date Per Patient, None, [address] [facility] [address] [place] [address] PCP - General 11/25/20 documented as of this encounter
--- OUTSIDE RECORDS SUMMARY | 2024-04-02 15:13 | XMS_ITS | Encounter Summary ---
Author Organization Healthcare Address [address] [place], [place] [id number] Care Team Providers Care Hand Crocheter Name Role Phone Per Patient, None Primary Care Provider [phone] Reason for Visit * Auth/Cert Specialty Diagnoses / Procedures Referred By Esther duarte Referred To Contact Diagnoses Proteinuria affecting in third trimester Magalie Shipley MD [address] [address] Phone: tel: fax: [facility] Delivery [address] [place] [phone] Phone: tel: fax: Referral ID Status Reason Start Date Expiration Date Visits Re quested Visits Authorized [id number] 1 1 Encounter Details Date Type Department Care Team (Late st Contact Info) Description 05/19/2021 2:21 PM EST Anesthesia Event [facility] Delivery [address] [place] [phone] Claire Marquez MD [address] [place] [address] Augusta Mcclellan MD [address] [place] [address] Anesthesia Record Procedure Summary Procedure Name Responsible Anesthesiologist Anesthesia Start Time Anesthesia Stop Time SECTION (Abdomen) Claire Marquez MD 05/19/21 1421 05/19/21 1607 Events Date Time Event Comment 05/19/2021 1403 Epidural to 1406 AN Equip Check 1421 An Start 1421 An Start Data 1427 Sensory Block Assessment Rig ht Sensory Level: T6 Left Sensory Level: T8 1431 Patient Comfortable 1433 Anesthesia Ready 1433 Sensory Block Assessment Rig ht Sensory Level: T5 Left Sensory Level: T5 1450 Baby Delivered 1550 Proc Fin 1600 Out of Room 1602 an stop data 1607 Handoff to Receiving I compl eted my handoff to the receiving clinician during which we: 1. Identified the patient 2. Identified the responsible provider 3. Reviewed the pertinent medical history 4. Discussed the surgical course 5. Reviewed intra-op anesthesia management and issues during anesthesia 6. Set expectations for post-procedure period 7. Allowed opportunity for questions and acknowledgement of understanding. 160 An Stop 171 Epidural Catheter Removed Meds Name Total fentaNYL (Sublimaze) injection 50 mcg/mL 50 mcg morphine PF (Duramorph) injection 0.5 mg /mL 4 mg ceFAZolin (Ancef) vial 1 g 2 g phenylephrine IV syringe 1 mg/10 mL 400 mcg phenylephrine infusion 100 mcg/mL in NS 250 mL 2.85 mg lidocaine 2%-EPINEPHrine 1:200,000 (Xylo ashtyn W/EPI) injection 17 mL ondansetron 2 mg/mL 8 mg metoclopramide (Reglan) injection 5 mg/m L 10 mL famotidine (Pepcid) injection 10 mg/mL 2 0 mg oxytocin (Pitocin) injection 10 Units/mL 20 Units sodium bicarbonate injection 1 mEq/mL 17 mEq droperidol (Inapsine) injection 0.625 mg lactated Ringer's infusion 1,300 mL * Agents Name O2 N2O Air N2O Inspired N2O * Blood No blood administrations on file. Lines, Drains, and Airways Type Details Placement Removal Wound 05/19/21; 1600; Abdo men; Lower; Lower tranvsverse uterine incision 05/19/21 1600 by Nuno Verde RN Peripheral IV Placement Date: 06/07; Placement Time: 1929; Catheter Size: 18 G; Orientation: Anterior, Distal, Right; Location: Forearm; Site Prep: Chlorhexidine ; Inserted by: Jovan Patel RN; Patient Tolerance: Tolerated well; Removal Date: 05/21/21; Removal Time: 940; Removal Reason: Discharge 05/17/211929 by Olivia Patel RN 05/21/21 0941 by Elizabeth Burnett Epidural Placement Date: 07/08; Placement Time: 2211; Location: Thoracic (1-12); Removal Date: 05/19/21; Removal Time: 184705/18/212211 by Nataliia White 05/19/211847 by Augusta Mcclellan MD Urethral Catheter Placement Date: 08/05; Placement Time: 0000; Type: Double-lumen; Size: 16 Fr.; Balloon Size: 10 mL; Urine Returned: Yes; Removal Date: 05/20/21; Removal Time: 614; Removal Reason: Per protocol 05/19/21 0000 by Nataliia White 05/20/21 06 by Rima Mckeon RN documented in this encounter Social History Tobacco [...] PM EST documented as of this encounter Miscellaneous Notes * Anesthesia Postprocedure Evaluation - Augusta Mcclellan MD - 05/19/2021 4:10 PM EST Patient: Mini Brennan Anesthesia Type: Epidural Vitals Value Taken Time BP 108/67 05/19/21 1605 Temp 97.7F 05/19/21 1610 Pulse 81 05/19/21 1609 Resp 14 05/19/21 1609 SpO2 97 % 05/19/21 1609 Vitals shown include unvalidated device data. Anesthesia Post Evaluation Patient location during evaluation: PACU Patient participation: complete - patient participated Level of consciousness: baseline and awake Pain management: adequate (pain score 0-3) Airway patency: natural airway Cardiovascular status: acceptable, blood pressure returned to baseline and hemodynamically stable Respiratory status: acceptable, nonlabored ventilation, room air, unassisted and spontaneous ventilation Hydration status: acceptable No complications documented. Cosigned by Tristan Sands MD at 05/19/2021 4:27 PM EST * Anesthesia Preprocedure Evaluation - Claire Marquez MD - 05/19/2021 2:44 PM EST Patient: Mini Brennan Procedure Information Date: 05/17/21 Procedure: Labor Consult hazardous materials waste technician Evaluation hazardous materials waste technician ROS Comment: Level 2 CS called for nonreassuring FHTs and arrest of dilation at 6cm. Epidural working well, T8 level bilaterally. Patient is now. Associated Diseases Relevant Problems Anesthesia (within normal limits) Cardio (within normal limits) Endo (within normal limits) GI (+) Gastroesophageal reflux disease (Controlled with medication) /Renal (+) Gestational proteinuria in third trimester Neuro/Psych (within normal limits) Pulmonary (within normal limits) Clinical information reviewed: No Known Allergies Past Medical History: Diagnosis Date ??? Chlamydia ??? Depression ??? Trichimoniasis Past Surgical History: Procedure Laterality Date ??? TONSILLECTOMY ??? WISDOM TOOTH EXTRACTION Social History Tobacco Use ??? Smoking status: Current Every Day Smoker Packs/day: 0.50 Types: Cigarettes ??? Smokeless tobacco: Never Used Substance Use Topics ??? Alcohol use: Never ??? Drug use: Never Family History Problem Relation Name Age of Onset ??? Ovarian cancer Father's Sister ??? Breast cancer Paternal Grandmother Physical Exam Airway Mallampati: II Mouth opening: normal TM distance: >3 FB Neck ROM: full Cardiovascular - normal exam Dental - normal exam Pulmonary - normal exam Neurological - normal exam Oriented: normal to time, normal to place and normal to person and oriented to person, place and time Skin - normal exam Musculoskeletal - normal exam Extremities -normal exam Anesthesia Plan ASA 2 Anesthesia technique(s) discussed with the patient/family: Epidural, general and CSE Anesthesia plan agreed upon was: epidural Post operative pain planned: epidural Anesthetic plan and risks discussed with patient. Use of blood products discussed with patient who consented to blood products. Plan discussed with attending. Additional Equipment Requests documented in this encounter Plan of Treatment Not on file documented as of this encounter Visit Diagnoses Not on filedocumented in this encounter Administered Medications Inactive Administered Medications - up to 3 most recent administrations Medication Order MAR Action Action Date Dose Rate Site ceFAZolin (Ancef) injection Intravenous, As needed, Starting on Wed05/19/21 at 1434, Until Wed05/19/21 at 1610, Routine, Anesthesia Intraprocedure Given 05/19/2021 2:34 PM EST 2 g droperidol (Inapsine) injection Intravenous, As needed, Starting on Wed05/19/21 at 1518, Until Wed05/19/21 at 1610, Routine, Anesthesia Intraprocedure Given 05/19/2021 3:18 PM EST 0.625 mg famotidine (Pepcid) injection Intravenous, As needed, Starting on Wed05/19/21 at 1431, Until Wed05/19/21 at 1610, Routine, Anesthesia Intraprocedure Given 05/19/2021 2:31 PM EST 20 mg fentaNYL (Sublimaze) injection Epidural, As needed, Starting on Wed05/19/21 at 1426, Until Wed05/19/21 at 1610, Routine, Anesthesia Intraprocedure Given 05/19/2021 2:26 PM EST 50 mcg lactated Ringer's infusion Intravenous, Continuous PRN, Starting on Wed05/19/21 at 1422, Until Wed05/19/21 at 1610, Routine New Bag 05/19/2021 2:22 PM EST lidocaine-EPINEPHrine (Xylocaine W/EPI) 2 %-[id number] injection Epidural, As needed, Starting on Wed05/19/21 at 1429, Until Wed05/19/21 at 1610, Routine, Anesthesia Intraprocedure Given 05/19/2021 2:29 PM EST 10 mL Given 05/19/2021 2:22 PM EST 7 mL metoclopramide (Reglan) injection Intravenous, As needed, Starting on Wed05/19/21 at 1431, Until Wed05/19/21 at 1610, Routine, Anesthesia Intraprocedure Given 05/19/2021 2:24 PM EST 10 mL morphine PF (Duramorph) injection Epidural, As needed, Starting on Wed05/19/21 at 1508, Until Wed05/19/21 at 1610, Routine, Anesthesia Intraprocedure Given 05/19/2021 3:08 PM EST 4 mg ondansetron (Zofran) injection Intravenous, As needed, Starting on Wed05/19/21 at 1431, Until Wed05/19/21 at 1610, Routine, Anesthesia Intraprocedure Given 05/19/2021 3:10 PM EST 4 mg Given 05/19/2021 2:31 PM EST 4 mg oxytocin (Pitocin) injection Intramuscular, As needed, Starting on Wed05/19/21 at 1451, Until Wed05/19/21 at 1610, Routine, Anesthesia Intraprocedure Given 05/19/2021 2:51 PM EST 20 Units phenylephrine 25 mg in NS 250 mL (0.1 mg/mL) infusion Intravenous, Continuous PRN, Starting on Wed05/19/21 at 1434, Until Wed05/19/21 at 1610, Routine, Anesthesia Intraprocedure Rate/Dose Change 05/19/2021 3:13 PM EST 0.3 mcg/kg/min 19.674 mL/hr New Bag 05/19/2021 2:34 PM EST 0.5 mcg/kg/min 32.79 mL/ hr phenylephrine in NS (Bert-Synephrine) 100 mcg/mL prefilled syringe Intravenous, As needed, Starting on Wed05/19/21 at 1430, Until Wed05/19/21 at 1610, Routine, Anesthesia Intraprocedure Given 05/19/2021 3:21 PM EST 100 mcg Given 05/19/2021 3:16 PM EST 100 mcg Given 05/19/2021 2:35 PM EST 100 mcg sodium bicarbonate 8.4 % injection Intravenous, As needed, Starting on Wed05/19/21 at 1423, Until Wed05/19/21 at 1610, Routine, Anesthesia Intraprocedure Given 05/19/2021 2:30 PM EST 10 mEq Given 05/19/2021 2:23 PM EST 7 mEq documented in this encounter Care Teams Hand Crocheter Relationship Specialty Start Date End Date Per Patient, None, [address] [facility] [address] [place] [address] PCP - General 11/25/20 documented as of this encounter
--- OUTSIDE RECORDS SUMMARY | 2024-04-02 15:13 | XMS_ITS | Encounter Summary ---
Author Organization Healthcare Address [address] [place] [address] Care Team Providers Care Storage Administrator Name Role Phone Per Patient, None Primary Care Provider [phone] Encounter Details Date Type Department Care Team (Late st Contact Info) Description 01/28/2023 3:45 PM EDT Routine Obstetrics & Gynecology [address] [place] [address] Steffen Livingston MD [address] [place] [address] 17 weeks gestation of (Primary Dx); Previous section [...] Sign Reading Time Taken Comments Blood Pressure 129/83 01/28/2023 4:19 PM EDT Pulse - - Temperature - - Respiratory Rate - - Oxygen Saturation - - Inhaled Oxygen Concentration - - Weight 115 kg (254 lb 3.1 oz) 01/28/2023 3:45 PM EDT Height - - Body Mass Index 43.63 05/17/2021 11:53 PM EST documented in this encounter Miscellaneous Notes * Progress Notes - Steffen Livingston MD - 01/28/2023 3:45 PM EDT Subjective No chief complaint on file. Mini Brennan is a 27 y.o. at 17w6d with a working estimated date of delivery of 07/02/2023, by Ultrasound who presents for a routine visit. She denies vaginal bleeding, leakage of fluid. Her is complicated by: H/O LTCS The following portions of the chart were reviewed this encounter and updated as appropriate: ALL Objective Physical Exam Weight: 115 kg (254 lb 3.1 oz) Expected Total Weight Gain: Could not be calculated Pregravid BMI: Could not be calculated BP: 129/83 Heart Rate: 150 Labs Urine dip: NA HGB (g/dL) Date/Time [...] Diagnoses and all orders for this visit: 17 weeks gestation of Previous section complicating Continue vitamin. Labs reviewed. GTT w/ CBC at 24+ weeks. Anatomy US 4 weeks Follow up in 4 weeks for a routine visit. documented in this encounter Plan of Treatment Not on file documented as of this encounter Goals Goal Patient Goal Type Associated Problems Recent Progress Patient-Stated? Author Delayed Delivery Care Plan CPM S22 PP LABOR (OBSTETRICS) No Open Scheduling, Background documented as of this encounter Visit Diagnoses Diagnosis 17 weeks gestation of - Primary Previous section complicating documented in this encounter Additional Health Concerns Active Problems Noted Date Diagnosed Date CPM S22 PP LABOR (OBSTETRICS) 12/02/2022 documented as of this encounter Care Teams Storage Administrator Relationship Specialty Start Date End Date Per Patient, None, [address] [facility] [address] [place] [address] PCP - General 11/25/20 documented as of this encounter
--- OUTSIDE RECORDS SUMMARY | 2024-04-02 15:13 | XMS_ITS | Encounter Summary ---
Author Organization Healthcare Address [address] [place] [id number] Care Team Providers Care Wet Suit Gluer Name Role Phone Per Patient, None Primary Care Provider [phone] Encounter Details Date Type Department Care Team (Latest Contact Info) Description 12/30/2022 Travel Social History Tobacco Use Types Packs/Day [...] documented as of this encounter Care Teams Wet Suit Gluer Relationship Specialty Start Date End Date Per Patient, None, [address] [facility] [address] [place] [address] PCP - General 11/25/20 documented as of this encounter
--- OUTSIDE RECORDS SUMMARY | 2024-04-02 15:13 | XMS_ITS | Encounter Summary ---
Author Organization [facility] Address [address] [place] [address] Care Team Providers Care Sheep Farm Manager Name Role Phone Per Patient, None Primary Care Provider [phone] Reason for Referral * Imaging (Routine) - Closed Specialty Diagnoses / Procedures Referred By Contac t Referred To Contact Diagnoses Less than 8 weeks gestation of Procedures OB US Nuchal Translucency Steffen Livingston MD [address] [place] [address] Phone: tel: fax: EXT External Clinic [address] [place] [address] Referral ID Status Reason Start Date Expiration Date Visits Re quested Visits Authorized [id number] Closed 11/25/2022 05/26/2024 1 1 * Imaging (Routine) - Closed Specialty Diagnoses / Procedures Referred By Esther t Referred To Contact Diagnoses Unsure of LMP (last menstrual period) as reason for ultrasound scan Procedures OB US Transvaginal Steffen Livingston MD [address] [place] [address] Phone: tel: fax: EXT External Clinic [address] [place] [address] Referral ID Status Reason Start Date Expiration Date Visits Re quested Visits Authorized [id number] Closed 11/25/2022 05/26/2024 1 1 Reason for Visit * Reason Comments Initial Visit Nausea/vomiting. Encounter Details Date Type Department Care Team (Late st Contact Info) Description 11/25/2022 10:00 AM EDT Initial [facility] [address] [place] [address] Steffen Livingston MD [address] [place] [address] GA: 8w5d Social History Tobacco Use Types Packs/Day Years [...] Sign Reading Time Taken Comments Blood Pressure 120/86 11/25/2022 10:06 AM EDT Pulse - - Temperature - - Respiratory Rate - - Oxygen Saturation - - Inhaled Oxygen Concentration - - Weight 112 kg (247 lb 7.5 oz) 11/25/2022 10:06 A M EDT Height - - Body Mass Index 42.48 05/17/2021 11:53 PM EST documented in this encounter Miscellaneous Notes * Progress Notes - Steffen Livingston MD - 11/25/2022 10:00 AM EDT Initial Note Subjective NOB at 7+5 weeks EGA NO VB Some Nausea H/O LTCS for NRFHT + Arrest Dilation Desires CHICHI/ PNV HPI Initial Visit Additional comments: Nausea/vomiting. Last edited by Julio Pena RN on 11/25/2022 10:07 AM. OB History Para Term AB Living 2 1 1 1 SAB IAB Ectopic Multiple Live Births 0 1 # Outcome Date GA Lbr Ronny/2nd Weight Sex Delivery Anes PTL Lv 2 Current 1 Term 05/19/21 38w0d 2984 g M CS-LTranv N GENEVA Complications: Intolerance, Failure to Progress in First Stage Obstetric Comments -US @ 21w3d (01/23/21): normal limited monica; good movement; normal fluid, not able to get accurate cervical length, 'consider 32wk growth ' -US @ 29w0d (03/17/21): vertex, ant placenta, LALIT WNL, BPP /, EFW 51% (1306), UAD WNL; no f/u Past Medical History She has a past medical history of Chlamydia, Depression, and Trichimoniasis. Past Surgical History She has a past surgical history that includes [place] tooth extraction; Tonsillectomy; section, low transverse (N/A, 05/19/2021); and Gallbladder surgery. Social History She reports that she has been smoking cigarettes. She has been smoking an average of .5 packs per day. She has never used smokeless tobacco. She reports that she does not drink alcohol and does not use drugs. Family History Her family history includes Breast cancer in her paternal grandmother; Heart disease in her maternal grandmother; Melanoma in her maternal grandfather; Ovarian cancer in her father's sister. Allergies She is allergic to clindamycin. Current Medications She has a current medication list which includes the following prescription(s): famotidine, oxycodone, vit-fe fumarate-fa, and progesterone. Review of Systems Objective Physical Exam Visit Vitals BP 120/86 Pregravid weight: Pregravid weight not on file Pregravid BMI: Could not be calculated Body mass index is 42.48 kg/m??. See encounter summary and flowsheet for exam details. NOB TVUS +IUP at 8+3 weeks EGA +CA Assessment/Plan IUP at 7+5 weeks EGA by LMP & US CWD PNV BOOK/EDUC Labs NIPT at 10+ weeks NT at 12+ weeks [place], B6, Zofran prn Problem List Items Addressed This Visit None Visit Diagnoses Unsure of LMP (last menstrual period) as reason for ultrasound scan - Primary Relevant Orders OB US Transvaginal Thyroid Stimulating Hormone, Plasma CBC W/O Differential Type and Screen Rubella IgG Urine culture Drug Abuse Screen, Urine T. Pallidum (Syphilis) antibodies with Reflex Neisseria gonorrhea DNA by PCR Hepatitis C Antibody Hepatitis B surface Ag HIV 1 & 2 Antibody/Antigen Screen Chlamydia trachomatis DNA by PCR Less than 8 weeks gestation of Previous section complicating A total of 45 minutes was spent on this visit with [...] Procedure Name Priority Date/Time Associated Diagnosis Comments CHLAMYDIA TRACHOMATIS DNA BY PCR Routine 11/25/2022 10:16 AM EDT Unsure of LMP (last menstrual period) as reason for ultrasound scan HEPATITIS C ANTIBODY W/REFLEX TO HCV QUANT PCR Routine 11/25/2022 10:16 AM EDT Unsure of LMP (last menstrual period) as reason for ultrasound scan DRUG ABUSE SCREEN, URINE Routine 11/25/2022 10:16 AM EDT Unsure of LMP (last menstrual period) as reason for ultrasound scan NEISSERIA GONORRHEA DNA BY PCR Routine 11/25/2022 10:16 AM EDT Unsure of LMP (last menstrual period) as reason for ultrasound scan HEPATITIS B SURFACE ANTIGEN Routine 11/25/2022 10:16 AM EDT Unsure of LMP (last menstrual period) as reason for ultrasound scan URINE CULTURE Routine 11/25/2022 10:16 AM EDT Unsure of LMP (last menstrual period) as reason for ultrasound scan documented in this encounter Results * OB US Nuchal Translucency (12/30/2022 3:11 PM EDT) Anatomical Region Laterality Modality Ultrasound 12/30/2022 2:40 PM EDT Impressions 12/30/2022 4:58 PM EDT The OB Ultrasound you requested has been resulted. Please navigate to the Imaging tab in [facility] for review. This message has been generated by the interface. Narrative Procedure Note Mariza Scales MD - 12/30/2022 IMPRESSION: The OB Ultrasound you requested has been resulted. Please navigate to theImaging tab in [facility] for review. This message has been generated by theinterface. us Steffen Livingston MD IMG OB US PROCEDURES Final Resu lt * Chlamydia trachomatis DNA by PCR (11/25/2022 10:16 AM EDT) Chlamydia trachomatis DNA PCR Result Not Detected Not Detected 11/26/2022 3:13 PM EDT [facility] Urine Urine specimen obtained by clean catch procedure / Unknown Non-blood Collection / Unknown 11/25/2022 10:16 AM EDT 11/25/2022 12:44 PM EDT Narrative [facility] - 11/26/2022 3:13 PM EDT This test is performed by the [employer] m2000 instrument for Real Time PCR C. trachomatis and N. gonorrhea. This test is FDA approved for use with endocervical, vaginal, and urine specimens. This test is used for clinical purposes. It should not be regarded as invesigational or for research. The [facility] is certified under the Clinical Laboratory Improvement Amendments of 1988 (CLIA-88) as qualified to perform high complexity clinical laboratory testing. Result Kash Livingston MD [facility] Final Result [facility] [address] [place] [address] * Hepatitis B surface Ag (11/25/2022 10:16 AM EDT) Pathologist [facility] Hepatitis B Surf Antigen Negative Negative 11/25/2022 2:09 PM EDT [facility] Blood Venous blood specimen / Unknown Venipuncture / Unknown 11/25/2022 10:16 AM EDT 11/25/2022 12:56 PM EDT us Steffen Livingston MD LAB BLOOD ORDERABLES Final Resu lt [facility] [address] [place] [address] * Hepatitis C Antibody (11/25/2022 10:16 AM EDT) [facility] Hepatitis C Antibody Negative Negative 11/25/2022 1:25 PM EDT [facility] Blood Venous blood specimen / Unknown Venipuncture / Unknown 11/25/2022 10:16 AM EDT 11/25/2022 12:56 PM EDT us Steffen Livingston MD LAB BLOOD ORDERABLES Final Resu lt Performing Organization Address [facility] Co de Phone Number [facility] [address] [place] [address] * Neisseria gonorrhea DNA by PCR (11/25/2022 10:16 AM EDT) [facility] Neisseria gonorrhea DNA PCR Result Not Detected Not Detected. 11/26/2022 3:13 PM EDT [facility] Urine Urine specimen obtained by clean catch procedure / Unknown Non-blood Collection / Unknown 11/25/2022 10:16 AM EDT 11/25/2022 12:44 PM EDT Narrative [facility] - 11/26/2022 3:13 PM EDT This test is performed by the [employer] instrument for Real Time PCR C. trachomatis and N. gonorrhea. This test is FDA approved for use with endocervical, vaginal, and urine specimens. This test is used for clinical purposes. It should not be regarded as invesigational or for research. The [facility] is certified under the Clinical Laboratory Improvement Amendments of 1988 (CLIA-88) as qualified to perform high complexity clinical laboratory testing. Result Kash Livingston MD LAB MICROBIOLOGY - [facility]AL ORDYnes [facility] Final Result Performing Organization Address City/[facility]/ZIP Co de Phone Number [facility] [address] [place] [address] * Drug Abuse Screen, Urine (11/25/2022 10:16 AM EDT) Amphetamine Screen Urine Negative Cutoff: 500 ng/mL 11/25/2022 1:30 PM EDT [facility] Benzodiazepines Screen Urine Negative Cutoff: 200 ng/mL 11/25/2022 1:30 PM EDT [facility] Cannabinoid Screen Urine Negative Cutoff: 50 ng/mL 11/25/2022 1:30 PM EDT [facility] Cocaine Screen Urine Negative Cutoff: 300 ng/mL 11/25/2022 1:30 PM EDT [facility] Barbiturate Screen Urine Negative Cutoff: 200 ng/mL 11/25/2022 1:30 PM EDT [facility] Opiate Screen Urine Negative Cutoff: 300 ng/mL 11/25/2022 1:30 PM EDT [facility] Methadone Screen Urine Negative Cutoff: 300 ng/mL 11/25/2022 1:30 PM EDT [facility] Buprenorphine Screen Urine Negative Cutoff: 10 ng/mL 11/25/2022 1:30 PM EDT [facility] Fentanyl Screen Urine Negative Cutoff: 1 ng/mL 11/25/2022 1:30 PM EDT [facility] Oxycodone Screen Urine Negative Cutoff: 100 ng/mL 11/25/2022 1:30 PM EDT [facility] Urine Urine specimen obtained by clean catch procedure / Unknown Non-blood Collection / Unknown 11/25/2022 10:16 AM EDT 11/25/2022 12:54 PM EDT Result Kash Livingston MD LAB URINE ORDERABLES Final Resu lt [facility] [address] [place] [address] * (ABNORMAL) Urine culture (11/25/2022 10:16 AM EDT) Culture >=100,000 CFU/mL Mixed urogenital , fecal, or skin brisa present.(A ) 11/26/2022 1:21 PM EDT [facility] Urine Urine specimen obtained by clean catch procedure / Unknown Non-blood Collection / Unknown 11/25/2022 10:16 AM EDT 11/25/2022 12:44 PM EDT Result Kash Livingston MD LAB [facility] - [facility] Final Result [facility] [address] [place] [address] * OB US Transvaginal (11/25/2022 9:55 AM EDT) Anatomical Region Laterality Modality Pelvis Ultrasound 11/25/2022 10:1 0 AM EDT Impressions 11/25/2022 10:34 AM EDT The OB Ultrasound you requested has been resulted. Please navigate to the Imaging tab in [facility] for review. This message has been generated by the interface. Narrative Procedure Note Steffen Livingston MD - 11/25/2022 IMPRESSION: The OB Ultrasound you requested has been resulted. Please navigate to theImaging tab in [facility] for review. This message has been generated by theinterface. us Steffen Livingston MD IMG OB US PROCEDURES Final Resu lt documented in this encounter Visit Diagnoses Diagnosis Unsure of LMP (last menstrual period) as reason for ultrasound scan- Primary Encounter for routine screening for malformation using ultrasonics Less than 8 weeks gestation of Previous section complicating Unsure of LMP (last menstrual period) as reason for ultrasound scan Encounter for routine screening for malformation using ultrasonics Less than 8 weeks gestation of documented in this encounter Care Teams Sheep Farm Manager Relationship Specialty Start Date End Date Per Patient, None, [address] [facility] [address] [place] [address] PCP - General 11/25/20 documented as of this encounter
--- OUTSIDE RECORDS SUMMARY | 2024-04-02 15:13 | XMS_ITS | Encounter Summary ---
Author Organization [facility] Address [address] [place] [address] Care Team Providers Care Electron Tube Assembler Name Role Phone Per Patient, None Primary Care Provider + [phone] Reason for Visit * Reason Comments Routine Visit Glucola due at 90 5 Encounter Details Date Type Department Care Team (Late st Contact Info) Description 03/25/2023 9:00 AM EST Routine Obstetrics & Gynecology [address] [place] [address] Steffen Livingston MD [address] [place] [address] 25 weeks gestation of (Primary Dx); Previous section complicating ; Acute midline low back pain without sciatica Social History Tobacco Use Types Packs/Day Years [...] Sign Reading Time Taken Comments Blood Pressure 138/81 03/25/2023 9:00 AM EST Pulse - - Temperature - - Respiratory Rate - - Oxygen Saturation - - Inhaled Oxygen Concentration - - Weight 118 kg (260 lb 9.3 oz) 03/25/2023 9:00 AM EST Height - - Body Mass Index 44.73 05/17/2021 11:53 PM EST documented in this encounter Miscellaneous Notes * Progress Notes - Steffen Livingston MD - 03/25/2023 9:00 AM EST Subjective Chief Complaint Patient presents with Routine Visit [facility] at [address] is a 27 y.o. at 25w6d with a working estimated date of delivery of 07/02/2023, by Ultrasound who presents for a routine visit. She denies vaginal bleeding, leakage of fluid, decreased movements, or contractions. LBP - desires CHIRO appt. Her is complicated by: H/O LTCS The following portions of the chart were reviewed this encounter and updated as appropriate: ALL Objective Physical Exam Weight: 118 kg (260 lb 9.3 oz) Expected Total Weight Gain: Could not be calculated Pregravid BMI: Could not be calculated BP: 138/81 Heart Rate: 160 Fundal Height (cm): 28 cm Labs Urine dip: NA HGB (g/dL) [...] Diagnoses and all orders for this visit: 25 weeks gestation of - Glucose Challenge - OB Screen 1 hour - CBC and differential Previous section complicating Continue vitamin. Labs reviewed. GTT w/ CBC today. Tdap at 28+ weeks. CHIRO for LBP. Follow up in 3-4 weeks for a routine visit. documented in this encounter Plan of Treatment Not on file documented as of this encounter Goals Goal Patient Goal Type Associated Problems Recent Progress Patient-Stated? Author Delayed Delivery Care Plan CPM S22 PP LABOR (OBSTETRICS) No Open Scheduling, Background documented as of this encounter Procedures Procedure Name Priority Date/Time Associated Diagnosis Comments GLUCOSE CHALLENGE - OB SCREEN Routine 03/25/2023 9:01 AM EST 25 weeks gestation of CBC WITH AUTO DIFFERENTIAL Routine 03/25/2023 9:01 AM EST 25 weeks gestation of documented in this encounter Results * (ABNORMAL) CBC and differential (03/25/2023 9:01 AM EST) WBC Count 11.97(H) 3.70 - 10.30 10*3/uL LAB HEMATOLOGY METHOD 03/25/2023 1:52 PM EST [facility] RBC Count 3.91 3.90 - 5.20 10*6/uL LAB HEMATOLOGY METHOD 03/25/2023 1:52 PM EST [facility] HGB 11.3 11.2 - 15.7 g/dL LAB HEMATOLOGY METHOD 03/25/2023 1:52 PM EST [facility] HCT 35.2 34.0 - 45.0 % LAB HEMATOLOGY METHOD 03/25/2023 1:52 PM EST [facility] Platelet Count 363 155 - 369 10*3/uL LAB HEMATOLOGY METHOD 03/25/2023 1:52 PM EST [facility] MCV 90 79 - 98 fL LAB HEMATOLOGY METHOD 03/25/2023 1:52 PM EST [facility] MCH 28.9 26.0 - 32.0 pg LAB HEMATOLOGY METHOD 03/25/2023 1:52 PM EST [facility] MCHC 32.1 30.7 - 35.5 g/dL LAB HEMATOLOGY METHOD 03/25/2023 1:52 PM EST [facility] RDW 14.6(H) 11.5 - 14.5 % LAB HEMATOLOGY METHOD 03/25/2023 1:52 PM EST [facility] MPV 10.0 8.8 - 12.5 fL LAB HEMATOLOGY METHOD 03/25/2023 1:52 PM EST [facility] nRBC 0.0 <=0.0 per 100 WBCs LAB HEMATOLOGY METHOD 03/25/2023 1:52 PM EST [facility] Differential Type Automated LAB HEMATOLOGY METHOD 03/25/2023 1:52 PM EST [facility] Neutrophils % 74.0 % LAB HEMATOLOGY METHOD 03/25/2023 1:52 PM EST [facility] Lymphocytes % 17.0 % LAB HEMATOLOGY METHOD 03/25/2023 1:52 PM EST [facility] Monocytes % 6.0 % LAB HEMATOLOGY METHOD 03/25/2023 1:52 PM EST [facility] Eosinophils % 1.0 % LAB HEMATOLOGY METHOD 03/25/2023 1:52 PM EST [facility] Basophils % 0.0 % LAB HEMATOLOGY METHOD 03/25/2023 1:52 PM EST [facility] Immature Granulocytes % 2.0 % LAB HEMATOLOGY METHOD 03/25/2023 1:52 PM EST [facility] Neutrophils Absolute 8.81(H) 1.60 - 6.10 10*3/uL LAB HEMATOLOGY METHOD 03/25/2023 1:52 PM EST [facility] Lymphocytes Absolute 2.01 1.20 - 3.90 10*3/uL LAB HEMATOLOGY METHOD 03/25/2023 1:52 PM EST [facility] Monocytes Absolute 0.76 0.30 - 0.90 10*3/uL LAB HEMATOLOGY METHOD 03/25/2023 1:52 PM EST [facility] Eosinophils Absolute 0.12 0.00 - 0.50 10*3/uL LAB HEMATOLOGY METHOD 03/25/2023 1:52 PM EST [facility] Basophils Absolute 0.04 0.00 - 0.10 10*3/uL LAB HEMATOLOGY METHOD 03/25/2023 1:52 PM EST [facility] Immature Granulocytes Absolute 0.23(H) 0.00 - 0.06 10*3/uL LAB HEMATOLOGY METHOD 03/25/2023 1:52 PM EST [facility] Blood Venous blood specimen / Unknown Venipuncture / Unknown 03/25/2023 9:01 AM EST 03/25/2023 1:43 PM EST [facility] - 03/25/2023 1:52 PM EST Therapeutic decision making should be based on absolute values, rather than percentages. Steffen Livingston MD LAB BLOOD ORDERABLES Final Resu lt Performing Organization Address [facility] de Phone Number [facility]ALTH[facility] [address] [place] [address] * (ABNORMAL) Glucose Challenge - OB Screen 1 hour (03/25/2023 9:01 AM EST) Glucose OB Screen - 1 Hour 271(H) 74 - 139 mg/dL 03/25/2023 2:22 PM EST [facility] Blood Venous blood specimen / Unknown Venipuncture / Unknown 03/25/2023 9:01 AM EST 03/25/2023 1:50 PM EST Narrative [facility] - 03/25/2023 2:22 PM EST If plasma glucose concentration measured 1 hour after 50g glucose load is >= 140 mg/L, proceed to [id number], Glucose Tolerance Confirmation 3 Hour Test. Steffen Livingston MD LAB BLOOD ORDERABLES Final Resu lt Performing Organization Address [facility] de Phone Number [facility] [address] [place] [address] documented in this encounter Visit Diagnoses Diagnosis 25 weeks gestation of - Primary Previous section complicating Acute midline low back pain without sciatica documented in this encounter Additional Health Concerns Active Problems Noted Date Diagnosed Date CPM S22 PP LABOR (OBSTETRICS) 12/02/2022 Assessment Noted Time A fall risk assessment has been complete d for the patient 03/25/2023 9:00 AM EST A Body Mass Index follow-up plan has been documented for the patient 03/25/2023 9:32 AM EST documented as of this encounter Care Teams Electron Tube Assembler Relationship Specialty Start Date End Date Per Patient, None, [address] [facility] [address] [place], [place] [id number] PCP - General 11/25/20 documented as of this encounter
--- OUTSIDE RECORDS SUMMARY | 2024-04-02 15:13 | XMS_ITS | Encounter Summary ---
Author Organization Healthcare Address [address] [place] [address] Care Team Providers Care Funeral Workers Name Role Phone Per Patient, None Primary Care Provider + [phone] Encounter Details Date Type Department Care Team (Late st Contact Info) Description 11/26/2022 Telephone Obstetrics & Gynecology [address] [place] [address] Steffen Livingston MD [address] [place] [address] Social History Tobacco Use Types [...] * Telephone Encounter - Grecia Stack - 11/26/2022 2:40 PM EDT Called pt she is aware * Telephone Encounter - Grecia Stack - 11/26/2022 2:37 PM EDT Called pt nad lm for her to return my call * Telephone Encounter - Jayshree Melendez - 11/26/2022 2:13 PM EDT Clinical Concern/Question Reason for Call: Pt requesting a call back about her U/A results she received in My Chart. Please call to advise/discuss. Best contact number: [phone] (home) Optimal time of day to reach caller: ANYTIME Additional comments/information from caller: Questions on U/A results Note: Please do not reply to this message. Follow-up communication and further actions as a result of this message need to be communicated with the patient directly, if the patient is not active onMyChart. If the patient is active on MyChart, they will receive notification of the communication/outcome via [facility]. documented in this encounter Plan of Treatment Not on file documented as of this encounter Visit Diagnoses Not on filedocumented in this encounter Care Teams Funeral Workers Relationship Specialty Start Date End Date Per Patient, None, [address] [facility] [address] [place] [address] PCP - General 11/25/20 documented as of this encounter
--- OUTSIDE RECORDS SUMMARY | 2024-04-02 15:13 | XMS_ITS | Encounter Summary ---
Author Organization Healthcare Address [address] [place] [address] Care Team Providers Care Dairy Consultant Name Role Phone Per Patient, None Primary Care Provider [phone] Encounter Details Date Type Department Care Team (Late st Contact Info) Description 11/05/2022 Orders Only Obstetrics & Gynecology [address] [place] [address] Steffen Livingston MD [address] [place] [address] Social History Tobacco Use Types [...] on filedocumented in this encounter Care Teams Dairy Consultant Relationship Specialty Start Date End Date Per Patient, None, [address] [place] [address] PCP - General 11/25/20 documented as of this encounter
--- OUTSIDE RECORDS SUMMARY | 2024-04-02 15:13 | XMS_ITS | Encounter Summary ---
Author Organization Healthcare Address [address] [place] [address] Care Team Providers Care Assistant Pastry Chef Name Role Phone Per Patient, None MD Primary Care Provider + [phone] Encounter Details Date Type Department Care Team (Late st Contact Info) Description 12/16/2022 11:00 AM EDT Clinical Support Obstetrics & Gynecology [facility] [place] [address] Social History Tobacco Use Types [...] encounter Miscellaneous Notes * Clinician Note - Annita Hagen - 12/16/2022 11:00 AM EDT Labs only. documented in this encounter Plan of Treatment [...] documented as of this encounter Care Teams Assistant Pastry Chef Relationship Specialty Start Date End Date Per Patient, None, [address] [facility] [address] [place], [place] [id number] PCP - General 11/25/20 documented as of this encounter
--- OUTSIDE RECORDS SUMMARY | 2024-04-02 15:13 | XMS_ITS | Encounter Summary ---
Author Organization Healthcare Address [address] [place] [address] Care Team Providers Care Marketing Sales Manager Name Role Phone Per Patient, None Primary Care Provider + [phone] Encounter Details Date Type Department Care Team (Latest Contact Info) Description 01/28/2023 Travel Social History Tobacco Use Types Packs/Day [...] documented as of this encounter Care Teams Marketing Sales Manager Relationship Specialty Start Date End Date Per Patient, None, [address] [facility] [address] [place] [address] PCP - General 11/25/20 documented as of this encounter
--- OUTSIDE RECORDS SUMMARY | 2024-04-02 15:14 | XMS_ITS | Encounter Summary ---
Author Organization Healthcare Address [address] [place] [address] Care Team Providers Care Poultry Dresser Name Role Phone Per Patient, None Primary Care Provider + [phone] Encounter Details Date Type Department Care Team (Latest Contact Info) Description 03/31/2021 Travel Social History Tobacco Use Types Packs/Day Years Used Date Smoking Tobacco: Every Day Alcohol Use Standard Drinks/Week Comments Never 0 [...] have Coronavirus / COVID-19? No / Unsure 03/31/2021 9:44 AM EST documented as of this encounter Plan of Treatment Not on file documented as of this encounter Visit Diagnoses Not on filedocumented in this encounter Care Teams Poultry Dresser Relationship Specialty Start Date End Date Per Patient, None, [address] [place], [place] [phone] PCP - General 11/25/20 documented as of this encounter
--- OUTSIDE RECORDS SUMMARY | 2024-04-02 15:14 | XMS_ITS | Encounter Summary ---
Author Organization Healthcare Address [address] [place] [address] Care Team Providers Care Camp Attendant Name Role Phone Per Patient, None Primary Care Provider [phone] Encounter Details Date Type Department Care Team (Latest Contact Info) Description 05/14/2021 8:00 AM EST Routine [facility] [address] [place] [address] Lavern Aldridge, RUMA, CNM [address] [place] [address] 37 weeks gestation of (Primary Dx) Social History [...] have Coronavirus / COVID-19? No / Unsure 05/14/2021 7:54 AM EST documented as of this encounter Last Filed Vital Signs Vital Sign Reading Time Taken Comments Blood Pressure 132/84 05/14/2021 8:32 AM EST Pulse - - Temperature - - Respiratory Rate - - Oxygen Saturation - - Inhaled Oxygen Concentration - - Weight 111 kg (245 lb 2.4 oz) 05/14/2021 8:32 AM EST Height - - Body Mass Index - - documented in this encounter Miscellaneous Notes * Progress Notes - Lavern Aldridge APRN, CNM - 05/14/2021 8:00 AM EST 37w2d ROLANDO -no concerns today -denies LOF, VB, ctxs. +FM -reviewed precautions RTC: 1 weeks documented in this encounter Plan of Treatment Not on file documented as of this encounter Visit Diagnoses Diagnosis 37 weeks gestation of - Primary documented in this encounter Care Teams Camp Attendant Relationship Specialty Start Date End Date Per Patient, None, [address] [facility] [address] [place] [address] PCP - General 11/25/20 documented as of this encounter
--- OUTSIDE RECORDS SUMMARY | 2024-04-02 15:14 | XMS_ITS | Encounter Summary ---
Author Organization Healthcare Address [address] [place] [address] Care Team Providers Care Cardiographer Name Role Phone Per Patient, None Primary Care Provider + [phone] Reason for Visit * Auth/Cert Specialty Diagnoses / Procedures Referred By Contreji t Referred To Contact Diagnoses Proteinuria affecting in third trimester Magalie Shipley MD [address] [address] Phone: tel: fax: [facility] [address] [place] [address] Phone: tel: fax: Referral ID Status Reason Start Date Expiration Date Visits Re quested Visits Authorized [id number] 1 1 Encounter Details Date Type Department Care Team (Late st Contact Info) Description 05/18/2021 9:39 PM EST Anesthesia Event [facility] [address] [place] [address] Eduardo Dunn MD [address] [place] [id number] Riky Phillips MD Anesthesia Record Procedure Summary Procedure Name Responsible Anesthesiologist Anesthesia Start Time Anesthesia Stop Time Labor Analgesia Eduardo Dunn MD 05/18/2121380 08/05 1450 Events Date Time Event Comment 05/18/20219 An Start 2212 Epidural Placed 2254 Face Time Patient comfort able with T10 level bilaterally 05/19/2021 0054 Face Time 0055 Sensory Block Assessment Rig ht Sensory Level: T9 Left Sensory Level: T9 0056 Labor Pain Assessment Labor Pain Assessment: Patient comfortable and complaining of no pain 0913 Face Time Labor Pain Asse ssment: Patient denies pain at baseline or with contractions. Concerned that button is not illuminating when a bolus is available. Resident at bedside to assess and replace bolus button unit if needed. At time bolus available, it was noted that button was not flashing -> nursing to call for new button to be retrieved from materials. Right Sensory Level: Sensory loss noted between T10 and L2 Left Sensory Level: Sensory loss noted between T10 and L2 Motor block: Pt able to wiggle toes bilaterally 1450 An Stop Meds Name Total lidocaine 1.5%-EPINEPHrine 1:200,000 (Xy locaine W/EPI) injection 3 mL lidocaine-EPINEPHrine (XYLOCAINE W/EPI) 1.5 %-1:257976 Epidural 3 mL fentanyl + bupivacaine clinician bolus d ose 1-5 mL 8 mL * Agents No agents on file. * Blood No blood administrations on file. Lines, Drains, and Airways Type Details Placement Removal Peripheral IV Placement Date: 06/07; Placement Time: 1929; Catheter Size: 18 G; Orientation: Anterior, Distal, Right; Location: Forearm; Site Prep: Chlorhexidine ; Inserted by: Jovan Patel RN; Patient Tolerance: Tolerated well; Removal Date: 05/21/21; Removal Time: 940; Removal Reason: Discharge 05/17/211929 by Olivia Patel RN 05/21/21940 by Elizabeth Burnett Epidural Placement Date: 07/08; Placement Time: 2211; Location: Thoracic (1-12); Removal Date: 05/19/21; Removal Time: 18405/18/212211 by Nataliia White 05/19/211847 by Augusta Mcclellan MD Urethral Catheter Placement Date: 08/05; Placement Time: 0000; Type: Double-lumen; Size: 16 Fr.; Balloon Size: 10 mL; Urine Returned: Yes; Removal Date: 05/20/21; Removal Time: 0615; Removal Reason: Per protocol 05/19/21 0000 by Nataliia White 05/20/21 0615 by Rima Mckeon RN documented in this [...] Mcclellan MD - 05/19/2021 4:10 PM EST (copied from [id number] postprocedure note due to inability to link labor analgesia record to subsequent anesthetic record) Patient: Mini Stoss ?? Anesthesia Type: Epidural ?? Vitals Value Taken Time BP 108/67 05/19/21 1605 Temp 97.7F 05/19/21 1610 Pulse 81 05/19/21 1609 Resp 14 05/19/21 1609 SpO2 97 % 05/19/21 1609 Vitals shown include unvalidated device data. ?? Anesthesia Post Evaluation ?? Patient location during evaluation: PACU Patient participation: complete - patient participated Level of consciousness: baseline and awake Pain management: adequate (pain score 0-3) Airway patency: natural airway Cardiovascular status: acceptable, blood pressure returned to baseline and hemodynamically stable Respiratory status: acceptable, nonlabored ventilation, room air, unassisted and spontaneous ventilation Hydration status: acceptable ? No complications documented. Cosigned by Claire Marquez MD at 05/20/2021 12:34 PM EST Associated attestation - Claire Marquez MD - 05/20/2021 12:34 PM EST I agree * Anesthesia Procedure Notes - Riky Phillips MD - 05/18/2021 10:40 PM EST Associated Order(s): Epidural Block Epidural Block Patient location during procedure: OB Reason for block: procedure for pain Staffing Performed: Resident Anesthesiologist: Eduardo Dunn MD Resident: Riky Phillips MD I personally performed the line placement. Preanesthetic Checklist Completed: patient identified, IV checked, site marked, risks and benefits discussed, surgical consent, monitors and equipment checked, pre-op evaluation and timeout performed Block Placement Patient position: sitting Prep: ChloraPrep and site prepped and draped Patient monitoring: heart rate, property assessment monitor and continuous pulse ox Approach: midline Location: lumbar (1-5) Needle Needle type: Tuohy Needle gauge: 17 G Needle length: 3.5 in Needle insertion depth: 7 cm Catheter at skin depth: 12 cm Test dose: negative and lidocaine 1.5% with epinephrine 1-to-200,000 Medications Administered Lidocaine-EPINEPHrine (XYLOCAINE W/EPI) 1.5 %-1:336958 Epidural, 3 mL * Anesthesia Preprocedure Evaluation - Riky Phillips MD - 05/18/2021 9:37 PM EST Patient: Mini Brennan Procedure Information Date: 05/17/21 Procedure: Labor Consult special warfare boat operator Evaluation special warfare boat operator Patient is now. Associated Diseases Relevant Problems Anesthesia (within normal limits) Cardio (within normal limits) Endo (within normal limits) GI (+) Gastroesophageal reflux disease (Controlled with medication) /Renal (within normal limits) Neuro/Psych (within normal limits) Pulmonary (within normal limits) Clinical information reviewed: Physical Exam Airway Mallampati: II Mouth opening: [...] CSE Anesthesia plan agreed upon was: epidural Anesthetic plan and risks discussed with patient. Use of blood products discussed with patient who consented to blood products. Plan discussed with attending. Additional Equipment Requests Cosigned by Eduardo Dunn MD at 05/18/2021 10:16 PM EST documented in this encounter Plan of Treatment Not on file documented as of this encounter Procedures Procedure Name Priority Date/Time Associated Diagnosis Comments PB ANESTHESIA PLACEHOLDER Routine 05/18/2021 10:40 PM EST documented in this encounter Results * PB ANESTHESIA PLACEHOLDER (05/18/2021 10:40 PM EST) Narrative Riky Phillips MD - 05/18/2021 10:40 PM EST Riky Phillips MD ? 05/18/2021 10:42 PM Epidural Block Patient location during procedure: OB Reason for block: procedure for pain Staffing Performed: Resident Anesthesiologist: Eduardo Dunn MD Resident: Riky Phillips MD I personally performed the line placement. Preanesthetic Checklist Completed: patient identified, IV checked, site marked, risks and benefits discussed, surgical consent, monitors and equipment checked, pre-op evaluation and timeout performed Block Placement Patient position: sitting Prep: ChloraPrep and site prepped and draped Patient monitoring: heart rate, property assessment monitor and continuous pulse ox Approach: midline Location: lumbar (1-5) Needle Needle type: Tuohy Needle gauge: 17 G Needle length: 3.5 in Needle insertion depth: 7 cm Catheter at skin depth: 12 cm Test dose: negative and lidocaine 1.5% with epinephrine 1-to-200,000 Medications Administered Lidocaine-EPINEPHrine (XYLOCAINE W/EPI) 1.5 %-1:023379 Epidural, 3 mL us Eduardo Dunn MD ANESTHESIA ORDERABLES Final Re sult documented in this encounter Visit Diagnoses Not on filedocumented in this encounter Administered Medications Inactive Administered Medications - up to 3 most recent administrations Medication Order MAR Action Action Date Dose Rate Site fentanyl + bupivacaine clinician bolus dose 1-5 mL 1-5 mL, Epidural, As needed, Starting on 05/18/21 at 2130, Until 05/21/21 at 1046, Routine, severe pain, moderate pain Given 05/18/2021 10:31 PM EST 8 mL lidocaine-EPINEPHrine (Xylocaine W/EPI) 1.5 %-1:762519 injection Infiltration, As needed, Starting on 05/18/21 at 2214, Until 05/19/21 at 1606, Routine, Anesthesia Intraprocedure Given 05/18/2021 10:14 PM EST 3 mL lidocaine-EPINEPHrine (Xylocaine W/EPI) 1.5 %-1:768751 injection Epidural, Once PRN Procedure, Starting on 05/18/21 at 2240, Until Wed05/18/21 at 2240, Routine, Anesthesia Intraprocedure Given 05/18/2021 10:40 PM EST 3 mL documented in this encounter Care Teams Cardiographer Relationship Specialty Start Date End Date Per Patient, None, [address] [facility] [address] [place], [place] [phone] PCP - General 11/25/20 documented as of this encounter
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
--- OUTSIDE RECORDS SUMMARY | 2024-04-02 15:14 | XMS_ITS | Encounter Summary ---
Author Organization Healthcare Address [address] [place] [address] Care Team Providers Care Grinder Machine Knife Setter Name Role Phone Per Patient, None Primary Care Provider [phone] Reason for Visit * Auth/Cert Specialty Diagnoses / Procedures Referred By Esther t Referred To Contact Diagnoses Proteinuria affecting in third trimester Magalie Shipley MD [address] [address] Phone: tel: fax: [facility] [address] [place] [phone] Phone: tel: fax: Referral ID Status Reason Start Date Expiration Date Visits Re quested Visits Authorized [id number] 1 1 Encounter Details Date Type Department Care Team (Late st Contact Info) Description 05/18/2021 1:01 AM EST Anesthesia Event [facility] [address] [place] [phone] Sumeet Dan MD [address] [place] [address] Anesthesia Record Procedure Summary Procedure Name Responsible Anesthesiologist Anesthesia Start Time Anesthesia Stop Time Labor Consult Events No events on file. Meds * Agents No agents on file. * Blood No blood administrations on file. Lines, Drains, and Airways Type Details Placement Removal Wound 05/19/21; 1600; Abdo men; Lower; Lower tranvsverse uterine incision 05/19/21 1600 by Nuno Verde, RN documented in this encounter Social History [...] of this encounter Miscellaneous Notes * Anesthesia IP Labor Consult - Sumeet Dan MD - 05/17/2021 8:17 PM EST Patient: Mini Brennan Procedure Information Date: 05/17/21 Procedure: Labor Consult radiation therapy technician Evaluation radiation therapy technician Patient is now. Associated Diseases Relevant Problems Anesthesia (within normal limits) Cardio (within normal limits) Endo (within normal limits) GI (+) Gastroesophageal reflux disease (Controlled with medication) /Renal (within normal limits) Neuro/Psych (within normal limits) Pulmonary (within normal limits) Clinical information reviewed: Med Hx Allergies Surg Hx Physical Exam Airway Mallampati: II Mouth opening: [...] on filedocumented in this encounter Care Teams Grinder Machine Knife Setter Relationship Specialty Start Date End Date Per Patient, MD Sushant [address] [facility] [address] [place] [id number] PCP - General 11/25/20 documented as of this encounter
--- OUTSIDE RECORDS SUMMARY | 2024-04-02 15:14 | XMS_ITS | Encounter Summary ---
Author Organization Healthcare Address [address] [place], [place] [id number] Care Team Providers Care Electric Solderer Name Role Phone Per Patient, None Primary Care Provider [phone] Encounter Details Date Type Department Care Team (Latest Contact Info) Description 04/30/2021 2:00 PM EST Routine [facility] [address], [address] [place] [address] Chava Rivera, SENIOR DATA MODELER, CNM [address] [place] [address] Encounter for supervision of normal first in third trimester (Primary Dx) Social History Tobacco Use Types [...] have Coronavirus / COVID-19? No / Unsure 04/30/2021 1:53 PM EST documented as of this encounter Last Filed Vital Signs Vital Sign Reading Time Taken Comments Blood Pressure 129/84 04/30/2021 2:10 PM EST Pulse - - Temperature - - Respiratory Rate - - Oxygen Saturation - - Inhaled Oxygen Concentration - - Weight 108 kg (238 lb 15.7 oz) 04/30/2021 2:10 P M EST Height - - Body Mass Index - - documented in this encounter Miscellaneous Notes * Progress Notes - Chava Rivera APRN, CNM - 04/30/2021 2:00 PM EST 35w2d: GBS @ NEXT BH occasionally, + FM Mild pedal edema at end of day TDAP today Spinning babies exercises given 68lb TWG FU 1 WK documented in this encounter Plan of Treatment Not on file documented as of this encounter Visit Diagnoses Diagnosis Encounter for supervision of normal first in third trimester- Primary documented in this encounter Care Teams Electric Solderer Relationship Specialty Start Date End Date Per Patient, None, [address] [facility] [address] [place] [address] PCP - General 11/25/20 documented as of this encounter
--- OUTSIDE RECORDS SUMMARY | 2024-04-02 15:14 | XMS_ITS | Encounter Summary ---
Author Organization Healthcare Address [address] [place] [address] Care Team Providers Care Chief Risk Officer Name Role Phone Per Patient, None Primary Care Provider [phone] Encounter Details Date Type Department Care Team (Latest Contact Info) Description 05/07/2021 Travel Social History Tobacco Use Types Packs/Day [...] have Coronavirus / COVID-19? No / Unsure 05/07/2021 10:19 AM EST documented as of this encounter Plan of Treatment Not on file documented as of this encounter Visit Diagnoses Not on filedocumented in this encounter Care Teams Chief Risk Officer Relationship Specialty Start Date End Date Per Patient, None, [address] [place], [place] [phone] PCP - General 11/25/20 documented as of this encounter
--- OUTSIDE RECORDS SUMMARY | 2024-04-02 15:14 | XMS_ITS | Encounter Summary ---
Author Organization Healthcare Address [address] [place] [address] Care Team Providers Care Legislative Aide Name Role Phone Per Patient, None Primary Care Provider [phone] Encounter Details Date Type Department Care Team (Latest Contact Info) Description 02/26/2021 Travel Social History Tobacco Use Types Packs/Day [...] have Coronavirus / COVID-19? No / Unsure 02/26/2021 8:15 AM EDT documented as of this encounter Plan of Treatment Not on file documented as of this encounter Visit Diagnoses Not on filedocumented in this encounter Care Teams Legislative Aide Relationship Specialty Start Date End Date Per Patient, None, [address] [place], [place] [phone] PCP - General 11/25/20 documented as of this encounter
--- OUTSIDE RECORDS SUMMARY | 2024-04-02 15:14 | XMS_ITS | Encounter Summary ---
Author Organization Healthcare Address [address] [place] [address] Care Team Providers Care Document Management Technician Name Role Phone Per Patient, None Primary Care Provider [phone] Reason for Referral * Imaging (Routine) - Closed Specialty Diagnoses / Procedures Referred By Contac t Referred To Contact Radiology Diagnoses 18 weeks gestation of Procedures OB US 14+ Weeks Anatomy Scan Chava Rivera APRN, CNM [address] [place] [address] Phone: tel: fax: Referral ID Status Reason Start Date Expiration Date Visits Re quested Visits Authorized [id number] Closed 01/01/2021 06/30/2021 1 1 Encounter Details Date Type Department Care Team (Latest Contact Info) Description 01/01/2021 1:15 PM EDT Routine [facility] [address] [place] [address] Chava Rivera APRN, CNM [address] [place] [address] 18 weeks gestation of (Primary Dx) Social History [...] have Coronavirus / COVID-19? No / Unsure 01/01/2021 1:27 PM EDT documented as of this encounter Last Filed Vital Signs Vital Sign Reading Time Taken Comments Blood Pressure 106/68 01/01/2021 1:43 PM EDT Pulse - - Temperature - - Respiratory Rate - - Oxygen Saturation - - Inhaled Oxygen Concentration - - Weight 85.9 kg (189 lb 6 oz) 01/01/2021 1:43 PM EDT Height - - Body Mass Index - - documented in this encounter Miscellaneous Notes * Patient Instructions - Chava Rivera, RUMA, TEJA - 01/01/2021 1:15 PM EDT Images from the original note were not included. : Your Second Trimester Changes Each day, you and your baby are changing and growing together. Here???s a quick look at what???s happening to both of you. How you are changing Even when you don???t notice it, your body is adapting to meet the needs of your growing baby. The changes in your body might also affect your moods. Your body Your uterus expands as baby grows. As the weeks go by, you will feel more pressure on your bladder,stomach, and other organs. You may notice some skin color changes on your forehead, nose, or cheeks. Freckles may darken, and moles may grow. You may notice a darker line on your abdomen between yourbelly button and pubic bone in the midline. Your moods The second trimester is often easier than the first. Still, be prepared for mood swings. These are due to the increase in hormones (chemicals that affect the way organs work) produced by your body. These mood swings are a normal part of . How your baby is growing ?? Month 4 Baby???s heartbeat may be heard with a Doppler (hand-held ultrasound device) by 9 to 10 weeks.??Eyebrows, eyelashes, and fingernails begin to form.?? Month 5 You may feel your baby move. After a growth spurt, your baby nears 10 inches. Month 6 Baby???s fingerprints have formed. Your baby weighs about 1??to 2 pounds and is about 12 inches long. Stella last reviewed this educational content on 05/17/2017 ?? [id number] [employer]. [address] [place] [address], [place] [address]. All rights reserved. This information is not intended as a substitute for professional medical care. Always follow your healthcare professional's instructions. Adapting to : Second Trimester Keep up the healthy habits you started in your first trimester. You might be a little more tired than normal. So plan your day wisely. Look at the tips below and choose the ones that suit your lifestyle. If you have any questions, check with your healthcare provider. If you work If you can, adjust your work with your employer to fit your needs. Try these tips: ?? If you stand for long periods, find ways to do some tasks while sitting. Also, try to stand with1 foot resting on a low stool or ledge. Shift your weight from foot to foot often. Wear low-heeled shoes. ?? If you sit, keep your knees level with your hips. Rest your feet on a firm surface. Sit tall with support for your low back. ?? If you work long hours, ask about adjusting your schedule. Try taking shorter breaks more often. When you travel The second trimester may be the best time for any travel. Talk to your healthcare provider about any special plans you may need to make. Always: ?? Wear a seat belt. Fasten the lap part under your belly. Wear the shoulder part also. ?? Take breaks often during long trips by car or plane. Move around to stretch your legs. ?? Drink plenty of fluids on flights. The air in plane cabins is very dry. ?? Avoid hot climates or high altitudes if you are not used to them. ?? Avoid places where the food and water might make you sick. ?? Make sure you are up-to-date on all immunizations, including the flu vaccine. This is especiallyimportant when traveling overseas. Taking time to relax Find time to rest and relax at work or at home: ?? Take short time-outs daily. Do relaxation exercises. ?? Breathe deeply during stressful times. ?? Try not to take on too much. Plan tasks for times when you have the most energy. ?? Take naps when you can. Or just sit and relax. ?? After week 16, avoid lying on your back for more than a few minutes. Instead, lie on your side. Switch sides often. Continuing as lovers Unless your healthcare provider tells you otherwise, there is no reason to stop having sex now. Blood supply increases to the pelvic area in the second trimester. Because of this, sex might be more enjoyable. Try different positions and see what???s best. Also, talk to your partner about any changes in desire. Spotting may happen after sex. Be sure to let your healthcare provider know if there isheavy bleeding. Keeping your environment safe You can still clean house and use scented products. Just take some simple precautions: ?? Wear gloves when using cleaning fluids. ?? Open windows to let in fresh air. Use a fan if you paint. ?? Avoid secondhand smoke. ?? Don???t breathe fumes from nail bahraini, hair spray, cleansers, or other chemicals. [employer] last reviewed this educational content on 05/17/2017 ?? [id number] [employer]. [address] [place] [address]. All rights reserved. This information is not intended as a substitute for professional medical care. Always follow your healthcare professional's instructions. Dental Care for Women is a time when your oral health needs more attention. Hormone changes during can cause certain problems with teeth and gums, and make treatment more complicated. How affects oral health During , hormone changes can cause swollen, bleeding, and irritated gums (gingivitis). Your gums may be very sore, and brushing and flossing may cause discomfort. If left untreated, gingivitis can lead to a more serious gum disease called periodontitis. Severe periodontitis can lead to tooth loss. Some women also have small bright-red growths on their gums that bleed easily. These are often called ??? tumors.?? They are not cancer. They usually go away right after . Talk with your dentist or healthcare provider if you have concerns. Keeping a healthy mouth ?? [place] twice daily with fluoride toothpaste. Floss at least once a day. ?? If you have morning sickness, rinse your mouth with a teaspoon of baking soda mixed with water after vomiting. Do not brush your teeth right after vomiting. This can remove tooth enamel. ?? See your dentist for cleanings and checkups more often if needed. This is especially true in your second and third trimesters. ?? Ask your dentist or healthcare provider??if you should use a special mouth rinse to help preventgingivitis. ?? Tell your dentist or healthcare provider??about any changes in your mouth, such as soreness or bleeding. Safety concerns Make sure to tell your dentist that you???re . He or she can help you stay safe. If you need to have dental X-rays during , he or she will make sure you are fully protected. You willwear a lead apron over your belly during the X-ray process. The apron helps block radiation from the X-rays. If you need to take medicines like antibiotics or pain relievers for dental problems, talk with your healthcare providers first. Your providers will discuss the risks and benefits of taking these during . If you have a high-risk , your dentist and your healthcare provider may advise that certain dental treatments wait until after you give . [employer] last reviewed this educational content on 04/16/2017 ?? [id number] [employer]. [address] [place] [address]. All rights reserved. This information is not intended as a substitute for professional medical care. Always follow your healthcare professional's instructions. Exercise During Regular exercise can help you adapt to the changes your body is going through during . Exercising may help you relax, and it gets you ready for labor and delivery. Talk to your healthcare provider about the kinds of activities you can do. Then go ahead and enjoy them. Get started Even if you didn???t exercise before , it is not too late to??start. Choose an activity that you like and that fits your lifestyle. Begin slowly and build up a little at a time.??Be sure to check with your healthcare provider before starting any exercise program. The following tips may help you get started: ?? Choose a time and place to exercise each day. ?? Wear loose-fitting clothes and comfortable athletic shoes. ?? Stretch before and after you exercise. (Be sure to stretch slowly and to hold stretches for??30??to??40 seconds.) Be active Unless your healthcare provider says otherwise, try to exercise for 30 minutes or more most days ofthe week: ?? Overall conditioning, like swimming, bicycling, or walking, is especially beneficial. ?? Aerobics and exercises that increase your pulse rate help condition your body and strengthen your heart. Ask about special aerobics classes. Exercise safely These tips will help you have a safe, healthy workout: ?? Stay cool. Stop exercising if you feel overheated. ?? Slow down if you???re out of breath. If you can???t talk during exercise, lower the intensity ofthe workout. ?? Monitor the intensity of your workout. Only do moderate-intensity (not strenuous) exercise. ?? Stay off your back. Lying on your back can decrease blood flow to your baby. ?? Drink water before, during and??after your workout. ?? Eat??300 extra calories a day. A light snack before and after you exercise will help keep your energy up. ?? Avoid activities requiring balancing skills later in . Do Kegel exercises Kegel exercises strengthen the pelvic floor muscles used in childbirth. These muscles are the same ones used to stop the flow of urine. Do Kegel exercises daily: ?? Squeeze your pelvic floor muscles for a count of 3. ?? Relax, then squeeze again. ?? Repeat 10 to 15 times in a row at least 3 times a day. ?? You can do Kegel exercises anytime and anywhere. Keep walking No matter what other exercise you do, try to walk whenever you can: ?? If you???re working all day, take a lunchtime walk in the park with a friend. ?? When you shop, park away from the store entrance and walk the extra distance. ?? Take the stairs instead of the elevator. ?? When to stop exercising and call your healthcare provider Call your healthcare provider right away if you have: ?? Shortness of breath before starting exercise ?? Vaginal bleeding ?? Dizziness or feeling faint ?? Chest pain ?? Headache ?? Decreased movement ?? contractions? Muscle weakness ?? Calf pain or swelling ?? Fluid leaking from the vagina [employer] last reviewed this educational content on 04/16/2017 ?? [id number] [employer]. [address] [place] [address], [place] [address]. All rights reserved. This information is not intended as a substitute for professional medical care. Always follow your healthcare professional's instructions. Influenza (Flu) and Influenza (the flu) is an infection of the respiratory tract. The tract is??made up of your??mouth,nose, and lungs, and the passages between them. The flu can make a woman very ill. This isbecause changes that occur during to the immune system, heart, and lungs make a women more likely to develop flu complications. These complications include sinus infections and serious lung infections such as bronchitis and pneumonia. The flu can cause high fevers which, during , can cause defects and other complications in the developing fetus. In rare cases, the flu can lead to miscarriage or even of the mother. This sheet tells you more about the flu, what to do if you get the flu, and what you can do to prevent infection. Washing your hands often with soap and water can help keep you from catching the flu virus. Who is at risk for the flu? Anyone can get the flu. But you are more likely to catch the flu if you: ?? Are often around young children ?? Work in a healthcare setting where you may be exposed to flu germs ?? Live or work with someone who has the flu ?? Haven???t had an annual flu shot How does the flu spread? The flu is caused by a virus. The virus spreads through the air in droplets when someone who has the flu coughs, sneezes, laughs, or talks. You can become infected when you breathe in the germ directly. You can also become infected when you touch a surface where the droplets have landed and then touch your eyes, nose, or mouth. Touching used tissues, or sharing utensils, drinking glasses, or a toothbrush with an infected person can expose you to the flu germ, too. What are the symptoms of the flu? Flu symptoms tend to come on quickly and may last a few days to a few weeks. They include: ?? Fever that's usually higher than 100.4??F (38??C) and chills ?? Sore throat and headache ?? Dry cough ?? Runny nose ?? Tiredness and weakness ?? Body and muscle aches If you are and have flu-like symptoms Here are some suggestions: ?? Call your healthcare provider right away.??Follow any instructions your healthcare provider??gives you. ?? You may be asked to get tested to confirm that you have the flu. ?? Your healthcare provider??may prescribe medicines??called antivirals. These medicines??must be taken within 2 days of when your symptoms started. In some cases, your healthcare provider??may not wait for test results to come back before starting you on antivirals. These medicines??work by stopping the flu virus from reproducing in your body. This gives your body???s immune system a chance to fight the virus. After taking the medicine, your symptoms may be milder and you may recover quicker than without the medicine. The medicine??may also prevent serious complications such as pneumonia. ?? If you feel you need medicines to ease symptoms, ask your healthcare provider??which ones are safe for you to take. Easing flu symptoms ?? Drink lots of fluids such as??water, juice, and warm soup to prevent dehydration. A good rule isto drink enough so that you urinate your normal amount. Feeling dizzy or lightheaded most likely means you need to drink more fluid. ?? Get plenty of rest. ?? If you aren't hungry, eat smaller meals more often during the day to make sure you get enough calories. ?? If you don't have a fever, put warm compresses on??your forehead or sinuses to relieve congestion. ?? Call your healthcare provider if you become short of breath. Preventing the flu ?? Get vaccinated. One of the best ways to prevent the flu is to get a flu shot. women cansafely get a flu shot. But women should not get the nasal spray vaccine for the flu. This is a live-virus vaccine and may??be harmful to the baby.? Wash your hands often.??Frequent handwashing is a proven way to prevent infection. Carry an alcohol-based hand gel containing at least 60% alcohol. Use it when you don???t have access to soap and water. ?? Clean items you use often??with disinfectant wipes. This includes phones, computer keyboards, and toys. ?? Stay away from crowds and children as much as possible while you are . Stay away from??anyone who has the flu. Tips for good handwashing Handwashing is one of the best ways to prevent many common infections. Follow these steps for more effective handwashing: ?? Use warm water and plenty of soap. Work up a good lather. ?? Clean the whole hand, under your nails, between your fingers, and up the wrists. ?? Wash for at least 20??seconds. Don???t just wipe--scrub well. ?? Rinse, letting the water run down your fingers, not up your wrists. ?? Dry your hands well. Use a paper towel to turn off the faucet and open the door. Using alcohol-based hand gels Alcohol-based hand gels are also a good choice for cleaning your hands. Use them when you don???t have access to soap and water, or your hands don't look dirty. Follow these steps: ?? Squeeze about a tablespoon of gel into the palm of one hand. ?? Rub your hands together briskly, cleaning the backs of your hands, the palms, between your fingers, and up the wrists. ?? Rub until the gel is gone and your hands are completely dry. [employer] last reviewed this educational content on 01/15/2017 ?? [id number] [employer]. [address] [place] [address], [place] [address]. All rights reserved. This information is not intended as a substitute for professional medical care. Always follow your healthcare professional's instructions. Blood Glucose Screening During Your healthcare provider will talk with you about blood glucose screening. Gestational diabetes??is diabetes that only women get. Changes in your body during can cause high blood sugar (glucose). This can cause problems for you and your baby. It is a serious condition, but it can be controlled. Who is at risk for gestational diabetes? You are at risk of getting gestational diabetes if any of the following risk factors apply to you.??The risk??for gestational diabetes becomes higher as your number of risk factors increases: ?? You are , , , , or . ?? You weigh more than your healthcare provider says is healthy for you. ?? You have a relative with diabetes. ?? You are older than age 25. ?? You had gestational diabetes during a past . ?? You had a stillbirth or a very large baby before. ?? You have a history of abnormal glucose tolerance. ?? You have sugar in your urine at the first visit. ?? You have metabolic syndrome, polycystic ovary syndrome (PCOS), currently use glucocorticoids, orhave hypertension. ?? You have multiple gestation (twins, etc.). What happens during a screening? Here is what to expect during a blood glucose screening: ?? While conflicting recommendations for screening exist, the [employer] currently recommends universal screening for gestational diabetes.??Your risk for gestational diabetes will determine when you??are screened. Women are tested at 24 to 28 weeks of . Women at high risk may be tested when they first learn they are . ?? To do the screening, a blood sample is taken and your blood sugar level is measured. ?? If the results show a high blood sugar level, a glucose tolerance test may be ordered. You will drink a specific amount of sugar.??This test measures the amount of time it takes for sugar to leaveyour blood. The test??will determine if you have gestational diabetes. What to know if you test positive Here are some things you need to know: ?? Gestational diabetes is treatable. The best way to control gestational diabetes is to find out you have it??as early as possible??and start treatment quickly. ?? Gestational diabetes can cause problems for the mother during . It can also cause problems with the baby during , delivery, and after. Treatment greatly lowers the chance??for problems. ?? The changes in your body that cause gestational diabetes normally happen only when you are . After the baby is born, your body goes back to normal and the condition goes away. You may be more likely to have type 2 diabetes later, though. So talk to your healthcare provider about ways to help prevent type 2 diabetes. Treating gestational diabetes Here is how to treat gestational diabetes: ?? You???ll need to check your blood sugar regularly. You can do this at home by pricking your finger and checking a drop of blood on a glucose monitor. Your healthcare provider will show you how andwhen to check your blood sugar and discuss your target blood sugar level. ?? To manage your blood sugar, you will be given a special plan. It will likely involve planning your meals and getting regular exercise. Some women need to take a hormone called insulin, or an oral hypoglycemic medicine to help control their blood sugar. [employer] last reviewed this educational content on 02/14/2017 ?? [id number] [employer]. [address] [place] [address], [place] [address]. All rights reserved. This information is not intended as a substitute for professional medical care. Always follow your healthcare professional's instructions. If You Are Rh Negative A Rho(D) immune globulin injection protects against Rh disease in this and future pregnancies. If you???re Rh negative, ask your??healthcare provider??about getting treated with medicine. Even if you miscarry or don???t deliver the baby, you'll still need treatment. The health of any baby you have in the future depends on it. When are you treated? If your blood has not formed Rh antibodies, you???ll be treated during week 28 of your . You also may be treated any time there???s a chance that your baby's blood has mixed with yours. Thismight be after a test called amniocentesis. Or it might be if you have vaginal bleeding before 28 weeks.??Treatment is??a shot of medicine (called Rho(D) immune globulin). This medicine stops Rh antibodies from forming. It won???t harm you or your baby. After you give , your baby???s blood will be tested. If it???s Rh positive, you???ll be given the medicine again in??3 days. If it???s Rh negative, you won???t need the medicine until your next . Preventing future problems Your chance of forming Rh antibodies grows with each .??This is true even for an??ectopic (the fertilized egg is outside the uterus). It's also true for pregnancies that end in miscarriage or??. In these cases, you??will most likely get the Rho(D) immune globulin medicine. This is because your body can make Rh antibodies even if you don???t deliver a baby. Rh antibodiescan cause problems in future pregnancies. ?? If antibodies have already formed (sensitization), Rho(D) immune globulin can???t protect the baby.You and your baby will need special care during . Your healthcare provider will explain the details to you. St[employer] last reviewed this educational content on 06/17/2019 ?? [id number] [employer]. [address] [place] [address]. All rights reserved. This information is not intended as a substitute for professional medical care. Always follow your healthcare professional's instructions. Signs of Labor labor is a serious problem before 37 weeks of .??This is too early, and your baby could be born too soon.??Call your??doctor right away if you have any of these signs. ?? Contractions every 10 minutes or 6 contractions in a hour ?? Change in vaginal discharge (leaking fluid or bleeding for your vagina) ?? Pelvic pressure - the feeling that your baby is pushing down ?? Low, dull backache ?? Cramps that feel like your period ?? Abdominal cramps with or without diarrhea For more information on labor contact your health care provider or visit [email or web address]. ?? [facility]: ?? [facility]: ?? [facility] Triage: FAQs How often should I nurse? Feed your whenever he or she show signs of hunger. A general guideline is to nurse around 8to 12 times every 24 hours, or about every 2 to 3 hours. It's important to wake newborns to nurse at least every 3 hours until they are back to their weight. Once newborns have shown that they will demand enough milk to grow adequately, they will not need to be awakened to eat, and will oftenspace out feedings as their hunger allows them. With time and patience, every mother-baby pair willdevelop their own schedule and feeding pattern. How many months should I nurse? The??[employer] and Gynecologists (ACOG) and the??[place] [employer] (AAP) both recommend that mothers start as soon as possible after , ideally within the first hour. Research has shown that time [id number] after delivery helps to encourage th is. Both organizations encourage ???-only?? with no other supplements for healthy newborns for the first 6 months of life. At 6 months, your baby may slowly start having solid foods as well. But continue at least through the baby???s first birthday. After the first birthday, you and your baby can stop or continue as long as you want it to happen. Is my baby getting enough milk? There are a few ways to check if your baby is getting enough milk. Latching on You know your baby is getting milk if you hear gulping and swallowing sounds, not just sucking. Look for your baby steadily moving his or her jaw open and closed as another sign of proper ???latchingon.?? If the latch is painful, it's important to ask for help from a career consultant or your healthcare provider. It could be a sign that your baby is not transferring milk from your breast well. Most of the time, this issue is common and can be easily managed with a little help. Urine output and stool frequency You can also tell how much milk your baby is getting by keeping track of your baby???s diapers.??Bythe end of the first week of life: ?? Your baby should??have about 1 wet diaper on day 1, and 2 wet diapers on day 2. This should increase each day by 1 more wet diaper, up to 6 wet diapers on day 6 and then about 6 wet diapers every day.??The urine will be a pale yellow color, not dark yellow or orange. Wet diapers should stay around this amount as your breastfed baby gets older. ?? Your baby should have 3 or 4 stools per day that are at least a teaspoon in amount (not just smears). By the 4th day of life, the black-brown meconium early stool should start to transition to a greenish color, then within another day or two to a loose yellow stool with curds. This is a normal breastfed stool. It's not uncommon for a breastfed baby to pass stool after each feeding. In the secon d to fourth week??of life,??the number of stools can increase to about 5 per day. After 1 month, the number of stools usually lessens. It might be 1 or 2 a day.??Some babies may have a day or days with no stool. In these cases, stool should be in larger amounts when passed. Weight It???s normal for your baby to lose some weight??during the first 3 to 4 days of life. A baby mightnormally lose up to 7% to 10% of his or her weight during this time.??Then your baby should start gaining again. By the end of the second week, he or she should be back to weight. In the weeks following this, he or she will gain about a half ounce to an ounce per day. Does my baby need??vitamins? All breastfed infants should take 400 international units (IU) a day of vitamin D (infant formulation). Your healthcare provider may prescribe this or it may be purchased over the counter. ?? When your baby is 6 months old, you may start to offer baby foods that contain iron. You should discuss the possible need for iron supplementation with your 's healthcare provider. What should I do if my breasts become??swollen, tender, or sore? These symptoms??are most often because your breasts are too full of milk (engorged). This is commonwhen your milk first comes in or if you are making more milk than your baby is drinking. This may cause swelling and make it harder for your baby to nurse. If this happens, try the following: ?? Keep nursing. This is a temporary condition. It gets better once you??can get your baby to drinkmore milk.??Be sure to breastfeed more often and let your baby feed until he or she is finished. Besure to massage your breast while feeding to help the breast drain as fully as possible. ?? Express some milk before you breastfeed. Do this manually or with a breast pump. This will soften the darker area around the nipple (areola) so your baby can latch deeper to begin feeding. ?? Use a warm compress. This can be a towel??or paper diaper??soaked in warm water. Or take a warm shower before feeding.??Some women have found that switching off between a cold compress and a warm one gives them relief. If you feel comfortable with this, you can try it too. If you use an ice pack, wrap it in a thin towel to protect your skin. ?? Take acetaminophen??or ibuprofen for continued pain. The medicine is safe to take during . If your nipples or breasts continue to hurt, call your healthcare provider. Nipple and breast problems are urgent and need to be looked at and treated as soon as possible. When to seek medical advice Unless your baby???s healthcare provider advises otherwise, call the provider right away if your baby has any of the following: ?? Fever (see Fever and children, below) ?? Repeated vomiting ?? Does not appear to be alert, refuses to nurse, or is sleeping too much, such as through feedings ?? Has signs of dehydration. These include fewer wet diapers than normal??or no urine for 8 hours, or the??urine appears dark. Or your baby has no tears when crying, ???sunken eyes,?? or dry mouth. ?? Is not gaining weight or losing weight Call your own healthcare provider right away if you: ?? Have a fever of 100.4??F (38??C) or higher, or as directed by your provider ?? Have redness,??warmth,??pain,??or unusual discharge from your breasts ?? Have such painful nipples and breasts that you want to stop nursing ?? Have a hard lump in your breast ?? Have lower belly (abdominal) pain or cramping??when you are not ?? Have pain or burning when you pass urine ?? Have unexpected vaginal bleeding or foul-smelling discharge Fever and children Use a digital thermometer to check your child???s temperature. Don???t use a mercury thermometer. There are different kinds and uses of digital thermometers. They include: ?? Rectal. For children younger than 3 years, a rectal temperature is the most accurate. ?? Forehead (temporal). This works for children age 3 months and older. If a child under 3 months old has signs of illness, this can be used for a first pass. The provider may want to confirm with a rectal temperature. ?? Ear (tympanic). Ear temperatures are accurate after 6 months of age, but not before. ?? Armpit (axillary). This is the least reliable but may be used for a first pass to check a child of any age with signs of illness. The provider may want to confirm with a rectal temperature. ?? Mouth (oral). Don???t use a thermometer in your child???s mouth until he or she is at least 4 years old. Use the rectal thermometer with care. Follow the product maker???s directions for correct use. Insert it gently. Label it and make sure it???s not used in the mouth. It may pass on germs from the stool. If you don???t feel OK using a rectal thermometer, ask the healthcare provider what type to use instead. When you talk with any healthcare provider about your child???s fever, tell him or her which type you used. Below are guidelines to know if your young child has a fever. Your child???s healthcare provider may give you different numbers for your child. Follow your provider???s specific instructions. Fever readings for a baby under 3 months old: ?? First, ask your child???s healthcare provider how you should take the temperature. ?? Rectal or forehead: 100.4??F (38??C) or higher ?? Armpit: 99??F (37.2??C) or higher Fever readings for a child age 3 months to 36 months (3 years): ?? Rectal, forehead, or ear: 102??F (38.9??C) or higher ?? Armpit: 101??F (38.3??C) or higher Call the healthcare provider in these cases: ?? Repeated temperature of 104??F (40??C) or higher in a child of any age ?? Fever of 100.4?? F (38?? C) or higher in baby younger than 3 months ?? Fever that lasts more than 24 hours in a child under age 2 ?? Fever that lasts for 3 days in a child age 2 or older [employer] last reviewed this educational content on 08/16/2019 ?? 2708-9266 [employer]. [address] [place] [address], [place] [address]. All rights reserved. This information is not intended as a substitute for professional medical care. Always follow your healthcare professional's instructions. Control Choices control keeps you from getting during sex. There are many types of control. Some are more effective than others. New types are being tested all the time. Your healthcare providercan help you decide which type of control is best for you. But no matter which type you choose, you and your partner??must use it the right way each time you have sex.??Some of the most common types are described below. Condom A condom is a thin covering that fits over the penis. (The female condom fits inside the vagina.) Acondom catches sperm that come out of the penis during sex. Spermicide Spermicide is a gel, foam, cream, tablet, or sponge (although the sponge has barrier properties in addition to spermicidal properties). It is put in the vagina before sex to kill sperm. Diaphragm and cervical cap Diaphragms and cervical caps are round rubber cups that keep sperm out of the uterus. They also hold spermicide in place. Intrauterine device (IUD) An IUD is a small device that is placed in the uterus by a healthcare provider to prevent . The pill The control pill is taken daily. It contains hormones that stop a woman???s body from releasing an egg each month. Other hormones Hormones that stop a woman???s egg from being released each month can be delivered in other ways. These include injection, implant, patch, or vaginal ring. Other choices Here are some other control methods: ?? Male sterilization (vasectomy). This??is surgery that ties off or cuts the tubes (vas deferens) in the testes. This is done so sperm??can't??come out when the man ejaculates. ?? Female sterilization. This??is surgery to block or cut the woman's fallopian tubes. It can be done by placing a tool into the uterus (hysteroscopy). This is done to??place??small coils into the fallopian tubes. The FDA has placed restrictions on this method. If you are interested in this method,talk with your healthcare provider about possible risks. Female sterilization can also be done??through the belly (laparoscopy) to block the tubes. Or to remove??part or all of the tubes. ?? Withdrawal method. This is when the male doesn't ejaculate into the vagina. Instead he withdrawshis penis just??before he ejaculates. But the failure rate for this method ranges from 22% to 28%. ?? Fertility awareness method. This is when a woman keeps track of her fertile days. She only has sex at times when she is not likely to get . This method is hard for women who have irregularperiods. Emergency contraception (EC) Emergency contraception can help prevent after unprotected sex. Hormone pills (morning after pills) are available over the counter to anyone. A second type of EC, a copper IUD, needs to be inserted by a trained??healthcare provider. Either type of EC can be used up to 5 days after sex. But it should be taken as soon as possible. The sooner it is used after unprotected sex, the more likely it is to be effective. EC will not work if you???re already . Things to consider Think about the following: ?? Choose a type of control that is easy for you to use. ?? Read the package and follow your healthcare provider's instructions??to learn to use your control the right way. ?? Most forms of control don't protect you from sexually transmitted infections (STIs). To protect against STIs, always use a latex condom. If you are allergic to latex, a nonlatex condom may offer some protection. [employer] last reviewed this educational content on 10/15/2018 ?? [id number] [employer]. [address] [place] [address]. All rights reserved. This information is not intended as a substitute for professional medical care. Always follow your healthcare professional's instructions. * Progress Notes - Chava Rivera APRN, CNM - 01/01/2021 1:15 PM EDT 18w2d: endorses some LEAL Cessation: have not started patches yet, trying to cut back 6cig/day Fatigue and heart burn, taking pepcid Drinking several Mt Dews/day, discussed fluid and sugar intake BEATRIZ 2wks documented in this encounter Plan of Treatment Not on file documented as of this encounter Procedures Procedure Name Priority Date/Time Associated Diagnosis Comments HIV 1/2 ANTIBODY/ANTIGEN SCREEN WITH REFLEX TO HIV I/II DIFFERENTIATION Routine 01/01/2021 2:17 PM EDT 18 weeks gestation of HEPATITIS C ANTIBODY W/REFLEX TO HCV QUANT PCR Routine 01/01/2021 2:17 PM EDT 18 weeks gestation of RUBELLA ANTIBODY IGG Routine 01/01/2021 2:17 PM EDT 18 weeks gestation of RPR WITH REFLEX TO TITER (THOSE WITH KNOWN SYPHILIS) Routine 01/01/2021 2:17 PM EDT 18 weeks gestation of HEPATITIS B SURFACE ANTIGEN Routine 01/01/2021 2:17 PM EDT 18 weeks gestation of CBC W/O DIFFERENTIAL Routine 01/01/2021 2:17 PM EDT 18 weeks gestation of TYPE AND SCREEN Routine 01/01/2021 2:17 PM EDT 18 weeks gestation of TSH Routine 01/01/2021 2:17 PM EDT 18 weeks gestation of documented in this encounter Results * OB US 14+ Weeks Anatomy Scan (01/23/2021 10:13 AM EDT) Anatomical Region Laterality Modality Body Ultrasound 01/23/2021 10:0 0 AM EDT Impressions 02/03/2021 1:03 AM EDT The OB Ultrasound you requested has been resulted. Please navigate to the Imaging tab in [employer] for review. This message has been generated by the interface. Narrative Procedure Note Colten Cope MD - 02/03/2021 IMPRESSION: The OB Ultrasound you requested has been resulted. Please navigate to theImaging tab in [employer] for review. This message has been generated by theinterface. us Chava Rivera APRN, CNM IMG OB US PROCEDURES Fin al Result * RPR (01/01/2021 2:17 PM EDT) Rapid Plasma Reagin Nonreactive Nonreactive 01/01/2021 10:22 PM EDT [facility] Comment:No laboratory eviden ce of syphilis. Blood Venous blood specimen / Unknown 01/01/2021 2:17 PM EDT 01/01/2021 5:10 PM EDT Chava Rivera APRN, CNM LAB BLOOD ORDERABLES Fin al Result Performing Organization Address City/[facility]/ZIP Co de Phone Number [facility]ALTHCARE [facility] [address] [place] [address] * (ABNORMAL) Rubella IgG (01/01/2021 2:17 PM EDT) Pathologist [facility] Rubella Antibody IgG Positive(A ) Negative 01/01/2021 10:01 PM EDT [facility] Blood Venous blood specimen / Unknown 01/01/2021 2:17 PM EDT 01/01/2021 5:10 PM EDT Chava Rivera APRN, CNM LAB BLOOD ORDERABLES Fin al Result Performing Organization Address [facility] Co de Phone Number [facility]ARE [facility] [address] [place] [address] * HIV 1 & 2 Antibody/Antigen Screen (01/01/2021 2:17 PM EDT) Pathologist [facility] HIV 1 & 2 Antibody/Anti gen Screen Nonreactive Nonreactive 01/01/2021 7:14 PM EDT [facility] Blood Venous blood specimen / Unknown 01/01/2021 2:17 PM EDT 01/01/2021 5:11 PM EDT Chava Rivera APRN, CNM LAB BLOOD ORDERABLES Fin al Result Performing Organization Address City/[facility] Co de Phone Number [facility] [address] [place] [address] * Hepatitis B surface Ag (01/01/2021 2:17 PM EDT) Pathologist [facility] Hepatitis B Surf Antigen Negative Negative 01/01/2021 7:10 PM EDT [facility] Blood Venous blood specimen / Unknown 01/01/2021 2:17 PM EDT 01/01/2021 5:10 PM EDT Chava Rivera APRN, CNM LAB BLOOD ORDERABLES Fin al Result Performing Organization Address [facility] Co de Phone Number [facility] [address] [place] [address] * Hepatitis C Antibody (01/01/2021 2:17 PM EDT) Hepatitis C Antibody Negative Negative 01/01/2021 7:14 PM EDT [facility] Blood Venous blood specimen / Unknown 01/01/2021 2:17 PM EDT 01/01/2021 5:11 PM EDT Chava Rivera APRN, CNM LAB BLOOD ORDERABLES Fin al Result Performing Organization Address [facility] Phone Number [facility] [address] [place] [address] * TSH (01/01/2021 2:17 PM EDT) Thyroid Stimulating Hormone, Plasma 1.17 0.40 - 4.20 uIU/mL 01/01/2021 5:47 PM EDT [facility] Blood Venous blood specimen / Unknown 01/01/2021 2:17 PM EDT 01/01/2021 5:10 PM EDT Narrative [facility] - 01/01/2021 5:47 PM EDT Trimester Specific Ranges ?TSH (??IU/mL) 1st Trimester ??0.1 ??- 3.0 2nd Trimester ??0.19 - 4.06 3rd Trimester ??0.3 ??- 3.7 Chava Rivera APRN, CNM LAB BLOOD ORDERABLES Fin al Result Performing Organization Address [facility] de Phone Number [facility] [address] [place] [address] * (ABNORMAL) CBC (01/01/2021 2:17 PM EDT) WBC Count 14.63(H) 3.70 - 10.30 10*3/uL LAB HEMATOLOGY METHOD 01/01/2021 5:32 PM EDT [facility] RBC Count 4.38 3.90 - 5.20 10*6/uL LAB HEMATOLOGY METHOD 01/01/2021 5:32 PM EDT [facility] HGB 12.9 11.2 - 15.7 g/dL LAB HEMATOLOGY METHOD 01/01/2021 5:32 PM EDT [facility] HCT 38.8 34.0 - 45.0 % LAB HEMATOLOGY METHOD 01/01/2021 5:32 PM EDT [facility] Platelet Count 330 155 - 369 10*3/uL LAB HEMATOLOGY METHOD 01/01/2021 5:32 PM EDT [facility] MCV 89 79 - 98 fL LAB HEMATOLOGY METHOD 01/01/2021 5:32 PM EDT [facility] MCH 29.5 26.0 - 32.0 pg LAB HEMATOLOGY METHOD 01/01/2021 5:32 PM EDT [facility] MCHC 33.2 30.7 - 35.5 g/dL LAB HEMATOLOGY METHOD 01/01/2021 5:32 PM EDT [facility] RDW 13.1 11.5 - 14.5 % LAB HEMATOLOGY METHOD 01/01/2021 5:32 PM EDT [facility] MPV 10.8 8.8 - 12.5 fL LAB HEMATOLOGY METHOD 01/01/2021 5:32 PM EDT [facility] nRBC 0.0 <=0.0 per 100 WBCs LAB HEMATOLOGY METHOD 01/01/2021 5:32 PM EDT [facility] Blood Venous blood specimen / Unknown 01/01/2021 2:17 PM EDT 01/01/2021 5:10 PM EDT us Chava Rivera APRN, CNM LAB BLOOD ORDERABLES Fin al Result [facility] [address] [place] [id number] * Type and Screen (01/01/2021 2:17 PM EDT) ABO/Rh O Positive 12/31/2020 8:00 PM EDT BLOOD BANK Antibody Screen Negative 12/31/2020 8:00 PM EDT BLOOD BANK Blood Venous blood specimen / Unknown Venipuncture / Unknown 01/01/2021 2:17 PM EDT 01/01/2021 5:20 PM EDT us Chava Rivera APRN, CNM LAB BLOOD BANK TEST SHELLY SHAIKH Final Result Performing Organization Address City/State/[facility] Co de Phone Number BLOOD BANK [address] documented in this encounter Visit Diagnoses Diagnosis 18 weeks gestation of - Primary 18 weeks gestation of documented in this encounter Care Teams Document Management Technician Relationship Specialty Start Date End Date Per Patient, None, [address] [facility] [address] [place] [address] PCP - General 11/25/20 documented as of this encounter
--- OUTSIDE RECORDS SUMMARY | 2024-04-02 15:14 | XMS_ITS | Encounter Summary ---
Author Organization Healthcare Address [address] [place] [address] Care Team Providers Care Community Health Outreach Worker Name Role Phone Per Patient, None MD Primary Care Provider [phone] Encounter Details Date Type Department Care Team (Latest Contact Info) Description 01/23/2021 9:15 AM EDT [facility]ine [facility] [address], [address] [place] [address] Nancy Sesay, LAP CUTTER TRUER OPERATOR, CNM [address] [place] [address] 20 weeks gestation of (Primary Dx) Social History [...] have Coronavirus / COVID-19? No / Unsure 01/23/2021 9:52 AM EDT documented as of this encounter Last Filed Vital Signs Vital Sign Reading Time Taken Comments Blood Pressure 115/72 01/23/2021 10:27 AM EDT Pulse - - Temperature - - Respiratory Rate - - Oxygen Saturation - - Inhaled Oxygen Concentration - - Weight 90.2 kg (198 lb 13.7 oz) 021 10:27 AM EDT Height - - Body Mass Index - - documented in this encounter Miscellaneous Notes * Progress Notes - Nancy Sesay APRN, CNM - 01/23/2021 9:15 AM EDT 21w3d -US @ 21w3d (01/23/21): prelim-normal limited monica; good movement; normal fluid. Awaiting MD impression -smoker: 8 cigs/days; trying to cut back; discussed Nicotine patches and mood swings -mood: stable -blood on stool and with wiping: likely hemorrhoid; discussed Miralax, colace, hydration with water -COVID: plans to get today -urine labs collected today -reviewed precautions RTC: 4wks documented in this encounter Plan of Treatment Not on file documented as of this encounter Procedures Procedure Name Priority Date/Time Associated Diagnosis Comments CHLAMYDIA TRACHOMATIS DNA BY PCR Routine 01/23/2021 8:07 PM EDT 20 weeks gestation of NEISSERIA GONORRHEA DNA BY PCR Routine 01/23/2021 8:07 PM EDT 20 weeks gestation of URINE CULTURE Routine 01/23/2021 8:06 PM EDT 20 weeks gestation of COMPREHENSIVE URINE DRUG SCREENING,QUALITATIVE ASSAY, >= 27 DRUG CLASSES Routine 01/23/2021 7:39 PM EDT 20 weeks gestation of documented in this encounter Results * Chlamydia trachomatis DNA by PCR (01/23/2021 8:07 PM EDT) Chlamydia trachomatis DNA PCR Result Not Detected Not Detected 01/24/2021 12:12 PM EDT [facility] Urine Urine specimen obtained by clean catch procedure / Unknown Non-blood Collection / Unknown 01/23/2021 8:07 PM EDT 01/23/2021 8:07 PM EDT Narrative [facility] - 01/24/2021 12:12 PM EDT This test is performed by the [employer] m2000 instrument for Real Time PCR C. trachomatis and N. gonorrhea. This test is FDA approved for use with endocervical, vaginal, and urine specimens. This test is used for clinical purposes. It should not be regarded as invesigational or for research. The [facility] Clinical Microbiology Laboratory is certified under the Clinical Laboratory Improvement Amendments of 1988 (CLIA-88) as qualified to perform high complexity clinical laboratory testing. Nancy Sesay APRN, CNM LAB MICROBIOLOGY - GEN ERAL ORDERABLES Final Result Performing Organization Address [facility] Co de Phone Number [facility] [address] [place] [address] * (ABNORMAL) Neisseria gonorrhea DNA by PCR (01/23/2021 8:07 PM EDT) Neisseria gonorrhea DNA PCR Result Detected(A ) Not Detected. 01/24/2021 12:12 PM EDT [facility] Urine Urine specimen obtained by clean catch procedure / Unknown Non-blood Collection / Unknown 01/23/2021 8:07 PM EDT 01/23/2021 8:07 PM EDT Narrative [facility] - 01/24/2021 12:12 PM EDT This test is performed by the Mor[employer] m2000 instrument for Real Time PCR C. trachomatis and N. gonorrhea. This test is FDA approved for use with endocervical, vaginal, and urine specimens. This test is used for clinical purposes. It should not be regarded as invesigational or for research. The [facility] is certified under the Clinical Laboratory Improvement Amendments of 1988 (CLIA-88) as qualified to perform high complexity clinical laboratory testing. Nancy Sesay APRN, CNM LAB MICROBIOLOGY - GEN ERAL ORDERABLES Final Result Performing Organization Address [facility]/ZIP Co de Phone Number [facility] [address] [place] [address] * Urine culture (01/23/2021 8:06 PM EDT) Culture 10,000 - 100,000 CFU/mL Alpha hemolytic streptococcus vs gram positive mariaa 01/25/2021 2:46 PM EDT [facility] Comment:The organism value f or this result has been updated. These results have been appended to the previously preliminary verified report. Culture <10,000 CFU/mL - Biotype 2 Alpha hemolytic streptococcus vs gram positive mariaa 01/25/2021 2:46 PM EDT [facility] Comment:The organism value f or this result has been updated. These results have been appended to the previously preliminary verified report. Urine Urine specimen obtained by clean catch procedure / Unknown Non-blood Collection / Unknown 01/23/2021 8:06 PM EDT 01/23/2021 8:06 PM EDT Nancy Sesay APRN, CNM LAB MICROBIOLOGY - GEN ERAL ORDERABLES Final Result [facility] [address] [place] [address] * Comprehensive Urine Drug Screening, Qualitative (01/23/2021 7:39 PM EDT) [facility] Comprehensive Urine Drug Screen Result Negative Negative 01/25/2021 6:05 PM EDT [facility] Urine Urine specimen obtained by clean catch procedure / Unknown 01/23/2021 7:39 PM EDT 01/23/2021 7:38 PM EDT Narrative [facility] - 01/25/2021 6:05 PM EDT Drugs in urine are analyzed by gas chromatography-mass spectrometry. This test was developed and its performance characteristics determined by [email or web address].It has not been cleared or approved by the FDA.The laboratory is regulated under CLIA as qualified to perform high-complexity testing. This test is used for clinical purposes. Testing is performed at the [facility], Special Chemistry Laboratory. Drugs detected MAY include the following, but are not limited to this list. Drugs will be reported if they meet the laboratory quality criteria for identification.: Acetaminophen, alprazolam, amitriptyline, amphetamine, atenolol, bupropion, butalbital, carbamazepine, chlorpheniramine, citalopram, clopidogrel, cocaine, cyclobenzaprine, desvenlafaxine, dextromethorphan, diazepam, diphenhydramine, diltiazem, doxepine, doxylamine, fentanyl, fluconazole, fluoxetine, gabapentin, guaifenesin, haloperidol, heroin, hydrocodone, hydroxyzine, ibuprofen, imipramine, ketamine, labetolol, lamotrigine, levetiracetam, lidocaine, metaxalone, methadone, methamphetamine, methocarbamol, metoclopramide, metoprolol, metronidazole, midazolam, mirtazapine, naproxen, nortriptyline, ordanstron, oxcarbazepine, oxycodone, paroxetine, phentermine, phenytoin, promethazine, propofol, propranolol, quetiapine, quinine, rantidine, sertraline, spironolactone, tizanidine, topiramate, tramadol, trazodone, trimethoprim, venlafaxine, verapamil. Nancy Sesay APRN, CNM LAB URINE ORDERABLES F inal Result [facility] [address] [place] [address] documented in this encounter Visit Diagnoses Diagnosis 20 weeks gestation of - Primary documented in this encounter Care Teams Community Health Outreach Worker Relationship Specialty Start Date End Date Per Patient, None, [address] [facility] [address] [place] [address] PCP - General 11/25/20 documented as of this encounter
--- OUTSIDE RECORDS SUMMARY | 2024-04-02 15:14 | XMS_ITS | Encounter Summary ---
Author Organization Healthcare Address [address] [place] [address] Care Team Providers Care Merchandising Representative Name Role Phone Per Patient, None Primary Care Provider [phone] Encounter Details Date Type Department Care Team (Latest Contact Info) Description 02/21/2021 Travel Social History Tobacco Use Types Packs/Day [...] have Coronavirus / COVID-19? No / Unsure 02/21/2021 11:39 AM EDT documented as of this encounter Plan of Treatment Not on file documented as of this encounter Visit Diagnoses Not on filedocumented in this encounter Care Teams Merchandising Representative Relationship Specialty Start Date End Date Per Patient, None, [address] [place], [place] [id number] PCP - General 11/25/20 documented as of this encounter
--- OUTSIDE RECORDS SUMMARY | 2024-04-02 15:14 | XMS_ITS | Encounter Summary ---
Author Organization Healthcare Address [address] [place] [address] Care Team Providers Care Sane Nurse Name Role Phone Per Patient, None Primary Care Provider [phone] Encounter Details Date Type Department Care Team (Latest Contact Info) Description 01/01/2021 Travel Social History Tobacco Use Types Packs/Day [...] PM EDT documented as of this encounter Plan of Treatment Not on file documented as of this encounter Visit Diagnoses Not on filedocumented in this encounter Care Teams Sane Nurse Relationship Specialty Start Date End Date Per Patient, None, [address] [place], [place] [id number] PCP - General 11/25/20 documented as of this encounter
--- OUTSIDE RECORDS SUMMARY | 2024-04-02 15:14 | XMS_ITS | Encounter Summary ---
Author Organization Healthcare Address [address] [place] [address] Care Team Providers Care Payroll Specialist Name Role Phone Per Patient, None Primary Care Provider + [phone] Encounter Details Date Type Department Care Team (Latest Contact Info) Description 03/17/2021 Travel Social History Tobacco Use Types Packs/Day [...] have Coronavirus / COVID-19? No / Unsure 03/17/2021 8:03 AM EDT documented as of this encounter Plan of Treatment Not on file documented as of this encounter Visit Diagnoses Not on filedocumented in this encounter Care Teams Payroll Specialist Relationship Specialty Start Date End Date Per Patient, None, [address] [place], [place] [id number] PCP - General 11/25/20 documented as of this encounter
--- OUTSIDE RECORDS SUMMARY | 2024-04-02 15:14 | XMS_ITS | Encounter Summary ---
Author Organization Healthcare Address [address] [place] [address] Care Team Providers Care Railroad Inspector Name Role Phone Per Patient, None Primary Care Provider [phone] Encounter Details Date Type Department Care Team (Latest Contact Info) Description 04/15/2021 Travel Social History Tobacco Use Types Packs/Day [...] have Coronavirus / COVID-19? No / Unsure 04/15/2021 10:24 AM EST documented as of this encounter Plan of Treatment Not on file documented as of this encounter Visit Diagnoses Not on filedocumented in this encounter Care Teams Railroad Inspector Relationship Specialty Start Date End Date Per Patient, None, [address] [place], [place] [id number] PCP - General 11/25/20 documented as of this encounter
--- OUTSIDE RECORDS SUMMARY | 2024-04-02 15:14 | XMS_ITS | Encounter Summary ---
Author Organization Healthcare Address [address] [place] [address] Care Team Providers Care Return To Vendor Name Role Phone Per Patient, None Primary Care Provider [phone] Encounter Details Date Type Department Care Team (Latest Contact Info) Description 01/23/2021 Travel Social History Tobacco Use Types Packs/Day [...] on filedocumented in this encounter Care Teams Return To Vendor Relationship Specialty Start Date End Date Per Patient, None, [address] [place], [place] [id number] PCP - General 11/25/20 documented as of this encounter
--- OUTSIDE RECORDS SUMMARY | 2024-04-02 15:14 | XMS_ITS | Encounter Summary ---
Author Organization Healthcare Address [address] [place] [address] Care Team Providers Care Mold Clamper Name Role Phone Per Patient, None Primary Care Provider [phone] Encounter Details Date Type Department Care Team (Latest Contact Info) Description 02/26/2021 8:15 AM EDT Routine [facility] [address], [address] [place] [address] Chava Rivera, REFUSE AND RECYCLING WORKER, CNM [address] [place] [address] Uterine size-date discrepancy in second trimester (Primary Dx); Gonorrhea affecting in second trimester Social History Tobacco Use Types Packs/Day Years [...] Sign Reading Time Taken Comments Blood Pressure 116/66 02/26/2021 8:26 AM EDT Pulse - - Temperature - - Respiratory Rate - - Oxygen Saturation - - Inhaled Oxygen Concentration - - Weight 96.4 kg (212 lb 8.4 oz) 02/26/2021 8:26 A M EDT Height - - Body Mass Index - - documented in this encounter Miscellaneous Notes * Patient Instructions - Chava Rivera, RUMA, TEJA - 02/26/2021 8:15 AM EDT Images from the original note were [...] pounds and is about 12 inches long. [employer] last reviewed this educational content on 05/17/2017 ?? [phone] [employer] [address] [place] [address], [place] [address]. All rights reserved. This information is not [...] smoke. ?? Don???t breathe fumes from nail british, hair spray, cleansers, or other chemicals. [employer] last reviewed this educational content on 05/17/2017 ?? [phone] [employer] [address] [place] [address], [place] [address]. All rights reserved. This information is not [...] have concerns. Keeping a healthy mouth ?? [place] twice daily with fluoride toothpaste. Floss at [...] treatments wait until after you give . [employer] last reviewed this educational content on 04/16/2017 ?? [phone] [employer] [address] [place] [address], [place] [address]. All rights reserved. This information is not [...] swelling ?? Fluid leaking from the vagina [employer] last reviewed this educational content on 04/16/2017 ?? [phone] [employer] [address] [place] [address], [place] [address]. All rights reserved. This information is not [...] gone and your hands are completely dry. [employer] last reviewed this educational content on 01/15/2017 ?? [phone] [employer] [address] [place] [address]. All rights reserved. This information is not [...] While conflicting recommendations for screening exist, the [place] [employer] currently recommends universal [...] medicine to help control their blood sugar. [employer] last reviewed this educational content on 02/14/2017 ?? [phone] [employer] [address] [place] [address], [place] [address]. All rights reserved. This information is not [...] provider will explain the details to you. [employer] last reviewed this educational content on 06/17/2019 ?? [phone] [employer] [address] [place] [address], [place] [address]. All rights reserved. This information is not [...] contact your health care provider or visit [email or web address]. ?? [facility]: ?? Women's Health & Obstetrics: ?? Birthing [...] pattern. How many months should I nurse? The??[employer] [employer] (ACOG) and the??[place] [employer] Pediatric[employer] (AAP) both recommend that mothers start as soon as possible after , ideally within the first hour. Research has shown that time [id number] after delivery helps to encourage th is. [...] important to ask for help from a travel consultant or your healthcare provider. It could [...] in a child age 2 or older [employer] last reviewed this educational content on 08/16/2019 ?? [phone] [employer] [address] [place] [address]. All rights reserved. This information is not [...] a nonlatex condom may offer some protection. [employer] last reviewed this educational content on 10/15/2018 ?? [phone] [employer] [address] [place] [address]. All rights reserved. This information is not intended as a substitute for professional medical care. Always follow your healthcare professional's instructions. * Progress Notes - Chava Rivera APRN, CNM - 02/26/2021 8:15 AM EDT 26w2d: + FM + Gonorrhea in Sept. : pt reports treatment in [place], RAKESH today S>D by today, 14# weight gain since last, growth US ordered in 2 wks w/ glucola - discussed diet: mostly high carb - exercise: walking every other night , discussed incr exercise - discussed possible implications - FU 2 wks documented in this encounter Plan of Treatment Not on file documented as of this encounter Procedures Procedure Name Priority Date/Time Associated Diagnosis Comments CHLAMYDIA TRACHOMATIS DNA BY PCR Routine 02/27/2021 11:45 AM EDT Gonorrhea affecting in second trimester NEISSERIA GONORRHEA DNA BY PCR Routine 02/27/2021 11:45 AM EDT Gonorrhea affecting in second trimester documented in this encounter Results * Chlamydia trachomatis DNA by PCR (02/27/2021 11:45 AM EDT) Chlamydia trachomatis DNA PCR Result Not Detected Not Detected 02/27/2021 11:45 AM EDT [facility] Urine Urine specimen / Unknown 02/26/2021 12:54 PM EDT Narrative [facility] - 02/27/2021 11:45 AM EDT This test is performed by the [employer] m2000 instrument for Real Time PCR C. trachomatis and N. gonorrhea. This test is FDA approved for use with endocervical, vaginal, and urine specimens. This test is used for clinical purposes. It should not be regarded as invesigational or for research. The [facility] Clinical Microbiology Laboratory is certified under the Clinical Laboratory Improvement Amendments of 1988 (CLIA-88) as qualified to perform high complexity clinical laboratory testing. Chava Rivera APRN, CNM LAB MICROBIOLOGY - GENER AL ORDERABLES Final Result Performing Organization Address [facility] Co de Phone Number [facility] [address] [place] [address] * Neisseria gonorrhea DNA by PCR (02/27/2021 11:45 AM EDT) Neisseria gonorrhea DNA PCR Result Not Detected Not Detected. 02/27/2021 11:45 AM EDT [facility] Urine Urine specimen / Unknown 02/26/2021 12:54 PM EDT Narrative [facility] - 02/27/2021 11:45 AM EDT This test is performed by the [employer] m2000 instrument for Real Time PCR C. trachomatis and N. gonorrhea. This test is FDA approved for use with endocervical, vaginal, and urine specimens. This test is used for clinical purposes. It should not be regarded as invesigational or for research. The [facility] is certified under the Clinical Laboratory Improvement Amendments of 1988 (CLIA-88) as qualified to perform high complexity clinical laboratory testing. Chava Rivera APRN, CNM LAB MICROBIOLOGY - GENER AL ORDERABLES Final Result Performing Organization Address [facility] Co de Phone Number [facility] [address] [place] [address] documented in this encounter Visit Diagnoses Diagnosis Uterine size-date discrepancy in second trimester- Primary Gonorrhea affecting in second trimester documented in this encounter Care Teams Mold Clamper Relationship Specialty Start Date End Date Per Patient, None, [address] [facility] [address] [place] [address] PCP - General 11/25/20 documented as of this encounter
--- OUTSIDE RECORDS SUMMARY | 2024-04-02 15:14 | XMS_ITS | Encounter Summary ---
Author Organization Healthcare Address [address] [place] [address] Care Team Providers Care Fellmongery Worker Name Role Phone Per Patient, None Primary Care Provider + [phone] Encounter Details Date Type Department Care Team (Latest Contact Info) Description 04/30/2021 Travel Social History Tobacco Use Types Packs/Day [...] PM EST documented as of this encounter Plan of Treatment Not on file documented as of this encounter Visit Diagnoses Not on filedocumented in this encounter Care Teams Fellmongery Worker Relationship Specialty Start Date End Date Per Patient, None, [address] [place], [place] [id number] PCP - General 11/25/20 documented as of this encounter
--- OUTSIDE RECORDS SUMMARY | 2024-04-02 15:14 | XMS_ITS | Encounter Summary ---
Author Organization Healthcare Address [address] [place] [address] Care Team Providers Care Appliance Painter And Refinisher Name Role Phone Per Patient, None Primary Care Provider + [phone] Encounter Details Date Type Department Care Team (Latest Contact Info) Description 12/06/2020 Travel Social History Tobacco Use Types Packs/Day [...] on filedocumented in this encounter Care Teams Appliance Painter And Refinisher Relationship Specialty Start Date End Date Per Patient, None, [address] [place], [place] [address] PCP - General 11/25/20 documented as of this encounter
--- OUTSIDE RECORDS SUMMARY | 2024-04-02 15:14 | XMS_ITS | Encounter Summary ---
Author Organization Healthcare Address [address] [place] [address] Care Team Providers Care Want Ad Receiver Name Role Phone Per Patient, None Primary Care Provider [phone] Encounter Details Date Type Department Care Team (Latest Contact Info) Description 05/07/2021 10:30 AM EST Routine [facility] [address], [address] [place] [address] Evert Kaye, RUMA, CNM [address] [place] [address] 36 weeks gestation of (Primary Dx) Social History [...] Sign Reading Time Taken Comments Blood Pressure 121/85 05/07/2021 10:29 AM EST Pulse - - Temperature - - Respiratory Rate - - Oxygen Saturation - - Inhaled Oxygen Concentration - - Weight 110 kg (241 lb 10 oz) 05/07/2021 10:29 AM EST Height - - Body Mass Index - - documented in this encounter Miscellaneous Notes * Progress Notes - Evert Kaye APRN, CNM - 05/07/2021 10:30 AM EST 36w2d ROLANDO -Tobacco use: 4 cigarettes/day, increased vape use -Currently has personal life stressors, but does not desire to discuss today; states she has good support from family -Discussed exercise goals and increasing water intake -2+ pitting edema in legs and ankles, discussed elevating legs -71lb TWG -Has questions r/t her FH measurement, offered reassurance that it is WNL -GBS collected today -Denies LOF, VB; some BH ctx, +FM -Reviewed 3T precautions RTC: 1 week documented in this encounter Plan of Treatment Not on file documented as of this encounter Procedures Procedure Name Priority Date/Time Associated Diagnosis Comments GROUP B STREPTOCOCCUS BY PCR Routine 05/07/2021 10:26 AM EST 36 weeks gestation of documented in this encounter Results * Group B Streptococcus by PCR (05/07/2021 10:26 AM EST) Group B Streptococcus PCR Result Not Detected Not Detected 05/10/2021 10:38 PM EST [facility] Swab Rectovaginal / Unknown Non-blood Collection / Unknown 05/07/2021 10:26 AM EST 05/07/2021 5:27 PM EST us Chava Rivera APRN, CNM LAB BLOOD ORDERABLES Fin al Result [facility] [address] [place] [address] documented in this encounter Visit Diagnoses Diagnosis 36 weeks gestation of - Primary documented in this encounter Care Teams Want Ad Receiver Relationship Specialty Start Date End Date Per Patient, None, [address] [facility] [address] [place], [place] [id number] PCP - General 11/25/20 documented as of this encounter
--- OUTSIDE RECORDS SUMMARY | 2024-04-02 15:14 | XMS_ITS | Encounter Summary ---
Author Organization [facility] Address [address] [place] [address] Care Team Providers Care Sheriffs Name Role Phone Per Patient, None Primary Care Provider + [phone] Reason for Referral * Imaging (Routine) - Closed Specialty Diagnoses / Procedures Referred By Contac t Referred To Contact Radiology Diagnoses Uterine size-date discrepancy in second trimester Procedures OB US Follow Up Transabdominal Approach Mary Verde APRN, CNM [address] [place] [address] Phone: tel: fax: Referral ID Status Reason Start Date Expiration Date Visits Re quested Visits Authorized [id number] Closed 02/28/2021 08/30/2022 1 1 Reason for Visit * Imaging (Routine) - Closed Specialty Diagnoses / Procedures Referred By Contac t Referred To Contact Radiology Diagnoses Uterine size-date discrepancy in second trimester Procedures OB US Follow Up Transabdominal Approach Mary Verde APRN, CNM [address] [place] [address] Phone: tel: fax: Referral ID Status Reason Start Date Expiration Date Visits Re quested Visits Authorized [id number] Closed 02/28/2021 08/30/2022 1 1 Encounter Details Date Type Department Care Team (Latest Contact Info) Description 03/17/2021 8:14 AM EDT - 03/17/2021 11:59 PM EDT Hospital Encounter [facility] JD OBGYN ULTRASOUND [address] [place] [address] Uterine size-date discrepancy in second trimester Discharge Disposition: Home or Self Care Social [...] AM EDT documented as of this encounter Medications at Time of Discharge Vit-Fe Fumarate-FA ( 1+1 PO) Take by mouth. famotidine (Pepcid) 20 MG tablet Take 1 tablet by mouth 1 (one) time each day. 04/01/2023 nicotine (Nicoderm CQ) 14 MG/24HR patchIndications :Tobacco smoking affecting in second trimester Place 1 patch on the skin 1 (one) time each day at the same time. 42 patch 12/06/2020 04/01/2021 nicotine polacrilex (Commit) 4 MG lozengeIndicatio ns:Maternal tobacco use in second trimester Dissolve 1 lozenge (4 mg total) in the mouth every 2 (two) hours if needed for smoking cessation. 100 lozenge 1 03/17/2021 04/01/2021 documented as of this encounter Plan of Treatment Not on file documented as of this encounter Procedures Procedure Name Priority Date/Time Associated Diagnosis Comments OB US FOLLOW UP TRANSABDOMINAL APPROACH Routine 03/17/2021 9:04 AM EDT Uterine size-date discrepancy in second trimester documented in this encounter Results * OB US Follow Up Transabdominal Approach (03/17/2021 9:04 AM EDT) Anatomical Region Laterality Modality Body Ultrasound 03/17/2021 8:44 AM EDT Impressions 03/17/2021 2:20 PM EDT The OB Ultrasound you requested has been resulted. Please navigate to the Imaging tab in [employer] for review. This message has been generated by the interface. Narrative Procedure Note Colten Cope MD - 03/17/2021 IMPRESSION: The OB Ultrasound you requested has been resulted. Please navigate to theImaging tab in [employer] for review. This message has been generated by [employer] us Mary Verde APRN, CNM IMG OB US PROCEDURES Final Result documented in this encounter Visit Diagnoses Diagnosis Uterine size-date discrepancy in second trimester documented in this encounter Care Teams Sheriffs Relationship Specialty Start Date End Date Per Patient, None, [address] [facility] [address] [place] [address] PCP - General 11/25/20 documented as of this encounter
--- OUTSIDE RECORDS SUMMARY | 2024-04-02 15:14 | XMS_ITS | Encounter Summary ---
Author Organization Healthcare Address [address] [place] [address] Care Team Providers Care Automation Engineering Technician Name Role Phone Per Patient, None Primary Care Provider [phone] Encounter Details Date Type Department Care Team (Late st Contact Info) Description 04/01/2021 8:30 AM EST Routine [facility] [address] [place] [address] Mary Verde APRN, CN [address] [place] [address] Glucose tolerance test abnormal (Primary Dx); 31 weeks gestation of Social History Tobacco Use Types Packs/Day Years [...] Sign Reading Time Taken Comments Blood Pressure 111/77 04/01/2021 11:36 AM EST Pulse - - Temperature - - Respiratory Rate - - Oxygen Saturation - - Inhaled Oxygen Concentration - - Weight 103 kg (226 lb 10.1 oz) 04/01/2021 11:36 AM EST Height - - Body Mass Index - - documented in this encounter Miscellaneous Notes * Progress Notes - Mary Verde APRN, CNM - 04/01/2021 8:30 AM EST 31w1d ROLANDO/GTT -FH still 3cm above, growth US @ last reveals EFW 51%. Cont to monitor. -Discussed diet, exercise, wt gain goals. Pt reports she walks decreased eating bread and soda. Hasgained 57lbs so far. -Tobacco use: continue 6 cigs daily, enco cessation -Bronchitis dx yesterday by outside provider, starting Zpack today. -Baby stays in left ribs, uncomfortable. Discussed stretches/yoga. -Waiting on breast pump, has ordered thru [employer] RTC: depending on GTT results documented in this encounter Plan of Treatment Not on file documented as of this encounter Procedures Procedure Name Priority Date/Time Associated Diagnosis Comments GTT 3 HOUR Routine 04/01/2021 11:33 AM EST Glucose tolerance test abnormal GTT 2 HOUR Routine 04/01/2021 10:22 AM EST Glucose tolerance test abnormal GTT 1 HOUR Routine 04/01/2021 9:28 AM EST Glucose tolerance test abnormal GTT, FASTING Routine 04/01/2021 8:28 AM EST Glucose tolerance test abnormal GLUCOSE TOLERANCE CONFIRMATION, 3 HOUR, OB, PLASMA Routine 04/01/2021 8:28 AM EST Glucose tolerance test abnormal documented in this encounter Results * GTT 3 Hour (04/01/2021 11:33 AM EST) GTT - 3 Hour 114 74 - 139 mg/dL 04/01/2021 12:58 PM EST [facility] Blood Venous blood specimen / Unknown Venipuncture / Unknown 04/01/2021 11:33 AM EST 04/01/2021 12:29 PM EST Narrative [facility] - 04/01/2021 12:58 PM EST At least 2 of the 4 values must be abnormal for the diagnosis of gestational diabetes. us Cassidyn Carrie Luis Carlos DOMESTIC VIOLENCE COUNSELOR, CNM LAB BLOOD ORDERABLES Fin al Result Performing Organization Address City[facility]/ZIP Co de Phone Number [facility] [address] [place] [address] * GTT 2 Hour (04/01/2021 10:22 AM EST) [facility] GTT - 2 Hour 113 74 - 154 mg/dL 04/01/2021 12:58 PM EST [facility] Blood Venous blood specimen / Unknown Venipuncture / Unknown 04/01/2021 10:22 AM EST 04/01/2021 12:29 PM EST Narrative [facility] - 04/01/2021 12:58 PM EST Plasma glucose concentrations measured 2 hours after a 75g glucose load of >=200 mg/dL are diagnostic for Diabetes Mellitus. Lavern Aldridge APRN, CNM LAB BLOOD ORDERABLES Fin al Result Performing Organization Address [facility] Co de Phone Number [facility] [address] [place] [address] * (ABNORMAL) GTT 1 Hour (04/01/2021 9:28 AM EST) [facility] GTT - 1 Hour 188(H) 74 - 179 mg/dL 04/01/2021 12:55 PM EST [facility] Blood Venous blood specimen / Unknown Venipuncture / Unknown 04/01/2021 9:28 AM EST 04/01/2021 12:29 PM EST us Cassidyvandana Butler Sharp DOMESTIC VIOLENCE COUNSELOR, CNM LAB BLOOD ORDERABLES Fin al Result Performing Organization Address [facility] Co de Phone Number [facility] [address] [place] [address] * GTT, Fasting (04/01/2021 8:28 AM EST) [facility] GTT - Fasting 92 74 - 94 mg/dL 04/01/2021 12:55 PM EST [facility] Blood Venous blood specimen / Unknown Venipuncture / Unknown 04/01/2021 8:28 AM EST 04/01/2021 12:29 PM EST Lavern Aldridge APRN, TEJA LAB BLOOD ORDERABLES Fin al Result [facility] [address] [place] [address] documented in this encounter Visit Diagnoses Diagnosis Glucose tolerance test abnormal- Primary Impaired glucose tolerance test 31 weeks gestation of documented in this encounter Care Teams Automation Engineering Technician Relationship Specialty Start Date End Date Per Patient, None, [address] [facility] [address] [place], [place] [id number] PCP - General 11/25/20 documented as of this encounter
--- OUTSIDE RECORDS SUMMARY | 2024-04-02 15:14 | XMS_ITS | Encounter Summary ---
Author Organization Healthcare Address [address] [place] [address] Care Team Providers Care Diver Assistant Name Role Phone Per Patient, None Primary Care Provider + [phone] Encounter Details Date Type Department Care Team (Latest Contact Info) Description 05/14/2021 Travel Social History Tobacco Use Types Packs/Day [...] on filedocumented in this encounter Care Teams Diver Assistant Relationship Specialty Start Date End Date Per Patient, None, [address] [place], [place] [id number] PCP - General 11/25/20 documented as of this encounter
--- OUTSIDE RECORDS SUMMARY | 2024-04-02 15:14 | XMS_ITS | Encounter Summary ---
Author Organization [facility] Address [address] [place] [address] Care Team Providers Care Telecommunications Professional Name Role Phone Per Patient, None Primary Care Provider [phone] Reason for Referral * Imaging (Routine) - Closed Specialty Diagnoses / Procedures Referred By Contac t Referred To Contact Radiology Diagnoses 18 weeks gestation of Procedures OB US 14+ Weeks Anatomy Scan Chava Rivera APRN, CNM [address] [place] [address] Phone: tel: fax: Referral ID Status Reason Start Date Expiration Date Visits Re quested Visits Authorized [id number] Closed 01/01/2021 06/30/2021 1 1 Reason for Visit * Imaging (Routine) - Closed Specialty Diagnoses / Procedures Referred By Contac t Referred To Contact Radiology Diagnoses 18 weeks gestation of Procedures OB US 14+ Weeks Anatomy Scan Chava Rivera APRN, CNM [address] [place] [address] Phone: tel: fax: Referral ID Status Reason Start Date Expiration Date Visits Re quested Visits Authorized [id number] Closed 01/01/2021 06/30/2021 1 1 Encounter Details Date Type Department Care Team (Latest Contact Info) Description 01/23/2021 9:30 AM EDT - 01/23/2021 11:59 PM EDT Hospital Encounter [facility] JD OBGYN ULTRASOUND [address] [place] [address] 18 weeks gestation of Discharge Disposition: Home or [...] mouth. famotidine (Pepcid) 20 MG tablet Take by mouth. 02/26/2021 nicotine (Nicoderm CQ) 14 MG/24HR patchIndications: Tobacco smoking affecting in second trimester Place 1 patch on the skin 1 (one) time each day at the same time. 42 patch 12/06/2020 04/01/2021 documented as of this encounter Plan of Treatment Not on file documented as of this encounter Procedures Procedure Name Priority Date/Time Associated Diagnosis Comments OB US 14+ WEEKS ANATOMY SCAN Routine 01/23/2021 10:13 AM EDT 18 weeks gestation of documented in this encounter Results * OB US 14+ Weeks Anatomy Scan (01/23/2021 10:13 AM EDT) Anatomical Region Laterality Modality Body Ultrasound 01/23/2021 10:0 0 AM EDT Impressions 02/03/2021 1:03 AM EDT The OB Ultrasound you requested has been resulted. Please navigate to the Imaging tab in [employer] for review. This message has been generated by the interface. Narrative Procedure Note Colten Cope MD - 02/03/2021 IMPRESSION: The OB Ultrasound you requested has been resulted. Please navigate to theImaging tab in [employer] for review. This message has been generated by [facility] us Chava Rivera APRN, CNM IMG OB US PROCEDURES Fin al Result documented in this encounter Visit Diagnoses Diagnosis 18 weeks gestation of documented in this encounter Care Teams Telecommunications Professional Relationship Specialty Start Date End Date Per Patient, None, [address] [facility] [address] [place] [phone] PCP - General 11/25/20 documented as of this encounter
--- OUTSIDE RECORDS SUMMARY | 2024-04-02 15:14 | XMS_ITS | Encounter Summary ---
Author Organization Healthcare Address [address] [place] [address] Care Team Providers Care Strategy Execution Consultant Name Role Phone Per Patient, None Primary Care Provider [phone] Encounter Details Date Type Department Care Team (Latest Contact Info) Description 04/28/2021 Travel Social History Tobacco Use Types Packs/Day [...] have Coronavirus / COVID-19? No / Unsure 04/28/2021 11:02 PM EST documented as of this encounter Plan of Treatment Not on file documented as of this encounter Visit Diagnoses Not on filedocumented in this encounter Care Teams Strategy Execution Consultant Relationship Specialty Start Date End Date Per Patient, None, [address] [place], [place] [id number] PCP - General 11/25/20 documented as of this encounter
--- OUTSIDE RECORDS SUMMARY | 2024-04-02 15:14 | XMS_ITS | Encounter Summary ---
Author Organization Healthcare Address [address] [place] [address] Care Team Providers Care Spikemaking Supervisor Name Role Phone Per Patient, None Primary Care Provider + [phone] Encounter Details Date Type Department Care Team (Latest Contact Info) Description 05/17/2021 Travel Social History Tobacco Use Types Packs/Day [...] on filedocumented in this encounter Care Teams Spikemaking Supervisor Relationship Specialty Start Date End Date Per Patient, None, [address] [facility] [address] [place] [address] PCP - General 11/25/20 documented as of this encounter
--- OUTSIDE RECORDS SUMMARY | 2024-04-02 15:14 | XMS_ITS | Encounter Summary ---
Author Organization Healthcare Address [address] [place], [place] [id number] Care Team Providers Care Oxygen System Tester Name Role Phone Per Patient, None Primary Care Provider [phone] Encounter Details Date Type Department Care Team (Late st Contact Info) Description 04/15/2021 10:30 AM EST Routine [facility] [address] [place] [address] Mary Verde APRN, CN [address] [place] [address] 33 weeks gestation of (Primary Dx) Social History [...] Sign Reading Time Taken Comments Blood Pressure 112/82 04/15/2021 11:07 AM EST Pulse - - Temperature - - Respiratory Rate - - Oxygen Saturation - - Inhaled Oxygen Concentration - - Weight 105 kg (232 lb 9.4 oz) 04/15/2021 11:07 A M EST Height - - Body Mass Index - - documented in this encounter Miscellaneous Notes * Progress Notes - Mary Verde APRN, CNM - 04/15/2021 10:30 AM EST 33w1d ROLANDO -FH WNL today -Passed GTT with 1 value elevated, enco water and exercise and to avoid conc. sweets -Reports doing better, got over her bronchitis -Asked about breast pump, still awaiting thru [employer] RTC: 2wks documented in this encounter Plan of Treatment Not on file documented as of this encounter Visit Diagnoses Diagnosis 33 weeks gestation of - Primary documented in this encounter Care Teams Oxygen System Tester Relationship Specialty Start Date End Date Per Patient, None, [address] [facility] [address] [place] [address] PCP - General 11/25/20 documented as of this encounter
--- OUTSIDE RECORDS SUMMARY | 2024-04-02 15:14 | XMS_ITS | Encounter Summary ---
Author Organization Healthcare Address [address] [place] [address] Care Team Providers Care Naval Designer Name Role Phone Per Patient, None Primary Care Provider [phone] Encounter Details Date Type Department Care Team (Late st Contact Info) Description 04/07/2021 Abstract [facility] [address] [place] [address] Mary Verde, SPECIMEN TECHNICIAN, CN [address] [place] [address] Social History Tobacco Use Types Packs/Day Years [...] on filedocumented in this encounter Care Teams Naval Designer Relationship Specialty Start Date End Date Per Patient, None, [address] [place], [place] [id number] PCP - General 11/25/20 documented as of this encounter
--- OUTSIDE RECORDS SUMMARY | 2024-04-02 15:14 | XMS_ITS ---
Author Organization [facility] Address [address] [place] [address] Care Team Providers Care Dethistler Operator Name Role Phone Per Patient, None Primary Care Provider [phone] [facility]BD[facility] - Diabetes Self-Management Education (DSME) Status:Closed (Closed) Start date:03/30/2023 Enrollment date:03/30/2023 Enrollment reason:Referred by provider End date:01/27/2024 Close reason:Patient graduated Continued Care and Services Coordination
--- OUTSIDE RECORDS SUMMARY | 2024-04-02 15:14 | XMS_ITS | Encounter Summary ---
Author Organization Healthcare Address [address] [place] [address] Care Team Providers Care Desizing Machine Operator Head End Name Role Phone Per Patient, None MD Primary Care Provider + [phone] Encounter Details Date Type Department Care Team (Latest Contact Info) Description 03/17/2021 8:15 AM EDT Routine [facility] [address] [place] [address] Samira Cruz, CALCULATING MACHINE OPERATOR, CNM [address] [place] [address] 29 weeks gestation of (Primary Dx); Maternal tobacco use in second trimester Social History Tobacco Use [...] Sign Reading Time Taken Comments Blood Pressure 118/82 03/17/2021 9:09 AM EDT Pulse - - Temperature - - Respiratory Rate - - Oxygen Saturation - - Inhaled Oxygen Concentration - - Weight 99.7 kg (219 lb 12.8 oz) 03/17/2021 9:09 AM EDT Height - - Body Mass Index - - documented in this encounter Miscellaneous Notes * Progress Notes - Samira Cruz APRN, CNM - 03/17/2021 8:15 AM EDT at 29w0d Growth scan today: US @ 29w0d (03/17/21): PRELIM- vertex, ant placenta, LALIT WNL, BPP 12/22, EFW 51%, UAD WNL; no f/u scheduled, awaiting final MD impression advised pt that MFM still needs to finalize the ultrasound and we will call if any changes are reported. She tried nicotine patch, but it caused local irritation and would like to switch to a Nicotine Lozenge. RX sent 28 week labs today RTC in 2 weeks documented in this encounter Plan of Treatment Not on file documented as of this encounter Procedures Procedure Name Priority Date/Time Associated Diagnosis Comments GLUCOSE CHALLENGE - OB SCREEN Routine 03/17/2021 1:22 PM EDT 29 weeks gestation of CBC W/O DIFFERENTIAL Routine 03/17/2021 1:21 PM EDT 29 weeks gestation of documented in this encounter Results * (ABNORMAL) Glucose Challenge - OB Screen 1 hour (03/17/2021 1:22 PM EDT) Glucose OB Screen - 1 Hour 162(H) 74 - 139 mg/dL 03/17/2021 1:22 PM EDT [facility] Blood Venous blood specimen / Unknown 03/17/2021 12:42 PM EDT Narrative [facility] - 03/17/2021 1:22 PM EDT If plasma glucose concentration measured 1 hour after 50g glucose load is >= 140 mg/L, proceed to [id number], Glucose Tolerance Confirmation 3 Hour Test. Samira Cruz APRN, CNM LAB BLOOD ORDERABLES Final Result [facility] [address] [place] [address] * (ABNORMAL) CBC (03/17/2021 1:21 PM EDT) WBC Count 16.86(H) 3.70 - 10.30 10*3/uL LAB HEMATOLOGY METHOD 03/17/2021 1:21 PM EDT [facility] RBC Count 3.92 3.90 - 5.20 10*6/uL LAB HEMATOLOGY METHOD 03/17/2021 1:21 PM EDT [facility] HGB 11.4 11.2 - 15.7 g/dL LAB HEMATOLOGY METHOD 03/17/2021 1:21 PM EDT [facility] HCT 34.7 34.0 - 45.0 % LAB HEMATOLOGY METHOD 03/17/2021 1:21 PM EDT [facility] Platelet Count 268 155 - 369 10*3/uL LAB HEMATOLOGY METHOD 03/17/2021 1:21 PM EDT [facility] MCV 89 79 - 98 fL LAB HEMATOLOGY METHOD 03/17/2021 1:21 PM EDT [facility] MCH 29.1 26.0 - 32.0 pg LAB HEMATOLOGY METHOD 03/17/2021 1:21 PM EDT [facility] MCHC 32.9 30.7 - 35.5 g/dL LAB HEMATOLOGY METHOD 03/17/2021 1:21 PM EDT [facility] RDW 14.2 11.5 - 14.5 % LAB HEMATOLOGY METHOD 03/17/2021 1:21 PM EDT [facility] MPV 10.8 8.8 - 12.5 fL LAB HEMATOLOGY METHOD 03/17/2021 1:21 PM EDT [facility] nRBC 0.0 <=0.0 per 100 WBCs LAB HEMATOLOGY METHOD 03/17/2021 1:21 PM EDT [facility] Blood Venous blood specimen / Unknown 03/17/2021 12:42 PM EDT Samira Cruz APRN, CNM LAB BLOOD ORDERABLES Final Result [facility] [address] [place] [address] documented in this encounter Visit Diagnoses Diagnosis 29 weeks gestation of - Primary Maternal tobacco use in second trimester documented in this encounter Care Teams Desizing Machine Operator Head End Relationship Specialty Start Date End Date Per Patient, None, [address] [place] [address] PCP - General 11/25/20 documented as of this encounter
== END 2024-04-01 09:30 | disposition home or self-care (01) ==
PROVIDERS: Emergency Provider Nurse Practitioner Family; PCP Nurse Practitioner
DX: H66.93 Otitis media, unspecified, bilateral (principal); J02.9 Acute pharyngitis, unspecified
CPT/HCPCS: 87804; 87880; 99213; G0381

== ENCOUNTER 2024-12-08 20:22 | Emergency (ER) | payer OTHER, SELFPAY ==
--- NOTE | 2024-12-08 20:25 | ECG_ITS ---
APPROVED REPORT Exam: Resting ECG HR:93 bpm ECG Measurements Heart Rate 93 AXES VT 157 P 5 QRSd 89 QRS 94 QT 359 T 56 QTc 410 Conclusion SINUS RHYTHM BORDERLINE RIGHT AXIS DEVIATION [QRS AXIS > 90] BORDERLINE ECG Electronically signed by : KYLEIGH STERLING, 12/10/2024 07:19:24
[2024-12-08 20:26] VITALS: BP 137/85; PULSE 93; RESP 16; TEMP 37; O2SAT 100; BMI 39.9
--- OUTSIDE RECORDS SUMMARY | 2024-12-08 20:29 | XMS_ITS | Clinical Summary ---
Author Organization [facility] Address [address] [place] [address] Care Team Providers Care Location Worker Name Role Phone Per Patient, None Primary Care Provider [phone] Allergies Active Allergy Reactions Criticality Noted Date Comments Clindamycin Itching Medium 11/25/2022 Medications famotidine (Pepcid) 20 MG tablet Take 1 tablet by mouth twice daily 60 tablet 05/18/2024 Active Caplyta 42 MG capsule Take 1 capsule by mouth 1 (one) time each day. 05/05/2024 Active Active Problems Problem Noted Date Diagnosed Date Previous section complicating 06/01/2023 Gastroesophageal reflux disease 05/17/2021 Gonorrhea affecting in second trimeste r 01/24/2021 Overview (01/24/2021): Pt to seek treatment in [place]. 01/24/21 Tobacco smoking affecting in second imester 12/06/2020 Overview (12/06/2020): Nicotine patch 14mg/day [...] pregna ncy in third trimester 05/17/2021 05/21/2021 Immunizations Immunization Administration Dates Next Due Influenza, injectable, quadrivalent, [...] Date Recorded Patient Health Questionnaire-2 Score 0 05/19/2024 Corn Depression Scale Answer Date Recorded Corn Depression Scale Total 0 07/07/2023 The thought of harming myself has occurred to me . Never 07/07/2023 PHQ-9 Answer Date Recorded Patient Health Questionnaire-9 Score 0 05/19/2024 PHQ-2A Answer Date Recorded Patient Health Questionnaire-2 Score 0 04/22/2023 Comments No Sex and Gender Information Value Date Recorded Sex Assigned at Not on file Legal Sex Female 10:59 AM EDT Gender Identity Not on file Sexual Orientation Not on file Last Filed Vital Signs Vital Sign Reading Time Taken Comments Blood Pressure 112/79 05/19/2024 2:29 PM EST Pulse 96 05/19/2024 2:29 PM EST Temperature 36.7 C (98 F) 05/19/2024 2:29 PM EST Respiratory Rate 20 05/19/2024 2:29 PM EST Oxygen Saturation 98% 05/19/2024 2:29 PM EST Inhaled Oxygen Concentration - - Weight 112 kg (246 lb 14.6 oz) 05/19/2024 2:29 P M EST Height 162.6 cm (5' 4 ) 05/19/2024 2:29 PM EST Body Mass Index 42.38 05/19/2024 2:29 PM EST Plan of Treatment Upcoming Encounters Date Type Department Care Team (Late st Contact Info) Description 05/21/2025 1:30 PM EST Procedure Visit Obstetrics & Gynecology [address] [place] [address] Steffen Livingston MD [address] [place] [address] Health Maintenance Due Date Last Done Comments [facility]-Infant/Child/Adol SDOH Screenings 1994 [facility]-Varicella Vaccines (1 of 2 - 13+ 2-dose series) 2007 HPV Vaccines (1 - 3-dose series) 2009 [facility]- SDOH Screenings 2012 [facility]-Adult SDOH Screenings 2012 [facility]-Hepatitis B Vaccines (1 of 3 - 19+ 3-dose series) 2013 [facility]-Pneumococcal Vaccine: Pediatrics (0 to 5 Years) and At-Risk Patients (6 to 49 Years) (1 of 2 - PCV) 2013 AOD-[id number]-76 Vaccine (3 - season) 2024 02/14/2021, 01/25/2021 [facility]-Influenza Vaccine (#1) 2025 03/02/2023 [facility]-Depression Screening 05/19/2025 025, 05/19/2024, 07/07/2023 [facility]-Pap Smear 05/19/2027 05/19/2024 [facility]-Cervical Cancer Screening 05/19/2029 [facility]HPV/Cotest 05/19/2029 05/19/2024 [facility]-DTaP,Tdap,and Td Vaccines (4 - Td or Tdap) 04/15/2033 04/15/2023, 04/30/2021, 09/28/2006 [facility]-Zoster Vaccines (1 of 2) 2044 [facility]-Hepatitis C Screening Completed 11/25/2022, [facility]-HIV Screening Completed 11/30/2022, 01/01/2021 [facility]-RSV Vaccine: 60+ Years or Discontinued 05/14/2023 [facility]-Obesity Intervention Completed 025, 07/22/2023, 07/07/2023, Additional history exists [facility]-HIB Vaccines Aged Out [...] Procedure Name Priority Date/Time Associated Diagnosis Comments REFERRED THINPREP PAP AND HPV (SO) Routine 05/19/2024 5:56 PM EST Encounter for annual routine gynecological examination HIV 1/2 ANTIBODY/ANTIGEN SCREEN WITH REFLEX TO HIV I/II DIFFERENTIATION Routine 11/30/2022 11:24 AM EDT Unsure of LMP (last menstrual period) as reason for ultrasound scan HEPATITIS C ANTIBODY W/REFLEX TO HCV QUANT PCR Routine 11/25/2022 10:16 AM EDT Unsure of LMP (last menstrual period) as reason for ultrasound scan from Last 3 Months or Most Recently Relevant to Health Maintenance Results * Referred ThinPrep Pap and HPV (SO) (05/19/2024 5:56 PM EST) Pap, Source Cx/Vagina 05/31/2024 5:35 PM EST [facility] EER Referred ThinPrep Pap and HPV See Note 05/31/2024 5:35 PM EST [facility] PAP, THINPREP Normal 05/31/2024 5:35 PM EST [facility] High Risk HPV Normal 05/31/2024 5:35 PM EST [facility] Swab Vaginal and cervical cytologic material / Unknown 05/19/2024 5:56 PM EST 05/19/2024 5:57 PM EST Narrative [facility] ([facility] - 05/31/2024 5:35 PM EST Authorized individuals can access the [facility] Enhanced Report with an [facility] Connect account using the following link. Your local lab can assist you in obtaining the patient report if you don't have a Connect account. [email or web address] Performed By: [facility] [address] [place] [id number] Image Assembler: Odin Rodriguez MD, PhD CLIA Number: [id number] SPECIMEN PART A. Cervical, Endocervical, Vaginal, ThinPrep Pap ([place] [facility]) CYTOLOGY HX Date of Last Menstrual Period: n FINAL DIAGNOSIS INTERPRETATION: Negative for Intraepithelial Lesion or Malignancy. SPECIMEN ADEQUACY:Satisfactory for evaluation. Endocervical/transformation zone component present. Electronically Signed Out : ctbcn Performed by: [facility] [address] [place] [address] [place] [address] Alice Saravia MD, HR-HPV: Negative Test performed by the FDA-approved Hologic (Gen-Probe) APTIMA HPV test, which detects HPV genotypes: 16, 18, 31, 33, 35, 39, 45, 51, 52, 56, 58, 59, 66, and 68. This assay has been cleared for the specimen types listed below. Other specimen types have not been validated for this assay. Clinician-collected ThinPrep Pap specimens. Performed by: [facility] [address] [place] [address] [place] [address] Alice Saravia MD, Steffen Livingston MD LAB REF LAB BLOOD AND FLUID ORD Final Result [facility] [address] [place] [id number] * HIV 1 & 2 Antibody/Antigen Screen (11/30/2022 11:24 AM EDT) HIV 1 & 2 Antibody/Antigen Screen Non Reactive Non Reactive 11/30/2022 2:29 PM EDT [facility] Comment:Screening for HIV 1 & 2 antibodies, and P24 antigen is NONREACTIVE. No confirmatory testing is required. Blood Venous blood specimen / Unknown Venipuncture / Unknown 11/30/2022 11:24 AM EDT 11/30/2022 1:18 PM EDT Result Kash Livingston MD LAB BLOOD ORDERABLES Final Resu lt Performing Organization Address City/[facility] Co de Phone Number [facility] [address] [place] [address] * Hepatitis C Antibody (11/25/2022 10:16 AM EDT) Pathologist [facility] [place] Hepatitis C Antibody Negative Negative 11/25/2022 1:25 PM EDT [facility] Blood Venous blood specimen / Unknown Venipuncture / Unknown 11/25/2022 10:16 AM EDT 11/25/2022 12:56 PM EDT Result Kash Livingston MD LAB BLOOD ORDERABLES Final Resu lt Performing Organization Address City/[facility] Co de Phone Number [facility] [address] [place] [address] from Last 3 Months or Most Recently Relevant to Health Maintenance Additional Health Concerns Active Problems Noted Date Diagnosed Date CPM S22 PP LABOR (OBSTETRICS) 12/02/2022 Insurance [employer] [facility] MEDICAID Advance Directives * Full Code (Latest Code Status on File) Date Activated Date Inactivated Comments 05/17/2021 6:18 PM 05/21/2021 2:36 PM Question Answer Comments Patient has decision-making capacity? Yes Care Teams Location Worker Relationship Specialty Start Date End Date Per Patient, None, [address] [facility] [address] [place] [address] PCP - General 11/25/20
[2024-12-08 21:04] VITALS: BP 120/77; PULSE 85; O2SAT 99
[2024-12-08] MEDS: RINGERS SOLUTION,LACTATED 500 ML 999 ML IV (21:09)
[2024-12-08 21:10] LABS: Hematocrit 38.8 % (37.0-47.0); Hemoglobin 13.0 g/dL (12.2-16.2); Immature Granulocytes % 0.4 %; Mean Corpuscular HGB Conc 33.5 g/dL (31.8-35.4); Mean Corpuscular Hemoglobin 28.6 pg (27.0-31.2); Mean Corpuscular Volume 85.5 fl (81-99); Nucleated Red Blood Cells % 0 %; Platelet Count 290 K/mm3 (142-424); Red Blood Count 4.54 M/mm3 (4.20-5.40); Red Cell Distribution Width-SD 42.0 fL; White Blood Count 9.4 K/mm3 (4.8-10.8)
[2024-12-08] MEDS: ONDANSETRON 4MG/2ML VIAL 4 MG IV (21:10)
[2024-12-08 21:16] LABS: Albumin Level 4.4 g/dl (3.5-5.0); Chloride 98 mmol/L (98-107)
[2024-12-08 21:17] LABS: Potassium 4.2 mmoL/L (3.5-5.1); Sodium 133 mmol/L (136-145)
[2024-12-08 21:19] LABS: Alanine Aminotransferase 43 U/L (12-78); Albumin/Globulin Ratio 1.4 (1.1-1.8); Alkaline Phosphatase 165 U/L (38-126); Anion Gap 11.2 mEq/L (5-15); Aspartate Amino Transferase 38 U/L (14-36); Bilirubin,Total 0.4 mg/dl (0.2-1.3); Blood Urea Nitrogen 10 mg/dl (7-17); Carbon Dioxide 28 mmol/L (22.0-30.0); Creatinine Clearance Estimated 236 mL/min (50-200); Creatinine,Serum 0.60 mg/dl (0.52-1.04); Estimated Glomerular Filt Rate 117 ml/min (>60); GFR (African American) 142 ML/MIN (>60); Globulin 3.2 g/dL (1.3-3.2); Total Protein,Serum 7.6 g/dl (6.3-8.2)
[2024-12-08 21:20] LABS: Calcium 9.0 mg/dl (8.4-10.2); Glucose 107 mg/dl (74-100); Magnesium 1.8 mg/dl (1.6-2.3)
[2024-12-08 21:23] LABS: Lactate Venous 1.8 mmol/L (0.4-2.0); VBG HCO3 25.3 mmol/L (23-30); VBG PCO2 42.4 mmol/L (35-51); VBG PH 7.39 mmol/L (7.31-7.41); VBG PO2 37.3 mmol/L (28-40)
[2024-12-08 21:25] LABS: D-Dimer 0.64 ug/mL (0.0-0.5)
[2024-12-08 21:29] LABS: NT Pro Brain Natriuretic Pep. 51.8 pg/mL (0-125)
[2024-12-08 21:30] VITALS: BP 120/77; PULSE 96; O2SAT 98
[2024-12-08 21:43] LABS: Troponin I < 0.01 ng/ml (0.00-0.034)
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
[2024-12-08 22:00] VITALS: BP 117/71; PULSE 94; O2SAT 100
[2024-12-08 22:37] VITALS: BP 120/88; PULSE 80; RESP 20; TEMP 36.6; O2SAT 99
[2024-12-08 22:45] LABS: Hepatitis C Ab Qual. W/ RFX NEGATIVE (Negative)
== END 2024-12-08 22:48 | disposition home or self-care (01) ==
PROVIDERS: Emergency Provider Student in an Organized Health Care Education/Training Program; PCP Nurse Practitioner
DX: R07.9 Chest pain, unspecified (principal); M25.512 Pain in left shoulder; F17.210 Nicotine dependence, cigarettes, uncomplicated
CPT/HCPCS: 80053; 82803; 83735; 83880; 84484; 85025; 85378; 86803; 87389; 93005; 96374; 99284; J2405; J7120

== ENCOUNTER 2024-12-12 15:40 | Outpatient (CLI) | payer OTHER, SELFPAY ==
--- OUTSIDE RECORDS SUMMARY | 2024-12-12 15:44 | XMS_ITS | Clinical Summary ---
Author Organization [facility] Address [address] [place] [address] Care Team Providers Care Airplane Flight Attendant Name Role Phone Per Patient, None Primary Care Provider [phone] Allergies Active Allergy Reactions Criticality Noted Date [...] Overview (01/24/2021): Pt to seek treatment in [place]. 01/24/21 Tobacco smoking affecting in second imester [...] Recorded Patient Health Questionnaire-2 Score 0 05/19/2024 Varna Depression Scale Answer Date Recorded Varna Depression Scale Total 0 07/07/2023 The thought [...] Visit Obstetrics & Gynecology [address] [place] [address] Steffen Livingston MD [address] [place] [address] Health Maintenance Due Date Last [...] Years) (1 of 2 - PCV) 2013 [id number] Vaccine (3 - season) 2024 02/14/2021, 01/25/2021 [...] Cx/Vagina 05/31/2024 5:35 PM EST [facility] ([employer]) EER Referred ThinPrep Pap and HPV See Note 05/31/2024 5:35 PM EST [facility] ([employer]) PAP, THINPREP Normal 05/31/2024 5:35 PM EST [facility] ([employer]) High Risk HPV Normal 05/31/2024 5:35 PM EST [facility] ([facility]) Swab Vaginal and cervical cytologic material / Unknown 05/19/2024 5:56 PM EST 05/19/2024 5:57 PM EST Narrative [facility] ([facility]) - 05/31/2024 5:35 PM EST Authorized individuals can access the [facility] Enhanced Report with an [facility] Connect account using the following link. Your local lab can assist you in obtaining the patient report if you don't have a Connect account. [email or web address] Performed By: [facility] [address] [place] [id number] Gynecology Teacher: Odin Rodriguez MD, PhD CLIA Number: [id number] SPECIMEN PART A. Cervical, Endocervical, Vaginal, ThinPrep Pap (Gallery Intern) CYTOLOGY HX Date of Last Menstrual Period: n FINAL DIAGNOSIS INTERPRETATION: Negative for Intraepithelial Lesion or Malignancy. SPECIMEN ADEQUACY:Satisfactory for evaluation. Endocervical/transformation zone component present. Electronically Signed Out : ctbcn Performed by: [facility] [address] [place] [address] [place] [id number] Alice Saravia MD, HR-HPV: Negative Test performed by the FDA-approved Hologic (Gen-Probe) APTIMA HPV test, which detects HPV genotypes: 16, 18, 31, 33, 35, 39, 45, 51, 52, 56, 58, 59, 66, and 68. This assay has been cleared for the specimen types listed below. Other specimen types have not been validated for this assay. Clinician-collected ThinPrep Pap specimens. Performed by: [facility] [address] [place] [address] [place] [id number] Alice Saravia MD, Steffen Livingston MD LAB REF LAB BLOOD AND FLUID ORD Final Result [facility] ([facility]) [address] [place] [id number] * HIV 1 & 2 Antibody/Antigen Screen [...] ORDERABLES Final Resu lt Performing Organization Address City/[facility] Co de Phone Number [facility] [address] [place] [address] * Hepatitis C Antibody (11/25/2022 10:16 AM EDT) Pathologist [facility] Hepatitis C Antibody Negative Negative 11/25/2022 1:25 PM EDT HEALTHCARE [facility] Blood Venous blood specimen / Unknown Venipuncture / Unknown 11/25/2022 10:16 AM EDT 11/25/2022 12:56 PM EDT Result Kash Livingston MD LAB BLOOD ORDERABLES Final Resu lt Performing Organization Address City/[facility] Co de Phone Number [facility] [address] [place] [address] from Last 3 Months or Most Recently Relevant to Health Maintenance Additional Health Concerns Active Problems Noted Date Diagnosed Date CPM S22 PP LABOR (OBSTETRICS) 12/02/2022 Insurance [employer] [facility] MEDICAID Advance Directives * Full Code (Latest Code Status on File) Date Activated Date Inactivated Comments 05/17/2021 6:18 PM 05/21/2021 2:36 PM Question Answer Comments Patient has decision-making capacity? Yes Care Teams Airplane Flight Attendant Relationship Specialty Start Date End Date Per Patient, None, [address] [facility] [address] [place] [address] PCP - General 11/25/20
--- NOTE | 2024-12-12 15:48 | XR_ITS ---
PROCEDURE INFORMATION: Exam: XR Lumbosacral Spine Exam date and time: 12/12/2024 3:49 PM Age: 29 years old Clinical indication: Low back pain TECHNIQUE: Imaging protocol: Radiologic exam of the lumbosacral spine. Views: 4 or 5 views. COMPARISON: No relevant prior studies available. FINDINGS: Bones/joints: Very mild leftward curvature of the lumbar spine. Mild facet joint arthritis at the lumbosacral junction bilaterally. Mild degenerative changes involving the sacroiliac joints bilaterally. Soft tissues: Unremarkable. Intraperitoneal space: Surgical clips right upper quadrant. IMPRESSION: No acute findings. Mild curvature of the lumbar spine with mild facet joint arthritis at the lumbosacral junction and mild degenerative changes involving the sacroiliac joints bilaterally.
== END 2024-12-12 23:59 | disposition home or self-care (01) ==
LOC: RAD 15:41
PROVIDERS: PCP Nurse Practitioner; Visit Provider Family Medicine
DX: M47.817 Spondylosis without myelopathy or radiculopathy, lumbosacral region (principal); M46.1 Sacroiliitis, not elsewhere classified; M43.9 Deforming dorsopathy, unspecified
CPT/HCPCS: 72110